=== PATIENT | female | born 2000 | race Caucasian/White ===

== ENCOUNTER 2020-05-29 07:20 | Outpatient (REF) | payer OTHER, MEDICAID, SELFPAY ==
[2020-05-29 09:24] LABS: MANUAL DIFF FLAG NO
[2020-05-29 09:47] LABS: Basophils Percent Auto 0.3 % (0-2); Eosinophils Absolute Auto 0.1 X10*3/uL (0.0-0.4); Eosinophils Percent Auto 1.6 % (0-4); Hematocrit 40.6 % (37-47); Hemoglobin 12.5 g/dl (12.0-16.0); Imm Gran Abs Auto 0.02 X10*3/uL (0.00-0.03); Imm Gran Pct Auto 0.2 % (0.0-0.4); Lymphocytes Absolute Auto 3.3 X10*3/uL (1.2-4.9); Lymphocytes Percent Auto 37.8 % (20-40); Mean Corpuscular HGB Conc 30.8 g/dl (31.0-35.0); Mean Corpuscular Hemoglobin 25.9 pg (27.0-33.0); Mean Corpuscular Volume 84.2 fL (80-98); Mean Platelet Volume 10.5 fL (9.4-12.3); Monocytes Absolute Auto 0.6 X10*3/uL (0.1-1.2); Monocytes Percent Auto 7.1 % (2-11); Neutrophils Absolute Auto 4.6 X10*3/uL (2.0-8.3); Platelet Count 333 X10*3/uL (160-400); Red Blood Count 4.82 X10*6/uL (4.20-5.50); Red Cell Distribution Width 13.7 % (11.0-16.0); White Blood Count 8.6 X10*3/uL (4.8-10.8)
[2020-05-29 10:15] LABS: Anion Gap 11 (12-20); Blood Urea Nitrogen 15 mg/dL (9-16); Calcium 8.7 mg/dL (8.4-10.2); Carbon Dioxide 28 mmol/L (22-29); Chloride 105 mmol/L (96-108); Cholesterol 104 mg/dL; Estimated Glomerular Filt Rate > 60; Glucose Fasting 85 mg/dL (60-99); HDL Cholesterol 31 mg/dL; LDL Cholesterol Calculated 63 mg/dl; Potassium 4.4 mmol/l (3.3-5.1); Sodium 140 mmol/L (135-145); Triglycerides 52 mg/dL
[2020-05-29 10:37] LABS: TSH reflex Free T4 8.52 mIU/mL (0.32-4.0)
[2020-05-29 13:18] LABS: Free T4 (Free Thyroxine) 0.93 ng/dL (0.71-1.85)
== END 2020-05-29 07:21 | disposition home or self-care (01) ==
LOC: HO.LAB 07:20
PROVIDERS: PCP Internal Medicine; Visit Provider Nurse Practitioner Family
DX: E66.01 Morbid (severe) obesity due to excess calories (principal)
CPT/HCPCS: 36415; 80048; 80061; 84439; 84443; 85025

== ENCOUNTER 2021-04-12 10:48 | Outpatient (REF) | payer OTHER, MEDICAID, SELFPAY | END 2021-04-12 10:49 | disposition home or self-care (01) | LOC: HO.LAB 10:48 | PROVIDERS: PCP Internal Medicine; Visit Provider Internal Medicine | DX: Z20.822 Contact with and (suspected) exposure to COVID-19 (principal) | CPT/HCPCS: C9803; U0003; U0005 ==

== ENCOUNTER 2021-07-13 13:09 | Outpatient (REF) | payer OTHER, MEDICAID, SELFPAY ==
[2021-07-13 15:29] LABS: COVID-19 Test Negative (Negative)
== END 2021-07-13 13:10 | disposition home or self-care (01) ==
LOC: HO.LAB 13:09
PROVIDERS: Visit Provider Internal Medicine
DX: Z20.822 Contact with and (suspected) exposure to COVID-19 (principal)
CPT/HCPCS: 36415; 87635; C9803

== ENCOUNTER 2021-07-16 07:23 | Outpatient (REF) | payer OTHER, MEDICAID, SELFPAY ==
[2021-07-16 08:06] LABS: Hematocrit 39.8 % (37.0-47.0); Mean Corpuscular HGB Conc 30.2 g/dl (31.0-35.0); Mean Corpuscular Hemoglobin 25.1 pg (27.0-33.0); Mean Corpuscular Volume 83.3 fL (80.0-98.0); Mean Platelet Volume 10.4 fL (9.4-12.3); Platelet Count 321 X10*3/uL (160-400); Red Blood Count 4.78 X10*6/uL (4.20-5.50); Red Cell Distribution Width 13.7 % (11.0-16.0); White Blood Count 7.3 X10*3/uL (4.8-10.8)
[2021-07-16 08:15] LABS: Estimated Average Glucose 148 mg/dL; Hemoglobin A1c % 6.8 %
[2021-07-16 08:28] LABS: Alanine Aminotransferase 26 U/L (0-31); Albumin Level 3.7 g/dL (3.5-5.0); Alkaline Phosphatase 79 U/L (39-117); Anion Gap 11 (12-20); Aspartate Amino Transferase 18 U/L (5-31); Bilirubin Total 0.3 mg/dL (0.0-1.0); Blood Urea Nitrogen 14 mg/dL (9-16); Calcium 9.1 mg/dL (8.4-10.2); Carbon Dioxide 27 mmol/L (22-29); Chloride 105 mmol/L (96-108); Estimated Glomerular Filt Rate > 60; Glucose Fasting 122 mg/dL (60-99); Potassium 4.4 mmol/L (3.3-5.1); Sodium 139 mmol/L (135-145); Total Protein 7.2 g/dL (6.5-8.0)
[2021-07-16 09:17] LABS: Free T4 (Free Thyroxine) 0.86 ng/dL (0.71-1.85)
== END 2021-07-16 07:24 | disposition home or self-care (01) ==
LOC: HO.LAB 07:23
PROVIDERS: PCP Internal Medicine; Visit Provider Physician Assistant
DX: Z13.1 Encounter for screening for diabetes mellitus (principal); E66.01 Morbid (severe) obesity due to excess calories
CPT/HCPCS: 36415; 80053; 83036; 84439; 84443; 85027

== ENCOUNTER 2021-08-23 10:11 | Outpatient (REF) | payer OTHER, MEDICAID, SELFPAY ==
[2021-08-23 11:07] LABS: COVID-19 Test Negative (Negative)
== END 2021-08-23 10:12 | disposition home or self-care (01) ==
LOC: HO.LAB 10:11
PROVIDERS: Visit Provider Internal Medicine
DX: Z20.822 Contact with and (suspected) exposure to COVID-19 (principal)
CPT/HCPCS: 87635; C9803

== ENCOUNTER 2021-10-20 11:44 | Outpatient (REF) | payer OTHER, MEDICAID, SELFPAY ==
--- NOTE | ~2021-10-20 | XR_ITS ---
EXAMINATION: XR KNEE, RIGHT CLINICAL INFORMATION: Pain COMPARISON: None TECHNIQUE: Four views of the right knee. FINDINGS: Bones and soft tissues are normal. No fracture or joint effusion. Alignment is anatomic. Joint spaces are well maintained. No abnormal soft tissue calcification. XR/XR knee RT 4V IMPRESSION: Normal right knee.
[2021-10-20 12:33] LABS: Hematocrit 42.8 % (37.0-47.0); Hemoglobin 12.8 g/dl (12.0-16.0); Mean Corpuscular HGB Conc 29.9 g/dl (31.0-35.0); Mean Corpuscular Hemoglobin 24.8 pg (27.0-33.0); Mean Corpuscular Volume 82.8 fL (80.0-98.0); Mean Platelet Volume 10.1 fL (9.4-12.3); Platelet Count 361 X10*3/uL (160-400); Red Blood Count 5.17 X10*6/uL (4.20-5.50); Red Cell Distribution Width 13.9 % (11.0-16.0); White Blood Count 7.9 X10*3/uL (4.8-10.8)
[2021-10-20 13:06] LABS: Alanine Aminotransferase 28 U/L (0-31); Alkaline Phosphatase 84 U/L (39-117); Anion Gap 13 (12-20); Aspartate Amino Transferase 21 U/L (5-31); Bilirubin Total 0.3 mg/dL (0.0-1.0); Blood Urea Nitrogen 11 mg/dL (9-16); Calcium 9.5 mg/dL (8.4-10.2); Carbon Dioxide 23 mmol/L (22-29); Chloride 104 mmol/L (96-108); Cholesterol 136 mg/dL; Estimated Glomerular Filt Rate > 60; Glucose Fasting 100 mg/dL (60-99); HDL Cholesterol 27 mg/dL; LDL Cholesterol Calculated 83 mg/dl; Potassium 5.3 mmol/L (3.3-5.1); Sodium 135 mmol/L (135-145); Total Protein 7.8 g/dL (6.5-8.0); Triglycerides 133 mg/dL
[2021-10-20 13:25] LABS: TSH reflex Free T4 5.65 uIU/mL (0.32-4.0)
[2021-10-20 14:01] LABS: Free T4 (Free Thyroxine) 0.84 ng/dL (0.71-1.85)
[2021-10-20 14:35] LABS: Creatinine Urine 100.71 mg/dL; Microalbum/Creatinine Ratio Ur 66.5 ug/mg cr
== END 2021-10-20 11:45 | disposition home or self-care (01) ==
LOC: HO.LAB 11:44
PROVIDERS: PCP Physician Assistant; Visit Provider Physician Assistant
DX: E11.9 Type 2 diabetes mellitus without complications (principal); R79.89 Other specified abnormal findings of blood chemistry
CPT/HCPCS: 36415; 73564; 80053; 80061; 82043; 84439; 84443; 85027

== ENCOUNTER 2021-10-31 12:54 | Emergency (ER) | payer OTHER, MEDICAID, SELFPAY ==
--- NOTE | 2021-10-31 13:30 | ED_ITS ---
HPI - General Adult General Chief complaint: Extremity Injury, Lower Stated complaint: l ankle pain no inj Time Seen by Provider: 10/31/21 13:30 Source: patient Mode of arrival: ambulatory Limitations: no limitations History of Present Illness HPI narrative: Patient is a 21 year old female presenting to the emergency department today with left ankle pain. Patient states that she has a history of arthritis and is concerned this is an arthritic flare. Patient states that she has not had any injury to the left ankle. Patient denies any dizziness, lightheadedness, abdominal pain, nausea, vomiting, fever, chills, blurry vision, double vision, loss of vision, chest pain, difficulty breathing, shortness of breath, back pain, night sweats, pain with urination, increased urinary frequency, increased urinary urgency, blood in [his/her] urine or stool, syncope or a near syncopal episode, bowel incontinence, bladder incontinence, bowel retention, bladder retention, or any other complaints at this time. Onset (ago): day(s) Location: left and lower extremity Radiation: non-radiation Severity: mild Severity scale (1-10): 3 Quality: dull Pain Consistency: constant Relieving factors: none Exacerbating factors: none Associated symptoms: denies other symptoms Treatments prior to arrival: none Related Data Previous Rx's Medication Instructions Recorded sertraline 50 mg tablet 50 mg PO DAILY 30 Days #30 tab 06/23/21 metformin 500 mg tablet 500 mg PO BID 90 Days #180 tab 07/18/21 acetaminophen 650 mg 650 mg PO Q12H 15 Days #30 tab 10/20/21 tablet,extended release diclofenac sodium 1 % topical gel 4 g TOPICAL QID PRN 15 Days #100 g 10/20/21 (Arthritis Pain (diclofenac)) levothyroxine 75 mcg tablet 75 mcg PO DAILY #30 tab 10/20/21 Allergies Allergy/AdvReac Type Severity Reaction Status Date / Time No Known Allergies Allergy Verified 10/20/21 11:12 [No Known Allergies*] Review of Systems Constitutional: Constitutional: Reports no additional constitutional complaints, Denies chills, Denies fever(s) and Denies night sweats Eyes: Eyes: Reports no additional eye complaints, Denies blurry vision, Denies change in vision, Denies diplopia, Denies eye discharge, Denies loss of vision and Denies eye pain ENT: Denies dizziness Cardiovascular: Cardiovascular: Reports no additional cardiovascular complaints, Denies chest pain, Denies lightheadedness, Denies Loss of Conscio usness and Denies dyspnea Respiratory: Respiratory: Reports no additional respiratory complaints and Denies dyspnea Gastrointestinal: Gastrointestinal: Reports no additional gastrointestinal complaints, Denies abdominal pain, Denies melena, Denies hematochezia, Denies change in bowel habits and Denies change in stool character Genitourinary: Genitourinary: Denies hematuria, Denies urinary frequency, Denies dysuria, Denies urinary incontinence, Denies urinary hesitancy and Denies urinary urgency Musculoskeletal: Musculoskeletal: Reports no additional musculoskeletal complaints, Denies numbness and Denies tingling Comments: left ankle pain Neurologic: Denies dizziness, Denies loss of vision, Denies numbness and Denies tingling Psychiatric: Psychiatric: Reports no additional psychiatric complaints Endocrine: Endocrine: Reports no additional endocrine complaints Hematologic/Lymphatic: Hematologic/Lymphatic: Reports no additional hem atologic/lymphatic complaints Allergic/Immunologic: Allergic/Immunologic: Reports no additional allergic/immunologic complaints [facility] Past Medical History Attestation statement: The following information was validated with the patient. Source: old records reviewed Medical History Morbidly obese Surgical History No pertinent past surgical history Family History Family History Father Hypertension Mother Hypertension Breast cancer, Onset Age: 35 Paternal Aunt Diabetes Mental health disorder Paternal Uncle Diabetes Mental health disorder Social History Social History Housing: House Alcohol intake: current Alcohol intake frequency: holidays/special occasions only Patient Tobacco Use Status: Never used Tobacco Tobacco use type: Cigarette e-Cigarette/Vaping Use: Never Used Second Hand Smoke Exposure: No Advance Directives: No Advance Directives Information Provided: Yes Patient : No service: No Current occupational status: employed Physical Exam ED Vital Signs: Vital Signs - 24 hr 10/31/21 13:34 Temperature 98.0 F Pulse Rate 70 Respiratory Rate 17 Blood Pressure 145/78 H Pulse Oximetry 100 BMI result Body Mass Index 49.1 Const General: cooperative, no acute distress, alert and awake Nutritional Appearance: well nourished Orientation/consciousness: patient oriented x3 Limitations: no limitations HENMT Head: Yes normal to inspection and Yes atraumatic Ears: hearing grossly normal bilaterally and external ears normal General nose exam: Normal external nose present, no nasal discharge noted and no epistaxis Face and sinus: Yes normal facial exam, No abrasion and No laceration Mouth: Normal oral and palatal mucosa present, no drooling and no muffled voice Eyes General: appearance normal, both eyes and all related structures Periorbital: periorbital findings normal Eyelids: Yes eyelids normal Conjunctivae: conjunctivae normal Pupils: Equal, round and reactive pupils present EOM: EOMs intact bilaterally Neck Neck: Yes normal visual inspection, Yes full ROM and Yes no lymphadenopathy Chest Chest palpation & inspection: normal inspection of the chest Resp Effort & Inspection: normal respiratory effort and able to speak in complete sentences Auscultation: clear to auscultation bilaterally Cardio Rate: regular rate Rhythm: regular rhythm GI Inspection: Yes normal to inspection Neuro General: patient oriented x3 and moves all extremities Cranial nerves: Yes Equal, round and reactive pupils present Cognition (Neuro): normal cognition Motor exam (neuro): 5/5 motor strength present throughout Sensory Exam: Normal double simultaneous stimulation for sensation Coordination: [id number] test normal Extrem General: Yes normal to inspection, Yes full ROM and Yes capillary refill normal Psych Appearance: grossly normal Mental Status: mental status grossly normal Affect: normal affect Attitude: cooperative Thought process: Normal thought process present Thought content: Normal thought content present Insight: Good insight present (Psych) Medical Decision Making MDM Narrative Medical decision making narrative: Patient is a 21 year old female presenting to the emergency department today with left ankle pain. Patient's physical exam was unremarkable. Patient's ROM, circulation, strength, and sensation were intact to the left lower extremity. I explained my physical exam findings to the patient. I answered all questions asked by the patient. I explained to the patient that in the absence of trauma, her description of the pain, and her physical examination, I believe she is experiencing her typical arthritis. I stressed the importance of the patient taking her medication as prescribed. I stressed the importance of the patient following up with her primary care provider. I stressed the importance of the patient returning to the emergency department immediately if her symptoms were to worsen or if she were to develop any dizziness, shortness of breath, difficulty breathing, chest pain, blurry vision, loss of vision, nausea, vomiting, abdominal pain, fever, chills, back pain, or any other complaints. Patient verbalized agreement and understanding with this treatment plan and discharge. Differential Diagnosis Differential Diagnosis: arthritis, gout Medical Records Medical records reviewed: Yes I reviewed the patient's medical records. Discharge Plan Discharge Clinical Impression: Ankle pain Patient Disposition: Home, Self-Care Instructions: Arthralgia (ED) Additional Instructions: Follow up with your primary care provider. Return to the emergency department immediately if your symptoms worsen or if you develop any dizziness, shortness of breath, difficulty breathing, chest pain, blurry vision, loss of vision, nausea, vomiting, abdominal pain, fever, chills, back pain, or any other complaints. Prescriptions: No Action metformin 500 mg tablet 500 mg PO BID 90 Days Qty: 180 0RF sertraline 50 mg tablet 50 mg PO DAILY 30 Days Qty: 30 3RF diclofenac sodium [Arthritis Pain (diclofenac)] 1 % gel 4 g topical QID PRN (Reason: knee pain) 15 Days Qty: 100 0RF Rx Instructions: apply to single knee, ankle, foot; for foot includes sole/toes/top of foot acetaminophen 650 mg tablet extended release 650 mg PO Q12H 15 Days Qty: 30 0RF levothyroxine 75 mcg tablet 75 mcg PO DAILY Qty: 30 2RF Referrals: Jaylan Mackey PA-C [Primary Care Provider] - 2 days Print Language: Czech
[2021-10-31 13:34] VITALS: BP 145/78; PULSE 70; RESP 17; TEMP 36.7; O2SAT 100; BMI 49.1
[2021-10-31] MEDS: methylPREDNISolone Sod Succ 125 MG/2 ML VIAL 120 MG IM (13:59)
== END 2021-10-31 14:08 | disposition home or self-care (01) ==
LOC: HO.ED 13:45
PROVIDERS: Emergency Provider Emergency Medicine; PCP Physician Assistant
DX: M25.572 Pain in left ankle and joints of left foot (principal); E11.9 Type 2 diabetes mellitus without complications
CPT/HCPCS: 96372; 99283; 99284; J2930

== ENCOUNTER 2021-11-29 11:30 | Outpatient (REF) | payer OTHER, MEDICAID, SELFPAY ==
--- NOTE | ~2021-11-29 | XR_ITS ---
EXAMINATION: XR ANKLE, LEFT CLINICAL INFORMATION: Pain COMPARISON: None TECHNIQUE: AP, lateral, and mortise views of the left ankle. FINDINGS: The bones and soft tissues are normal. No fracture. Alignment is anatomic. Joint spaces are maintained. No joint effusion. There is a tiny calcaneal osteophyte at the Achilles tendon insertion. XR/XR ankle LT 2V IMPRESSION: Tiny calcaneal osteophyte otherwise normal left ankle.
--- NOTE | ~2021-11-29 | XR_ITS ---
EXAMINATION: BILATERAL HAND X-RAY CLINICAL INFORMATION: Pain COMPARISON: None TECHNIQUE: 3 views of each hand FINDINGS: Bone alignment is normal. No fracture or dislocation is seen. Joint spaces and soft tissues are normal. XR/XR hand RT 2V IMPRESSION: Unremarkable exam.
--- NOTE | ~2021-11-29 | XR_ITS ---
EXAMINATION: BILATERAL HAND X-RAY CLINICAL INFORMATION: Pain COMPARISON: None TECHNIQUE: 3 views of each hand FINDINGS: Bone alignment is normal. No fracture or dislocation is seen. Joint spaces and soft tissues are normal. XR/XR hand LT 2V IMPRESSION: Unremarkable exam.
[2021-11-29 13:09] LABS: Hematocrit 41.3 % (37.0-47.0); Hemoglobin 12.7 g/dl (12.0-16.0); Mean Corpuscular HGB Conc 30.8 g/dl (31.0-35.0); Mean Corpuscular Hemoglobin 24.8 pg (27.0-33.0); Mean Corpuscular Volume 80.5 fL (80.0-98.0); Mean Platelet Volume 10.2 fL (9.4-12.3); Platelet Count 338 X10*3/uL (160-400); Red Blood Count 5.13 X10*6/uL (4.20-5.50); White Blood Count 7.3 X10*3/uL (4.8-10.8)
[2021-11-29 13:18] LABS: Estimated Average Glucose 154 mg/dL
[2021-11-29 13:42] LABS: Alanine Aminotransferase 27 U/L (0-31); Albumin Level 4.1 g/dL (3.5-5.0); Alkaline Phosphatase 85 U/L (39-117); Anion Gap 12 (12-20); Aspartate Amino Transferase 20 U/L (5-31); Bilirubin Total 0.3 mg/dL (0.0-1.0); Blood Urea Nitrogen 11 mg/dL (9-16); C Reactive Protein 6.09 mg/dL (< or = 0.50); Calcium 9.7 mg/dL (8.4-10.2); Carbon Dioxide 28 mmol/L (22-29); Chloride 101 mmol/L (96-108); Estimated Glomerular Filt Rate > 60; Glucose Fasting 100 mg/dL (60-99); Potassium 4.5 mmol/L (3.3-5.1); Sodium 136 mmol/L (135-145); Total Protein 7.7 g/dL (6.5-8.0)
[2021-11-29 13:49] LABS: TSH reflex Free T4 7.73 uIU/mL (0.32-4.0)
[2021-11-29 13:52] LABS: Rheumatoid Factor < 15.0 IU/mL (<15.0)
[2021-11-29 14:09] LABS: Erythrocyte Sedimentation Rate 38 MM/HR (0-20)
[2021-11-29 14:25] LABS: Free T4 (Free Thyroxine) 0.89 ng/dL (0.71-1.85)
[2021-12-01 14:11] LABS: Anti Nuclear Antibody Screen NEGATIVE (NEGATIVE)
[2021-12-02 15:26] LABS: Cyclic Citrullinated Peptide <16 UNITS
== END 2021-11-29 11:31 | disposition home or self-care (01) ==
LOC: HO.LAB 11:30
PROVIDERS: PCP Physician Assistant; Visit Provider Physician Assistant
DX: M25.572 Pain in left ankle and joints of left foot (principal); M79.641 Pain in right hand; M79.642 Pain in left hand; E11.9 Type 2 diabetes mellitus without complications; R79.89 Other specified abnormal findings of blood chemistry
CPT/HCPCS: 36415; 73120; 73600; 80053; 83036; 84439; 84443; 85027; 85652; 86038; 86039; 86140; 86200; 86431

== ENCOUNTER 2021-12-12 13:47 | Outpatient (REF) | payer OTHER, MEDICAID, SELFPAY ==
--- NOTE | ~2021-12-12 | US_ITS ---
EXAMINATION: US PELVIS CLINICAL INFORMATION: Type 2 diabetes, obesity and family history of PCOS. COMPARISON: None TECHNIQUE: Ultrasound of the pelvis is performed using both transabdominal and transvaginal transducers along with Doppler. Transvaginal imaging is performed due to inadequate visualization transabdominally. FINDINGS: Uterus: The uterus is anteverted and measures 7.6 x 3.6 x 4.8 cm. The double wall endometrial thickness is 0.74 cm. The uterus is smooth in contour and has normal myometrial echogenicity. No visible fibroid. There are small nabothian cysts in cervix. Adnexa: Both ovaries are visualized. There is normal color flow to the adnexa. There is no ovarian torsion. There is no pelvic ascites or fluid collection. Right ovary measures 3.5 x 1.9 x 2.0 cm and volume 7.0 mL. It appears unremarkable. Left ovary measures 3.5 x 2.0 x 1.9 cm and volume 7.0 mL. It appears unremarkable. US/US pelvic and transvaginal IMPRESSION: Unremarkable uterus and ovaries. Small nabothian cysts in the cervix.
== END 2021-12-12 13:48 | disposition home or self-care (01) ==
LOC: HO.US 13:47
PROVIDERS: Visit Provider Physician Assistant
DX: E11.9 Type 2 diabetes mellitus without complications (principal); E66.01 Morbid (severe) obesity due to excess calories; Z83.49 Family history of other endocrine, nutritional and metabolic diseases
CPT/HCPCS: 76830; 76856

== ENCOUNTER 2021-12-30 11:00 | Outpatient (RCR) | payer OTHER, MEDICAID, SELFPAY ==
--- NOTE | 2021-11-28 16:20 | MHC.PT.EP ---
[facility] [place] Office [place] Office [place] Office [address] [phone] F: [phone] F: [phone] F: [phone] F: [phone] Physical Therapy Plan of Care Date of Evaluation: Date of Surgery: NA Diagnosis: Pt IS 21 YO F REFERRED TO PT FROM [facility] PA-C WITH PAIN IN R KNEE. Pt REPORTS R KNEE HAS BOTHERED HER FOR 2 YEARS. REPORTS SHE HAS FLUID ON R SIDE OF THE LIGAMENT . REPORTS HAD XRAY AND THE FLUID WENT AWAY, BUT THE PAIN DIDNT . REPORTS SOMEONE SAID SHE MAY HAVE GOUT IN HER L ANKLE. HAS FU WITH [facility] MIN IN JANUARY (REPORTS MAY SEE HIM EARLIER BECAUSE L ANKLE IS HURTING) Assessment: Pt IS 21 YO F REFERRED TO PT FROM [facility] PA-C WITH R KNEE PAIN. Pt REPORTS SHE ALSO HAS L ANKLE PAIN. REPORTS CHRONIC R KNEE PAIN OF INSIDIOUS ONSET AGGRAVATED BY PROLONGED SIT/STAND. REPORTS HAS STOPPED WORKING BECAUSE OF THE PAIN. PRESENTS WITH DECREASED LE STRENGTH AND FLEXIBILITY. SHOULD BENEFIT FROM PT TO ADDRESS THESE ISSUES Frequency and Duration: The patient will be seen 2X/WK X 6 WKS Short Term Goals: 1. INCREASED AWARENESS KNEE CARE 2. I HEP WITH DC EX PLAN 3. IMPROVED GT (LESS LIMP) 4. I KT IF INDICATED [employer] Goals: 1. DECREASED R KNEE PAIN AT LEAST 50% WITH ADLS 2. IMPROVED LEFI 3. RTW 4. RETURN TO GYM WORKOUTS Treatment Plan: Modalities to reduce pain, spasms and effusion. Manual therapy to restore motion and function. Therapeutic exercise to improve strength and flexibility. Neuromuscular re-education for posture and balance. Therapeutic activities to return to functional activities of daily living. Electronically signed by: CHAPIS LEON PT Please sign and return to therapist. Thank you for your referral.
--- NOTE | 2022-01-27 15:24 | MHC.PT.DC ---
[facility] [place] Office [place] Office [place] Office [address] Sergio Rousseau [address] [phone] F: [phone] F: [phone] F: [phone] F: [phone] Physical Therapy Discharge Report Diagnosis: Pt IS 21 YO F REFERRED TO PT FROM [facility] PA-C WITH PAIN IN R KNEE. Pt REPORTS R KNEE HAS BOTHERED HER FOR 2 YEARS. REPORTS SHE HAS FLUID ON R SIDE OF THE LIGAMENT . REPORTS HAD XRAY AND THE FLUID WENT AWAY, BUT THE PAIN DIDNT . REPORTS SOMEONE SAID SHE MAY HAVE GOUT IN HER L ANKLE. HAS FU WITH ADOLPH MIN IN JANUARY (REPORTS MAY SEE HIM EARLIER BECAUSE L ANKLE IS HURTING) Date of Surgery: NA Date of Evaluation: 11/28/21 Date of Discharge: 01/27/22 Treatments to Date: 6 Cancellations to Date: No Shows to Date: Discharge Status: Patient Elected to Stop Recommend MD Follow-up Discharge Summary: Pt SEEN FOR INIT EVAL AND 5 VISITS. PER ASSESSMENT FROM LAST VISIT (12/30/21) 'CHALLENGED WITH SLS WORK. Pt GOING TO [facility] FOR 1 WK. TO SCHEDULE A FU FOR WHEN RETURNS' Pt THEN CANCELLED VISIT ON 01/09/22 (PER TRAUMA DOCTOR NOTE NO REASON GIVEN). WILL DC AT THIS TIME WITH HOME EX PROGRAM Electronically signed by: CHAPIS LEON PT Please sign and return to therapist. Thank you for your referral.
== END 2022-01-27 15:24 | disposition home or self-care (01) ==
LOC: HO.PT 11:00
PROVIDERS: PCP Internal Medicine; Visit Provider Physician Assistant
DX: M25.561 Pain in right knee (principal)
CPT/HCPCS: 97110; 97161; 97530; 97535

== ENCOUNTER 2022-05-22 14:37 | Outpatient (REF) | payer OTHER, MEDICAID, SELFPAY ==
[2022-05-22 15:05] LABS: Hematocrit 39.2 % (37.0-47.0); Hemoglobin 12.5 g/dl (12.0-16.0); Mean Corpuscular HGB Conc 31.9 g/dl (31.0-35.0); Mean Corpuscular Hemoglobin 25.9 pg (27.0-33.0); Mean Corpuscular Volume 81.3 fL (80.0-98.0); Mean Platelet Volume 10.2 fL (9.4-12.3); Platelet Count 324 X10*3/uL (160-400); Red Blood Count 4.82 X10*6/uL (4.20-5.50); Red Cell Distribution Width 14.3 % (11.0-16.0); White Blood Count 5.6 X10*3/uL (4.8-10.8)
[2022-05-22 15:35] LABS: Alanine Aminotransferase 27 U/L (0-31); Albumin Level 4.4 g/dL (3.5-5.0); Alkaline Phosphatase 81 U/L (39-117); Anion Gap 15 (12-20); Aspartate Amino Transferase 23 U/L (5-31); Bilirubin Total 0.3 mg/dL (0.0-1.0); Blood Urea Nitrogen 11 mg/dL (9-16); Calcium 9.4 mg/dL (8.4-10.2); Carbon Dioxide 26 mmol/L (22-29); Chloride 102 mmol/L (96-108); Cholesterol 134 mg/dL; Estimated Glomerular Filt Rate > 60; Glucose Fasting 94 mg/dL (60-99); HDL Cholesterol 27 mg/dL; LDL Cholesterol Calculated 82 mg/dl; Potassium 4.5 mmol/L (3.3-5.1); Sodium 138 mmol/L (135-145); Total Protein 8.1 g/dL (6.5-8.0); Triglycerides 125 mg/dL
[2022-05-22 15:59] LABS: TSH reflex Free T4 3.66 uIU/mL (0.32-4.0)
== END 2022-05-22 14:38 | disposition home or self-care (01) ==
LOC: HO.LAB 14:37
PROVIDERS: PCP Physician Assistant; Visit Provider Physician Assistant
DX: E03.9 Hypothyroidism, unspecified (principal); E11.9 Type 2 diabetes mellitus without complications
CPT/HCPCS: 36415; 80053; 80061; 84443; 85027

== ENCOUNTER 2022-06-15 12:14 | Emergency (ER) | payer OTHER, MEDICAID, SELFPAY ==
[2022-06-15 12:31] VITALS: BP 134/92; PULSE 71; RESP 18; TEMP 36.5; O2SAT 98; BMI 47.2
--- NOTE | 2022-06-15 12:32 | ED_ITS ---
HPI - Back Pain/Injury General Chief Complaint: Back Pain/Injury Stated Complaint: Back Pain Work Injury 06/14/22 Source: patient Mode of arrival: ambulatory History of Present Illness HPI Narrative: 22yo F with PMHx obesity c/o low back pain after cleaning the floor at work yesterday. Taking motrin w/o relief. Denies direct trauma, fall, numbness, tingling, weakness, incontinence or retention, hematuria, dysuria MD elicited complaint: back pain Related Data Previous Rx's Medication Instructions Recorded sertraline 50 mg tablet 50 mg PO DAILY 30 days #30 tabs 06/23/21 acetaminophen 650 mg 650 mg PO Q12H 15 days #30 tabs 10/20/21 tablet,extended release diclofenac sodium 1 % topical gel 4 g topical QID PRN knee pain 15 10/20/21 (Arthritis Pain (diclofenac)) days #100 grams diclofenac sodium 75 mg 75 mg PO BID PRN pain 15 days #30 11/29/21 tablet,delayed release tabs levothyroxine 112 mcg tablet 112 mcg PO DAILY 30 days #30 tabs 12/22/21 metformin 500 mg tablet 500 mg PO ONCE 90 days #90 tabs 05/22/22 acetaminophen 500 mg tablet 500 mg PO Q6H PRN fever or pain 06/15/22 (Tylenol Extra Strength) #14 tabs cyclobenzaprine 5 mg tablet 5 mg PO Q8H PRN pain (scale score 06/15/22 7-10) 5 days #14 tabs lidocaine 5 % topical patch 1 patch topical DAILY PRN pain #30 06/15/22 (Lidoderm) ea naproxen 500 mg tablet 500 mg PO BID PRN pain 10 days #20 06/15/22 tabs Allergies Allergy/AdvReac Type Severity Reaction Status Date / Time No Known Allergies Allergy Verified 06/15/22 12:31 [No Known Allergies*] Review of Systems Review of Systems: Constitutional: No Fever, No Chills ENT/Mouth: No Ear Pain, No Nasal Congestion, No sore throat, No Rhinorrhea, No Swallowing Difficulty Cardiovascular: No Chest Pain, No SOB Respiratory: No Cough, No Sputum, No Wheezing Gastrointestinal: No Nausea, No Vomiting, No Diarrhea, No Constipation, No Abdominal pain Genitourinary: No Dysuria, No Urinary Frequency, No Hematuria, No Urinary Incontinence/retention, No Flank Pain Musculoskeletal: + joint pain, No Myalgias, No Joint Swelling Skin: No Skin Lesions, No rash Neuro: No Weakness, No Numbness, No Paresthesias Yes all other systems are reviewed and are negative Constitutional: Constitutional: Reports as per [facility] Past Medical History Attestation statement: The following information was validated with the patient. Medical History Morbidly obese Surgical History No pertinent past surgical history Family History Family History Father Hypertension Mother Hypertension Breast cancer, Onset Age: 35 Paternal Aunt Diabetes Mental health disorder Paternal Uncle Diabetes Mental health disorder Social History Social History Housing: House Alcohol intake: current Alcohol intake frequency: holidays/special occasions only Patient Tobacco Use Status: Never used Tobacco Tobacco use type: Cigarette e-Cigarette/Vaping Use: Never Used Second Hand Smoke Exposure: No Advance Directives: No Advance Directives Information Provided: No service: No Current occupational status: employed Cognitive needs: No Hearing needs: No Vision needs: No Physical Exam Vital Signs: Vital Signs: Last Vital Signs Temp 97.7 F 06/15/22 12:31 Pulse 71 06/15/22 12:31 Resp 18 06/15/22 12:31 BP 134/92 H 06/15/22 12:31 Pulse Ox 98 06/15/22 12:31 O2 Del Method 06/15/22 12:31 BMI result Body Mass Index 47.2 Const: General: cooperative, healthy appearing and no acute distress Orientation/consciousness: patient oriented x3 Limitations: no limitations HEENT: Head: Yes normal to inspection and Yes atraumatic Ears: hearing grossly normal bilaterally General nose exam: Normal external nose present Face and sinus: Yes normal facial exam Eyes: General: appearance normal, both eyes and all related structures EOM: EOMs intact bilaterally Neck: Neck: Yes normal visual inspection and Yes no meningeal signs Resp: Effort & Inspection: normal respiratory effort and no respiratory distress Cardio: Rate: regular rate Heart sounds: S1 normal heart sound present and S2 normal heart sound present GI: Inspection: Yes normal to inspection Palpation (GI): Soft to palpation, nontender, no guarding and not rigid : General: Yes no CVA tenderness Back/Spine/Pelvis: Other: No midline thoracic/lumbar spinous tenderness/step-off or deformity. +L sided paraspinal thoracicttp Back: no CVA tenderness Skin: Rashes: no rashes Wounds: no wounds Neuro: Other: Strength intact throughout. No saddle anesthesia. Sensation intact to light touch. Neurovascular intact distally General: patient oriented x3, tone normal and no meningeal signs Gait exam (Neuro): Normal gait present Extrem: General: Yes normal to inspection MDM - Back Pain/Injury MDM Narrative Medical decision making narrative: 22yo F with PMHx obesity c/o low back pain after cleaning the floor at work yesterday. Taking motrin w/o relief. On exam VSS, NAD, no midline spinoous ttp or red flag sx. Concern for MSK pain/strain and spasming. Low suspicion for cauda equina, cord compression, renal stone or pyelo Plan: pain management Differential Diagnosis Differential diagnosis: Likely thoracic back pain Medical Records Attestation: I reviewed the patient's medical records. Lab Data Attestation: I reviewed the patient's lab results. Discharge Plan Discharge Clinical Impression: Back pain Patient Disposition: Home, Self-Care Instructions: Back Pain (ED) Additional Instructions: Your pain is likely musculoskeletal Flexeril is a muscle relaxer, take at night as it makes you drowsy, do not drive, drink alcohol, or operate machinery while taking it Naproxen as an anti-inflammatory / pain medication, take with food Lidoderm patches are numbing patches, apply to painful area In addition take Tylenol at home If symptoms persist or worsen, pain becomes unbearable, you developed urinary retention or incontinence, or weakness return to the ED Prescriptions: New acetaminophen [Tylenol Extra Strength] 500 mg tablet 500 mg PO Q6H PRN (Reason: fever or pain) Qty: 14 0RF lidocaine [Lidoderm] 5 % adhesive patch,medicated 1 patch topical DAILY MDD remove after 12 hours PRN (Reason: pain) Qty: 30 0RF Rx Instructions: leave on most painful area for up to 12 hrs naproxen 500 mg tablet 500 mg PO BID PRN (Reason: pain) 10 Days Qty: 20 0RF cyclobenzaprine 5 mg tablet 5 mg PO Q8H PRN (Reason: pain (scale score 7-10)) 5 Days Qty: 14 0RF No Action levothyroxine 112 mcg tablet 112 mcg PO DAILY 30 Days Qty: 30 2RF sertraline 50 mg tablet 50 mg PO DAILY 30 Days Qty: 30 3RF diclofenac sodium 75 mg tablet,delayed release (DR/EC) 75 mg PO BID PRN (Reason: pain) 15 Days Qty: 30 0RF diclofenac sodium [Arthritis Pain (diclofenac)] 1 % gel 4 g topical QID PRN (Reason: knee pain) 15 Days Qty: 100 0RF Rx Instructions: apply to single knee, ankle, foot; for foot includes sole/toes/top of foot acetaminophen 650 mg tablet extended release 650 mg PO Q12H 15 Days Qty: 30 0RF metformin 500 mg tablet 500 mg PO ONCE 90 Days Qty: 90 0RF Referrals: Jaylan Mackey PA-C [Primary Care Provider] - 3 days Stand Alone Forms: Work/School Release
--- NOTE | 2022-06-15 12:46 | PC.NURSE ---
pt seen by provider and being discharged from triage
== END 2022-06-15 12:53 | disposition home or self-care (01) ==
PROVIDERS: Emergency Provider Emergency Medicine Emergency Medical Services; PCP Physician Assistant
DX: Z04.2 Encounter for examination and observation following work accident (principal); M54.9 Dorsalgia, unspecified; E66.01 Morbid (severe) obesity due to excess calories; Z68.42 Body mass index [BMI] 45.0-49.9, adult
CPT/HCPCS: 99282; 99283

== ENCOUNTER 2022-11-15 11:44 | Emergency (ER) | payer OTHER, MEDICAID, SELFPAY ==
--- NOTE | 2022-11-15 12:11 | ED_ITS ---
HPI - General Adult General Chief complaint: Extremity Problem Stated complaint: Pain hands/feet/knees Time Seen by Provider: 11/15/22 12:18 Source: patient Mode of arrival: ambulatory Limitations: no limitations History of Present Illness HPI narrative: 22 yo female DM, hypothyroidism here with complaints of pain in both feet, hands, knees which occurs w/ swelling x 3 weeks. Patient reports similar episodes in the past. Her last episode was in November of 2021. At that time her provider told her she may have arthritis and treated her with diclofenac for several weeks which did improve her symptoms. She does have an appointment with her primary care on Sunday to discuss this same problem. Patient reports previously her pain and swelling has been her hands but now it is also in her feet and knees. It is worsened in the morning with waking. It is associated with swelling and stiffness and improves throughout the day. There is no reports of redness, fevers or chills. No known injury or trauma. Patient denies being seen by Rheumatology or having any sort of inflammatory workup done. Related Data Previous Rx's Medication Instructions Recorded acetaminophen 650 mg 650 mg PO Q12H 15 days #30 tabs 10/20/21 tablet,extended release diclofenac sodium 1 % topical gel 4 g topical QID PRN knee pain 15 10/20/21 (Arthritis Pain (diclofenac)) days #100 grams diclofenac sodium 75 mg 75 mg PO BID PRN pain 15 days #30 11/29/21 tablet,delayed release tabs levothyroxine 112 mcg tablet 112 mcg PO DAILY 30 days #30 tabs 12/22/21 acetaminophen 500 mg tablet 500 mg PO Q6H PRN fever or pain 06/15/22 (Tylenol Extra Strength) #14 tabs cyclobenzaprine 5 mg tablet 5 mg PO Q8H PRN pain (scale score 06/15/22 7-10) 5 days #14 tabs lidocaine 5 % topical patch 1 patch topical DAILY PRN pain #30 06/15/22 (Lidoderm) ea naproxen 500 mg tablet 500 mg PO BID PRN pain 10 days #20 06/15/22 tabs metformin 500 mg tablet 500 mg PO ONCE 90 days #90 tabs 09/22/22 sertraline 50 mg tablet 50 mg PO DAILY 30 days #90 tabs 09/22/22 diclofenac sodium 75 mg 75 mg PO BID #30 tabs 11/15/22 tablet,delayed release Allergies Allergy/AdvReac Type Severity Reaction Status Date / Time No Known Allergies Allergy Verified 06/15/22 12:31 [No Known Allergies*] Review of Systems Review of Systems: Yes all other systems are reviewed and are negative Constitutional: Constitutional: Reports no additional constitutional complaints, Denies body ache(s), Denies chills, Denies fever(s), Denies headache(s) and Denies weakness Eyes: Eyes: Reports no additional eye complaints and Denies change in vision ENT: Reports system reviewed and no additional complaints, except as docum ented, Denies dizziness, Denies headache(s), Denies nasal congestion, Denies nasal discharge and Denies neck pain Cardiovascular: Cardiovascular: Reports no additional cardiovascular complaints, Denies chest pain, Denies leg edema and Denies dyspnea Respiratory: Respiratory: Reports no additional respiratory complaints, Denies cough and Denies dyspnea Gastrointestinal: Gastrointestinal: Reports no additional gastrointestinal complaints, Denies abdominal pain, Denies diarrhea, Denies nausea and Denies vomiting Genitourinary: Genitourinary: Reports no additional female genitourinary complaints and Denies urinary incontinence Musculoskeletal: Musculoskeletal: Reports no additional musculoskeletal complaints, Denies back pain, Reports arthralgias, Reports joint swelling, Denies neck pain, Denies numbness, Reports stiffness and Denies tingling Integumentary/Breasts: Skin/Breast: Reports system reviewed and no additional complaints, except as docu and Denies rash Neurologic: Reports system reviewed and no additional complaints, except as documented, Denies dizziness, Denies headache(s), Denies numbness, Denies tingling and Denies weakness [facility] Past Medical History Attestation statement: The following information was validated with the patient. Source: old records reviewed and nursing notes reviewed Medical History Morbidly obese Surgical History No pertinent past surgical history Family History Family History Father Hypertension Mother Hypertension Breast cancer, Onset Age: 35 Paternal Aunt Diabetes Mental health disorder Paternal Uncle Diabetes Mental health disorder Social History Social History Housing: House Alcohol intake: current Alcohol intake frequency: holidays/special occasions only Patient Tobacco Use Status: Never used Tobacco Tobacco use type: Cigarette e-Cigarette/Vaping Use: Never Used Second Hand Smoke Exposure: No Advance Directives: No service: No Current occupational status: employed Cognitive needs: No Hearing needs: No Vision needs: No Physical Exam ED Vital Signs: Vital Signs - 24 hr 11/15/22 12:12 Temperature 97.8 F Pulse Rate 85 Respiratory Rate 20 Blood Pressure 152/103 H Pulse Oximetry 98 Oxygen Delivery Method Room Air BMI result Body Mass Index 35.4 Const General: cooperative, healthy appearing, comfortable and no acute distress Orientation/consciousness: patient oriented x3 Limitations: no limitations HENMT Head: Yes normal to inspection Ears: hearing grossly normal bilaterally Eyes General: appearance normal, both eyes and all related structures Pupils: Equal, round and reactive pupils present Neck Neck: Yes normal visual inspection Chest Chest palpation & inspection: normal inspection of the chest Resp Effort & Inspection: normal respiratory effort Cardio Peripheral pulses: Peripheral pulses 2+ throughout GI Inspection: Yes normal to inspection Back/Spine/Pelvis Thoracic/Lumbar Spine: thoracic and lumbar spine normal to inspection Skin General skin exam: no rashes or lesions noted Neuro General: patient oriented x3 and moves all extremities Cranial nerves: Yes Equal, round and reactive pupils present Cognition (Neuro): normal cognition Extrem Other: There is pain and swelling over the PIP joints with slight swelling. There is no palpable warmth or redness seen. There is full range of motion of the hands and wrist and fingers. There is also some slight swelling noted over the feet with no warmth or redness. Full range of motion. No obvious tenderness, swelling over the knee Course Course Course Narrative: This is a rapid medical exam. Deferred additional HPI, ROS, PE to primary provider. Medical Decision Making Medical Decision Making MDM Narrative: This is a 22-year-old female with a history of pre diabetes and hypothyroidism who presents to the ER with complaints of intermittent joint pain and swelling over the last year which has been worsened over the last 3 weeks. Patient with no reports of fevers, chills, redness, warmth of the extremities. Patient has been seen by her primary care previously and had improvement with NSAIDs. She does have a follow-up appointment on Sunday to see her primary care. She is here because she has no anti-inflammatories at home and has continued pain. Her pain is associated with stiffness and is worsened in the morning. 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 On exam patient has pain and swelling on bilateral hands over the PIP joints as well as some swelling over the feet with pain. There is no associated limited range of motion or redness or warmth. Patient may need rheumatology workup. This time she is nontoxic appearing I will refill her diclofenac which has helped her before in the past. I will told any systemic corticosteroids until patient has seen her primary care on Sunday and had further workup. This was discussed with the patient and she was agreeable with this plan of care. Differential Diagnosis Differential Diagnoses: The differential diagnosis associated with the presentation includes Arthritis, rheumatoid arthritis Less likely septic joint, lying disease Discharge Plan Discharge Clinical Impression: Joint pain Patient Disposition: Home, Self-Care Instructions: Arthralgia (ED) Additional Instructions: Keep your appointment on Sunday. You should request labs to be ruled out for any rheumatology problems such as rheumatoid arthritis. Warm soaks or warm bath Take the medication as prescribed Prescriptions: New diclofenac sodium 75 mg tablet,delayed release (DR/EC) 75 mg PO BID Qty: 30 0RF No Action levothyroxine 112 mcg tablet 112 mcg PO DAILY 30 Days Qty: 30 2RF sertraline 50 mg tablet 50 mg PO DAILY 30 Days Qty: 90 1RF metformin 500 mg tablet 500 mg PO ONCE 90 Days Qty: 90 1RF acetaminophen [Tylenol Extra Strength] 500 mg tablet 500 mg PO Q6H PRN (Reason: fever or pain) Qty: 14 0RF lidocaine [Lidoderm] 5 % adhesive patch,medicated 1 patch topical DAILY MDD remove after 12 hours PRN (Reason: pain) Qty: 30 0RF Rx Instructions: leave on most painful area for up to 12 hrs naproxen 500 mg tablet 500 mg PO BID PRN (Reason: pain) 10 Days Qty: 20 0RF cyclobenzaprine 5 mg tablet 5 mg PO Q8H PRN (Reason: pain (scale score 7-10)) 5 Days Qty: 14 0RF diclofenac sodium 75 mg tablet,delayed release (DR/EC) 75 mg PO BID PRN (Reason: pain) 15 Days Qty: 30 0RF diclofenac sodium [Arthritis Pain (diclofenac)] 1 % gel 4 g topical QID PRN (Reason: knee pain) 15 Days Qty: 100 0RF Rx Instructions: apply to single knee, ankle, foot; for foot includes sole/toes/top of foot acetaminophen 650 mg tablet extended release 650 mg PO Q12H 15 Days Qty: 30 0RF Referrals: Jaylan Mackey PA-C [Primary Care Provider] - 5 days (scheduled on sunday) Stand Alone Forms: Work/School Release Interventions: ED Discharge Assessment Last Done: 11/15/22 12:28 Discharge Date/Time: 11/15/22 12:29
[2022-11-15 12:12] VITALS: BP 152/103; PULSE 85; RESP 20; TEMP 36.6; O2SAT 98; BMI 35.4
== END 2022-11-15 12:29 | disposition home or self-care (01) ==
PROVIDERS: Emergency Provider Emergency Medicine; PCP Physician Assistant
DX: M79.642 Pain in left hand (principal); M79.641 Pain in right hand; M25.562 Pain in left knee; M25.561 Pain in right knee; M79.672 Pain in left foot; M79.671 Pain in right foot; M25.50 Pain in unspecified joint; E03.9 Hypothyroidism, unspecified
CPT/HCPCS: 99282; 99283

== ENCOUNTER 2022-11-20 14:37 | Outpatient (REF) | payer OTHER, MEDICAID, SELFPAY ==
[2022-11-20 15:37] LABS: Hematocrit 40.8 % (37.0-47.0); Hemoglobin 12.6 g/dl (12.0-16.0); Mean Corpuscular HGB Conc 30.9 g/dl (31.0-35.0); Mean Corpuscular Volume 80.8 fL (80.0-98.0); Mean Platelet Volume 10.2 fL (9.4-12.3); Platelet Count 307 X10*3/uL (160-400); Red Blood Count 5.05 X10*6/uL (4.20-5.50); Red Cell Distribution Width 14.2 % (11.0-16.0); White Blood Count 6.2 X10*3/uL (4.8-10.8)
[2022-11-20 16:13] LABS: Alanine Aminotransferase 43 U/L (0-31); Albumin Level 4.2 g/dL (3.5-5.0); Alkaline Phosphatase 87 U/L (39-117); Anion Gap 12 (12-20); Aspartate Amino Transferase 33 U/L (5-31); Bilirubin Total 0.4 mg/dL (0.0-1.0); Blood Urea Nitrogen 14 mg/dL (9-16); Carbon Dioxide 27 mmol/L (22-29); Chloride 104 mmol/L (96-108); Cholesterol 139 mg/dL; Estimated Glomerular Filt Rate > 60; Glucose Fasting 87 mg/dL (60-99); HDL Cholesterol 27 mg/dL; LDL Cholesterol Calculated 89 mg/dl; Potassium 4.5 mmol/L (3.3-5.1); Sodium 138 mmol/L (135-145); Total Protein 7.8 g/dL (6.5-8.0); Triglycerides 117 mg/dL
[2022-11-20 16:28] LABS: TSH reflex Free T4 10.07 uIU/mL (0.32-4.0)
[2022-11-20 17:10] LABS: Free T4 (Free Thyroxine) 0.92 ng/dL (0.71-1.85)
[2022-11-21 17:12] LABS: Lyme Abs Screen <0.90 index
== END 2022-11-20 14:38 | disposition home or self-care (01) ==
LOC: HO.LAB 14:37
PROVIDERS: PCP Physician Assistant; Visit Provider Physician Assistant
DX: M25.50 Pain in unspecified joint (principal); E03.9 Hypothyroidism, unspecified; E11.9 Type 2 diabetes mellitus without complications
CPT/HCPCS: 36415; 80053; 80061; 84439; 84443; 85027; 86617; 86618

== ENCOUNTER 2023-01-19 22:20 | Emergency (ER) | payer OTHER, MEDICAID, SELFPAY ==
--- NOTE | ~2023-01-19 | CT_ITS ---
EXAMINATION: CT ANGIOGRAM OF THE CHEST WITH AND WITHOUT CONTRAST (CT PULMONARY ANGIOGRAM FOR PE) CLINICAL INFORMATION: Reason for Exam Right-sided pleuritic chest pain, elevated D-dimer(337) COMPARISON: None available. TECHNIQUE: Prior to contrast administration, noncontrast localization images were obtained. Subsequently, multidetector volumetric imaging was performed from the thoracic inlet to below the diaphragms following the administration of 65 mL Omnipaque 350 intravenous contrast. No contrast reaction reported Sagittal, coronal, and MIP oblique sagittal reformatted images were obtained on the CT workstation, uploaded to PACS, and reviewed. This CT examination was performed using dose optimization techniques as appropriate, variously including the following: *Automated exposure control *Adjustment of mA and/or kV according to patient size (this includes techniques or standardized protocols for targeted exams where dose is matched to indication/reason for exam; i.e. extremities or head) *Use of iterative reconstruction technique Total exam dose-length product 398 mGy-cm FINDINGS: QUALITY OF STUDY/CONTRAST BOLUS: Satisfactory. PULMONARY ARTERIES: No pulmonary emboli. THORACIC AORTA: No aneurysm. LUNG: No focal consolidation, nodules or masses. There is a 3 mm subpleural nodule in the anterior segment of the right upper lobe compatible with a lymph node. An additional 4 mm subpleural nodule is present along the lateral basal segment of the right lower lobe, also likely a lymph node. No follow-up imaging recommended. PLEURA: No pleural effusion or pneumothorax. MEDIASTINUM: Normal heart size. No pericardial effusion. No hilar or mediastinal lymphadenopathy. No evidence of septal bowing or right heart strain. CORONARY ARTERY CALCIFICATION: None visualized on this study. CHEST WALL/AXILLA: No axillary or internal mammary lymphadenopathy. OSSEOUS STRUCTURES: No acute or suspicious osseous abnormality. UPPER ABDOMEN: Unremarkable. No reflux of contrast into the hepatic veins to suggest elevated right heart pressures. CT/CT angio chest PE protocol IMPRESSION: * No pulmonary embolism. * No acute pulmonary parenchymal abnormalities. VTE: negative.
[2023-01-19 22:23] VITALS: BP 159/88; PULSE 120; RESP 22; TEMP 37.2; O2SAT 96; BMI 49.1
--- NOTE | 2023-01-19 22:27 | ECG_ITS ---
Test Reason : CHEST PAIN Blood Pressure : / mmHG Vent. Rate : 114 BPM Atrial Rate : 114 BPM P-R Int : 156 ms QRS Dur : 086 ms QT Int : 330 ms P-R-T Axes : 040 052 027 degrees QTc Int : 454 ms Sinus tachycardia Cannot rule out Anterior infarct , age undetermined Abnormal ECG No previous ECGs available Referred By: Generic ED Physician Electronically Signed By:MARKIE WHARTON MD
--- NOTE | 2023-01-19 22:36 | ED.CHESTPAIN ---
HPI - Chest Pain General Chief Complaint: Chest Pain Stated Complaint: Rib pain Time Seen by Provider: 01/19/23 22:45 Source: patient and other (Girlfriend, Ruth) Mode of arrival: ambulatory Limitations: no limitations History of Present Illness HPI narrative: 22-year-old female who presents emergency department for evaluation of right shoulder, right chest and right upper quadrant abdominal pain. The patient states that the pain started on Sunday night (4 days prior) while she was at rest. She states that initially she felt a pain in her right shoulder which felt like a muscle pull. She states the pain then travel down into her right lower ribcage area and right upper quadrant area. She strike his pain is a pinching sensation which is been constant, the pain is worse with movement and with breathing. This is a 1st episode of this type of pain. She took ibuprofen with no relief for the pain. She states the pain is got progressively worse and is now 8/10. She states that she feels short of breath and has had dyspnea on exertion. She had nausea with no vomiting. She denied frequency urgency or dysuria. She denied diarrhea, dark tarry stools or bloody stools. The patient has not noticed any significant pain in her lower extremities but she states that her lower extremities are always swollen. She has not been on any long trips and she denies being on control pills. Related Data Previous Rx's Medication Instructions Recorded acetaminophen 650 mg 650 mg PO Q12H 15 days #30 tabs 10/20/21 tablet,extended release diclofenac sodium 1 % topical gel 4 g topical QID PRN knee pain 15 10/20/21 (Arthritis Pain (diclofenac)) days #100 grams levothyroxine 112 mcg tablet 112 mcg PO DAILY 30 days #30 tabs 12/22/21 acetaminophen 500 mg tablet 500 mg PO Q6H PRN fever or pain 06/15/22 (Tylenol Extra Strength) #14 tabs cyclobenzaprine 5 mg tablet 5 mg PO Q8H PRN pain (scale score 06/15/22 7-10) 5 days #14 tabs lidocaine 5 % topical patch 1 patch topical DAILY PRN pain #30 06/15/22 (Lidoderm) ea naproxen 500 mg tablet 500 mg PO BID PRN pain 10 days #20 06/15/22 tabs metformin 500 mg tablet 500 mg PO ONCE 90 days #90 tabs 09/22/22 sertraline 50 mg tablet 50 mg PO DAILY 30 days #90 tabs 09/22/22 diclofenac sodium 75 mg 75 mg PO BID #30 tabs 11/15/22 tablet,delayed release acetaminophen 500 mg tablet 1,000 mg PO Q6H PRN fever or pain 01/20/23 (Tylenol Extra Strength) #20 tabs ibuprofen 400 mg tablet 400 mg PO TID PRN fever or pain 01/20/23 #30 tabs Allergies Allergy/AdvReac Type Severity Reaction Status Date / Time No Known Allergies Allergy Verified 11/20/22 14:06 [No Known Allergies*] Review of Systems Review of Systems: Yes all other systems are reviewed and are negative [facility] Past Medical History [facility] Narrative: Past medical history: Pre diabetes, depression, hypothyroidism. Past surgical history: None. Social history: She denies tobacco use, she states that she smoked for less than 1 year when she was 17 years old. She occasionally drinks alcohol. She denies drug use. Medical History Morbidly obese Surgical History No pertinent past surgical history Family History Family History Father Hypertension Rheumatoid arthritis Mother Hypertension Breast cancer, Onset Age: 35 Rheumatoid arthritis Paternal Aunt Diabetes Mental health disorder Paternal Uncle Diabetes Mental health disorder Social History Social History Housing: House Alcohol intake: never Patient Tobacco Use Status: Never used Tobacco Tobacco use type: Cigarette Smoked in Last 30 Days: No e-Cigarette/Vaping Use: Never Used Second Hand Smoke Exposure: No Use of substances other than those prescribed or required for medical reasons: No Advance Directives: No Advance Directives Information Provided: No Patient : No service: No Current occupational status: employed Cognitive needs: No Hearing needs: No Vision needs: No Physical Exam Vital Signs: Vital Signs: Last Vital Signs Temp 98.4 F 01/20/23 03:16 Pulse 88 01/20/23 03:16 Resp 18 01/20/23 03:16 BP 128/74 01/20/23 03:16 Pulse Ox 95 01/20/23 01:15 O2 Del Method Room Air 01/20/23 01:15 BMI result Body Mass Index 49.1 Const: Other: Awake, alert, female patient, very pleasant cooperative, answers all questions appropriately, does not appear to be in distress, elevated BMI 49.1 HEENT: Head: Yes normal to inspection, Yes normocephalic and Yes atraumatic Ears: external ears normal General nose exam: Normal external nose present Face and sinus: Yes normal facial exam Mouth: Normal oral and palatal mucosa present Throat: Yes posterior oropharynx normal Eyes: General: appearance normal, both eyes and all related structures Neck: Neck: Yes normal visual inspection, Yes no lymphadenopathy, Yes trachea midline and Yes supple Chest: Other: Patient has tenderness palpation of her right chest wall Resp: Effort & Inspection: normal respiratory effort and able to speak in complete sentences Auscultation: clear to auscultation bilaterally Cardio: Rate: tachycardic Rhythm: regular rhythm Heart sounds: S1 normal heart sound present, S2 normal heart sound present and no murmurs GI: Other: Abdomen does not appear to be distended, the patient does have moderate right upper quadrant tenderness with no rebound, no voluntary or involuntary guarding : General: Yes no CVA tenderness Back/Spine/Pelvis: Back: no CVA tenderness Skin: General skin exam: no rashes or lesions noted Neuro: Cognition (Neuro): normal cognition Extrem: General: Yes normal to inspection Psych: Appearance: grossly normal Speech and movement: Normal speech and movement present Affect: normal affect Attitude: cooperative Medications Administered Discontinued Medications Generic Name Dose Route Start Last Admin Trade Name Damianq PRN Reason Stop Dose Admin Sodium Chloride 1,000 mls @ 999 mls/hr 01/19/23 23:02 01/20/23 01:20 Ns IV 01/20/23 00:02 Infused .Q1H1M STA Infusion Iohexol 65 ml 01/20/23 03:47 01/20/23 03:48 Iohexol 350 Mg/Ml 100 Ml Infus..Btl IV 01/20/23 03:48 65 ml ONCE ONE Administration Ketorolac Tromethamine 15 mg 01/19/23 23:02 01/19/23 23:20 Ketorolac Tromethamine 15 Mg/Ml Vial IVPUSH 01/19/23 23:03 15 mg ONCE STA Administration Ketorolac Tromethamine 15 mg 01/20/23 01:35 01/20/23 02:38 Ketorolac Tromethamine 15 Mg/Ml Vial IVPUSH 01/20/23 01:36 15 mg ONCE STA Administration Ondansetron HCl 4 mg 01/19/23 23:02 01/19/23 23:20 Ondansetron Hcl 4 Mg/2 Ml Vial IVPUSH 01/19/23 23:03 4 mg ONCE ONE Administration Medical Decision Making Medical Decision Making [facility] Narrative: 22-year-old female who presents emergency department for evaluation of sudden onset of right shoulder pain, right-sided rib pain and right upper quadrant pain 4 days prior while she was at rest, symptoms got progressively worse, she also has associated shortness of breath, dyspnea on exertion and nausea. Vital signs revealed an elevated blood pressure of 159/88, elevated pulse 120 elevated respiratory rate of 22. Exam did reveal right chest wall tenderness, right upper quadrant tenderness and otherwise was unremarkable. The patient was PERC positive. Laboratory evaluation was ordered including CBC, CMP, troponin, D-dimer, PT/INR, PTT. I ordered normal saline x1 L, Toradol 15 mg IV and Zofran 4 mg IV 0441: My interpretation patient's laboratory evaluation as follows: CBC was normal. High sensitive a D-dimer was elevated 337. Glucose elevated 138. Troponin was below detectable limits. Quantitative beta-hCG was negative. CT pulmonary angiogram PE protocol was negative for pulmonary embolism. The patient required a 2nd dose of Toradol 15 mg IV and had almost complete resolution of her pain. Patient's pain is most likely caused by acute costochondritis I did discuss this with her. She was prescribed ibuprofen 40o mg q.6 hours as needed for pain and Tylenol 1000 mg q.6 hours as needed for pain She was given a work note printed instructions and discharged home. Differential Diagnosis Differential diagnosis includes but is not limited to pulmonary embolism, costochondritis, musculoskeletal pain, biliary disease, gallbladder disease, kidney stone. Admission/Observation Consideration of admission/observation: Escalation of care including admission/observation considered Lab Data [facility] Lab Attestation statement: I reviewed the patient's lab results. 01/19/23 22:40 01/19/23 22:40 Labs: Lab Results 01/19/23 01/19/23 01/19/23 Range/Units 22:40 22:40 22:40 WBC 6.7 (4.8-10.8) X10*3/uL RBC 4.74 (4.20-5.50) X10*6/uL Hgb 11.8 L (12.0-16.0) g/dl Hct 37.7 (37.0-47.0) % MCV 79.5 L (80.0-98.0) fL MCH 24.9 L (27.0-33.0) pg MCHC 31.3 (31.0-35.0) g/dl RDW 13.8 (11.0-16.0) % Plt Count 279 (160-400) X10*3/uL MPV 10.0 (9.4-12.3) fL Immature Gran % (Auto) 0.3 (0.0-0.4) % Neut % (Auto) 70.4 (45-73) % Lymph % (Auto) 22.9 (20-40) % [place] % (Auto) 5.4 (2-11) % Eos % (Auto) 0.9 (0-4) % Baso % (Auto) 0.1 (0-2) % Lymph # (Auto) 1.5 (1.2-4.9) X10*3/uL [place] # (Auto) 0.4 (0.1-1.2) X10*3/uL Eos # (Auto) 0.1 (0.0-0.4) X10*3/uL Baso # (Auto) 0.0 (0.0-0.2) X10*3/uL Abs Immat Gran (auto) 0.02 (0.00-0.03) X10*3/uL Absolute Neuts (auto) 4.7 (2.0-8.3) x10*3/uL Absolute Nucleated RBC 0.000 (0.0-0.012) X10*3/uL Nucleated RBC % (auto) 0.0 (0.0-0.2) /100WBC PT (10.0-13.1) SEC INR (0.9-1.1) APTT (26.0-36.4) SEC D-Dimer High Sensitivty NG/ML Sodium 137 (135-145) mmol/L Potassium 4.0 (3.3-5.1) mmol/L Chloride 103 (96-108) mmol/L Carbon Dioxide 25 (22-29) mmol/L Anion Gap 13 (12-20) BUN 16 (9-16) mg/dL Creatinine 0.73 (0.5-1.4) mg/dL Estim Creat Clear Calc 143.5 Estimated GFR > 60 Random Glucose 138 H (60-115) mg/dL Calcium 9.5 (8.4-10.2) mg/dL Troponin I High Sens < 2.7 (<3.5-17.0) ng/L Beta HCG, Quant mIU/mL 01/19/23 01/20/23 Range/Units 22:40 02:35 WBC (4.8-10.8) X10*3/uL RBC (4.20-5.50) X10*6/uL Hgb (12.0-16.0) g/dl Hct (37.0-47.0) % MCV (80.0-98.0) fL MCH (27.0-33.0) pg MCHC (31.0-35.0) g/dl RDW (11.0-16.0) % Plt Count (160-400) X10*3/uL MPV (9.4-12.3) fL Immature Gran % (Auto) (0.0-0.4) % Neut % (Auto) (45-73) % Lymph % (Auto) (20-40) % [place] % (Auto) (2-11) % Eos % (Auto) (0-4) % Baso % (Auto) (0-2) % Lymph # (Auto) (1.2-4.9) X10*3/uL [place] # (Auto) (0.1-1.2) X10*3/uL Eos # (Auto) (0.0-0.4) X10*3/uL Baso # (Auto) (0.0-0.2) X10*3/uL Abs Immat Gran (auto) (0.00-0.03) X10*3/uL Absolute Neuts (auto) (2.0-8.3) x10*3/uL Absolute Nucleated RBC (0.0-0.012) X10*3/uL Nucleated RBC % (auto) (0.0-0.2) /100WBC PT 11.6 (10.0-13.1) SEC INR 1.0 (0.9-1.1) APTT 29.2 (26.0-36.4) SEC D-Dimer High Sensitivty 337 NG/ML Sodium (135-145) mmol/L Potassium (3.3-5.1) mmol/L Chloride (96-108) mmol/L Carbon Dioxide (22-29) mmol/L Anion Gap (12-20) BUN (9-16) mg/dL Creatinine (0.5-1.4) mg/dL Estim Creat Clear Calc Estimated GFR Random Glucose (60-115) mg/dL Calcium (8.4-10.2) mg/dL Troponin I High Sens (<3.5-17.0) ng/L Beta HCG, Quant < 2 mIU/mL Independent Interpretation I performed an independent interpretation of an: EKG Interpretation: My independent interpretation patient's 12 EKG done at 22:28 hours is as follows: Sinus tachycardia rate of 114, normal VT interval QRS duration QTC interval, Q-wave in lead 3 with inverted T-wave in lead 3, no other significant T-wave abnormalities, poor R-wave progression V1 through V3, no ST segment elevation, no ST segment depression, no PACs, no PVCs. No old EKG for comparison. Radiology Impression Discussion of test interpretation with radiology: I have reviewed the radiologist's reading. Radiologist Impression: CT angio chest PE protocol IMPRESSION: * No pulmonary embolism. * No acute pulmonary parenchymal abnormalities. VTE: negative. Dictated By:Woody Renteria MD Discharge Plan Discharge Clinical Impression: Acute costochondritis Patient Disposition: Home, Self-Care Instructions: Costochondritis (ED) Additional Instructions: Your blood work was normal except for an elevated D-dimer Your EKG was normal. Your CT pulmonary angiogram revealed no blood clots in your lungs which is reassuring. Your pain is caused by inflammation of the joints and muscles of your chest, this is called costochondritis. Take ibuprofen 400 mg pills, 1 pills every 6 hours as needed for pain. Take Tylenol (acetaminophen) 500 mg pills, 2 pills every6 hours as needed for pain. Follow-up with your doctor in 2 days. Please return to the emergency department if your symptoms get worse or if you develop any symptoms that are concerning to you. Please see work note Prescriptions: New acetaminophen [Tylenol Extra Strength] 500 mg tablet 1,000 mg PO Q6H PRN (Reason: fever or pain) Qty: 20 0RF ibuprofen 400 mg tablet 400 mg PO TID PRN (Reason: fever or pain) Qty: 30 0RF No Action levothyroxine 112 mcg tablet 112 mcg PO DAILY 30 Days Qty: 30 2RF sertraline 50 mg tablet 50 mg PO DAILY 30 Days Qty: 90 1RF metformin 500 mg tablet 500 mg PO ONCE 90 Days Qty: 90 1RF acetaminophen [Tylenol Extra Strength] 500 mg tablet 500 mg PO Q6H PRN (Reason: fever or pain) Qty: 14 0RF lidocaine [Lidoderm] 5 % adhesive patch,medicated 1 patch topical DAILY MDD remove after 12 hours PRN (Reason: pain) Qty: 30 0RF Rx Instructions: leave on most painful area for up to 12 hrs naproxen 500 mg tablet 500 mg PO BID PRN (Reason: pain) 10 Days Qty: 20 0RF cyclobenzaprine 5 mg tablet 5 mg PO Q8H PRN (Reason: pain (scale score 7-10)) 5 Days Qty: 14 0RF diclofenac sodium 75 mg tablet,delayed release (DR/EC) 75 mg PO BID Qty: 30 0RF diclofenac sodium [Arthritis Pain (diclofenac)] 1 % gel 4 g topical QID PRN (Reason: knee pain) 15 Days Qty: 100 0RF Rx Instructions: apply to single knee, ankle, foot; for foot includes sole/toes/top of foot acetaminophen 650 mg tablet extended release 650 mg PO Q12H 15 Days Qty: 30 0RF Stand Alone Forms: Work/School Release
[2023-01-19 22:45] LABS: Basophils Percent Auto 0.1 % (0-2); Eosinophils Absolute Auto 0.1 X10*3/uL (0.0-0.4); Eosinophils Percent Auto 0.9 % (0-4); Hematocrit 37.7 % (37.0-47.0); Hemoglobin 11.8 g/dl (12.0-16.0); Imm Gran Abs Auto 0.02 X10*3/uL (0.00-0.03); Imm Gran Pct Auto 0.3 % (0.0-0.4); Lymphocytes Absolute Auto 1.5 X10*3/uL (1.2-4.9); Lymphocytes Percent Auto 22.9 % (20-40); MANUAL DIFF FLAG NO; Mean Corpuscular HGB Conc 31.3 g/dl (31.0-35.0); Mean Corpuscular Hemoglobin 24.9 pg (27.0-33.0); Mean Corpuscular Volume 79.5 fL (80.0-98.0); Monocytes Absolute Auto 0.4 X10*3/uL (0.1-1.2); Monocytes Percent Auto 5.4 % (2-11); Neutrophils Absolute Auto 4.7 x10*3/uL (2.0-8.3); Neutrophils Percent Auto 70.4 % (45-73); Platelet Count 279 X10*3/uL (160-400); Red Blood Count 4.74 X10*6/uL (4.20-5.50); Red Cell Distribution Width 13.8 % (11.0-16.0); White Blood Count 6.7 X10*3/uL (4.8-10.8)
[2023-01-19 22:51] LABS: Prothrombin Time 11.6 SEC (10.0-13.1)
[2023-01-19 22:53] VITALS: BP 135/80; PULSE 77; RESP 18; TEMP 36.9; O2SAT 99
[2023-01-19 22:53] LABS: D Dimer High Sensitivity 337 NG/ML
[2023-01-19 22:54] LABS: Partial Thromboplastin Time 29.2 SEC (26.0-36.4)
[2023-01-19 22:58] LABS: Anion Gap 13 (12-20); Blood Urea Nitrogen 16 mg/dL (9-16); Calcium 9.5 mg/dL (8.4-10.2); Carbon Dioxide 25 mmol/L (22-29); Chloride 103 mmol/L (96-108); Creatinine Clr Calc Pharmacy 143.5; Estimated Glomerular Filt Rate > 60; Glucose Random 138 mg/dL (60-115); Sodium 137 mmol/L (135-145)
--- NOTE | 2023-01-19 22:59 | PC.NURSE ---
patient received in the room in a gown patient complaint of having chest pain patient is AAOX4 patient vitals are stable patient is being seen by the doctor as of now will continue to be monitored for safety
[2023-01-19 23:05] LABS: Troponin-I High Sensitivity < 2.7 ng/L (<3.5-17.0)
[2023-01-19] MEDS: Ketorolac Tromethamine 15 MG/ML VIAL IVPUSH (23:20)
[2023-01-19] MEDS: ondansetron HCL 4 MG/2 ML VIAL IVPUSH (23:20)
[2023-01-19] MEDS: 0.9 % Sodium Chloride 1,000 ML 999 ML IV (23:21)
--- NOTE | 2023-01-19 23:37 | PC.NURSE ---
patient received a 20g in the LAC and a 18 in the RAC patient tolerated all medications with no issues patient receiving all IV fluids with no issues patient will continue to be monitored for safety
[2023-01-20 01:15] VITALS: BP 127/85; PULSE 79; RESP 17; TEMP 37.1; O2SAT 95
[2023-01-20 01:20] VITALS: BP 128/77; PULSE 77; RESP 18; TEMP 36.9
[2023-01-20] MEDS: Ketorolac Tromethamine 15 MG/ML VIAL IVPUSH (02:38)
--- NOTE | 2023-01-20 02:55 | PC.NURSE ---
patient in bed with eyes open patient stated the pain was still there a 6/ patient was medicated again patient will be reassessed in half an hour safety
[2023-01-20 03:09] LABS: HCG Quantitative < 2 mIU/mL
[2023-01-20 03:16] VITALS: BP 128/74; PULSE 88; RESP 18; TEMP 36.9
[2023-01-20] MEDS: iohexoL 350 MG/ML 100 ML INFUS..BTL 65 ML IV (03:48)
[2023-01-20 05:20] VITALS: BP 135/74; PULSE 88; RESP 18; TEMP 5445.5; TEMP 9834; O2SAT 99
--- NOTE | 2023-01-20 05:24 | PC.NURSE ---
patient in the process of being discharged patient vitals are stable at this time
== END 2023-01-20 05:35 | disposition home or self-care (01) ==
PROVIDERS: Emergency Provider Emergency Medicine Emergency Medical Services; PCP Physician Assistant
DX: M94.0 Chondrocostal junction syndrome [Tietze] (principal); R07.89 Other chest pain; R07.81 Pleurodynia; M25.511 Pain in right shoulder; Z79.899 Other long term (current) drug therapy
CPT/HCPCS: 36415; 71275; 80048; 84484; 84702; 85025; 85379; 85610; 85730; 93005; 96361; 96374; 96375; 96376; 99285; J1885; J2405; Q9967

== ENCOUNTER 2023-02-27 08:49 | Outpatient (AMB) | payer OTHER, MEDICAID, SELFPAY ==
--- NOTE | 2023-02-27 09:16 | MHC.OFFVIS ---
Intake Vital Signs 02/27/23 09:17 Height 5 ft 1 in Weight 261 lb BMI 49.3 BP 130/82 Blood Pressure Location Lt brachial Position Sitting Respiration 18 Pulse 82 Pulse Source Pulse Oximeter Temp 97.2 F Temp Source Skin Pulse Oximetry (%) 100 Oxygen Delivery Method Room Air Intake Visit Reasons: Joint Pain Allergies No Known Allergies [No Known Allergies*] Allergy (Verified 02/27/23 09:21) Medication List - Last Reconciled 02/27/23 by John Ford MD acetaminophen (Tylenol Extra Strength) 500 mg PO Q6H PRN ibuprofen 400 mg PO TID PRN levothyroxine 112 mcg PO DAILY 30 days lidocaine 5% (Lidoderm) 1 patch topical DAILY PRN MDD remove after 12 hours metformin 500 mg PO ONCE 90 days sertraline 50 mg PO DAILY 30 days HPI HPI Comments History of Present Illness Details The patient presents today for evaluation of joint pains. Apparently in October she developed painful swelling in the hands. There also developed other pains in the elbows, knees and the feet. At one point she had difficulty getting out of bed because of the knee and foot pain. She did visit the emergency room and was prescribed some diclofenac. She did not think it helped much so she is back on ibuprofen now taking 400 mg once or twice a day. That has seem to be somewhat helpful. Last month she was in the ER with some right shoulder and chest pain. CT angio of the chest did not show any pathology of note. Prior to the joint pain she did not have any prodromal illness of fever, diarrhea or respiratory infection. She does not have any ocular or oral dryness. She gets nauseated occasionally, a chronic problem. She does take levothyroxine for hypothyroidism and sertraline 50 mg daily for anxiety and depression. 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 Over the past 2 weeks she has had a somewhat itchy papular rash over the elbows and the thigh regions. She is using a topical steroid on that without much improvement so far. [facility] Medical History Morbidly obese Surgical History No pertinent past surgical history Family History Father Hypertension Rheumatoid arthritis Mother Hypertension Breast cancer, Onset Age: 35 Rheumatoid arthritis Paternal Aunt Diabetes Mental health disorder Paternal Uncle Diabetes Mental health disorder Social History Housing: House Alcohol intake: never Patient Tobacco Use Status: Never used Tobacco Tobacco use type: Cigarette e-Cigarette/Vaping Use: Never Used Second Hand Smoke Exposure: No service: No Current occupational status: employed Cognitive needs: No Hearing needs: No Vision needs: No Review of Systems Const Details: Negative for appetite change, weight change, fever, chills, malaise and fatigue Eyes Details: Negative for vision change, dry eyes,headaches and dizziness ENT Details: Negative for hearing change, tinnitus, oral ulcer, nose bleeds and oral dryness. Card Details: Negative chest pain, edema and syncope Resp Details: Negative for SOB, cough and wheezing GI Details: Occasional nausea. Negative indigestion/heartburn, abdominal pain, bowel changes, diarrhea, constipation and bloody stool. Details: Negative for dysuria, hematuria, nocturia, decreased force/flow and genital discharge Skin/Breast Details: Prior history of intermittent hives but currently somewhat pruritic rash as described above. Negative for Raynaud's symptoms, sun sensitivity, and skin cancer Neuro Details: Negative for epilepsy, palsy, stroke, changes in speech, tingling and weakness Psych Details: History of anxiety currently controlled with the medications noted above. Endo Details: Negative for polyuria and polydypsia Galen/Lymph Details: Negative for excessive bruising or bleeding. Physical Exam Vital Signs: Last Vital Signs Temp 97.2 F 02/27/23 09:17 Pulse 82 02/27/23 09:17 Resp 18 02/27/23 09:17 BP 130/82 02/27/23 09:17 Pulse Ox 100 02/27/23 09:17 Oxygen Delivery Method Room Air 02/27/23 09:17 BMI result Body Mass Index 49.3 APPEARANCE: Patient in no acute distress EYES no redness, pupils equal and reactive to light, eyelids normal EARS: External ear normal, canal clear and tympanic membrane normal. NOSE/SINUS: Airflow through both nares, no nasal discharge, no bleeding THROAT: Oral mucosa moist, no ulcerations NECK: No thyromegaly or masses, no adenopathy, trachea midline. HEART: Regulrar rhythm, S1-S2 heard, no murmurs, rubs or gallops. LUNG: Clear to percussion and auscultation ABD: Normal bowel sounds, no organomegaly, masses or tenderness. EXTREMITIES: No edema, no calf tenderness, normal peripheral pulses. NEURO: Oriented and alert x3. No focal weakness. Reflexes symmetric. Gait normal. SKIN: There is a rashes scattered papules over the olecranon region, forearms, and anterior thighs. None of these are tender or purpuric. There is no scaling or consolidation of the lesions. No objective signs of Raynaud's disease or nail pathology. JOINT EXAM:.?? Cervical Spine:.? Full range of motion with slight discomfort. No tenderness. Thoracic Spine:.? No scoliosis.? No tenderness on palpation. Lumbar Spine:.? Alignment normal.? Full range of motion with mild pain at the extremes. No tenderness. Straight leg raising is negative. Chest Wall:.? No tenderness, swelling, increased warmth or erythema. Hands: Right: Slight tenderness across the 1st 3 MCP joints and the 2nd PIP. I think there may be some slight MCP swelling. There is no flexor tendon triggering, thenar atrophy or sensory loss. No nail changes or DIP swelling or tenderness. Left: Mild swelling and tenderness of all the MCP joints. There is also some slight tenderness in the 2nd through 4th PIP with mild tenderness. No DIP tenderness or swelling. No thenar atrophy or sensory loss. Wrists: Left: Mild pain with flexion extension at 80 degrees with some slight tenderness but no swelling. Right:.? Normal pain-free range of motion without tenderness, swelling, increased warmth or erythema. Elbows:. Normal pain-free range of motion without tenderness, swelling, increased warmth or erythema. Shoulders:.?? Full range of motion without pain. No tenderness, weakness, swelling, increased warmth or erythema. Hips:.? Full range of motion without pain. Hip bursa:.? No tenderness. Knees:.?? Normal pain-free range of motion with mild medial tenderness but no effusion, soft tissue swelling, increased warmth or erythema.? Ankles:.? Normal pain-free range of motion without tenderness, swelling, increased warmth or erythema. Feet:.? Normal pain-free range of motion with mild tenderness in the insteps but no swelling. Other joints have no tenderness, swelling, increased warmth or erythema. The skin envelope is intact with no loss of sensory function. Tender points:.? Mild tenderness to digital palpation at the knees, greater trochanterl area bilaterally. ? Results Reviewed Results Reviewed: Laboratory Tests 11/29/21 11/29/21 11/29/21 11:50 11:50 11:50 WBC Hgb ESR 38 H AST ALT C-Reactive Protein 6.09 H TSH Rheumatoid Factor < 15.0 Cycl Citrul Peptide IgG <16 EDI Screen Lyme Screen IgG & IgM 11/29/21 11/20/22 11/20/22 11:50 14:47 14:47 WBC Hgb ESR AST 33 H ALT 43 H C-Reactive Protein TSH 10.07 H Rheumatoid Factor Cycl Citrul Peptide IgG EDI Screen NEGATIVE Lyme Screen IgG & IgM <0.90 01/19/23 22:40 WBC 6.7 Hgb 11.8 L ESR AST ALT C-Reactive Protein TSH Rheumatoid Factor Cycl Citrul Peptide IgG EDI Screen Lyme Screen IgG & IgM [place] [address] XRay Report Signed Patient: Polly Byrnes MR#: [id number] : 2000 Acct:[id number] Age/Sex: 21 / F ADM Date: 11/29/[address]: Jaylan Mackey PA-C Ordering Physician: Jaylan Mackey PA-C Date of Service: 11/29/21 Procedure(s): XR hand RT 2V Accession Number(s): [id number] cc: Jaylan Mackey PA-C~ EXAMINATION: BILATERAL HAND X-RAY CLINICAL INFORMATION: Pain? COMPARISON: None? TECHNIQUE: 3 views of each hand? FINDINGS: Bone alignment is normal. No fracture or dislocation is seen. Joint spaces and soft tissues are normal.? XR/XR hand RT 2V IMPRESSION: Unremarkable exam.? Dictated By: Ginny Huynh MD Signed By: <Electronically signed by Ginny Huynh MD in OV> 11/30/21 1005 Assessment & Plan Assessment & Plan (1) Knee pain, bilateral: Code(s): M25.561 - Pain in right knee; M25.562 - Pain in left knee (2) Bilateral hand pain: Code(s): M79.641 - Pain in right hand; M79.642 - Pain in left hand Plan She has some recent onset of polyarticular pains, initially starting in the hands. 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 Other joints similarly have improved over the last 2 months. The patient had an elevated inflammatory marker last year, before the symptoms began but it is unclear why the test was ordered. She could have a reactive arthritis picture or early seronegative rheumatoid arthritis. We will check into the possibility of inflammatory disease with another inflammatory marker set, CCP antibody, chemistry, CBC. We may need DMARD therapy here so I did put in for hepatitis serologies and T spot testing. We will try to improve her anti-inflammatory effect with taking NSAIDs on a regular basis rather than just low-dose p.r.n.. She can take 400-800 mg of ibuprofen t.i.d.. She was warned about potential GI side effects with that dosage range but it should be more helpful for her joints. Will see how she is in about 6 weeks. The her review of her record, today's history, examination, and discussion of treatment options took 48 minutes. Orders: Orders Cyclic Citrullinated Peptide Today M79.641 - Pain in right hand, M79.642 - Pain in left hand, Z79.899 - Other long chain quiller tender (current) drug therapy Comprehensive Met. Panel Today M79.641 - Pain in right hand, M79.642 - Pain in left hand, Z79.899 - Other long chain quiller tender (current) drug therapy C Reactive Protein Today M79.641 - Pain in right hand, M79.642 - Pain in left hand, Z79.899 - Other snf (current) drug therapy Complete Blood Count Auto Diff Today M79.641 - Pain in right hand, M79.642 - Pain in left hand, Z79.899 - Other long chain quiller tender (current) drug therapy Erythrocyte Sedimentation Rate Today M79.641 - Pain in right hand, M79.642 - Pain in left hand, Z79.899 - Other snf (current) drug therapy Hepatitis A,B,C Profile Today M79.641 - Pain in right hand, M79.642 - Pain in left hand, Z79.899 - Other long chain quiller tender (current) drug therapy T Spot TB Today M79.641 - Pain in right hand, M79.642 - Pain in left hand, Z79.899 - Other snf (current) drug therapy Medications: Changed From ibuprofen 400 mg PO TID PRN 30 tabs 0RF fever or pain M79.641 - Pain in right hand, M79.642 - Pain in left hand To ibuprofen 400 - 800 mg (1 - 2 x 400 mg) PO TID PRN 180 tabs 1RF fever or pain M79.641 - Pain in right hand, M79.642 - Pain in left hand Coding Level of Care Code New Pt Level 4 (76758) Diagnoses Knee pain, bilateral M25.561; M25.562 Bilateral hand pain M79.641; M79.642
[2023-02-27 09:17] VITALS: BP 130/82; PULSE 82; RESP 18; TEMP 36.2; O2SAT 100; BMI 49.3
== END 2023-02-27 10:43 | disposition home or self-care (01) ==
PROVIDERS: PCP Physician Assistant; Referring Provider Physician Assistant; Visit Provider Internal Medicine Rheumatology
DX: M25.561 Pain in right knee (principal); M25.562 Pain in left knee; M79.641 Pain in right hand; M79.642 Pain in left hand
CPT/HCPCS: 99204

== ENCOUNTER → 2023-02-27 08:49 | Outpatient (BNVA) | payer OTHER, MEDICAID, SELFPAY | PROVIDERS: PCP Physician Assistant; Referring Provider Physician Assistant; Visit Provider Internal Medicine Rheumatology ==

== ENCOUNTER 2023-02-27 11:03 | Outpatient (REF) | payer OTHER, MEDICAID, SELFPAY ==
[2023-02-27 13:19] LABS: MANUAL DIFF FLAG NO
[2023-02-27 13:28] LABS: Basophils Percent Auto 0.4 % (0-2); Eosinophils Absolute Auto 0.1 X10*3/uL (0.0-0.4); Eosinophils Percent Auto 1.6 % (0-4); Hematocrit 39.7 % (37.0-47.0); Hemoglobin 12.1 g/dl (12.0-16.0); Imm Gran Abs Auto 0.01 X10*3/uL (0.00-0.03); Imm Gran Pct Auto 0.2 % (0.0-0.4); Lymphocytes Absolute Auto 1.5 X10*3/uL (1.2-4.9); Lymphocytes Percent Auto 29.3 % (20-40); Mean Corpuscular HGB Conc 30.5 g/dl (31.0-35.0); Mean Corpuscular Hemoglobin 24.8 pg (27.0-33.0); Mean Corpuscular Volume 81.4 fL (80.0-98.0); Monocytes Absolute Auto 0.3 X10*3/uL (0.1-1.2); Monocytes Percent Auto 6.8 % (2-11); Neutrophils Absolute Auto 3.1 x10*3/uL (2.0-8.3); Neutrophils Percent Auto 61.7 % (45-73); Platelet Count 241 X10*3/uL (160-400); Red Blood Count 4.88 X10*6/uL (4.20-5.50); Red Cell Distribution Width 14.3 % (11.0-16.0)
[2023-02-27 14:05] LABS: Alanine Aminotransferase 72 U/L (0-31); Albumin Level 3.8 g/dL (3.5-5.0); Alkaline Phosphatase 79 U/L (39-117); Anion Gap 7 (12-20); Aspartate Amino Transferase 44 U/L (5-31); Bilirubin Total 0.2 mg/dL (0.0-1.0); Blood Urea Nitrogen 15 mg/dL (9-16); C Reactive Protein 2.36 mg/dL (< or = 0.50); Carbon Dioxide 28 mmol/L (22-29); Chloride 107 mmol/L (96-108); Estimated Glomerular Filt Rate > 60; Glucose Random 117 mg/dL (60-115); Potassium 4.1 mmol/L (3.3-5.1); Sodium 138 mmol/L (135-145); Total Protein 7.8 g/dL (6.5-8.0)
[2023-02-27 14:09] LABS: Erythrocyte Sedimentation Rate 23 MM/HR (0-20)
[2023-02-28 08:39] LABS: HBS Num1 0.29 mIU/mL (0-7.99); HBc Num1 0.14 S/CO (0.00-0.79); Hepatitis A Antibody IgM 0.22 Index (0-0.79); Hepatitis B Core Antibody Nonreactive (Nonreactive); Hepatitis B Surface Antigen Negative (Negative); ~HepC Num1 0.22 S/CO (0.00-0.79); ~Hepatitis A Antibody IgM Nonreactive (Nonreactive); ~Hepatitis B Surface Antibody NONREACTIVE (Nonreactive); ~Hepatitis C Antibody Nonreactive (Nonreactive)
[2023-03-01 22:43] LABS: TS Negative Control Passed; TS Panel A 0; TS Panel B 0; TS Positive Control Passed; TSpotTB Negative (Negative)
[2023-03-05 11:44] LABS: Cyclic Citrullinated Peptide <16 UNITS
== END 2023-02-27 11:04 | disposition home or self-care (01) ==
LOC: HO.10HDL 11:03
PROVIDERS: Visit Provider Internal Medicine Rheumatology
DX: Z11.1 Encounter for screening for respiratory tuberculosis (principal); M79.641 Pain in right hand; M79.642 Pain in left hand; Z79.899 Other long term (current) drug therapy
CPT/HCPCS: 36415; 80053; 85025; 85652; 86140; 86200; 86481; 86704; 86706; 86709; 86803; 87340

== ENCOUNTER 2023-04-10 10:45 | Outpatient (REF) | payer OTHER, MEDICAID, SELFPAY ==
[2023-04-15 23:18] LABS: Smooth Muscle Antibody 24 U (<20)
[2023-04-16 12:28] LABS: Mitochondrial Antibodies NEGATIVE (NEGATIVE)
== END 2023-04-10 10:46 | disposition home or self-care (01) ==
LOC: HO.10HDL 10:45
PROVIDERS: Visit Provider Internal Medicine Rheumatology
DX: R74.01 Elevation of levels of liver transaminase levels (principal)
CPT/HCPCS: 36415; 86015; 86381

== ENCOUNTER 2023-04-12 11:21 | Outpatient (AMB) | payer OTHER, MEDICAID, SELFPAY ==
--- NOTE | 2023-04-12 11:28 | A.OFFVIS_ITS ---
Intake Vital Signs 3 04/12/23 11:35 Height 5 ft 1 in Weight 261 lb 3.964 oz BMI 49.4 BP 118/82 Blood Pressure Location Lt brachial Position Sitting Pulse 92 Pulse Source Pulse Oximeter Temp 97.2 F Temp Source Skin Pulse Oximetry (%) 99 Oxygen Delivery Method Room Air Intake Visit Reasons: ra Intake Note: Patient here to follow up on RA. Clinical Technician Required: No Accompanied by: Self / Same As Patient Allergies No Known Allergies [No Known Allergies*] Allergy (Verified 04/12/23 11:35) HPI HPI Comments 2 History of Present Illness0 Details The patient returns for evaluation of her inflammatory arthritis. She remains on ibuprofen taking 400 mg tablets. She takes 2 tablets 3 times a day. She does seem to get some benefit with ibuprofen but it does tend to wear off between the doses. More recently there has been right lateral knee and left elbow pain that have been prominent. She still gets stiffness and pain in the fingers in the right hand in the left wrist. The feet have also been painful across the instep and MTP regions. She continues with a nonpruritic rash mostly over the elbows but also a few spots on the left thigh region and right knee. She does not have any stomach pain or heartburn with the ibuprofen. She does note the need to move her bowels for 5 times a day but the stools are not bloody or loose. We also noted elevated transaminases and there are labs pending looking for anti mitochondrial anti-smooth muscle antibodies. [facility] Medical History Morbidly obese Surgical History No pertinent past surgical history Family History Father Hypertension Rheumatoid arthritis Mother Hypertension Breast cancer, Onset Age: 35 Rheumatoid arthritis Paternal Aunt Diabetes Mental health disorder Paternal Uncle Diabetes Mental health disorder Social History Housing: House Alcohol intake: never Patient Tobacco Use Status: Never used Tobacco Tobacco use type: Cigarette e-Cigarette/Vaping Use: Never Used Second Hand Smoke Exposure: No service: No Current occupational status: employed Cognitive needs: No Hearing needs: No Vision needs: No Review of Systems Const Details: Negative for appetite change, weight change, fever, chills, malaise and fatigue Eyes Details: Negative for vision change, dry eyes,headaches and dizziness ENT Details: Negative for hearing change, tinnitus, oral ulcer, nose bleeds and oral dryness. Card Details: Negative chest pain, edema and syncope Resp Details: Negative for SOB, cough and wheezing GI Details: Frequent, well formed bowel movements. None at night. Negative indigestion/heartburn, nausea, abdominal pain, bowel changes, diarrhea, constipation and bloody stool. Endo Details: Negative for polyuria and polydypsia Galen/Lymph Details: Negative for excessive bruising or bleeding. Physical Exam Vital Signs: Last Vital Signs Temp 97.2 F 04/12/23 11:35 Pulse 92 04/12/23 11:35 BP 118/82 04/12/23 11:35 Pulse Ox 99 04/12/23 11:35 Oxygen Delivery Method Room Air 04/12/23 11:35 BMI result Body Mass Index 49.4 APPEARANCE: Patient in no acute distress EYES no redness, pupils equal and reactive to light, eyelids normal NOSE/SINUS: Airflow through both nares, no nasal discharge, no bleeding THROAT: Oral mucosa moist, no ulcerations NECK: No thyromegaly or masses, no adenopathy, trachea midline. HEART: Regulrar rhythm, S1-S2 heard, no murmurs, rubs or gallops. LUNG: Clear to percussion and auscultation ABD: Normal bowel sounds, no organomegaly, masses or tenderness. EXTREMITIES: No edema, no calf tenderness, normal peripheral pulses. SKIN: There is a rash of scattered papules over the olecranon region, left thigh and right knee. None of these are tender or purpuric. There is no scaling or consolidation of the lesions. No objective signs of Raynaud's disease or nail pathology. Photograph of the elbows: JOINT EXAM:.?? Cervical Spine:.? Full range of motion with slight discomfort. No tenderness. Thoracic Spine:.? No scoliosis.? No tenderness on palpation. Lumbar Spine:.? Alignment normal.? Full range of motion with mild pain at the extremes. No tenderness. Straight leg raising is negative. Chest Wall:.? No tenderness, swelling, increased warmth or erythema. Hands: Right: Slight tenderness across the 1st 3 MCP joints and the 2nd through 4th PIP. I think there may be some slight MCP he and PIP swelling. There is no flexor tendon triggering, thenar atrophy or sensory loss. No nail changes or DIP swelling or tenderness. Left: Mild swelling and tenderness of all the MCP joints. There is also some slight tenderness in the 2nd through 4th PIP with mild tenderness. No DIP tenderness or swelling. No thenar atrophy or sensory loss. Photograph of the hands: Wrists: Left: Mild pain with flexion extension at 75 degrees with some slight tenderness but no swelling. Right:.? Normal pain-free range of motion without tenderness, swelling, increased warmth or erythema. Elbows:. Left: Mild pain with full extension or full flexion. There is mild tenderness over the joint space but I can not appreciate any redness or swelling. Right: Normal pain-free range of motion without tenderness, swelling, increased warmth or erythema. Shoulders:.?? Full range of motion with mild discomfort felt over the base of the neck pain trapezius region. There is mild anterior tenderness without weakness, swelling, increased warmth or erythema. Hips:.? Full range of motion without pain. Hip bursa:.? No tenderness. Knees:.? Right: Slight pain with extremes of flexion extension. There is some mild lateral tenderness with no redness or effusion. Left:? Normal pain-free range of motion with mild medial tenderness but no effusion, soft tissue swelling, increased warmth or erythema.? Ankles:.? Normal pain-free range of motion with mild medial and lateral tenderness but no swelling, increased warmth or erythema. Feet:.? Normal pain-free range of motion with mild tenderness in the insteps in the MTP regions. I do not really appreciate swelling. There is no increased warmth or erythema. The skin envelope is intact with no loss of sensory function. Assessment & Plan Assessment & Plan (1) Elevated liver transaminase level: Code(s): R74.01 - Elevation of levels of liver transaminase levels (2) extermination inspector use of drug: Code(s): Z79.899 - Other intermediate frame tender (current) drug therapy (3) Psoriasis: Code(s): L40.9 - Psoriasis, unspecified (4) Psoriatic arthritis: Code(s): L40.50 - Arthropathic psoriasis, unspecified Plan The papular skin lesions on the elbows are not scaly but the patient has been using a topical steroid which may fermin changing the appearance of the lesions that are probably some psoriasis. The asymmetric inflammatory arthritis - seronegatrive - is consistent with psoriatic arthritis. She responds somewhat to full dose ibuprofen. I think we need a DMARD. Methotrexate is not feasible because of the baseline LFT elevations. They are probably due to fatty liver. We will try to get PA of Humira 40 mg q 2 weeks. We reviewed potential risks and benefits of Humira. She was given some written info on Humira to review. She will continue the ibuprofen as above. F/U 7 - 8 weeks. Coding Level of Care Code Est Pt Level 4 (72499) Diagnoses Elevated liver transaminase level R74.01 [facility] use of drug Z79.899 Psoriasis L40.9 Psoriatic arthritis L40.50
[2023-04-12 11:35] VITALS: BP 118/82; PULSE 92; TEMP 36.2; O2SAT 99; BMI 49.4
== END 2023-04-12 12:08 | disposition home or self-care (01) ==
PROVIDERS: PCP Physician Assistant; Visit Provider Internal Medicine Rheumatology
DX: R74.01 Elevation of levels of liver transaminase levels (principal); Z79.899 Other long term (current) drug therapy; L40.9 Psoriasis, unspecified; L40.50 Arthropathic psoriasis, unspecified
CPT/HCPCS: 99214

== ENCOUNTER → 2023-04-12 11:21 | Outpatient (BNVA) | payer OTHER, MEDICAID, SELFPAY | PROVIDERS: PCP Physician Assistant; Visit Provider Internal Medicine Rheumatology ==

== ENCOUNTER 2023-05-24 13:09 | Outpatient (AMB) | payer OTHER, MEDICAID, SELFPAY ==
--- NOTE | 2023-05-24 13:14 | MHC.PC.OV ---
Vital Signs 05/24/23 13:29 Height 5 ft 1 in Weight 258 lb 6 oz BMI 48.8 BP 100/72 Blood Pressure Location Lt brachial Position Sitting Respiration 16 Pulse 82 Pulse Source Palpation Intake Visit Reasons: PE Intake Note: Patient is here today for a physical. 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 Accompanied by: Self / Same As Patient Allergies No Known Allergies [No Known Allergies*] Allergy (Verified 05/24/23 14:02) Medication List - Last Reconciled 05/24/23 by Jaylan Mackey PA-C acetaminophen (Tylenol Extra Strength) 500 mg PO Q6H PRN adalimumab (Humira(CF) Pen) 40 mg (0.4 mL) subcut Q2W 56 days levothyroxine 112 mcg PO DAILY metformin 500 mg PO ONCE 90 days sertraline 50 mg PO DAILY 30 days Tobacco use date assessed: 11/20/22 Dental Screening Dental Screen Date: 05/24/23 Did you have a dental visit in the last 12 months?: No Did you have a dental problem in the last 6 months where you did not have access to dental care?: No Was dental information given to patient?: Yes HPI PE HPI Details Patient is a 23-year-old female here today for routine annual physical.. with a past medical history significant for type 2 diabetes, obesity, psoriatic arthritis.? Psoriatic arthritis: Patient now followed by Rheumatology and has been started on disease modifying drug you MTX for her psoriatic arthritis. She reports her arthritic pain is much more manageable. .. Obesity:? Have noted some weight loss since last office visit..? Has been working on portion control which is helping.? Has not added any physical activity to her lifestyle. .. Type 2 diabetes:? Patient continues on metformin 500 b.i.d. A1c today 6.6 PLAN: Willing to try Ozempic for better diabetes control in added benefit of weight loss. .. Hypothyroid :? Patient continues on levothyroxine 112 mcg.? She admits to not being so compliant with her levothyroxine due to the weight needs to be taken in the morning. She does report some hair thinning over the last month. 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 Vaccines: Up-to-date with COVID vaccine, needs tetanus and UTD with FLu vaccine [facility] Medical History Morbidly obese Surgical History No pertinent past surgical history Family History Father Hypertension Rheumatoid arthritis Mother Hypertension Breast cancer, Onset Age: 35 Rheumatoid arthritis Paternal Aunt Diabetes Mental health disorder Paternal Uncle Diabetes Mental health disorder Social History (Updated 05/24/23 @ 13:40 by Jaylan Mackey PA-C) Housing: House Alcohol intake: never Patient Tobacco Use Status: Never used Tobacco Tobacco use type: Cigarette e-Cigarette/Vaping Use: Never Used Second Hand Smoke Exposure: No service: No Current occupational status: employed Current occupation: [employer]- Cognitive needs: No Hearing needs: No Vision needs: No Questionnaire Thrive Questionnaire Date Thrive assessed: 11/20/22 RAJIV-7 AMB Questionnaire RAJIV-7 Date RAJIV - 7 assessed: 11/20/22 Source: Developed by Drs. Rakesh Gaston, Mahogany Meza, Quincy Gandhi and colleagues, with an educational cam from [employer]. Review of Systems Const Denies body aches, Denies chills, Denies excessive sweating, Denies fatigue, Denies fever(s) and Denies headache(s) Eyes Denies blurry vision ENT Denies dysphagia, Denies vertigo, Denies dizziness, Denies headache(s), Denies hearing loss and Denies tinnitus Card Denies chest pain, Denies chest pain with activity, Denies syncope, Denies irregular heart rhythm and Denies dyspnea Resp Denies chest congestion, Denies cough, Denies hemoptysis, Denies dyspnea and Denies wheezing GI Denies abdominal pain, Denies melena, Denies hematochezia, Denies coffee ground emesis, Denies dysphagia, Denies diarrhea, Denies nausea and Denies vomiting Denies urinary frequency, Denies dysuria, Denies urinary hesitancy and Denies urinary urgency Musc Denies arthralgias, Denies limited range of motion, Denies muscle cramps and Denies muscle weakness Skin/Breast Denies rash and Denies skin ulcer Neuro Denies Abnormal speech present, Denies confusion, Denies vertigo, Denies dizziness, Denies syncope, Denies headache(s), Denies memory loss and Denies seizure-like activity Psych Denies anxiety, Denies confusion, Denies depression, Denies memory loss, Denies panic attacks and Denies paranoia Endo Denies excessive sweating, Denies fatigue, Denies flushing, Denies polydipsia and Denies polyuria Aller/Immun Denies wheezing Physical exam (Primary Care) Vital Signs: Last Vital Signs Pulse 82 05/24/23 13:29 Resp 16 05/24/23 13:29 BP 100/72 05/24/23 13:29 BMI result Body Mass Index 48.8 BMI Assessment/Plan discussion: High Tobacco/Smoking Status: Tobacco use Status Tobacco use date assessed 11/20/22 05/24/23 13:16 Patient Tobacco Use Status Never used Tobacco 05/24/23 13:16 Tobacco use type Cigarette 05/24/23 13:16 e-Cigarette/Vaping Use Never Used 05/24/23 13:16 Thrive Assessment: Date of Thrive Assessment Date Thrive assessed 11/20/22 05/24/23 13:16 Const Other: Obese General: cooperative, comfortable, no acute distress, alert and awake; No confusion Orientation/consciousness: oriented to person, oriented to place, patient oriented x3 and No confusion HENMT Head: Yes normocephalic Ears: external ears normal and TM's normal bilaterally Face and sinus: No sinus tenderness Mouth: Normal oral and palatal mucosa present and tongue normal Teeth and gingiva: dentition normal and gingiva normal Throat: Yes posterior oropharynx normal, Yes tonsils normal and Yes uvula midline Eyes Conjunctivae: conjunctivae normal Sclerae: sclerae normal Pupils: Equal, round and reactive pupils present EOM: EOMs intact bilaterally Direct Ophthalmoscopy: No no photophobia Neck Neck: Yes no lymphadenopathy, No tender and Yes no JVD Thyroid: Thyroid normal Carotids: no bruits Chest Chest palpation & inspection: no tenderness Resp Effort & Inspection: normal respiratory effort, no audible wheezes, not labored and no stridor Auscultation: no crackles, no rales, no rhonchi and no wheezes Cardio Jugular venous distension: no JVD Rate: regular rate, not bradycardic and not tachycardic Rhythm: regular rhythm Bruits: no carotid bruits Peripheral pulses: Peripheral pulses 2+ throughout GI Inspection: Yes normal to inspection, No abdominal wall ecchymosis and No visible herniation Palpation (GI): Soft to palpation, nontender, no guarding, not rigid and No hepatosplenomegaly present Auscultation: normoactive bowel sounds General: Yes no CVA tenderness Back/Spine/Pelvis Back: no CVA tenderness and No back tenderness Cervical Spine: cervical ROM normal Thoracic/Lumbar Spine: thoracic and lumbar spine normal to inspection, straight leg raise negative bilaterally, No thoraco-lumbar ROM limited and No lumbar spinal tenderness Skin Lesions: no lesions Rashes: no rashes Wounds: no wounds Neuro General: oriented to person, oriented to place, patient oriented x3, CN's II-XI intact bilaterally and No confusion Cranial nerves: Yes Equal, round and reactive pupils present and Yes Normal accommodation reflex present Cognition (Neuro): normal cognition Speech: No Abnormal speech present Gait exam (Neuro): Normal gait present Motor exam (neuro): 5/5 motor strength present throughout Extrem Right upper extremity: full ROM; no cyanosis Left upper extremity: full ROM; no cyanosis Right lower extremity: no edema Left lower extremity: no edema Psych Appearance: grossly normal Mental Status: mental status grossly normal Affect: normal affect Attitude: cooperative Thought process: Normal thought process present Office Procedures Flu Questionnaire Does the patient have a severe egg allergy?: No Does the patient have severe life threatening allergies?: No Does the patient have a fever or illness today?: No Has the patient ever had Guillain-[place] Syndrome?: No Has the patient ever had any past reaction to a flu shot?: No Results AMB Hemoglobin A1c AMB Hemoglobin A1c 6.6 % Last Edit by CEDRIC Lindo on 05/24/23 13:34 Immunizations flu vacc [id number] 6mos up(PF) 60 mcg(15 mcgx4)/0.5 mL IM syringe Performing Provider: Jaylan Mackey PA-C Performing Location: [facility] Administered by: CEDRIC Lindo on 05/24/23 13:35 Dose Route Admin Location Dispensed Lot Number Expiration Date NDC Public Health Nurse 0.5 mL IM Left Deltoid 0.5 mL [id number] 02/03/24 11604-480-84 [employer] VIS Given Date VIS Provided VIS Publication Date 05/24/23 Single Vaccine 21 Eligibility Eligibility Date Funding Source Not C Eligible 05/24/23 Private Results Reviewed Results Reviewed: Laboratory Last Values Hgb A1c (Clinic) 6.6 % (4.0-6.0) H 05/24/23 13:30 Assessment and Plan Assessment & Plan (1) Annual physical exam: Code(s): Z00.00 - Encounter for general adult medical examination without abnormal findings (2) DMII (diabetes mellitus, type 2): Code(s): E11.9 - Type 2 diabetes mellitus without complications Qualifiers: Diabetes mellitus psychiatric mental health nurse insulin use: without long-term use Diabetes mellitus complication status: without complication Qualified Code(s): E11.9 - Type 2 diabetes mellitus without complications Plan: Patient's type 2 diabetes controlled with A1c today is 6.6. Patient willing to add on Ozempic for added benefit of weight loss and diabetes control. Will continue her current dose of metformin. Goal A1c to be below 6.5 (3) Morbidly obese: Code(s): E66.01 - Morbid (severe) obesity due to excess calories Plan: Patient does understand her BMI is over 40 and will work on being more physically active and adapting to better eating habits to reduce her weight. (4) Hypothyroid: Code(s): E03.9 - Hypothyroidism, unspecified Qualifiers: Hypothyroidism type: unspecified Qualified Code(s): E03.9 - Hypothyroidism, unspecified Plan: Patient continues on 112 mcg of levothyroxine. She admits to not being to consistent with the use of his medication. Does report some hair thinning over the last month and a half. Advised to get TSH done to ensure normal. Will consider increasing dose if TSH still elevated (5) Psoriatic arthritis: Code(s): L40.50 - Arthropathic psoriasis, unspecified Plan: Recently diagnosed with psoriatic arthritis. Has started she may ear and feels it has drastically reduced her joint pain and stiffness. (6) MDD (major depressive disorder), recurrent episode, moderate: Code(s): F33.1 - Major depressive disorder, recurrent, moderate Plan: Continues to follow a mental health therapist. Continues on SSRI therapy with good effect on her home mood. (7) Hair thinning: Code(s): L65.9 - Nonscarring hair loss, unspecified Plan: Noted hair thinning over the last month. Could be related to her hypothyroidism versus stress. (8) Family history of breast cancer in first degree relative: Code(s): Z80.3 - Family history of malignant neoplasm of breast Plan: Will consider getting mammogram next year as mother was diagnosed with breast cancer at age 35 Orders: Orders Influenza [id number] Immunization Today Z23 - Encounter for immunization Microalbumin, Random (w Creat) Today E11.9 - Type 2 diabetes mellitus without complications AMB Hemoglobin A1c Today E11.9 - Type 2 diabetes mellitus without complications Comprehensive King. Panel Fast Today E11.9 - Type 2 diabetes mellitus without complications TSH reflex Free T4 Today R79.89 - Other specified abnormal findings of blood chemistry Medications: New semaglutide (Ozempic) 0.25 mg (0.368 mL) subcut QWEEK 6 weeks 3 mL 1RF E11.9 - Type 2 diabetes mellitus without complications minoxidil 5% 1 mL topical BID 30 days 60 mL 3RF L65.9 - Nonscarring hair loss, unspecified Coding Level of Care Code Est Pt Prev Care 18-39y(28707) Diagnoses Annual physical exam Z00.00 Type 2 diabetes mellitus without complication, without long-term current use of insulin E11.9 Diabetes mellitus psychiatric mental health nurse insulin use: without psychiatric mental health nurse use Diabetes mellitus complication status: without complication Morbidly obese E66.01 Hypothyroidism, unspecified type E03.9 Hypothyroidism type: unspecified Psoriatic arthritis L40.50 MDD (major depressive disorder), recurrent episode, moderate F33.1 Hair thinning L65.9 Family history of breast cancer in first degree relative Z80.3
[2023-05-24 13:29] VITALS: BP 100/72; PULSE 82; RESP 16; BMI 48.8
== END 2023-05-24 13:59 | disposition home or self-care (01) ==
PROVIDERS: PCP Physician Assistant; Visit Provider Physician Assistant
DX: Z00.00 Encounter for general adult medical examination without abnormal findings (principal); E11.9 Type 2 diabetes mellitus without complications; E66.01 Morbid (severe) obesity due to excess calories; L40.50 Arthropathic psoriasis, unspecified; F33.1 Major depressive disorder, recurrent, moderate; Z68.42 Body mass index [BMI] 45.0-49.9, adult; E03.9 Hypothyroidism, unspecified; L65.9 Nonscarring hair loss, unspecified; Z80.3 Family history of malignant neoplasm of breast; Z23 Encounter for immunization
CPT/HCPCS: 83036; 90471; 90686; 99395

== ENCOUNTER 2023-05-24 14:51 | Outpatient (REF) | payer OTHER, MEDICAID, SELFPAY ==
[2023-05-24 15:56] LABS: Alanine Aminotransferase 104 U/L (0-31); Albumin Level 3.9 g/dL (3.5-5.0); Alkaline Phosphatase 76 U/L (39-117); Anion Gap 13 (12-20); Aspartate Amino Transferase 78 U/L (5-31); Bilirubin Total 0.3 mg/dL (0.0-1.0); Blood Urea Nitrogen 11 mg/dL (9-16); Calcium 9.2 mg/dL (8.4-10.2); Carbon Dioxide 24 mmol/L (22-29); Chloride 104 mmol/L (96-108); Estimated Glomerular Filt Rate > 60; Glucose Fasting 84 mg/dL (60-99); Potassium 4.2 mmol/L (3.3-5.1); Sodium 137 mmol/L (135-145); Total Protein 8.2 g/dL (6.5-8.0)
[2023-05-24 16:09] LABS: TSH reflex Free T4 7.01 uIU/mL (0.32-4.0)
[2023-05-24 16:14] LABS: Creatinine Urine 146.06 mg/dL
== END 2023-05-24 14:52 | disposition home or self-care (01) ==
LOC: HO.LAB 14:51
PROVIDERS: PCP Physician Assistant; Visit Provider Physician Assistant
DX: E11.9 Type 2 diabetes mellitus without complications (principal); R79.89 Other specified abnormal findings of blood chemistry
CPT/HCPCS: 36415; 80053; 82043; 82570; 84439; 84443

== ENCOUNTER 2023-06-05 11:03 | Outpatient (AMB) | payer OTHER, MEDICAID, SELFPAY ==
--- NOTE | 2023-06-05 11:20 | A.OFFVIS_ITS ---
Intake Vital Signs 3 06/05/23 11:21 Height 5 ft 1 in Weight 261 lb 7.492 oz BMI 49.4 BP 112/80 Blood Pressure Location Lt brachial Position Sitting Pulse 74 Pulse Source Pulse Oximeter Temp 97 F Temp Source Skin Pulse Oximetry (%) 98 Oxygen Delivery Method Room Air Intake Visit Reasons: psa Intake Note: Patient presents today to follow up on PsA. Patient has started Humira. 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 About 2 months ago we started her on Humira 40 mg every 2 weeks for presumed psoriatic arthritis. She says the joints have done much better. She does not take any ibuprofen anymore. There is still some eruption on her elbows but it seems to be nonpruritic and somewhat decreased in its extent. There have been no side effects with the Humira. She already got her flu shot for this season. She works at [employer]. She recently had her levothyroxine dose adjusted. She tells me her primary doctor is trying to arrange for her to receive Ozempic for her obesity. [facility] Medical History Morbidly obese Surgical History No pertinent past surgical history Family History Father Hypertension Rheumatoid arthritis Mother Hypertension Breast cancer, Onset Age: 35 Rheumatoid arthritis Paternal Aunt Diabetes Mental health disorder Paternal Uncle Diabetes Mental health disorder Social History Housing: House Alcohol intake: never Patient Tobacco Use Status: Never used Tobacco Tobacco use type: Cigarette e-Cigarette/Vaping Use: Never Used Second Hand Smoke Exposure: No service: No Current occupational status: employed Current occupation: [employer]- Cognitive needs: No Hearing needs: No Vision needs: No Review of Systems Const Details: Negative for appetite change, weight change, fever, chills, malaise and fatigue Eyes Details: Negative for vision change, dry eyes,headaches and dizziness Neuro Details: Negative for epilepsy, palsy, stroke, changes in speech, tingling and weakness Endo Details: Negative for polyuria and polydypsia Galen/Lymph Details: Negative for excessive bruising or bleeding. Physical Exam Vital Signs: Last Vital Signs Temp 97 F 06/05/23 11:21 Pulse 74 06/05/23 11:21 BP 112/80 06/05/23 11:21 Pulse Ox 98 06/05/23 11:21 Oxygen Delivery Method Room Air 06/05/23 11:21 BMI result Body Mass Index 49.4 APPEARANCE: Patient in no acute distress EYES no redness, pupils equal and reactive to light, eyelids normal EXTREMITIES: No edema, no calf tenderness, normal peripheral pulses. SKIN: There is a rash of scattered papules over the olecranon region, left thigh and right knee. None of these are tender or purpuric. Some of the lesions are no longer palpable. There is just a spot of hyperpigmentation. No breaks in the skin. There is no scaling or consolidation of the lesions. No objective signs of Raynaud's disease or nail pathology. Photograph of the elbows: JOINT EXAM:.?? Cervical Spine:.? Full range of motion with slight discomfort. No tenderness. Thoracic Spine:.? No scoliosis.? No tenderness on palpation. Lumbar Spine:.? Alignment normal.? Full range of motion with no pain at the extremes. No tenderness. Straight leg raising is negative. Chest Wall:.? No tenderness, swelling, increased warmth or erythema. Hands: There is pain-free range of motion in the fingers of the hands. There is still puffiness across the MCPs but there is no tenderness in any of the small joints of the hands. No flexor tendon triggering, thenar atrophy or sensory loss. Wrists: Left: no pain with flexion extension at 80; no tenderness or swelling. Right:.? Normal pain-free range of motion without tenderness, swelling, increased warmth or erythema. Elbows:. Left: no pain with full extension or full flexion. No tenderness, redness or swelling. Right: Normal pain-free range of motion without tenderness, swelling, increased warmth or erythema. Shoulders:.?? Full range of motion with mild discomfort felt over the base of the neck pain trapezius region. There is mild anterior tenderness without weakness, swelling, increased warmth or erythema. Hips:.? Full range of motion without pain. Hip bursa:.? No tenderness. Knees:.? Right: No pain with extremes of flexion extension. There is no tenderness, redness or effusion. Left:? Normal pain-free range of motion with mild medial tenderness but no effusion, soft tissue swelling, increased warmth or erythema.? Ankles:.? Normal pain-free range of motion with no tenderness, swelling, increased warmth or erythema. Feet:.? Normal pain-free range of motion no tenderness or swelling in the insteps, MTPs or toes. 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 The skin lesions are still present although the seem less prominent. I still think they are likely to be psoriasis but that bears watching in the future. We will continue with Humira and check CBC, ESR and CRP today. She will follow-up with primary doctor on her LFTs and hypothyroidism. Follow-up in 4 months is recommended. Orders: Orders 2 Erythrocyte Sedimentation Rate Today L40.50 - Arthropathic psoriasis, unspecified C Reactive Protein Today L40.50 - Arthropathic psoriasis, unspecified Complete Blood Count Auto Diff Today L40.50 - Arthropathic psoriasis, unspecified, Z79.899 - Other buttermaker continuous churn (current) drug therapy Coding Level of Care Code Est Pt Level 3 (62989) Diagnoses Psoriasis L40.9 snf use of drug Z79.899 Psoriatic arthritis L40.50
[2023-06-05 11:21] VITALS: BP 112/80; PULSE 74; TEMP 36.1; O2SAT 98; BMI 49.4
== END 2023-06-05 11:52 | disposition home or self-care (01) ==
PROVIDERS: PCP Physician Assistant; Visit Provider Internal Medicine Rheumatology
DX: L40.9 Psoriasis, unspecified (principal); Z79.899 Other long term (current) drug therapy; L40.50 Arthropathic psoriasis, unspecified
CPT/HCPCS: 99213

== ENCOUNTER → 2023-06-05 11:03 | Outpatient (BNVA) | payer OTHER, MEDICAID, SELFPAY | PROVIDERS: PCP Physician Assistant; Visit Provider Internal Medicine Rheumatology ==

== ENCOUNTER 2023-06-05 12:26 | Outpatient (REF) | payer OTHER, MEDICAID, SELFPAY ==
[2023-06-05 14:05] LABS: MANUAL DIFF FLAG NO
[2023-06-05 14:12] LABS: Basophils Percent Auto 0.3 % (0-2); Eosinophils Absolute Auto 0.1 X10*3/uL (0.0-0.4); Eosinophils Percent Auto 1.8 % (0-4); Hematocrit 39.7 % (37.0-47.0); Hemoglobin 12.5 g/dl (12.0-16.0); Imm Gran Abs Auto 0.01 X10*3/uL (0.00-0.03); Imm Gran Pct Auto 0.3 % (0.0-0.4); Lymphocytes Absolute Auto 1.1 X10*3/uL (1.2-4.9); Lymphocytes Percent Auto 29.2 % (20-40); Mean Corpuscular HGB Conc 31.5 g/dl (31.0-35.0); Mean Corpuscular Hemoglobin 25.9 pg (27.0-33.0); Mean Corpuscular Volume 82.2 fL (80.0-98.0); Mean Platelet Volume 11.1 fL (9.4-12.3); Monocytes Absolute Auto 0.3 X10*3/uL (0.1-1.2); Monocytes Percent Auto 7.2 % (2-11); Neutrophils Absolute Auto 2.4 x10*3/uL (2.0-8.3); Neutrophils Percent Auto 61.2 % (45-73); Platelet Count 236 X10*3/uL (160-400); Red Blood Count 4.83 X10*6/uL (4.20-5.50); White Blood Count 3.9 X10*3/uL (4.8-10.8)
[2023-06-05 14:24] LABS: C Reactive Protein 2.32 mg/dL (< or = 0.50)
[2023-06-05 14:48] LABS: Erythrocyte Sedimentation Rate 31 MM/HR (0-20)
== END 2023-06-05 12:27 | disposition home or self-care (01) ==
LOC: HO.10HDL 12:26
PROVIDERS: Visit Provider Internal Medicine Rheumatology
DX: L40.50 Arthropathic psoriasis, unspecified (principal); Z79.899 Other long term (current) drug therapy
CPT/HCPCS: 36415; 85025; 85652; 86140

== ENCOUNTER 2023-07-03 08:12 | Outpatient (REF) | payer OTHER, MEDICAID, SELFPAY ==
--- NOTE | ~2023-07-03 | US_ITS ---
EXAMINATION: US ABDOMEN LIMITED CLINICAL INFORMATION: Other specified abnormal findings of blood chemistry. Evaluate fatty liver disease. COMPARISON: None available. TECHNIQUE: Real-time imaging of the right upper quadrant abdominal viscera. Technically suboptimal study secondary to bowel gas and body habitus. FINDINGS: PANCREAS: Normal. LIVER: The liver is normal in size. The liver contour is normal. Hypoechoic focus in the right hepatic lobe measuring 3.1 x 1.8 x 3.0 cm. There is no intrahepatic biliary duct dilatation seen. GALLBLADDER: Normal. The gallbladder is physiologically distended without evidence of stones, sludge, polyps, wall thickening or pericholecystic fluid. Sonographic Hernandez sign is negative. COMMON BILE DUCT: Normal in caliber measuring 0.39 cm in diameter. RIGHT KIDNEY: Normal. No hydronephrosis. No renal calculi or focal parenchymal lesions. The kidney measures 11.0 cm in maximum dimension. FREE FLUID: None. US/US abdomen limited IMPRESSION: Hypoechoic focus in the right hepatic lobe measuring 3.1 x 1.8 x 3.0 cm. If clinically warranted this can be further evaluated with MRI.
== END 2023-07-03 08:13 | disposition home or self-care (01) ==
LOC: HO.US 08:12
PROVIDERS: PCP Physician Assistant; Visit Provider Physician Assistant
DX: R79.89 Other specified abnormal findings of blood chemistry (principal)
CPT/HCPCS: 76705

== ENCOUNTER 2023-07-16 13:37 | Outpatient (AMB) | payer OTHER, MEDICAID, SELFPAY ==
--- NOTE | 2023-07-16 13:42 | MHC.PC.OV ---
Vital Signs 07/16/23 13:44 Height 5 ft 1 in Weight 251 lb 8 oz BMI 47.5 BP 122/60 Blood Pressure Location Lt brachial Position Sitting Pulse 72 Pulse Source Pulse Oximeter Pulse Oximetry (%) 98 Oxygen Delivery Method Room Air Intake Visit Reasons: f/u weight check / labs Intake Note: Patient is here to follow up on weight check and labs. Hat Finishing Materials Preparer Required: No Amusement Or Recreation Card Checker: Not Required per policy Accompanied by: Self / Same As Patient Allergies No Known Allergies [No Known Allergies*] Allergy (Verified 07/16/23 14:09) Medication List - Last Reconciled 07/16/23 by Jaylan Mackey PA-C adalimumab (Humira(CF) Pen) 40 mg (0.4 mL) subcut Q2W 56 days levothyroxine 150 mcg PO DAILY 30 days metformin 500 mg PO ONCE 90 days semaglutide (Ozempic) 0.25 mg (0.368 mL) subcut QWEEK 6 weeks sertraline 50 mg PO DAILY 30 days Tobacco use date assessed: 07/16/23 Dental Screening Dental Screen Date: 07/16/23 Did you have a dental visit in the last 12 months?: Yes Did you have a dental problem in the last 6 months where you did not have access to dental care?: No Was dental information given to patient?: Patient has dentist HPI f/u weight check / labs HPI Details Patient is a 23-year-old female here today for a follow-up visit with a past medical history significant for type 2 diabetes, obesity, psoriatic arthritis.? . Elevated liver enzymes: Has gotten recent ultrasound of her liver that did show right hepatic lobe mass. MRI was recommended. She believes she has had this right lobe finding in the past Psoriatic arthritis: Patient now followed by Rheumatology and has been started on disease modifying-> Humira. . She reports her arthritic pain is much more manageable now. .. Obesity:? Have noted some weight loss since last office visit. Has been started on Ozempic and has noted a 10 lb weight loss.? Has been working on portion control which is helping.? Has not added any physical activity to her lifestyle. .. Type 2 diabetes:? Patient continues on metformin 500 b.i.d. A1c today 6.6 PLAN: Will increase her Ozempic dose to 0.5 mg weekly. .. Hypothyroid :? Most recent TSH found to be continued high at 7. We have increased her levothyroxine dose to 150 mcg..? Will check her TSH Laboratory Tests 02/27/23 05/24/23 06/05/23 11:10 15:03 12:30 RBC 4.88 Hgb 12.5 AST 78 H ALT 104 H C-Reactive Protein 2.36 H 2.32 H TSH 7.01 H PFSH Medical History Morbidly obese Surgical History No pertinent past surgical history Family History Father Hypertension Rheumatoid arthritis Mother Hypertension Breast cancer, Onset Age: 35 Rheumatoid arthritis Paternal Aunt Diabetes Mental health disorder Paternal Uncle Diabetes Mental health disorder Social History Housing: House Alcohol intake: never Patient Tobacco Use Status: Never used Tobacco Tobacco use type: Cigarette e-Cigarette/Vaping Use: Never Used Second Hand Smoke Exposure: No service: No Current occupational status: employed Current occupation: [employer]- Cognitive needs: No Hearing needs: No Vision needs: No Questionnaire Thrive Questionnaire Date Thrive assessed: 11/20/22 RAJIV-7 AMB Questionnaire RAJIV-7 Date RAJIV - 7 assessed: 11/20/22 Source: Developed by Drs. Rakesh Gaston, Mahogany Meza, Quincy Gandhi and colleagues, with an educational cam from [employer]. Review of Systems Const Denies headache(s) Eyes Denies loss of vision ENT Denies vertigo, Denies dizziness, Denies headache(s) and Denies sore throat Card Denies chest pain, Denies leg edema and Denies lightheadedness Resp Denies cough, Denies hemoptysis and Denies wheezing GI Denies abdominal pain, Denies melena, Denies constipation, Denies diarrhea and Denies vomiting Denies urinary frequency, Denies dysuria and Denies urinary urgency Musc Denies arthralgias, Denies joint swelling, Denies numbness and Denies tingling Neuro Denies Abnormal speech present, Denies behavioral changes, Denies vertigo, Denies dizziness, Denies headache(s), Denies loss of vision, Denies memory loss, Denies numbness and Denies tingling Psych Denies anxiety, Denies behavioral changes, Denies depression, Denies memory loss and Denies panic attacks Galen/Lymph Denies easy bleeding and Denies easy bruising Aller/Immun Denies wheezing Physical exam (Primary Care) Vital Signs: Last Vital Signs Pulse 72 07/16/23 13:44 BP 122/60 07/16/23 13:44 Pulse Ox 98 07/16/23 13:44 Oxygen Delivery Method Room Air 07/16/23 13:44 BMI result Body Mass Index 47.5 BMI Assessment/Plan discussion: High Tobacco/Smoking Status: Tobacco use Status Tobacco use date assessed 07/16/23 07/16/23 13:51 Patient Tobacco Use Status Never used Tobacco 07/16/23 13:42 Tobacco use type Cigarette 07/16/23 13:42 e-Cigarette/Vaping Use Never Used 07/16/23 13:42 Thrive Assessment: Date of Thrive Assessment Date Thrive assessed 11/20/22 07/16/23 13:42 Const Other: Morbidly obese though weight loss noted General: healthy appearing, no acute distress, alert and awake Nutritional Appearance: well nourished Orientation/consciousness: oriented to person, oriented to place and oriented to time HENMT Ears: TM's normal bilaterally General nose exam: Normal nasal mucous membranes and turbinates present Eyes Conjunctivae: conjunctivae normal Sclerae: sclerae normal Pupils: Equal, round and reactive pupils present Neck Neck: Yes no lymphadenopathy and Yes no JVD Thyroid: Thyroid normal Carotids: no bruits Resp Effort & Inspection: normal respiratory effort and not tachypneic Auscultation: no crackles, no rales, no rhonchi and no wheezes Cardio Rate: regular rate Rhythm: regular rhythm Heart sounds: no murmurs and normal S1 and S2 GI Palpation (GI): Soft to palpation, nontender, no hepatomegaly and no splenomegaly Auscultation: normal bowel sounds Skin General skin exam: no rashes or lesions noted and dry skin Neuro General: oriented to person, oriented to place and oriented to time Cranial nerves: Yes Equal, round and reactive pupils present Speech: No Abnormal speech present Gait exam (Neuro): Normal gait present Motor exam (neuro): no tremor noted Extrem Right upper extremity: full ROM Left upper extremity: full ROM Right lower extremity: full ROM; no edema Left lower extremity: full ROM; no edema Psych Mental Status: mental status grossly normal Speech and movement: Normal speech and movement present Affect: normal affect Attitude: cooperative Thought process: Normal thought process present Assessment and Plan Assessment & Plan (1) DMII (diabetes mellitus, type 2): Code(s): E11.9 - Type 2 diabetes mellitus without complications Qualifiers: Diabetes mellitus complication status: without complication Diabetes mellitus intermediate insulin use: without furnace attendant use Qualified Code(s): E11.9 - Type 2 diabetes mellitus without complications Plan: Patient's type 2 diabetes controlled most recent A1c is 6.6. Has been started on Ozempic and has noted some weight loss. Will increase her dose of Ozempic to 0.5 mg weekly. Will supply patient with glucometer and test strips to check her sugars as needed. Explained signs symptoms of hypoglycemic events. Will continue her current dose of metformin. Goal A1c to be below 6.5 (2) Morbidly obese: Code(s): E66.01 - Morbid (severe) obesity due to excess calories Plan: Patient does understand her BMI is over 40 and will work on being more physically active and adapting to better eating habits to reduce her weight. (3) Hypothyroid: Code(s): E03.9 - Hypothyroidism, unspecified Qualifiers: Hypothyroidism type: unspecified Qualified Code(s): E03.9 - Hypothyroidism, unspecified Plan: Most recent TSH slightly elevated at 7. We have increased her levothyroxine dose to 150 mcg. Advised to recheck TSH as soon as possible. (4) Psoriatic arthritis: Code(s): L40.50 - Arthropathic psoriasis, unspecified Plan: Recently diagnosed with psoriatic arthritis. Has started on Humira and feels it has drastically reduced her joint pain and stiffness. Orders: Orders TSH reflex Free T4 07/16/23 E03.9 - Hypothyroidism, unspecified Comprehensive [place]. Panel Fast 07/16/23 E11.9 - Type 2 diabetes mellitus without complications Complete Blood Count no Diff 07/16/23 E11.9 - Type 2 diabetes mellitus without complications Referrals Ophthalmology Referral E11.9 - Type 2 diabetes mellitus without complications Medications: New lancets (FreeStyle Lancets) Testing once a day 100 ea 3RF E11.9 - Type 2 diabetes mellitus without complications blood-glucose meter (FreeStyle Lite Meter kit) As directed 1 ea 0RF E11.9 - Type 2 diabetes mellitus without complications blood sugar diagnostic (FreeStyle Lite Strips) Testing Once a day/ as needed 100 ea 3RF E11.9 - Type 2 diabetes mellitus without complications Coding Level of Care Code Est Pt Level 4 (80418) Diagnoses Type 2 diabetes mellitus without complication, without long-term current use of insulin E11.9 Diabetes mellitus complication status: without complication Diabetes mellitus furnace attendant insulin use: without furnace attendant use Morbidly obese E66.01 Hypothyroidism, unspecified type E03.9 Hypothyroidism type: unspecified Psoriatic arthritis L40.50
[2023-07-16 13:44] VITALS: BP 122/60; PULSE 72; O2SAT 98; BMI 47.5
== END 2023-07-16 14:25 | disposition home or self-care (01) ==
PROVIDERS: PCP Physician Assistant; Visit Provider Physician Assistant
DX: E11.9 Type 2 diabetes mellitus without complications (principal); E66.01 Morbid (severe) obesity due to excess calories; L40.50 Arthropathic psoriasis, unspecified; Z68.42 Body mass index [BMI] 45.0-49.9, adult; E03.9 Hypothyroidism, unspecified
CPT/HCPCS: 99214

== ENCOUNTER 2023-07-16 14:31 | Outpatient (REF) | payer OTHER, MEDICAID, SELFPAY ==
[2023-07-16 15:23] LABS: Hematocrit 40.8 % (37.0-47.0); Hemoglobin 12.8 g/dl (12.0-16.0); Mean Corpuscular HGB Conc 31.4 g/dl (31.0-35.0); Mean Corpuscular Hemoglobin 25.5 pg (27.0-33.0); Mean Corpuscular Volume 81.3 fL (80.0-98.0); Mean Platelet Volume 10.8 fL (9.4-12.3); Platelet Count 244 X10*3/uL (160-400); Red Blood Count 5.02 X10*6/uL (4.20-5.50); Red Cell Distribution Width 13.4 % (11.0-16.0)
[2023-07-16 15:55] LABS: Alanine Aminotransferase 84 U/L (0-31); Albumin Level 4.1 g/dL (3.5-5.0); Alkaline Phosphatase 76 U/L (39-117); Anion Gap 11 (12-20); Aspartate Amino Transferase 71 U/L (5-31); Bilirubin Total 0.4 mg/dL (0.0-1.0); Blood Urea Nitrogen 13 mg/dL (9-16); Calcium 9.5 mg/dL (8.4-10.2); Carbon Dioxide 28 mmol/L (22-29); Chloride 105 mmol/L (96-108); Estimated Glomerular Filt Rate > 60; Glucose Fasting 83 mg/dL (60-99); Potassium 4.1 mmol/L (3.3-5.1); Sodium 140 mmol/L (135-145); Total Protein 8.1 g/dL (6.5-8.0)
[2023-07-16 16:11] LABS: TSH reflex Free T4 5.55 uIU/mL (0.32-4.0)
[2023-07-16 17:26] LABS: Free T4 (Free Thyroxine) 0.93 ng/dL (0.71-1.85)
== END 2023-07-16 14:32 | disposition home or self-care (01) ==
LOC: HO.LAB 14:31
PROVIDERS: PCP Physician Assistant; Visit Provider Physician Assistant
DX: E03.9 Hypothyroidism, unspecified (principal); E11.9 Type 2 diabetes mellitus without complications
CPT/HCPCS: 36415; 80053; 84439; 84443; 85027

== ENCOUNTER 2023-08-23 15:24 | Outpatient (REF) | payer OTHER, MEDICAID, SELFPAY ==
--- NOTE | ~2023-08-23 | MR_ITS ---
EXAMINATION: MR ABDOMEN WITHOUT AND WITH CONTRAST CLINICAL INFORMATION: Hypoechoic liver lesion on a prior ultrasound. COMPARISON: Abdominal ultrasound 07/03/2023. TECHNIQUE: MR abdomen was performed without and with use of 10 mL intravenous Gadavist gadolinium contrast. Postcontrast images are performed in multiphase dynamic sequences. Imaging was performed in 3 planes. FINDINGS: LUNG BASES: The visualized lung bases are unremarkable. LIVER, GALLBLADDER, AND BILIARY TREE: The liver is enlarged measuring 20 cm craniocaudally and demonstrates signal loss in the opposed phase dual echo images consistent with hepatic steatosis. In the inferior aspect of the right hepatic lobe and adjacent to the gallbladder, there are regions of differential attenuation of the liver parenchyma compared to the background including preserved signal intensity in the opposed phase dual echo images, faint intermediate T2 bright signal, faint precontrast T1 bright signal and very subtle increased signal on postcontrast images compared to the adjacent liver. There is no associated mass effect in these regions and there are normal undistorted vessels running through them, constellation of findings that favor to represent regions of fat sparing. The observation in the right hepatic lobe (image 20 series 6 and image 66 series 103), most likely correlates with the finding noted on recent ultrasound, compared to the other regions this is more rounded and masslike, though there is no associated mass effect and vessels are running through it as well. There is a 0.9 cm hypointense observation in the left hepatic lobe only visualized on a single postcontrast phase, image 34 series 101. No correlate on precontrast images, most likely related with transient perfusional abnormality. PANCREAS: Unremarkable. SPLEEN: Normal. ADRENAL GLANDS: Normal. KIDNEYS AND URETERS: The kidneys are normal in size, shape, and enhance symmetrically. No hydronephrosis. No perinephric stranding. GASTROINTESTINAL TRACT: No bowel obstruction. No ascites or fluid collection. ABDOMINAL WALL: No significant hernia is appreciated. LYMPH NODES: No lymphadenopathy. VASCULAR: Unremarkable. OSSEOUS STRUCTURES: No acute or aggressive appearing osseous findings. MR/MR abdomen wo/w con IMPRESSION: Few regions of preserved signal intensity in the out of phase images with mild differential attenuation in other phases located adjacent to the gallbladder as well as in the right hepatic lobe. The observation in the right hepatic lobe is more rounded and masslike, although there is no mass effect and there are vessels running through it. Overall, these are favored to represent areas of fatty sparing, although in view of the somewhat more rounded and masslike appearance of the right lesion, out precaution follow-up with an MRI in 6 months is recommended. A 0.9 cm subtle observation in the left hepatic lobe only visualized on a single postcontrast sequence with no correlate on precontrast images most likely corresponds to a transient perfusional change. As above, out of precaution abdominal MRI in 6 months is recommended. Hepatomegaly and hepatic steatosis.
[2023-08-23] MEDS: gadobutroL 10 ML VIAL IVPUSH (16:17)
== END 2023-08-23 15:25 | disposition home or self-care (01) ==
LOC: HO.MRI 15:24
PROVIDERS: PCP Physician Assistant; Visit Provider Physician Assistant
DX: R16.0 Hepatomegaly, not elsewhere classified (principal); R79.89 Other specified abnormal findings of blood chemistry
CPT/HCPCS: 74183; A9585

== ENCOUNTER 2023-09-26 11:39 | Outpatient (AMB) | payer OTHER, MEDICAID, SELFPAY ==
[2023-09-26 11:46] VITALS: BP 122/70; PULSE 75; TEMP 35.9; O2SAT 99; BMI 46.6
--- NOTE | 2023-09-26 11:46 | A.OFFVIS_ITS ---
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 Ford, presents today for PsA follow up and test results. Experienced injection site reaction to Humira (has picture on phone) Would like to discuss further. She also reports she received letter from insurance stating Humira is no longer covered. Apparel Embroidery Digitizer Required: No Accompanied by: Self / Same As Patient Allergies No Known Allergies [No Known Allergies*] Allergy (Verified 09/26/23 11:48) HPI HPI Comments 2 History of Present Illness0 Details Polly 23yoJay returns today for evaluation of her psoriasis and psoriatic arthritis. April 2023 she started Humira 40 mg every 2 weeks. Per patient the joints and skin have done much better when she was taking Humira. She stop taking Humira because of injection site reaction on her thighs(shows pics) which started the beginning of August 2023, approximately 4 months since starting Humira. The 1st injection in August the bruising lasted until the 2nd injection was due 2 weeks later. Therefore she has not injected HUMIRA for the month of September. Her psoriasis was effectively cleared on Humira with some small areas on her elbows that do not itch. Per patientm since stopping Humira, some scattered lesions have returned to her lower legs and she can feel the stiffness and increase achiness in her joints within the last month. She did start Ozempic for obesity. She also received a letter from her insurance company they will no longer cover Humira but Hyriimoz (bio-similar) is acceptable. --T2DM --Hypothyroid --Morbid Obese 06/05/2023 Visit -Dr. Ford The patient returns today for evaluation of her psoriatic arthritis. About 2 months ago we started her on Humira 40 mg every 2 weeks for presumed psoriatic arthritis. She says the joints have done much better. She does not take any ibuprofen anymore. There is still some eruption on her elbows but it seems to be nonpruritic and somewhat decreased in its extent. There have been no side effects with the Humira. She already got her flu shot for this season. She works at [employer]. She recently had her levothyroxine dose adjusted. She tells me her primary doctor is trying to arrange for her to receive Ozempic for her obesity. [facility] Medical History (Updated 10/01/23 @ 12:14 [facility] Fatty liver Morbidly obese Surgical History No pertinent past surgical history Family History Father Hypertension Rheumatoid arthritis Mother Hypertension Breast cancer, Onset Age: 35 Rheumatoid arthritis Paternal Aunt Diabetes Mental health disorder Paternal Uncle Diabetes Mental health disorder Social History Housing: House Alcohol intake: never Patient Tobacco Use Status: Never used Tobacco Tobacco use type: Cigarette e-Cigarette/Vaping Use: Never Used Second Hand Smoke Exposure: No service: No Current occupational status: employed Current occupation: [employer]- Cognitive needs: No Hearing needs: No Vision needs: No Review of Systems Const All systems reviewed & are unremarkable except as noted in HPI and below Physical Exam Vital Signs: Last Vital Signs Temp 96.6 F L 09/26/23 11:46 Pulse 75 09/26/23 11:46 BP 122/70 09/26/23 11:46 Pulse Ox 99 09/26/23 11:46 Oxygen Delivery Method Room Air 09/26/23 11:46 BMI result Body Mass Index 46.6 APPEARANCE: Patient in no acute distress EYES no redness, eyelids normal HEART:? Regular rhythm, S1-S2 heard, no murmurs, rubs or gallops. LUNG:? Clear to percussion and auscultation EXTREMITIES: No edema, no calf tenderness, normal peripheral pulses. SKIN: There is a rash of scattered papules over the olecranon region, left thigh and right knee, winkler. None of these are tender or purpuric. Some of the lesions are no longer palpable. There is just a spot of hyperpigmentation. No breaks in the skin. There is no scaling or consolidation of the lesions. No objective signs of Raynaud's disease or nail pathology. Photograph of the elbows: JOINT EXAM:.?? Cervical Spine:.? Full range of motion with slight discomfort. No tenderness. Thoracic Spine:.? No scoliosis.? No tenderness on palpation. Lumbar Spine:.? Alignment normal.? Full range of motion with no pain at the extremes. No tenderness. Straight leg raising is negative. Chest Wall:.? No tenderness, swelling, increased warmth or erythema. Hands: There is pain-free range of motion in the fingers of the hands. There is puffiness across the MCPs but there is no tenderness in any of the small joints of the hands. No flexor tendon triggering, thenar atrophy or sensory loss. Wrists: Left: no pain with flexion extension at 80; no tenderness or swelling. Right:.? Normal pain-free range of motion without tenderness, swelling, increased warmth or erythema. Elbows:. Left: no pain with full extension or full flexion. No tenderness, redness or swelling. Right: Normal pain-free range of motion without tenderness, swelling, increased warmth or erythema. Shoulders:.?? Full range of motion with mild discomfort felt over the base of the neck pain trapezius region. There is mild anterior tenderness without weakness, swelling, increased warmth or erythema. Hips:.? Full range of motion without pain. Hip bursa:.? No tenderness. Knees:.? Right: No pain with extremes of flexion extension. There is no tenderness, redness or effusion. Left:? Normal pain-free range of motion with mild medial tenderness but no effusion, soft tissue swelling, increased warmth or erythema.? Ankles:.? Normal pain-free range of motion with no tenderness, swelling, increased warmth or erythema. Feet:.? Normal pain-free range of motion no tenderness or swelling in the insteps, MTPs or toes. Results Reviewed Results Reviewed: Laboratory Tests 11/29/21 11/29/21 11/29/21 11:50 11:50 11:50 WBC Hgb ESR 38 H AST ALT C-Reactive Protein 6.09 H TSH Rheumatoid Factor < 15.0 Cycl Citrul Peptide IgG <16 EDI Screen Lyme Screen IgG & IgM 11/29/21 11/20/22 11/20/22 11:50 14:47 14:47 WBC Hgb ESR AST 33 H ALT 43 H C-Reactive Protein TSH 10.07 H Rheumatoid Factor Cycl Citrul Peptide IgG EDI Screen NEGATIVE Lyme Screen IgG & IgM <0.90 01/19/23 22:40 WBC 6.7 Hgb 11.8 L ESR AST ALT C-Reactive Protein TSH Rheumatoid Factor Cycl Citrul Peptide IgG EDI Screen Lyme Screen IgG & IgM [address] [address] XRay Report Signed Patient: Polly Byrnes MR#: [id number] : 2000 Acct:[id number] Age/Sex: 21 / F ADM Date: 11/29/[address]: Jaylan Mackey PA-C Ordering Physician: Jaylan Mackey PA-C Date of Service: 11/29/21 Procedure(s): XR hand RT 2V Accession Number(s): [id number] cc: Jaylan Mackey PA-C~ EXAMINATION: BILATERAL HAND X-RAY CLINICAL INFORMATION: Pain? COMPARISON: None? TECHNIQUE: 3 views of each hand? FINDINGS: Bone alignment is normal. No fracture or dislocation is seen. Joint spaces and soft tissues are normal.? XR/XR hand RT 2V IMPRESSION: Unremarkable exam.? Dictated By: Ginny Huynh MD Signed By: <Electronically signed by Ginny Huynh MD in OV> 11/30/21 1005 Laboratory Tests 05/24/23 05/24/23 06/05/23 15:03 15:03 12:30 WBC 3.9 L RBC Hgb Hct ESR AST 78 H ALT 104 H C-Reactive Protein TSH 7.01 H 06/05/23 06/05/23 06/05/23 12:30 12:30 12:30 WBC RBC 4.83 Hgb 12.5 Hct ESR 31 H AST ALT C-Reactive Protein 2.32 H TSH 06/05/23 07/16/23 07/16/23 12:30 14:37 14:37 WBC 4.0 L RBC 5.02 Hgb Hct 39.7 40.8 ESR AST ALT C-Reactive Protein TSH 07/16/23 07/16/23 14:37 14:37 WBC RBC Hgb 12.8 Hct ESR AST 71 H ALT 84 H C-Reactive Protein TSH 5.[address] [address] Magnetic Resonance Report Signed Patient: Polly Byrnes MR#: [id number] : 2000 Acct:[id number] Age/Sex: 23 / F ADM Date: 08/23/23 Loc: HO.MRI Attending Dr: Jaylan Mackey PA-C Ordering Physician: Jaylan Mackey PA-C Date of Service: 08/23/23 Procedure(s): MR abdomen wo/w con Accession Number(s): [id number] cc: Jaylan Mackey PA-C~ EXAMINATION: MR ABDOMEN WITHOUT AND WITH CONTRAST CLINICAL INFORMATION: Hypoechoic liver lesion on a prior ultrasound. COMPARISON: Abdominal ultrasound 07/03/2023. TECHNIQUE: MR abdomen was performed without and with use of 10 mL intravenous Gadavist gadolinium contrast. Postcontrast images are performed in multiphase dynamic sequences. Imaging was performed in 3 planes. FINDINGS: LUNG BASES: The visualized lung bases are unremarkable. LIVER, GALLBLADDER, AND BILIARY TREE: The liver is enlarged measuring 20 cm craniocaudally and demonstrates signal loss in the opposed phase dual echo images consistent with hepatic steatosis. In the inferior aspect of the right hepatic lobe and adjacent to the gallbladder, there are regions of differential attenuation of the liver parenchyma compared to the background including preserved signal intensity in the opposed phase dual echo images, faint intermediate T2 bright signal, faint precontrast T1 bright signal and very subtle increased signal on postcontrast images compared to the adjacent liver. There is no associated mass effect in these regions and there are normal undistorted vessels running through them, constellation of findings that favor to represent regions of fat sparing. The observation in the right hepatic lobe (image 20 series 6 and image 66 series 103), most likely correlates with the finding noted on recent ultrasound, compared to the other regions this is more rounded and masslike, though there is no associated mass effect and vessels are running through it as well. There is a 0.9 cm hypointense observation in the left hepatic lobe only visualized on a single postcontrast phase, image 34 series 101. No correlate on precontrast images, most likely related with transient perfusional abnormality. PANCREAS: Unremarkable. SPLEEN: Normal. ADRENAL GLANDS: Normal. KIDNEYS AND URETERS: The kidneys are normal in size, shape, and enhance symmetrically. No hydronephrosis. No perinephric stranding. GASTROINTESTINAL TRACT: No bowel obstruction. No ascites or fluid collection. ABDOMINAL WALL: No significant hernia is appreciated. LYMPH NODES: No lymphadenopathy. VASCULAR: Unremarkable. OSSEOUS STRUCTURES: No acute or aggressive appearing osseous findings. MR/MR abdomen wo/w con IMPRESSION: Few regions of preserved signal intensity in the out of phase images with mild differential attenuation in other phases located adjacent to the gallbladder as well as in the right hepatic lobe. The observation in the right hepatic lobe is more rounded and masslike, although there is no mass effect and there are vessels running through it. Overall, these are favored to represent areas of fatty sparing, although in view of the somewhat more rounded and masslike appearance of the right lesion, out precaution follow-up with an MRI in 6 months is recommended. A 0.9 cm subtle observation in the left hepatic lobe only visualized on a single postcontrast sequence with no correlate on precontrast images most likely corresponds to a transient perfusional change. As above, out of precaution abdominal MRI in 6 months is recommended. 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 However, the injection site reaction was severe. There are hyperpigmented areas (residual) on her thighs that she says represents the size (varying 6 to 8 inches in diameter) of the bruising which have resolved. There is mild synovitis and tenderness on PE, with skin lesions present. We will not continue HUMIRA, She would rather an oral medication vs an injectable. However, in light of her elevated liver enzymes, A JAMAAL is not appropriate. Will consider Orencia and start PA. Patient does not desire prednisone at this time. #Jail Use: We will continue to monitor CBC, CMP, ESR and CRP. Her LFTs are stably elevated. Recent MRI of abdomen reports fatty liver. Patient knows to hold bio DMARDs in the event of fevers, infections, surgery, nonhealing wounds. #Hypothyroidism/Obese/: TSH has improved based on the labs that were seen at the 06/05/2023 visit, but was still elevated at 5.55. Patient says another adjustment was made to the levothyroxine and she will be following up with PCP with new labs to recheck. SHe will continue on Ozempic for weightloss Follow-up in 2 months is recommended. I spent 40 minutes reviewing chart, evaluating patient and discussing medication options and documenting. Orders: Orders 2 Complete Blood Count Auto Diff 09/26/23 L40.50 - Arthropathic psoriasis, unspecified, L40.9 - Psoriasis, unspecified, R79.89 - Other specified abnormal findings of blood chemistry Alanine Aminotransferase 09/26/23 L40.50 - Arthropathic psoriasis, unspecified, L40.9 - Psoriasis, unspecified, Z79.899 - Other halfway (current) drug therapy Aspartate Amino Transferase 09/26/23 L40.50 - Arthropathic psoriasis, unspecified, L40.9 - Psoriasis, unspecified, Z79.899 - Other intermediate manager (current) drug therapy Comprehensive Met. Panel 09/26/23 L40.50 - Arthropathic psoriasis, unspecified, L40.9 - Psoriasis, unspecified, R79.89 - Other specified abnormal findings of blood chemistry C Reactive Protein 09/26/23 L40.50 - Arthropathic psoriasis, unspecified, L40.9 - Psoriasis, unspecified, R79.89 - Other specified abnormal findings of blood chemistry Erythrocyte Sedimentation Rate 09/26/23 L40.50 - Arthropathic psoriasis, unspecified, L40.9 - Psoriasis, unspecified, R79.89 - Other specified abnormal findings of blood chemistry C Reactive Protein 8 Weeks L40.50 - Arthropathic psoriasis, unspecified, L40.9 - Psoriasis, unspecified Erythrocyte Sedimentation Rate 8 Weeks L40.50 - Arthropathic psoriasis, unspecified, L40.9 - Psoriasis, unspecified Complete Blood Count Auto Diff 8 Weeks L40.50 - Arthropathic psoriasis, unspecified, L40.9 - Psoriasis, unspecified, Z79.899 - Other intermediate manager (current) drug therapy Medications: Discontinued 2 adalimumab (Humira(CF) Pen) Discontinued Reason: Doctor's Order 40 mg (0.4 mL) subcut Q2W 56 days 1.6 ea 4RF L40.50 - Arthropathic psoriasis, unspecified Coding Level of Care Code Est Pt Level 4 (50030) Diagnoses Psoriasis L40.9 shelter use of drug Z79.899 Psoriatic arthritis L40.50 Elevated LFTs R79.89 Fatty liver K76.0 Morbidly obese E66.01
== END 2023-09-26 12:24 | disposition home or self-care (01) ==
PROVIDERS: PCP Physician Assistant; Visit Provider Nurse Practitioner Family
DX: L40.9 Psoriasis, unspecified (principal); Z79.899 Other long term (current) drug therapy; L40.50 Arthropathic psoriasis, unspecified; R79.89 Other specified abnormal findings of blood chemistry; K76.0 Fatty (change of) liver, not elsewhere classified; E66.01 Morbid (severe) obesity due to excess calories
CPT/HCPCS: 99214

== ENCOUNTER → 2023-09-26 11:39 | Outpatient (BNVA) | payer OTHER, MEDICAID, SELFPAY | PROVIDERS: PCP Physician Assistant; Visit Provider Nurse Practitioner Family ==

== ENCOUNTER 2023-09-26 12:30 | Outpatient (REF) | payer OTHER, MEDICAID, SELFPAY ==
[2023-09-26 13:06] LABS: MANUAL DIFF FLAG NO
[2023-09-26 13:10] LABS: Basophils Percent Auto 0.2 % (0-2); Eosinophils Absolute Auto 0.1 X10*3/uL (0.0-0.4); Eosinophils Percent Auto 1.2 % (0-4); Hematocrit 40.7 % (37.0-47.0); Hemoglobin 12.9 g/dl (12.0-16.0); Lymphocytes Absolute Auto 1.5 X10*3/uL (1.2-4.9); Lymphocytes Percent Auto 34.8 % (20-40); Mean Corpuscular HGB Conc 31.7 g/dl (31.0-35.0); Mean Corpuscular Hemoglobin 26.1 pg (27.0-33.0); Mean Corpuscular Volume 82.4 fL (80.0-98.0); Mean Platelet Volume 10.5 fL (9.4-12.3); Monocytes Absolute Auto 0.3 X10*3/uL (0.1-1.2); Monocytes Percent Auto 6.1 % (2-11); Neutrophils Absolute Auto 2.5 x10*3/uL (2.0-8.3); Neutrophils Percent Auto 57.7 % (45-73); Platelet Count 216 X10*3/uL (160-400); Red Blood Count 4.94 X10*6/uL (4.20-5.50); White Blood Count 4.3 X10*3/uL (4.8-10.8)
[2023-09-26 13:22] LABS: Alanine Aminotransferase 67 U/L (0-31); Albumin Level 3.8 g/dL (3.5-5.0); Alkaline Phosphatase 67 U/L (39-117); Anion Gap 9 (12-20); Aspartate Amino Transferase 50 U/L (5-31); Bilirubin Total 0.3 mg/dL (0.0-1.0); Blood Urea Nitrogen 13 mg/dL (9-16); C Reactive Protein 1.86 mg/dL (< or = 0.50); Carbon Dioxide 29 mmol/L (22-29); Chloride 107 mmol/L (96-108); Estimated Glomerular Filt Rate > 60; Glucose Random 91 mg/dL (60-115); Potassium 4.2 mmol/L (3.3-5.1); Sodium 141 mmol/L (135-145); Total Protein 7.6 g/dL (6.5-8.0)
[2023-09-26 13:49] LABS: Erythrocyte Sedimentation Rate 18 MM/HR (0-20)
== END 2023-09-26 12:31 | disposition home or self-care (01) ==
LOC: HO.10HDL 12:30
PROVIDERS: Visit Provider Nurse Practitioner Family
DX: L40.50 Arthropathic psoriasis, unspecified (principal); R79.89 Other specified abnormal findings of blood chemistry
CPT/HCPCS: 36415; 80053; 85025; 85652; 86140

== ENCOUNTER 2023-10-24 14:29 | Outpatient (AMB) | payer OTHER, MEDICAID, SELFPAY ==
[2023-10-24 14:41] VITALS: BP 106/80; PULSE 89; RESP 17; O2SAT 98; BMI 45.5
--- NOTE | 2023-10-24 14:41 | MHC.PC.OV ---
Vital Signs 10/24/23 14:41 Height 5 ft 1 in Weight 241 lb BMI 45.5 BP 106/80 Blood Pressure Location Lt brachial Position Sitting Respiration 17 Pulse 89 Pulse Source Pulse Oximeter Pulse Oximetry (%) 98 Oxygen Delivery Method Room Air Intake Visit Reasons: f/u DMII - weight check Retail Financial Analyst Required: No Accompanied by: Self / Same As Patient Allergies adalimumab [From Humira(CF)] Adverse Reaction (Intermediate, Verified 10/24/23 15:21) injection site reaction Medication List - Last Reconciled 10/24/23 by Jaylan Mackey PA-C blood sugar diagnostic (FreeStyle Lite Strips) Testing Once a day/ as needed blood-glucose meter (FreeStyle Lite Meter kit) As directed lancets (FreeStyle Lancets) Testing once a day levothyroxine 175 mcg PO DAILY 30 days metformin 500 mg PO ONCE 90 days secukinumab (Cosentyx Pen 300 mg/2 Pens () 300 mg (2 mL) subcut Q4W semaglutide (Ozempic) 0.25 mg (0.368 mL) subcut QWEEK 6 weeks sertraline 50 mg PO DAILY 30 days Tobacco use date assessed: 10/24/23 Dental Screening Dental Screen Date: 10/24/23 Did you have a dental visit in the last 12 months?: Yes Did you have a dental problem in the last 6 months where you did not have access to dental care?: No Was dental information given to patient?: Patient has dentist HPI f/u DMII - weight check HPI Details Patient is a 23-year-old female here today for a follow-up visit with a past medical history significant for type 2 diabetes, obesity, psoriatic arthritis.? . Elevated liver enzymes: Has gotten recent ultrasound of her liver that did show right hepatic lobe mass. MRI was recommended. She believes she has had this right lobe finding in the past Psoriatic arthritis: Patient now followed by Rheumatology and has been started on disease modifying-> Humira. . She reports her arthritic pain is much more manageable with Humira though unfortunately started to have a localized injection site reaction on multiple occasions. She has been switched to Cosentyx which is recently approved by insurance. In the meantime she has been having a lot of joint pains in her hands wrists knees and ankles. She often has to call on work due to her pain. Was willing to give her as needed tramadol for her pain relief for breakthrough arthritic pain. .. Obesity:? Have noted some weight loss since last office visit. Has been started on Ozempic and has noted a 5 lb weight loss.? Has been working on portion control which is helping.? Has not added any physical activity to her lifestyle. .. Type 2 diabetes:? Patient continues on metformin 500 q.d. we have increased her Ozempic to 0.5 mg has noted weight loss since last office visit. A1c today 6.1 from 6.6 .. Hypothyroid :? Most recent TSH found to be continued high at 7. We have increased her levothyroxine dose to 150 mcg..? Will check her TSH Laboratory Tests 05/24/23 07/16/23 09/26/23 15:03 14:37 12:36 WBC 4.3 L RBC 4.94 Creatinine 0.64 AST 50 H ALT 67 H TSH 7.01 H 5.55 H PFSH Medical History (Updated 10/25/23 @ 07:48 by Jaylan Mackey PA-C) Fatty liver Morbidly obese Surgical History No pertinent past surgical history Family History Father Hypertension Rheumatoid arthritis Mother Hypertension Breast cancer, Onset Age: 35 Rheumatoid arthritis Paternal Aunt Diabetes Mental health disorder Paternal Uncle Diabetes Mental health disorder Social History Housing: House Alcohol intake: never Patient Tobacco Use Status: Never used Tobacco Tobacco use type: Cigarette e-Cigarette/Vaping Use: Never Used Second Hand Smoke Exposure: No service: No Current occupational status: employed Current occupation: [employer]- Cognitive needs: No Hearing needs: No Vision needs: No Questionnaire PHQ-9 Over the last 2 weeks, how often have you been bothered by any of the following problems? 1. Little interest or pleasure in doing things: more than half the days 2. Feeling down, depressed, or hopeless: more than half the days 3. Trouble falling or staying asleep, or sleeping too much: nearly every day 4. Feeling tired or having little energy: nearly every day 5. Poor appetite or overeating: nearly every day 6. Feeling bad about yourself - or that you are a failure or have let yourself or your family down: more than half the days 7. Trouble concentrating on things, such as reading the newspaper or watching television: nearly every day 8. Moving or speaking so slowly that other people could have noticed. Or the opposite - being so fidgety or restless that you have been moving around a lot more than usual: more than half the days 9. Thoughts that you would be better off or of hurting yourself in some way: more than half the days Total score: 22 Depression Screening Interpretation: Positive Depression Screening Follow-up: Existing condition Depression Screening Done: Yes 43483 - PHQ-9 Billing: Yes Source: Developed by Drs. Rakesh Gaston, Mahogany Meza, Quincy Gandhi and colleagues, with an educational cam from [employer]. Thrive Questionnaire Date Thrive assessed: 10/24/23 I am a: Patient What is your living situation today?: I have a steady place to live Within the past 12 months, did the food you bought not last and you didn't have the money to get more?: Never true Within the past 12 months, did you worry whether your food would run out before you got money to buy more?: Never true Do you have trouble paying for medicines?: No Do you have trouble getting transportation to medical appointments?: No Do you have trouble paying your heating and electricity bill?: No Do you have trouble taking care of your child, family member or friend?: No Do you have trouble with day-to-day activities such as bathing, preparing meals, shopping, managing finances, etc.?: No Are you currently unemployed and looking for a job?: No Are you interested in more education?: No Please select the resources that you would like help with: None Currently or been in a relationship where the following occur: no concerns reported THRIVE Score: 0 AUDIT C Alcohol Use Questionnaire (AUDIT-C) 1. How often do you have a drink containing alcohol?: Never 3. How often do you have six or more drinks on one occasion?: Never Total Score: 0 RAIJV-7 AMB Questionnaire RAJIV-7 Date RAJIV - 7 assessed: 10/24/23 Feeling nervous, anxious, or on edge: 2 = More than half the days Not being able to stop or control worryin = More than half the days Worrying too much about different things: 3 = Nearly every day Trouble relaxin = More than half the days Being so restless that it is hard to sit still: 3 = Nearly every day Becoming easily annoyed or irritable: 1 = Several days Feeling afraid as if something awful might happen: 2 = More than half the days Total RAJIV-7 score (0-4 normal; 5-9 mild; 10-14 moderate; 15-21 severe): 15 Source: Developed by Drs. Rakesh Gaston, Mahogany Meza, Quincy Gandhi and colleagues, with an educational cam from [employer]. RAJIV-7 Assessment Billing RAJIV-7 Assessment Tool: RAJIV-7 Assessment 93361 Review of Systems Const Denies headache(s) Eyes Denies loss of vision ENT Denies vertigo, Denies dizziness, Denies headache(s) and Denies sore throat Card Denies chest pain, Denies leg edema and Denies lightheadedness Resp Denies cough, Denies hemoptysis and Denies wheezing GI Denies abdominal pain, Denies melena, Denies constipation, Denies diarrhea and Denies vomiting Denies urinary frequency, Denies dysuria and Denies urinary urgency Musc Reports back pain, Reports arthralgias, Reports joint swelling, Reports limited range of motion, Denies numbness, Reports stiffness and Denies tingling Neuro Denies Abnormal speech present, Denies behavioral changes, Denies vertigo, Denies dizziness, Denies headache(s), Denies loss of vision, Denies memory loss, Denies numbness and Denies tingling Psych Denies anxiety, Denies behavioral changes, Denies depression, Denies memory loss and Denies panic attacks Galen/Lymph Denies easy bleeding and Denies easy bruising Aller/Immun Denies wheezing Physical exam (Primary Care) Vital Signs: Last Vital Signs Pulse 89 10/24/23 14:41 Resp 17 10/24/23 14:41 BP 106/80 10/24/23 14:41 Pulse Ox 98 10/24/23 14:41 Oxygen Delivery Method Room Air 10/24/23 14:41 BMI result Body Mass Index 45.5 Tobacco/Smoking Status: Tobacco use Status Tobacco use date assessed 10/24/23 10/24/23 14:48 Patient Tobacco Use Status Never used Tobacco 10/24/23 14:41 Tobacco use type Cigarette 10/24/23 14:41 e-Cigarette/Vaping Use Never Used 10/24/23 14:41 PHQ-9: PHQ-9 Score PHQ-9: Total score 22 10/24/23 15:22 Depression Screening Interpretation: Positive Depression Screening Follow-up: Existing condition Thrive Assessment: Date of Thrive Assessment Date Thrive assessed 10/24/23 10/24/23 15:09 Currently or been in a relationship where the following occur: no concerns reported Const General: healthy appearing, no acute distress, alert and awake Nutritional Appearance: well nourished Orientation/consciousness: oriented to person, oriented to place and oriented to time HENMT Ears: TM's normal bilaterally General nose exam: Normal nasal mucous membranes and turbinates present Eyes Conjunctivae: conjunctivae normal Sclerae: sclerae normal Pupils: Equal, round and reactive pupils present Neck Neck: Yes no lymphadenopathy and Yes no JVD Thyroid: Thyroid normal Carotids: no bruits Resp Effort & Inspection: normal respiratory effort and not tachypneic Auscultation: no crackles, no rales, no rhonchi and no wheezes Cardio Rate: regular rate Rhythm: regular rhythm Heart sounds: no murmurs and normal S1 and S2 GI Palpation (GI): Soft to palpation, nontender, no hepatomegaly and no splenomegaly Auscultation: normal bowel sounds Skin General skin exam: no rashes or lesions noted and dry skin Neuro General: oriented to person, oriented to place and oriented to time Cranial nerves: Yes Equal, round and reactive pupils present Speech: No Abnormal speech present Gait exam (Neuro): Normal gait present Motor exam (neuro): no tremor noted Extrem Right upper extremity: full ROM Left upper extremity: full ROM Right lower extremity: full ROM; no edema Left lower extremity: full ROM; no edema Psych Mental Status: mental status grossly normal Speech and movement: Normal speech and movement present Affect: normal affect Attitude: cooperative Thought process: Normal thought process present Results AMB Hemoglobin A1c AMB Hemoglobin A1c 6.1 % Last Edit by CEDRIC Lindo on 10/24/23 15:23 Results Reviewed Results Reviewed: Laboratory Last Values Hgb A1c (Clinic) 6.1 % (4.0-6.0) H 10/24/23 15:12 Assessment and Plan Assessment & Plan (1) DMII (diabetes mellitus, type 2): Code(s): E11.9 - Type 2 diabetes mellitus without complications Qualifiers: Diabetes mellitus complication status: without complication Diabetes mellitus intermediate teacher insulin use: without intermediate teacher use Qualified Code(s): E11.9 - Type 2 diabetes mellitus without complications Plan: Patient's type 2 diabetes controlled most recent A1c is 6.6. Has been started on Ozempic 0.5mg and has noted some weight loss. Explained signs symptoms of hypoglycemic events. Will continue her current dose of metformin. Goal A1c to be below 6.5 (2) Psoriatic arthritis: Code(s): L40.50 - Arthropathic psoriasis, unspecified Plan: Now followed by [place] [facility]. Recently diagnosed with psoriatic arthritis. Was started on Humira and feels it has drastically reduced her joint pain and stiffness. Unfortunately had injection site reaction to Humira on multiple occasions and has been not able to take this medication. Her joint pains have returned. A new disease modifying drug has been approved by her insurance and she hopes to start this in the next week. (3) Morbidly obese: Code(s): E66.01 - Morbid (severe) obesity due to excess calories Plan: Patient does understand her BMI is over 40 and will work on being more physically active and adapting to better eating habits to reduce her weight. (4) Hypothyroid: Code(s): E03.9 - Hypothyroidism, unspecified Qualifiers: Hypothyroidism type: unspecified Qualified Code(s): E03.9 - Hypothyroidism, unspecified Plan: Patient continues on levothyroxine 175 mcg. Most recent TSH slightly elevated. She does report not taking the medication correctly and now is taking the medication on empty stomach every morning. Will recheck TSH to assure normal. (5) Cervical cancer screening: Code(s): Z12.4 - Encounter for screening for malignant neoplasm of cervix (6) Amenorrhea: Code(s): N91.2 - Amenorrhea, unspecified Plan: Has experienced amenorrhea since starting Humira. She reports she is not , has a female partner.. Does not have a supervisor blood donor recruiters and is interested in getting a Pap screening. Will refer to hand packager. (7) MDD (major depressive disorder), recurrent episode, moderate: Code(s): F33.1 - Major depressive disorder, recurrent, moderate Plan: Patient's PHQ-9 score positive for depression which has been existing condition for her. She continues on sertraline 50 mg a she reports is helpful. Most of her depression comes from her medical diagnoses. (8) RAJIV (generalized anxiety disorder): Code(s): F41.1 - Generalized anxiety disorder Plan: Patient's RAJIV-7 score positive for anxiety which has been existing condition for her. She continues on SSRI therapy. Orders: Orders TSH reflex Free T4 10/24/23 E03.9 - Hypothyroidism, unspecified AMB Hemoglobin A1c 10/24/23 E11.9 - Type 2 diabetes mellitus without complications Comprehensive [place]. Panel Fast 10/24/23 E11.9 - Type 2 diabetes mellitus without complications Referrals COTTON WEIGHER OPERATOR Referral N91.2 - Amenorrhea, unspecified, Z12.4 - Encounter for screening for malignant neoplasm of cervix Medications: New tramadol for psoriatic arthritic pain flares only 50 mg PO BID 5 days PRN 10 tabs 0RF pain L40.50 - Arthropathic psoriasis, unspecified Refilled levothyroxine 175 mcg PO DAILY 30 days 30 tabs 1RF R79.89 - Other specified abnormal findings of blood chemistry Coding Level of Care Code Est Pt Level 4 (85994) Diagnoses Type 2 diabetes mellitus without complication, without long-term current use of insulin E11.9 Diabetes mellitus complication status: without complication Diabetes mellitus residential insulin use: without residential use Psoriatic arthritis L40.50 Morbidly obese E66.01 Hypothyroidism, unspecified type E03.9 Hypothyroidism type: unspecified Cervical cancer screening Z12.4 Amenorrhea N91.2 MDD (major depressive disorder), recurrent episode, moderate F33.1 RAJIV (generalized anxiety disorder) F41.1 Additional Codes RAJIV-7 Assessment Billing - RAJIV-7 Assessment Tool: RAJIV-7 Assessment 99894 ([id number])
== END 2023-10-24 15:38 | disposition home or self-care (01) ==
PROVIDERS: PCP Physician Assistant; Visit Provider Physician Assistant
DX: E11.9 Type 2 diabetes mellitus without complications (principal)
CPT/HCPCS: 83036; 99214

== ENCOUNTER 2023-11-20 12:20 | Outpatient (REF) | payer OTHER, MEDICAID, SELFPAY ==
[2023-11-20 12:34] LABS: MANUAL DIFF FLAG NO
[2023-11-20 12:53] LABS: Basophils Percent Auto 0.4 % (0-2); Eosinophils Absolute Auto 0.1 X10*3/uL (0.0-0.4); Eosinophils Percent Auto 1.3 % (0-4); Hematocrit 39.6 % (37.0-47.0); Hemoglobin 12.6 g/dl (12.0-16.0); Imm Gran Abs Auto 0.01 X10*3/uL (0.00-0.03); Imm Gran Pct Auto 0.2 % (0.0-0.4); Lymphocytes Absolute Auto 1.7 X10*3/uL (1.2-4.9); Lymphocytes Percent Auto 37.4 % (20-40); Mean Corpuscular HGB Conc 31.8 g/dl (31.0-35.0); Mean Corpuscular Hemoglobin 26.6 pg (27.0-33.0); Mean Corpuscular Volume 83.5 fL (80.0-98.0); Mean Platelet Volume 10.5 fL (9.4-12.3); Monocytes Absolute Auto 0.3 X10*3/uL (0.1-1.2); Monocytes Percent Auto 6.7 % (2-11); Neutrophils Absolute Auto 2.5 x10*3/uL (2.0-8.3); Platelet Count 222 X10*3/uL (160-400); Red Blood Count 4.74 X10*6/uL (4.20-5.50); Red Cell Distribution Width 13.8 % (11.0-16.0); White Blood Count 4.6 X10*3/uL (4.8-10.8)
[2023-11-20 13:47] LABS: Erythrocyte Sedimentation Rate 27 MM/HR (0-20)
[2023-11-20 14:18] LABS: Alanine Aminotransferase 109 U/L (0-31); Aspartate Amino Transferase 81 U/L (5-31)
== END 2023-11-20 12:21 | disposition home or self-care (01) ==
LOC: HO.LAB 12:20
PROVIDERS: Visit Provider Nurse Practitioner Family
DX: L40.50 Arthropathic psoriasis, unspecified (principal); L40.9 Psoriasis, unspecified; Z79.899 Other long term (current) drug therapy
CPT/HCPCS: 36415; 84450; 84460; 85025; 85652; 86140

== ENCOUNTER 2023-11-22 12:50 | Outpatient (AMB) | payer OTHER, MEDICAID, SELFPAY ==
--- NOTE | 2023-11-22 12:54 | A.OFFVIS_ITS ---
Vital Signs 3 11/22/23 13:02 Height 5 ft 1 in Weight 237 lb 7.005 oz BMI 44.9 BP 104/62 Blood Pressure Location Rt brachial Position Sitting Pulse 88 Pulse Source Pulse Oximeter Pulse Oximetry (%) 99 Oxygen Delivery Method Room Air Intake Visit Reasons: PSA Intake Note: Patient last seen 09/26/23, presents today for follow up and test results. Flattening Press Operator Required: No Accompanied by: Self / Same As Patient Allergies adalimumab [From Humira(CF)] Adverse Reaction (Intermediate, Verified 11/22/23 12:55) injection site reaction HPI Comments Details: Polly Minor returns today for follow-up of her Psoriasis and Psoriatic arthritis after start of Cosentyx. She is doing well and have not experienced any injection site reaction. She did see the portal messages about the elevated liver enzymes. She will be ssing PCP in January and will repeat labs at that time. She continues Ozempic and is losing weight. 09/26/2023 Marixa: Polly Minor returns today for evaluation of her psoriasis and psoriatic arthritis. April 2023 she started Humira 40 mg every 2 weeks. Per patient the joints and skin have done much better when she was taking Humira. She stop taking Humira because of injection site reaction on her thighs(shows pics) which started the beginning of August 2023, approximately 4 months since starting Humira. The 1st injection in August the bruising lasted until the 2nd injection was due 2 weeks later. Therefore she has not injected HUMIRA for the month of September. Her psoriasis was effectively cleared on Humira with some small areas on her elbows that do not itch. Per patientm since stopping Humira, some scattered lesions have returned to her lower legs and she can feel the stiffness and increase achiness in her joints within the last month. She did start Ozempic for obesity. She also received a letter from her insurance company they will no longer cover Humira but Hyriimoz (bio-similar) is acceptable. --T2DM --Hypothyroid --Morbid Obese 06/05/2023 Visit -Dr. Ford The patient returns today for evaluation of her psoriatic arthritis. About 2 months ago we started her on Humira 40 mg every 2 weeks for presumed psoriatic arthritis. She says the joints have done much better. She does not take any ibuprofen anymore. There is still some eruption on her elbows but it seems to be nonpruritic and somewhat decreased in its extent. There have been no side effects with the Humira. She already got her flu shot for this season. She works at [employer]. She recently had her levothyroxine dose adjusted. She tells me her primary doctor is trying to arrange for her to receive Ozempic for her obesity. [facility] Medical History (Updated 10/25/23 @ 07:48 by Jaylan Mackey PA-C) Fatty liver Morbidly obese Surgical History No pertinent past surgical history Family History Father Hypertension Rheumatoid arthritis Mother Hypertension Breast cancer, Onset Age: 35 Rheumatoid arthritis Paternal Aunt Diabetes Mental health disorder Paternal Uncle Diabetes Mental health disorder Social History Housing: House Alcohol intake: never Patient Tobacco Use Status: Never used Tobacco Tobacco use type: Cigarette e-Cigarette/Vaping Use: Never Used Second Hand Smoke Exposure: No service: No Current occupational status: employed Current occupation: [employer]- Cognitive needs: No Hearing needs: No Vision needs: No Review of Systems Const All systems reviewed & are unremarkable except as noted in HPI and below Physical Exam Vital Signs: Last Vital Signs Pulse 88 11/22/23 13:02 BP 104/62 11/22/23 13:02 Pulse Ox 99 11/22/23 13:02 Oxygen Delivery Method Room Air 11/22/23 13:02 BMI result Body Mass Index 44.9 APPEARANCE: Patient in no acute distress EYES no redness, eyelids normal HEART:? Regular rhythm, S1-S2 heard, no murmurs, rubs or gallops. LUNG:? Clear to percussion and auscultation EXTREMITIES: No edema, no calf tenderness, normal peripheral pulses. SKIN: The rash of scattered papules over the olecranon region, left thigh and right knee, winkler has resolved and only hyperpigmentation remains. None of these are tender or purpuric. There is no scaling or consolidation of the lesions. No objective signs of Raynaud's disease or nail pathology. Photograph of the elbows: JOINT EXAM:.?? Cervical Spine:.? Full range of motion with slight discomfort. No tenderness. Thoracic Spine:.? No scoliosis.? No tenderness on palpation. Lumbar Spine:.? Alignment normal.? Full range of motion with no pain at the extremes. No tenderness. Straight leg raising is negative. Chest Wall:.? No tenderness, swelling, increased warmth or erythema. Hands: There is pain-free range of motion in the fingers of the hands. There is puffiness across the space between the MCPs and the PIPs with tenderness but not in the small joints of the hands. No flexor tendon triggering, thenar atrophy or sensory loss. Wrists: Left: no pain with flexion extension at 80; no tenderness or swelling. Right:.? Normal pain-free range of motion without tenderness, swelling, increased warmth or erythema. Elbows:. Left: no pain with full extension or full flexion. No tenderness, redness or swelling. Right: Normal pain-free range of motion without tenderness, swelling, increased warmth or erythema. Shoulders:.?? Full range of motion with mild discomfort felt over the base of the neck pain trapezius region. There is mild anterior tenderness without weakness, swelling, increased warmth or erythema. Hips:.? Full range of motion without pain. Hip bursa:.? No tenderness. Knees:.? Right: No pain with extremes of flexion extension. There is no tenderness, redness or effusion. Left:? Normal pain-free range of motion with mild medial tenderness but no effusion, soft tissue swelling, increased warmth or erythema.? Ankles:.? Normal pain-free range of motion with no tenderness, swelling, increased warmth or erythema. Feet:.? Normal pain-free range of motion no tenderness or swelling in the insteps, MTPs or toes. Results Reviewed Results Reviewed: Laboratory Tests 11/20/23 12:33 WBC 4.6 L RBC 4.74 Hgb 12.6 Hct 39.6 ESR 27 H AST 81 H ALT 109 H C-Reactive Protein 1.40 H Assessment & Plan Assessment & Plan (1) Psoriasis: Code(s): L40.9 - Psoriasis, unspecified Category: Medical (2) Psoriatic arthritis: Code(s): L40.50 - Arthropathic psoriasis, unspecified Category: Medical (3) terminal make up operator use of drug: Code(s): Z79.899 - Other senior care (current) drug therapy Category: Medical (4) Elevated LFTs: Code(s): R79.89 - Other specified abnormal findings of blood chemistry Category: Medical (5) Fatty liver: Code(s): K76.0 - Fatty (change of) liver, not elsewhere classified Category: Medical Plan #PSA/PSO: She was switched from Humira to Cosentyx 300 mg QM and Symptoms are improving on one injection. She has not had any injection site reaction. We will not continue Consentyx ([place] denies by insurance) #Punchboard Inserter Use/Elevated LFTs: We will continue to monitor CBC, CMP, ESR and CRP. Her LFTs are stably elevated as the numbers are not more than past values. Available MRI of abdomen reports fatty liver. I have notified PCP that we will keep the medication on a this time - He agrees with this plan. Should the liver be more elevated on repeat labs, we will consider to stop Cosentyx. Patient knows to hold bio DMARDs in the event of fevers, infections, surgery, non- healing wounds. Follow-up in 3 months is recommended with labs 1 week before next visit. I spent 30 minutes reviewing chart, evaluating patient and documenting. Orders: Orders 2 Erythrocyte Sedimentation Rate 4 Months L40.50 - Arthropathic psoriasis, unspecified, L40.9 - Psoriasis, unspecified, R79.89 - Other specified abnormal findings of blood chemistry Complete Blood Count Auto Diff 4 Months L40.50 - Arthropathic psoriasis, unspecified, L40.9 - Psoriasis, unspecified, R79.89 - Other specified abnormal findings of blood chemistry Comprehensive Met. Panel 4 Months L40.50 - Arthropathic psoriasis, unspecified, L40.9 - Psoriasis, unspecified, R79.89 - Other specified abnormal findings of blood chemistry C Reactive Protein 4 Months L40.50 - Arthropathic psoriasis, unspecified, L40.9 - Psoriasis, unspecified, R79.89 - Other specified abnormal findings of blood chemistry
[2023-11-22 13:02] VITALS: BP 104/62; PULSE 88; O2SAT 99; BMI 44.9
== END 2023-11-22 13:37 | disposition home or self-care (01) ==
PROVIDERS: PCP Physician Assistant; Visit Provider Nurse Practitioner Family
DX: L40.9 Psoriasis, unspecified (principal); L40.50 Arthropathic psoriasis, unspecified; Z79.899 Other long term (current) drug therapy; R79.89 Other specified abnormal findings of blood chemistry; K76.0 Fatty (change of) liver, not elsewhere classified
CPT/HCPCS: 99213

== ENCOUNTER → 2023-11-22 12:50 | Outpatient (BNVA) | payer OTHER, MEDICAID, SELFPAY | PROVIDERS: PCP Physician Assistant; Visit Provider Nurse Practitioner Family ==

== ENCOUNTER 2023-12-19 14:33 | Outpatient (AMB) | payer OTHER, MEDICAID, SELFPAY ==
[2023-12-19 14:52] VITALS: BP 118/70; BMI 44.4
--- NOTE | 2023-12-19 14:52 | MHC.OFFVIS ---
Vital Signs 12/19/23 14:52 Height 5 ft 1 in Weight 235 lb BMI 44.4 BP 118/70 Intake Visit Reasons: New patient Annual Dross Puller Required: No Information Interpreted: clinical only Web Development Intern: Web Development Intern Present Allergies adalimumab [From Humira(CF)] Adverse Reaction (Intermediate, Verified 12/19/23 14:53) injection site reaction Medication List - Last Reconciled 12/19/23 by Mackenzie Mendiola CNM blood sugar diagnostic (FreeStyle Lite Strips) Testing Once a day/ as needed blood-glucose meter (FreeStyle Lite Meter kit) As directed lancets (FreeStyle Lancets) Testing once a day levothyroxine 175 mcg PO DAILY 30 days metformin 500 mg PO ONCE 90 days secukinumab (Cosentyx Pen 300 mg/2 Pens () 300 mg (2 mL) subcut Q4W semaglutide (Ozempic) 0.5 mg (0.736 mL) subcut QWEEK 4 weeks tramadol 50 mg PO BID PRN 5 days Is last menstrual period known: No (unknown) Do you need a note to return to daycare/school/sports/work: No HPI HPI New patient Annual: Details: 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 She was on something else before but had a reaction to it. She has gone periods of time without periods once for 3 months and then when she did get a period it was very heavy and now she has not had a periods since June. She has been starting to lose weight on the Ozempic and she is happy about that and she is feeling very good about it she has been walking her dog 3 times a day and trying to do exercises at home. 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 On questioning she does note the she does have increased facial hair but she manages it and she is noticing hair thinning on top. She also has fatty liver she has thyroid issues and she is diabetic. COUNT INCLUDES THE [facility] Medical History Fatty liver Morbidly obese Surgical History No pertinent past surgical history Family History Father Hypertension Rheumatoid arthritis Mother Hypertension Breast cancer, Onset Age: 35 Rheumatoid arthritis Paternal Aunt Diabetes Mental health disorder Paternal Uncle Diabetes Mental health disorder Social History Housing: House Alcohol intake: never Patient Tobacco Use Status: Never used Tobacco Tobacco use type: Cigarette e-Cigarette/Vaping Use: Never Used Second Hand Smoke Exposure: No service: No Current occupational status: employed Current occupation: [employer]- Cognitive needs: No Hearing needs: No Vision needs: No Female Reproductive History Menstrual Age of Menarche: 11 Duration of menses: 3-5 days control method: none History of abnormal pap smear: No (never pap done) Physical Exam Vital Signs: Last Vital Signs BP 118/70 12/19/23 14:52 BMI result Body Mass Index 44.4 Const General: healthy appearing, comfortable, no acute distress, well developed and alert Nutritional Appearance: average body habitus Orientation/consciousness: patient oriented x3 Limitations: no limitations HEENT Head: Yes normocephalic Neck Neck: Yes normal visual inspection Chest Chest palpation & inspection: normal inspection of the chest Breast/axilla inspection: normal inspection of the breasts and normal inspection of the axillae Breast/axilla palpation: normal palpation of the breasts and normal palpation of the axillae Resp Effort & Inspection: normal respiratory effort GI Inspection: Yes normal to inspection, No Abdominal wall edema and No distended Palpation (GI): Soft to palpation and nontender Other: External exam within normal limits vagina pink and moist cervix nulliparous pink smooth small uterus difficult palpate secondary to adipose but nontender nontender adnexa good tone with Kegel. General: Yes bladder normal to palpation External Female Exam: normal external appearance and normal appearance of the urethra Speculum Exam - Vagina: normal appearance of the vagina, normal palpation and normal vaginal discharge Speculum Exam - Cervix: normal appearance of the cervix, normal palpation and nontender Bimanual exam- vagina & uterus: normal bimanual exam, normal palpation, uterine size normal, bladder normal to palpation, consistency normal, normal palpation, uterine mobility normal, uterine shape normal, No Cervical tenderness present, non-tender and no cervical motion tenderness Bimanual Exam- Adnexa, other: normal adnexae, no masses, normal and No adnexal tenderness Neuro General: patient oriented x3 Assessment & Plan Assessment & Plan (1) Morbidly obese: Code(s): E66.01 - Morbid (severe) obesity due to excess calories Category: Medical (2) Cervical cancer screening: Code(s): Z12.4 - Encounter for screening for malignant neoplasm of cervix Category: Medical (3) Elevated liver transaminase level: Code(s): R74.01 - Elevation of levels of liver transaminase levels Category: Medical (4) Hair thinning: Code(s): L65.9 - Nonscarring hair loss, unspecified Category: Medical (5) Elevated LFTs: Code(s): R79.89 - Other specified abnormal findings of blood chemistry Category: Medical (6) Fatty liver: Code(s): K76.0 - Fatty (change of) liver, not elsewhere classified Category: Medical (7) Amenorrhea: Comment: No menses since June 2023, for now with Provera and after withdrawal bleed, review plan etc. Code(s): N91.2 - Amenorrhea, unspecified Category: Medical (8) Elevated TSH: Code(s): R79.89 - Other specified abnormal findings of blood chemistry Category: Medical (9) DMII (diabetes mellitus, type 2): Code(s): E11.9 - Type 2 diabetes mellitus without complications Category: Medical Qualifiers: Diabetes mellitus halfway insulin use: without long term care pharmacist use Diabetes mellitus complication status: without complication Qualified Code(s): E11.9 - Type 2 diabetes mellitus without complications Plan Reviewed all of these issues and how they interplay with each other and the increased hormonal milieu that goes along with obesity and that the same issues that have contributed to the elevated blood sugars and therefore insulin levels and also increased liver enzymes. I have also contributed problem most likely to elevated hormonal levels which are contributing to her hair thinning and her hirsute is Um and her periods with no periods which is most likely related to an ovulatory cycles. Discussed that this is picture of PCOS and whether not it shows up on ultrasound were not it is most likely all connected. I am going to order some blood work for her (I offered her lab tests. They would not necessarily absolutely necessary as she has the physical changes that indicate that these changes or already going on but she would like the lab to be done. She is going to be getting fasting lab work before her primary care visit in January so she can do all of the lab work at the same time then.) I reviewed the ultrasound that she had had done that she thought was done last year that was normal it was in fact normal however it was in 2021 so I am ordering another pelvic ultrasound and then she and I will have a follow-up visit after the ultrasound after the lab work and also after her withdrawal bleed I discussed with her the risk of buildup of the endometrial lining which could potentially lead to hyperplasia and other issues down road and recommend that you give her something to help her get a menses so that she can not have an emergent hemorrhage type bleed. I reviewed what will feel like taking the Provera and that her menses after it can be expected to be extremely heavy and full of clots and challenging so I recommend she schedule it for at a time that is good for her she does have a family green party coming up so it would be totally fine to start the Provera after that. We will see her after the withdrawal bleed at labs and ultrasound and review all and additionally I talked about potential long-term use of control pills or a Mirena IUD to help control and prevent the buildup of the lining of the uterus. Orders: Orders Pap Smear Today Z01.419 - Encounter for gynecological examination (general) (routine) without abnormal findings Bacterial Vaginosis Panel Today Z20.2 - Contact with and (suspected) exposure to infections with a predominantly sexual mode of transmission CT NG by PCR Today Z01.419 - Encounter for gynecological examination (general) (routine) without abnormal findings Follicle Stimulating Hormone Today E66.01 - Morbid (severe) obesity due to excess calories, K76.0 - Fatty (change of) liver, not elsewhere classified, L65.9 - Nonscarring hair loss, unspecified, N91.2 - Amenorrhea, unspecified, R74.01 - Elevation of levels of liver transaminase levels, R79.89 - Other specified abnormal findings of blood chemistry, Z12.4 - Encounter for screening for malignant neoplasm of cervix Prolactin Today E66.01 - Morbid (severe) obesity due to excess calories, K76.0 - Fatty (change of) liver, not elsewhere classified, L65.9 - Nonscarring hair loss, unspecified, N91.2 - Amenorrhea, unspecified, R74.01 - Elevation of levels of liver transaminase levels, R79.89 - Other specified abnormal findings of blood chemistry, Z12.4 - Encounter for screening for malignant neoplasm of cervix Testosterone, Free/Total Today E66.01 - Morbid (severe) obesity due to excess calories, K76.0 - Fatty (change of) liver, not elsewhere classified, L65.9 - Nonscarring hair loss, unspecified, N91.2 - Amenorrhea, unspecified, R74.01 - Elevation of levels of liver transaminase levels, R79.89 - Other specified abnormal findings of blood chemistry, Z12.4 - Encounter for screening for malignant neoplasm of cervix US pelvic and transvaginal Today E11.9 - Type 2 diabetes mellitus without complications, L65.9 - Nonscarring hair loss, unspecified, N91.2 - Amenorrhea, unspecified, R79.89 - Other specified abnormal findings of blood chemistry, Z12.4 - Encounter for screening for malignant neoplasm of cervix Medications: New medroxyprogesterone (Provera) 10 mg PO DAILY 10 tabs 0RF Coding Level of Care Code New Pt Prev Care 18-39yr([id number] Diagnoses Morbidly obese E66.01 Cervical cancer screening Z12.4 Elevated liver transaminase level R74.01 Hair thinning L65.9 Elevated LFTs R79.89 Fatty liver K76.0 Amenorrhea N91.2 Elevated TSH R79.89 Type 2 diabetes mellitus without complication, without long-term current use of insulin E11.9 Diabetes mellitus halfway insulin use: without halfway use Diabetes mellitus complication status: without complication
== END 2023-12-19 16:11 | disposition home or self-care (01) ==
PROVIDERS: PCP Physician Assistant; Visit Provider Advanced Practice Midwife
DX: Z01.419 Encounter for gynecological examination (general) (routine) without abnormal findings (principal); R74.01 Elevation of levels of liver transaminase levels; L65.9 Nonscarring hair loss, unspecified; E66.01 Morbid (severe) obesity due to excess calories; R79.89 Other specified abnormal findings of blood chemistry; K76.0 Fatty (change of) liver, not elsewhere classified; N91.2 Amenorrhea, unspecified; E11.9 Type 2 diabetes mellitus without complications
CPT/HCPCS: 99385

== ENCOUNTER 2023-12-19 14:33 | Outpatient (REF) | payer OTHER, MEDICAID, SELFPAY ==
[2023-12-20 02:11] LABS: CT PCR NOT DETECTED (Not Detect.); NG PCR NOT DETECTED (Not Detect.)
[2023-12-20 11:35] LABS: Bacterial Vaginosis PCR POSITIVE (Negative); Candida Group PCR NOT DETECTED (Not Detect); Candida glab krusei PCR NOT DETECTED (Not Detect); Trichomonas vaginalis PCR NOT DETECTED (Not Detect)
== END 2023-12-19 14:34 | disposition home or self-care (01) ==
LOC: HO.LAB 14:33
PROVIDERS: PCP Physician Assistant; Visit Provider Advanced Practice Midwife
DX: Z01.419 Encounter for gynecological examination (general) (routine) without abnormal findings (principal); Z20.2 Contact with and (suspected) exposure to infections with a predominantly sexual mode of transmission
CPT/HCPCS: 0352U; 0353U; 88142

== ENCOUNTER 2024-02-28 15:29 | Outpatient (REF) | payer OTHER, MEDICAID, SELFPAY ==
--- NOTE | ~2024-02-28 | US_ITS ---
EXAMINATION: US PELVIS CLINICAL INFORMATION: Amenorrhea since June, no pain, last menstrual period June 2023. COMPARISON: Pelvic ultrasound of December 12, 2021. TECHNIQUE: Ultrasound of the pelvis is performed using both transabdominal and transvaginal transducers along with Doppler. Transvaginal imaging is performed due to inadequate visualization transabdominally. FINDINGS: Uterus is anteverted and measures 8.0 x 3.2 x 3.6 cm. Nabothian cysts. Limited visualization on transabdominal and transvaginal ultrasound images due to bowel gas and body habitus. Endometrial thickness is 5 mm. Right ovary measures 2.6 x 1.6 x 1.5 cm, volume of 3.3 mL. Left ovary measures 3.1 x 1.4 x 1.3 cm, volume 3.0 mL. Bilateral ovaries are grossly unremarkable; however, visualization limited due to bowel gas. No significant free fluid. US/US pelvic and transvaginal IMPRESSION: 1. Endometrial thickness is 5 mm. 2. Bilateral ovaries are grossly unremarkable, however, visualization limited due to bowel gas. 3. Limited visualization on transabdominal and transvaginal ultrasound images due to bowel gas and body habitus.
== END 2024-02-28 15:30 | disposition home or self-care (01) ==
LOC: HO.US 15:29
PROVIDERS: PCP Physician Assistant; Visit Provider Advanced Practice Midwife
DX: N91.2 Amenorrhea, unspecified (principal); L65.9 Nonscarring hair loss, unspecified; E11.9 Type 2 diabetes mellitus without complications; R79.89 Other specified abnormal findings of blood chemistry; N92.1 Excessive and frequent menstruation with irregular cycle
CPT/HCPCS: 76830; 76856

== ENCOUNTER 2024-03-05 10:39 | Outpatient (REF) | payer OTHER, MEDICAID, SELFPAY ==
[2024-03-05 10:55] LABS: MANUAL DIFF FLAG NO
[2024-03-05 11:10] LABS: Basophils Percent Auto 0.3 % (0-2); Eosinophils Absolute Auto 0.1 X10*3/uL (0.0-0.4); Eosinophils Percent Auto 1.4 % (0-4); Hematocrit 39.2 % (37.0-47.0); Hemoglobin 12.7 g/dl (12.0-16.0); Imm Gran Abs Auto 0.01 X10*3/uL (0.00-0.03); Imm Gran Pct Auto 0.3 % (0.0-0.4); Lymphocytes Absolute Auto 1.1 X10*3/uL (1.2-4.9); Lymphocytes Percent Auto 31.2 % (20-40); Mean Corpuscular HGB Conc 32.4 g/dl (31.0-35.0); Mean Corpuscular Hemoglobin 27.5 pg (27.0-33.0); Mean Platelet Volume 10.4 fL (9.4-12.3); Monocytes Absolute Auto 0.2 X10*3/uL (0.1-1.2); Monocytes Percent Auto 6.5 % (2-11); Neutrophils Absolute Auto 2.2 x10*3/uL (2.0-8.3); Neutrophils Percent Auto 60.3 % (45-73); Platelet Count 201 X10*3/uL (160-400); Red Blood Count 4.61 X10*6/uL (4.20-5.50); Red Cell Distribution Width 13.8 % (11.0-16.0); White Blood Count 3.6 X10*3/uL (4.8-10.8)
[2024-03-05 11:50] LABS: Alanine Aminotransferase 107 U/L (0-31); Albumin Level 3.6 g/dL (3.5-5.0); Alkaline Phosphatase 72 U/L (39-117); Anion Gap 10 (12-20); Aspartate Amino Transferase 78 U/L (5-31); Bilirubin Total 0.4 mg/dL (0.0-1.0); Blood Urea Nitrogen 13 mg/dL (9-16); C Reactive Protein 1.68 mg/dL (< or = 0.50); Calcium 9.1 mg/dL (8.4-10.2); Carbon Dioxide 23 mmol/L (22-29); Chloride 109 mmol/L (96-108); Estimated Glomerular Filt Rate > 60; Glucose Fasting 93 mg/dL (60-99); Glucose Random 93 mg/dL (60-115); Potassium 4.4 mmol/L (3.3-5.1); Sodium 138 mmol/L (135-145); Total Protein 7.7 g/dL (6.5-8.0)
[2024-03-05 11:51] LABS: Erythrocyte Sedimentation Rate 40 MM/HR (0-20)
[2024-03-05 12:19] LABS: TSH reflex Free T4 4.97 uIU/mL (0.32-4.0)
[2024-03-05 13:00] LABS: Free T4 (Free Thyroxine) 0.85 ng/dL (0.71-1.85)
[2024-03-06 18:18] LABS: Follicle Stimulating Hormone 6.7 mIU/mL
[2024-03-10 21:07] LABS: Testosterone, Free 2.3 pg/mL (0.1-6.4); Testosterone, Total 17 ng/dL (2-45)
== END 2024-03-05 10:40 | disposition home or self-care (01) ==
LOC: HO.LAB 10:39
PROVIDERS: Nurse Practitioner Family; Absent Provider Advanced Practice Midwife; PCP Physician Assistant; Visit Provider Physician Assistant
DX: L40.50 Arthropathic psoriasis, unspecified (principal); R79.89 Other specified abnormal findings of blood chemistry; Z79.899 Other long term (current) drug therapy; L40.9 Psoriasis, unspecified; N91.2 Amenorrhea, unspecified; Z12.4 Encounter for screening for malignant neoplasm of cervix; K76.0 Fatty (change of) liver, not elsewhere classified; E66.01 Morbid (severe) obesity due to excess calories; R74.01 Elevation of levels of liver transaminase levels; L65.9 Nonscarring hair loss, unspecified; E11.9 Type 2 diabetes mellitus without complications; E03.9 Hypothyroidism, unspecified
CPT/HCPCS: 36415; 80053; 83001; 84146; 84402; 84403; 84439; 84443; 85025; 85652; 86140

== ENCOUNTER 2024-03-06 10:53 | Outpatient (AMB) | payer OTHER, MEDICAID, SELFPAY ==
[2024-03-06 11:07] VITALS: BP 120/82; PULSE 86; O2SAT 99; BMI 43.1
--- NOTE | 2024-03-06 11:07 | A.OFFPC_ITS ---
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: No Accompanied by: Self / Same As Patient Allergies adalimumab [From Humira(CF)] Adverse Reaction (Intermediate, Verified 03/06/24 11:39) injection site reaction Medication List - Last Reconciled 03/06/24 by Jaylan Mackey PA-C blood sugar diagnostic (FreeStyle Lite Strips) Testing Once a day/ as needed blood-glucose meter (FreeStyle Lite Meter kit) As directed lancets (FreeStyle Lancets) Testing once a day levothyroxine 175 mcg PO DAILY 30 days levothyroxine 175 mcg PO DAILY 30 days medroxyprogesterone (Provera) 10 mg PO DAILY metformin 500 mg PO ONCE 90 days secukinumab (Cosentyx Pen 300 mg/2 Pens () 300 mg (2 mL) subcut Q4W semaglutide (Ozempic) 0.5 mg (0.736 mL) subcut QWEEK 4 weeks tramadol 50 mg PO BID PRN 5 days Tobacco use date assessed: 10/24/23 Dental Screening Dental Screen Date: 10/24/23 HPI Amonorrhea HPI Details Patient is a 24-year-old female here today for a follow-up visit with a past medical history significant for type 2 diabetes, obesity, psoriatic arthritis.? Concern--> reports she has developed bilateral hand numbness pain. PLAN: Will send for EMG testing to evaluate for median nerve neuropathy . Elevated liver enzymes: Has gotten recent ultrasound of her liver that did show right hepatic lobe mass. MRI has been done in August of 2023 was continue to show a 0.9 cm mass, six-month follow-up MRI was recommended Psoriatic arthritis: Patient now followed by Rheumatology and has been started on disease modifying-> Humira. . She reports her arthritic pain is muc h more manageable with Humira though unfortunately started to have a localized injection site reaction on multiple occasions. Patient continues on Cosentyx which has drastically reduced her arthralgias and joint swelling and increase her mobility. She reports she now feels normal . Unfortunately lost her rheumatology follow-up in needs reestablishing care with new red mud thickener operator .. Obesity:? Have noted some weight loss since last office visit. Has been started on Ozempic and has noted a 5 lb weight loss.? Has been working on portion control which is helping.? Has not added any physical activity to her lifestyle. .. Type 2 diabetes:? Patient continues on metformin 500 q.d. we have increased her Ozempic to 0.5 mg has noted weight loss since last office visit. A1c today 5.6 .. Hypothyroid : Has noted weight loss since starting GLP 1? Most recent TSH improved, continues on levothyroxine 175 mcg. .. Amenorrhea: Has followed up with valving machine operator and has gone for testing [facility] Medical History Fatty liver Morbidly obese Surgical History No pertinent past surgical history Family History Father Hypertension Rheumatoid arthritis Mother Hypertension Breast cancer, Onset Age: 35 Rheumatoid arthritis Paternal Aunt Diabetes Mental health disorder Paternal Uncle Diabetes Mental health disorder Social History Housing: House Alcohol intake: never Patient Tobacco Use Status: Never used Tobacco Tobacco use type: Cigarette e-Cigarette/Vaping Use: Never Used Second Hand Smoke Exposure: No service: No Current occupational status: employed Current occupation: [employer]- Cognitive needs: No Hearing needs: No Vision needs: No Female Reproductive History Menstrual Age of Menarche: 11 Questionnaire Thrive Questionnaire Date Thrive assessed: 10/24/23 RAJIV-7 AMB Questionnaire RAJIV-7 Date RAJIV - 7 assessed: 10/24/23 Source: Developed by Drs. Rakesh Gaston, Mahogany Meza, Quincy Gandhi and colleagues, with an educational cam from [email or web address]. Review of Systems Const Denies headache(s) Eyes Denies loss of vision ENT Denies vertigo, Denies dizziness, Denies headache(s) and Denies sore throat Card Denies chest pain, Denies leg edema and Denies lightheadedness Resp Denies cough, Denies hemoptysis and Denies wheezing GI Denies abdominal pain, Denies melena, Denies constipation, Denies diarrhea and Denies vomiting Denies urinary frequency, Denies dysuria and Denies urinary urgency Musc Details: + bilateral hand pain Denies arthralgias, Denies joint swelling, Reports numbness and Denies tingling Neuro Denies Abnormal speech present, Denies behavioral changes, Denies vertigo, Denies dizziness, Denies headache(s), Denies loss of vision, Denies memory loss, Reports numbness and Denies tingling Psych Denies anxiety, Denies behavioral changes, Denies depression, Denies memory loss and Denies panic attacks Galen/Lymph Denies easy bleeding and Denies easy bruising Aller/Immun Denies wheezing Physical exam (Primary Care) Vital Signs: Last Vital Signs Pulse 86 03/06/24 11:07 BP 120/82 03/06/24 11:07 Pulse Ox 99 03/06/24 11:07 Oxygen Delivery Method Room Air 03/06/24 11:07 BMI result Body Mass Index 43.1 Tobacco/Smoking Status: Tobacco use Status Tobacco use date assessed 10/24/23 03/06/24 11:07 Patient Tobacco Use Status Never used Tobacco 03/06/24 11:07 Tobacco use type Cigarette 03/06/24 11:07 e-Cigarette/Vaping Use Never Used 03/06/24 11:07 Thrive Assessment: Date of Thrive Assessment Date Thrive assessed 10/24/23 03/06/24 11:07 Const General: healthy appearing, no acute distress, alert and awake Nutritional Appearance: well nourished Orientation/consciousness: oriented to person, oriented to place and oriented to time HENMT Ears: TM's normal bilaterally General nose exam: Normal nasal mucous membranes and turbinates present Eyes Conjunctivae: conjunctivae normal Sclerae: sclerae normal Pupils: Equal, round and reactive pupils present Neck Neck: Yes no lymphadenopathy and Yes no JVD Thyroid: Thyroid normal Carotids: no bruits Resp Effort & Inspection: normal respiratory effort and not tachypneic Auscultation: no crackles, no rales, no rhonchi and no wheezes Cardio Rate: regular rate Rhythm: regular rhythm Heart sounds: no murmurs and normal S1 and S2 GI Palpation (GI): Soft to palpation, nontender, no hepatomegaly and no splenomegaly Auscultation: normal bowel sounds Skin General skin exam: no rashes or lesions noted and dry skin Neuro General: oriented to person, oriented to place and oriented to time Cranial nerves: Yes Equal, round and reactive pupils present Speech: No Abnormal speech present Gait exam (Neuro): Normal gait present Motor exam (neuro): no tremor noted Extrem Right upper extremity: full ROM Left upper extremity: full ROM Right lower extremity: full ROM; no edema Left lower extremity: full ROM; no edema Psych Mental Status: mental status grossly normal Speech and movement: Normal speech and movement present Affect: normal affect Attitude: cooperative Thought process: Normal thought process present Results AMB Hemoglobin A1c AMB Hemoglobin A1c 5.8 % Last Edit by CEDRIC Lindo on 03/06/24 11:24 Results Reviewed Results Reviewed: Laboratory Last Values Hgb A1c (Clinic) 5.8 % (4.0-6.0) 03/06/24 11:17 Assessment and Plan Assessment & Plan (1) DMII (diabetes mellitus, type 2): Code(s): E11.9 - Type 2 diabetes mellitus without complications Qualifiers: Diabetes mellitus complication status: without complication Diabetes mellitus prison insulin use: without prison use Qualified Code(s): E11.9 - Type 2 diabetes mellitus without complications Plan: Patient's type 2 diabetes controlled . Most recent A1c is 5.8. Patient continues on Ozempic 0.5 mg and has noted some weight loss. She has had no hypoglycemic events. Will continue her current dose of metformin. Goal A1c to be below 6.5 (2) Psoriatic arthritis: Code(s): L40.50 - Arthropathic psoriasis, unspecified Plan: ollowed by [place] [facility]. Recently diagnosed with psoriatic arthritis. She has had injections that reactions to Humira thus was transitioned to Cosentyx which has been significantly helpful in reducing her arthralgias and joint mobility.. (3) Hypothyroid: Code(s): E03.9 - Hypothyroidism, unspecified Qualifiers: Hypothyroidism type: unspecified Qualified Code(s): E03.9 - Hypothyroidism, unspecified Plan: Patient continues on levothyroxine 175 mcg. Most recent TSH slightly elevated. She does report not taking the medication correctly and now is taking the medication on empty stomach every morning. Will recheck TSH to assure normal. (4) Amenorrhea: Comment: No menses since June 2023, for now with Provera and after withdrawal bleed, review plan etc. Code(s): N91.2 - Amenorrhea, unspecified Plan: Now followed by [place] valving machine operator. Has had a pelvic ultrasound and some lab testing for evaluation. Will awaiting results pelvic ultrasound. (5) Hand paresthesia: Code(s): R20.2 - Paresthesia of skin Plan: Patient reporting bilateral hand paresthesias and pain. Will send for EMG testing to evaluate for bilateral median nerve neuropathy. Orders: Orders AMB Hemoglobin A1c Today E11.9 - Type 2 diabetes mellitus without complications MR abdomen wo/w con Today R16.0 - Hepatomegaly, not elsewhere classified NE electromyogram (EMG) Today R20.2 - Paresthesia of skin Comprehensive [place]. Panel Fast Today E11.9 - Type 2 diabetes mellitus without complications Referrals Rheumatology Referral L40.50 - Arthropathic psoriasis, unspecified Medications: Refilled levothyroxine 175 mcg PO DAILY 30 tabs 1RF 30 days R79.89 - Other specified abnormal findings of blood chemistry metformin 500 mg PO ONCE 90 tabs 1RF 90 days E11.9 - Type 2 diabetes mellitus without complications Discontinued tramadol for psoriatic arthritic pain flares only Discontinued Reason: Doctor's Order 50 mg PO BID 5 days PRN 10 tabs 0RF pain L40.50 - Arthropathic psoriasis, unspecified Coding Level of Care Code Est Pt Level 4 (87165) Diagnoses Type 2 diabetes mellitus without complication, without long-term current use of insulin E11.9 Diabetes mellitus complication status: without complication Diabetes mellitus prison insulin use: without termite control servicer use Psoriatic arthritis L40.50 Hypothyroidism, unspecified type E03.9 Hypothyroidism type: unspecified Amenorrhea N91.2 Hand paresthesia R20.2
== END 2024-03-06 13:54 | disposition home or self-care (01) ==
PROVIDERS: PCP Physician Assistant; Visit Provider Physician Assistant
DX: E11.9 Type 2 diabetes mellitus without complications (principal); R20.2 Paresthesia of skin; L40.50 Arthropathic psoriasis, unspecified; N91.2 Amenorrhea, unspecified; E03.9 Hypothyroidism, unspecified
CPT/HCPCS: 83036; 99214

== ENCOUNTER 2024-03-30 12:28 | Emergency (ER) | payer OTHER, MEDICAID, SELFPAY ==
--- NOTE | ~2024-03-30 | CT_ITS ---
EXAMINATION: CT CERVICAL SPINE WITHOUT CONTRAST CLINICAL INFORMATION: Right arm pain and tingling. COMPARISON: None available. TECHNIQUE: CT of the head and cervical spine were performed without intravenous contrast. Multiplanar reformats were rendered and reviewed. This CT examination was performed using dose optimization techniques as appropriate, variously including the following: *Automated exposure control *Adjustment of mA and/or kV according to patient size (this includes techniques or standardized protocols for targeted exams where dose is matched to indication/reason for exam; i.e. extremities or head) *Use of iterative reconstruction technique DLP: 662 mGy-cm FINDINGS: The vertebral body heights appear maintained. No cervical spine fracture is seen. Mild reversal of the normal cervical lordosis, probably positional. Innumerable, bilateral cervical and supraclavicular lymph nodes generally upper normal in size to mildly enlarged and demonstrating normal fatty charbel. Innumerable, punctate calcifications involving the left parotid gland. The partially imaged lung apices appear clear. CT/CT cervical spine wo IV con IMPRESSION: No cervical spine fracture or traumatic malalignment identified. Innumerable, bilateral cervical and supraclavicular lymph nodes generally upper normal in size to mildly enlarged and demonstrating normal fatty charbel, possibly reactive. Recommend clinical correlation. Innumerable, punctate calcifications involving the left parotid gland. Electronically signed by: Bob Galan MD 03/30/2024 03:21 PM EDT
[2024-03-30 12:37] VITALS: BP 132/81; PULSE 100; RESP 18; TEMP 36.8; O2SAT 99; BMI 42.9
--- NOTE | 2024-03-30 12:37 | ED_ITS ---
HPI - General Adult General Chief complaint: General Medical Stated complaint: R shoulder pain/Rash on hands Time Seen by Provider: 03/30/24 12:48 Source: patient Mode of arrival: ambulatory Limitations: no limitations History of Present Illness ED Provider: AVIVA IRELAND PA-C HPI narrative: 24 year old female with pmhx significant for morbid obesity, T2DM on Ozempic, hypothyroid, hepatic steatosis, psoriatic arthritis on Cosentyx and Humira presents to the ED today for evaluation of numbness/tingling to bilateral upper extremities along with bilateral wrist pain. Reports pain radiates from wrists proximally into her neck. She has an appointment with neuro for nerve conduction studies this week however given continued symptoms at home not responsive to NSAIDS and tramadol prescribed by her PCP, she presents to the ED. Denies injury/ trauma to the neck or UEs. Reports difficulty grasping objects. Denies personal hx of carpal tunnel. Endorses familial hx of carpal tunnel. Of note, patient presents with butterfly rash. admits to rash x1 year however the area recently became more red after spending the weekend camping. Additionally reports overall joint pain stating it feels like my bones are eating themselves . She admits her mother has lupus. Denies personal history. She tells me her thread spooler recently left and she has been unable to establish care with a new doctor. Her last rheumatology visit was in November of this year. Related Data Previous Rx's ?Medication ?Instructions ?Recorded blood sugar diagnostic (FreeStyle #100 ea 07/16/23 Lite Strips) blood-glucose meter (FreeStyle #1 ea 07/16/23 Lite Meter kit) lancets 28 gauge (FreeStyle #100 ea 07/16/23 Lancets) medroxyprogesterone 10 mg tablet 10 mg PO DAILY #10 tabs 12/19/23 (Provera) secukinumab 150 mg/mL subcutaneous 300 mg (2 mL) subcut Q4W #2 mL 01/03/24 pen injector (Cosentyx Pen 300 mg/2 Pens () levothyroxine 175 mcg tablet 175 mcg PO DAILY 30 days #30 tabs 03/06/24 metformin 500 mg tablet 500 mg PO ONCE 90 days #90 tabs 03/06/24 semaglutide 0.25 mg or 0.5 mg (2 0.5 mg (0.736 mL) subcut QWEEK 4 03/15/24 mg/3 mL) subcutaneous pen injector weeks #3 mL (Ozempic) diclofenac sodium 75 mg 75 mg PO BID 15 days #30 tabs 03/30/24 tablet,delayed release Allergies Allergy/AdvReac Type Severity Reaction Status Date / Time adalimumab [From Humira(CF)] AdvReac Intermediate injection Verified 03/30/24 12:40 site reaction Review of Systems 2 Review of Systems: Constitutional: No fever, chills, fatigue, night sweats, weight changes ENT/Mouth: No ear pain, hearing loss, nasal congestion, sinus pain, rhinorrhea, sore throat Eyes: No eye pain, swelling, redness, vision changes, discharge Cardio: No chest pain, palpitations, GAINES, orthopnea, peripheral edema Pulm: No SOB, cough, sputum, wheezing, dyspnea, hemoptysis GI: No nausea, vomiting, hematemesis, abdominal pain, diarrhea, constipation, hematochezia, melena : No irregular bleeding, dysuria, frequency, urgency, hesitancy, hematuria, flank pain, urinary flow changes, urinary incontinence or retention MSK: No back pain, neck pain, joint pain, myalgias, +bilateral wrist and hand pain Skin: No lesions, rashes Neuro: No weakness, numbness, paresthesias, LOC, dizziness, headache Psych: No anxiety/panic, depression, SI/HI, AH/VH All other systems reviewed and are negative. [facility] Past Medical History Attestation statement: The following information was validated with the patient. Source: old records reviewed and nursing notes reviewed Medical History Fatty liver Morbidly obese Surgical History No pertinent past surgical history Family History Family History Father Hypertension Rheumatoid arthritis Mother Hypertension Breast cancer, Onset Age: 35 Rheumatoid arthritis Paternal Aunt Diabetes Mental health disorder Paternal Uncle Diabetes Mental health disorder Social History Social History Housing: House Alcohol intake: never Patient Tobacco Use Status: Never used Tobacco Tobacco use type: Cigarette e-Cigarette/Vaping Use: Never Used Second Hand Smoke Exposure: No Advance Directives: No Do you have a plan to hurt others: No Plan service: No Current occupational status: employed Current occupation: [employer]- Cognitive needs: No Hearing needs: No Vision needs: No Physical Exam ED Vital Signs: Vital Signs - 24 hr 03/30/24 12:37 03/30/24 15:19 03/30/24 16:52 Temperature 98.2 F 97.9 F 97.9 F Pulse Rate 100 86 86 Respiratory Rate 18 16 16 Blood Pressure 132/81 120/66 120/66 Pulse Oximetry 99 100 100 Oxygen Delivery Method Room Air Room Air Room Air BMI result Body Mass Index 42.9 Vital signs stable. General: Well appearing, in no acute distress. Skin: Warm, dry, intact. malar rash noted to face. Scattered plaques along the extensor surfaces of bilateral elbows and knees. No sloughing. Spares palms/soles/web spaces/mucous membranes. No target lesions. Non dermatomal pattern. Head: Normocephalic, atraumatic. EENT: Hearing is intact b/l. Conjunctiva clear. Sclera is anicteric. PERRLA. EOM intact. Moist mucous membranes.? Neck: Supple without LAD. FROM. Trachea midline.? No midline cervical spinous tenderness or step-off deformity. Cardiac: Chest wall symmetric. RRR. No MRG. No JVD. Lungs: Normal respiratory effort without accessory muscle use. CTA bilaterally. No rales, rhonchi, or wheezes.? Back: No midline spinous or paraspinal tenderness. No step off deformity. Ext: [employer]ice strength decreased bilaterally. Positive Phalen and Tinel sign bilaterally. Neuro: AOx3. Normal speech. CN 2-12 grossly intact. Strength 5/5 intact throughout. No saddle anesthesia. Sensation intact to light touch. NV intact distally. Reflexes 2+ bilaterally. Ambulating with steady gait. Psych: Appropriate mood and affect. Responds appropriately to questions. Course Course Course Narrative: This is a rapid medical exam performed by Mateo Guzman NP: Additional HPI, ROS, PE not included below will be deferred to primary provider. Patient is a 24-year-old female presenting with complaint of pain and tingling to right arm and hand since February which has been progressively worsening. Saw PCP on 03/06 who prescribed Tramadol, referred patient for carpal tunnel study which is not until next week. Also taking ibuprofen without relief. Plan: ct cspine Reevaluation(s) Reevaluation #1: 1616 -- inflammatory markers elevated. ESR 72 and CRP 1.71. Appears to be around patient's baseline when compared to priors. CBC without leukocytosis or left shift. No anemia. H&H stable. Chemistry without acute electrolyte abnormality requiring intervention. No NAGI. Elevated LFTs, chronic when compared to priors. Consistent with history of hepatic steatosis. Urine is negative for blood and infection. CT cervical spine without fracture or traumatic malalignment. There are innumerable bilateral cervical and supraclavicular lymph nodes possibly reactive. This may be secondary to patient's autoimmune disease. > physical exam concerning for lupus-like process given symptoms have been going on for over a year now and she has familial history. I did add on EDI and anti ds DNA labs. Patient also tested for tick-borne/line pathology although lower suspicion for this. I informed patient that we will call her with any positive results. > I did stress the importance of following up with a thread spooler. A referral has been provided. > she has been provided with bilateral wrist splints for comfort. Diclofenac sent to pharmacy for pain control. Advised her to keep her appointment with Neurology for nerve conduction studies this week. > Patient has remained stable throughout ED visit today. Discussed worrisome signs and symptoms and when to return to the ED. All questions answered at this time. Patient is agreeable with disposition and stable for discharge. Medications Administered Discontinued Medications Generic Name Dose Route Start Last Admin Trade Name Antonia PRN Reason Stop Dose Admin Ketorolac Tromethamine 15 mg 03/30/24 13:53 03/30/24 14:24 Ketorolac Tromethamine 15 Mg/Ml Vial IVPUSH 03/30/24 13:54 15 mg ONCE ONE Administration Procedures Orthopedic Splinting/Casting Injury #1: Side: left Upper Extremity Injury Location: wrist Upper Extremity Immobilizer: wrist splint Injury #2: Side: right Upper Extremity Injury Location: wrist Upper Extremity Immobilizer: wrist splint Medical Decision Making Medical Decision Making MDM Narrative: 24 year old female with pmhx significant for morbid obesity, T2DM on Ozempic, hypothyroid, hepatic steatosis, psoriatic arthritis on Cosentyx and Humira presents to the ED today for evaluation of numbness/tingling to bilateral upper extremities along with bilateral wrist pain. Vital signs are stable. Afebrile. She is nontoxic-appearing and in no acute distress. On exam, malar rash noted to face. [employer]ice strength decreased bilaterally. Positive Tinel and Phalen's sign bilaterally. On examination of skin, there are noted scattered plaques along extensor surfaces of bilateral elbows and knees. no sloughing. spares palms/ soles/ webbed spaces/ mucous membranes. no target lesions. nondermatomal pattern. Differential diagnosis includes arthritis, cervical radiculopathy, carpal tunnel syndrome, fibromyalgia. Suspicion for psoriasis vs psoriatic arthritis. CT C spine ordered from triage. Will add on tick/lyme testing to rule out tick bourne pathology. Given symptoms of malar rash and diffuse joint pain I have added EDI and anti-ds dna testing for lupus. Ua ordered. Differential Diagnosis Differential Diagnoses: The differential diagnosis associated with the presentation includes As above Admission/Observation Not indicated Lab Data MDM Lab Attestation statement: I reviewed the patient's lab results. As above 03/30/24 14:01 03/30/24 14:01 Labs: Lab Results 03/30/24 03/30/24 Range/Units 14:01 14:02 WBC 2.9 L (4.8-10.8) X10*3/uL RBC 4.59 (4.20-5.50) X10*6/uL Hgb 12.8 (12.0-16.0) g/dl Hct 39.0 (37.0-47.0) % MCV 85.0 (80.0-98.0) fL MCH 27.9 (27.0-33.0) pg MCHC 32.8 (31.0-35.0) g/dl RDW 13.7 (11.0-16.0) % Plt Count 213 (160-400) X10*3/uL MPV 10.6 (9.4-12.3) fL Immature Gran % (Auto) 0.3 (0.0-0.4) % Neut % (Auto) 62.8 (45-73) % Lymph % (Auto) 30.0 (20-40) % [place] % (Auto) 5.9 (2-11) % Eos % (Auto) 1.0 (0-4) % Baso % (Auto) 0.0 (0-2) % Lymph # (Auto) 0.9 L (1.2-4.9) X10*3/uL [place] # (Auto) 0.2 (0.1-1.2) X10*3/uL Eos # (Auto) 0.0 (0.0-0.4) X10*3/uL Baso # (Auto) 0.0 (0.0-0.2) X10*3/uL Abs Immat Gran (auto) 0.01 (0.00-0.03) X10*3/uL Absolute Neuts (auto) 1.8 L (2.0-8.3) x10*3/uL Absolute Nucleated RBC 0.000 (0.0-0.012) X10*3/uL Nucleated RBC % (auto) 0.0 (0.0-0.2) /100WBC ESR 72 H (0-20) MM/HR Sodium 140 (135-145) mmol/L Potassium 4.1 (3.3-5.1) mmol/L Chloride 108 (96-108) mmol/L Carbon Dioxide 22 (22-29) mmol/L Anion Gap 14 (12-20) BUN 15 (9-16) mg/dL Creatinine 0.65 (0.5-1.4) mg/dL Estim Creat Clear Calc 145.9 Estimated GFR > 60 Random Glucose 93 (60-115) mg/dL Calcium 8.9 (8.4-10.2) mg/dL Magnesium 1.9 (1.6-2.6) mg/dL Total Bilirubin 0.2 (0.0-1.0) mg/dL AST 105 H (5-31) U/L ALT 118 H (0-31) U/L Alkaline Phosphatase 92 (39-117) U/L C-Reactive Protein 1.71 H (< or = 0.50) mg/dL Total Protein 8.1 H (6.5-8.0) g/dL Albumin 3.3 L (3.5-5.0) g/dL Urine Color Yellow Urine Appearance Clear Urine pH 5.5 (5.0-9.0) Ur Specific [place] <= 1.005 (1.005-1.025) Urine Protein Negative (Neg-Trace) mg/dL Urine Glucose (UA) Negative (Negative) mg/dL Urine Ketones Negative (Negative) mg/dL Urine Blood Negative (Negative) Urine Nitrite Negative (Negative) Ur Leukocyte Esterase Negative (Negative) Independent Interpretation I performed an independent interpretation of an: CT Scan Interpretation: CT cervical spine without acute fracture or subluxation, agree with radiologist's interpretation. Radiology Impression Discussion of test interpretation with radiology: I have reviewed the radiologist's reading. Radiologist Impression: EXAMINATION: CT CERVICAL SPINE WITHOUT CONTRAST CLINICAL INFORMATION: Right arm pain and tingling. COMPARISON: None available. TECHNIQUE: CT of the head and cervical spine were performed without intravenous contrast. Multiplanar reformats were rendered and reviewed. This CT examination was performed using dose optimization techniques as appropriate, variously including the following: *Automated exposure control *Adjustment of mA and/or kV according to patient size (this includes techniques or standardized protocols for targeted exams where dose is matched to indication/reason for exam; i.e. extremities or head) *Use of iterative reconstruction technique DLP: 662 mGy-cm FINDINGS: The vertebral body heights appear maintained. No cervical spine fracture is seen. Mild reversal of the normal cervical lordosis, probably positional. Innumerable, bilateral cervical and supraclavicular lymph nodes generally upper normal in size to mildly enlarged and demonstrating normal fatty charbel. Innumerable, punctate calcifications involving the left parotid gland. The partially imaged lung apices appear clear. CT/CT cervical spine wo IV con IMPRESSION: No cervical spine fracture or traumatic malalignment identified. Innumerable, bilateral cervical and supraclavicular lymph nodes generally upper normal in size to mildly enlarged and demonstrating normal fatty charbel, possibly reactive. Recommend clinical correlation. Innumerable, punctate calcifications involving the left parotid gland. Electronically signed by: Bob Galan MD 03/30/2024 03:21 PM EDT External Record Review External record reviewed: Inpatient record, Office record, Outpatient record, Prior outpatient labs, Prior outpatient radiology, Primary care record and Outside ED record Prescription Management I considered prescription management with: Pain Medication Chronic Conditions Patient?s care impacted by: Other (Psoriasis, psoriatic arthritis) Social Determinants Patient?s care significantly limited by Social Determinants of Health including: Other Social Determinant of Health Critical Care Time Critical Care Time Critical Care Time: No Discharge Plan Discharge Clinical Impression: Joint pain Patient Disposition: Home, Self-Care Instructions: Autoimmune Disease (ED), Cold Compress or Soak (ED) Additional Instructions: The CT scan of your neck does not demonstrate acute fracture. Your blood work was sent for further testing for rheumatologic disease including lupus along with tick/ lyme testing. You will be called with any positive results. You have been provided with wrist splints to help with pain. Keep your appointment for never conduction studies scheduled for next week. Diclofenac has been sent to your pharmacy for joint pain. Take this twice daily. You have also been provided with a referral to a new thread spooler. Call them tomorrow morning to establish care. They will not call you. Return with new or worsening symptoms. In the case of an emergency call 911. [facility] [place]: [phone] Prescriptions: New diclofenac sodium 75 mg tablet,delayed release (DR/EC) 75 mg PO BID 15 Days Qty: 30 0RF No Action Cosentyx Pen (2 Pens) 150 mg/mL pen injector 300 mg subcut Q4W Qty: 2 3RF Ozempic 0.25 mg or 0.5 mg (2 mg/3 mL) pen injector 0.5 mg subcut QWEEK 28 Days Qty: 3 3RF (DME) lancets [FreeStyle Lancets] 28 gauge [facility] See Rx Instructions .ROUTE .MEDSUPPLY Qty: 100 3RF Rx Instructions: Testing once a day (DME) blood-glucose meter [FreeStyle Lite Meter] Kit See Rx Instructions .Route Qty: 1 0RF Rx Instructions: As directed (DME) FreeStyle Lite Strips Strip See Rx Instructions .ROUTE .MEDSUPPLY Qty: 100 3RF Rx Instructions: Testing Once a day/ as needed levothyroxine 175 mcg tablet 175 mcg PO DAILY 30 Days Qty: 30 1RF metformin 500 mg tablet 500 mg PO ONCE 90 Days Qty: 90 1RF medroxyprogesterone [Provera] 10 mg tablet 10 mg PO DAILY Qty: 10 0RF Referrals: [facility] [place] [Provider Group] Jaylan Mackey PA-C [Primary Care Provider] - Stand Alone Forms: Work/School Release Interventions: ED Discharge Assessment Last Done: 03/30/24 16:52 Discharge Date/Time: 03/30/24 16:54 Print Language: Khmer
[2024-03-30 14:06] LABS: MANUAL DIFF FLAG NO
[2024-03-30 14:09] LABS: Hemoglobin 12.8 g/dl (12.0-16.0); Imm Gran Abs Auto 0.01 X10*3/uL (0.00-0.03); Imm Gran Pct Auto 0.3 % (0.0-0.4); Lymphocytes Absolute Auto 0.9 X10*3/uL (1.2-4.9); Mean Corpuscular HGB Conc 32.8 g/dl (31.0-35.0); Mean Corpuscular Hemoglobin 27.9 pg (27.0-33.0); Mean Platelet Volume 10.6 fL (9.4-12.3); Monocytes Absolute Auto 0.2 X10*3/uL (0.1-1.2); Monocytes Percent Auto 5.9 % (2-11); Neutrophils Absolute Auto 1.8 x10*3/uL (2.0-8.3); Neutrophils Percent Auto 62.8 % (45-73); Platelet Count 213 X10*3/uL (160-400); Red Blood Count 4.59 X10*6/uL (4.20-5.50); Red Cell Distribution Width 13.7 % (11.0-16.0); White Blood Count 2.9 X10*3/uL (4.8-10.8)
[2024-03-30 14:18] LABS: Appearance Urine Clear; Color Urine Yellow; Glucose Urine UA Negative (Negative); Leukocyte Esterase Urine Negative (Negative); Nitrite Urine Negative (Negative); PH 5.5 (5.0-9.0); Specific Gravity - Urine <= 1.005 (1.005-1.025); Urine Blood Negative (Negative); Urine Ketones Negative (Negative); Urine Protein Negative (Neg-Trace)
[2024-03-30] MEDS: Ketorolac Tromethamine 15 MG/ML VIAL IVPUSH (14:24)
[2024-03-30 14:25] LABS: Alanine Aminotransferase 118 U/L (0-31); Albumin Level 3.3 g/dL (3.5-5.0); Alkaline Phosphatase 92 U/L (39-117); Anion Gap 14 (12-20); Aspartate Amino Transferase 105 U/L (5-31); Bilirubin Total 0.2 mg/dL (0.0-1.0); Blood Urea Nitrogen 15 mg/dL (9-16); C Reactive Protein 1.71 mg/dL (< or = 0.50); Calcium 8.9 mg/dL (8.4-10.2); Carbon Dioxide 22 mmol/L (22-29); Chloride 108 mmol/L (96-108); Creatinine Clr Calc Pharmacy 145.9; Estimated Glomerular Filt Rate > 60; Glucose Random 93 mg/dL (60-115); Magnesium 1.9 mg/dL (1.6-2.6); Potassium 4.1 mmol/L (3.3-5.1); Sodium 140 mmol/L (135-145); Total Protein 8.1 g/dL (6.5-8.0)
--- NOTE | 2024-03-30 14:25 | PC.NURSE ---
pt medicated per orders
[2024-03-30 14:48] LABS: Erythrocyte Sedimentation Rate 72 MM/HR (0-20)
[2024-03-30 15:19] VITALS: BP 120/66; PULSE 86; RESP 16; TEMP 36.6; O2SAT 100
[2024-03-30 16:52] VITALS: BP 120/66; PULSE 86; RESP 16; TEMP 36.6; O2SAT 100
[2024-03-31 21:23] LABS: Lyme Abs Screen <0.90 index
[2024-04-01 12:19] LABS: Anti DNA DS Antibody 28 IU/mL
[2024-04-02 00:10] LABS: A. Phagocytphilium DNA,RT-PCR NOT DETECTED (NOT DETECTED); Babesia Microti DNA, RT-PCR NOT DETECTED (NOT DETECTED); Borrelia Miyamotoi,DNA RT-PCR NOT DETECTED (NOT DETECTED); E.Chaffeensis DNA RT-PCR NOT DETECTED (NOT DETECTED); Lyme(Borrelia ssp)DNA RT-PCR NOT DETECTED (NOT DETECTED)
[2024-04-08 09:07] LABS: Anti Nuclear Antibody Pattern Nuclear, Homogeneous; Anti Nuclear Antibody Screen POSITIVE (NEGATIVE)
== END 2024-03-30 16:54 | disposition home or self-care (01) ==
PROVIDERS: Physician Assistant Medical; Emergency Provider Emergency Medicine; PCP Physician Assistant
DX: M25.532 Pain in left wrist (principal); M25.531 Pain in right wrist; M25.511 Pain in right shoulder; E11.9 Type 2 diabetes mellitus without complications; M54.2 Cervicalgia; R20.0 Anesthesia of skin; R21 Rash and other nonspecific skin eruption; Z79.85 Long-term (current) use of injectable non-insulin antidiabetic drugs; Z79.899 Other long term (current) drug therapy
CPT/HCPCS: 29125; 36415; 72125; 80053; 81003; 83735; 85025; 85652; 86038; 86039; 86140; 86225; 86617; 86618; 87468; 87469; 87478; 87484; 87798; 96374; 99284; J1885

== ENCOUNTER 2024-04-08 10:34 | Outpatient (AMB) | payer OTHER, MEDICAID, SELFPAY ==
--- NOTE | 2024-04-08 10:41 | A.OFFVIS_ITS ---
Vital Signs 04/08/24 10:43 Height 5 ft 1 in Weight 226 lb BMI 42.7 BP 118/70 Intake Visit Reasons: Ultrasound follow up Facilities Project Manager Required: No Facilities Project Manager Services: Facilities Project Manager Present Allergies adalimumab [From Humira(CF)] Adverse Reaction (Intermediate, Verified 04/08/24 10:44) injection site reaction Medication List - Last Reconciled 04/08/24 by Mackenzie Mendiola CNM blood sugar diagnostic (FreeStyle Lite Strips) Testing Once a day/ as needed blood-glucose meter (FreeStyle Lite Meter kit) As directed diclofenac sodium 75 mg PO BID 15 days lancets (FreeStyle Lancets) Testing once a day levothyroxine 175 mcg PO DAILY 30 days metformin 500 mg PO ONCE 90 days secukinumab (Cosentyx Pen 300 mg/2 Pens () 300 mg (2 mL) subcut Q4W semaglutide (Ozempic) 0.5 mg (0.736 mL) subcut QWEEK 4 weeks Is last menstrual period known: No HPI HPI Ultrasound follow up: Details: Patient is here scheduled for follow-up of certain PCOS type labs as well as an ultrasound done secondary to her amenorrhea. This was to have been scheduled as a full discussion of these issues. She did have a withdrawal bleed after taking the Provera immediately after stopping it she took it is beginning of February and she had her withdrawal bleed start immediately from February 14 to February 21 and it felt to her like a normal. It did feel good to get a period after been se veral months. She does have loss of hair at the top of her head she does have increased facial hair. She is obese she says she has lost weight on the Ozempic though she has plateaued somewhat right now she missed a week because of reordering issues. She sometimes isn't able take her thyroid medicine every single morning because she maybe in a [place] has to race to work. She thinks she could probably check her blood sugar more often. 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 She was seen in hospital because she had lots of pain in her joints and various symptoms and so she needs to follow-up with her primary care provider about that and she said that someone told her she should get evaluated for carpal tunnel syndrome as well. Her knees have also been giving her trouble as well PFSH Medical History Fatty liver Morbidly obese Surgical History No pertinent past surgical history Family History Father Hypertension Rheumatoid arthritis Mother Hypertension Breast cancer, Onset Age: 35 Rheumatoid arthritis Paternal Aunt Diabetes Mental health disorder Paternal Uncle Diabetes Mental health disorder Social History Housing: House Alcohol intake: never Patient Tobacco Use Status: Never used Tobacco Tobacco use type: Cigarette e-Cigarette/Vaping Use: Never Used Second Hand Smoke Exposure: No service: No Current occupational status: employed Current occupation: [employer]- Cognitive needs: No Hearing needs: No Vision needs: No Female Reproductive History Menstrual Age of Menarche: 11 Duration of menses: other (irregular menses) control method: none Total pregnancies: 0 Date of last pap smear: 12/20/23 (negative) History of abnormal pap smear: No Physical Exam Vital Signs: Last Vital Signs BP 118/70 04/08/24 10:43 BMI result Body Mass Index 42.7 Results Reviewed Results Reviewed: Patient: Polly Byrnes MR#: [id number] : 2000 Acct:[id number] Age/Sex: 24 / F ADM Date: 02/28/24 Loc: HO.US Attending Dr: Mackenzie Mendiola CNM Ordering Physician: Mackenzie Mendiola CNM Date of Service: 02/28/24 Procedure(s): US pelvic and transvaginal Accession Number(s): [id number] cc: Jaylan Mackey PA-C; Mackenzie Mendiola CNM~ EXAMINATION: US PELVIS CLINICAL INFORMATION: Amenorrhea since June, no pain, last menstrual period June 2023. COMPARISON: Pelvic ultrasound of December 12, 2021. TECHNIQUE: Ultrasound of the pelvis is performed using both transabdominal and transvaginal transducers along with Doppler. Transvaginal imaging is performed due to inadequate visualization transabdominally. FINDINGS: Uterus is anteverted and measures 8.0 x 3.2 x 3.6 cm. Nabothian cysts. Limited visualization on transabdominal and transvaginal ultrasound images due to bowel gas and body habitus. Endometrial thickness is 5 mm. Right ovary measures 2.6 x 1.6 x 1.5 cm, volume of 3.3 mL. Left ovary measures 3.1 x 1.4 x 1.3 cm, volume 3.0 mL. Bilateral ovaries are grossly unremarkable; however, visualization limited due to bowel gas. No significant free fluid. US/US pelvic and transvaginal IMPRESSION: 1. Endometrial thickness is 5 mm. 2. Bilateral ovaries are grossly unremarkable, however, visualization limited due to bowel gas. 3. Limited visualization on transabdominal and transvaginal ultrasound images due to bowel gas and body habitus. Dictated By: Maria Esther Greco MD Signed By: <Electronically signed by Maria Esther Greco MD in OV> 03/17/24 1302 DD/ 1606 TD/TT: Inside Technical Sales Representative: You had her CBC her elevated TSH 0.97 her increased LFTs her FSH of 6.5 prolactin of 10.0 and testosterone of 17. Additionally there were several tests done during a ER assessment recently for inflammation of her joints and checking for various infectious diseases she had an elevated C-reactive protein as well. Assessment & Plan Assessment & Plan (1) Amenorrhea: Comment: No menses since June 2023, for now with Provera and after withdrawal bleed, review plan etc./04/08/2024 we will start OCPs... Code(s): N91.2 - Amenorrhea, unspecified Category: Medical (2) Cervical cancer screening: Comment: 12/19/2023 Pap is negative Code(s): Z12.4 - Encounter for screening for malignant neoplasm of cervix Category: Medical (3) Fatty liver: Code(s): K76.0 - Fatty (change of) liver, not elsewhere classified Category: Medical (4) Elevated LFTs: Code(s): R79.89 - Other specified abnormal findings of blood chemistry Category: Medical (5) Hypothyroid: Code(s): E03.9 - Hypothyroidism, unspecified Category: Medical Qualifiers: Hypothyroidism type: unspecified Qualified Code(s): E03.9 - Hypothyroidism, unspecified (6) DMII (diabetes mellitus, type 2): Code(s): E11.9 - Type 2 diabetes mellitus without complications Category: Medical Qualifiers: Diabetes mellitus extermination inspector insulin use: without long-term use Diabetes mellitus complication status: without complication Qualified Code(s): E11.9 - Type 2 diabetes mellitus without complications (7) Morbidly obese: Code(s): E66.01 - Morbid (severe) obesity due to excess calories Category: Medical Plan Patient is here scheduled for follow-up of certain PCOS type labs as well as an ultrasound done secondary to her amenorrhea. This was to have been scheduled as a full discussion of these issues. She did have a withdrawal bleed after taking the Provera immediately after stopping it she took it is beginning of February and she had her withdrawal bleed start immediately from February 14 to February 21 and it felt to her like a normal. It did feel good to get a period after been several months. She does have loss of hair at the top of her head she does have increased facial hair. She is obese she says she has lost weight on the Ozempic though she has plateaued somewhat right now she missed a week because of reordering issues. She sometimes isn't able take her thyroid medicine every single morning because she maybe in a [place] has to race to work. She thinks she could probably check her blood sugar more often. 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 She was seen in hospital because she had lots of pain in her joints and various symptoms and so she needs to follow-up with her primary care provider about that and she said that someone told her she should get evaluated for carpal tunnel syndrome as well. Her knees have also been giving her trouble as well ------- So we reviewed all of these issues and the fact that she meets criteria for PCOS even if there are no ultrasound or other blood markers for in terms of elevated testosterone she is obese she has loss hair at the top of her head she has increased facial hair she has periods of amenorrhea additionally she is diabetic and she has fatty liver disease. She missed a week of her Ozempic but is back on it now and she is trying to do better with taking her thyroid medicine every day though apparently that may need to be ordered as generic to be covered in her pharmacy she is going to be talking with her primary about that. Discussed that it would be beneficial to her to have a regular withdrawal bleed or if not it would be beneficial to protect the lining of her uterus from building up by placing a levonorgestrel releasing IUD either Kyleena or Mirena. Discussed the dangers of long periods of time with amenorrhea and the possible buildup of the endometrial lining to endometrial hyperplasia and the risk of endometrial cancers. After some discussion of risk benefits she chose to go on control pills she is a nonsmoker discussed taking the control pills same time every single day since it has not been too long since her withdrawal bleed and she is not sexually active. It would be acceptable for her to start the control pills either today or tomorrow when she picks them up at her pharmacy I am going to order enough for year and we will see her in 3 months to see how she is doing in the meantime she is going to be discussing all these issues with her primary care provider as well and continue her efforts at losing weight. Medications: New desog-e.estradiol/e.estradiol 0.15-0.02 mgx21 /0.01 mg x 5 1 tab PO DAILY 84 tabs 4RF Coding Level of Care Code Est Pt Level 3 (78865) Diagnoses Amenorrhea N91.2 Cervical cancer screening Z12.4 Fatty liver K76.0 Elevated LFTs R79.89 Hypothyroidism, unspecified type E03.9 Hypothyroidism type: unspecified Type 2 diabetes mellitus without complication, without long-term current use of insulin E11.9 Diabetes mellitus extermination inspector insulin use: without long-term use Diabetes mellitus complication status: without complication Morbidly obese E66.01
[2024-04-08 10:43] VITALS: BP 118/70; BMI 42.7
== END 2024-04-08 11:52 | disposition home or self-care (01) ==
PROVIDERS: PCP Physician Assistant; Visit Provider Advanced Practice Midwife
DX: N91.2 Amenorrhea, unspecified (principal); Z12.4 Encounter for screening for malignant neoplasm of cervix; K76.0 Fatty (change of) liver, not elsewhere classified; R79.89 Other specified abnormal findings of blood chemistry; E03.9 Hypothyroidism, unspecified; E11.9 Type 2 diabetes mellitus without complications; E66.01 Morbid (severe) obesity due to excess calories
CPT/HCPCS: 99213

== ENCOUNTER → 2024-04-08 10:34 | Outpatient (BNVA) | payer OTHER, MEDICAID, SELFPAY | PROVIDERS: PCP Physician Assistant; Visit Provider Advanced Practice Midwife ==

== ENCOUNTER 2024-04-10 12:45 | Outpatient (REF) | payer OTHER, MEDICAID, SELFPAY ==
--- NOTE | 2024-04-10 12:48 | EMG_ITS ---
Chief complaint: Bilateral hand numbness, history of psoriatic arthritis and diabetes Reason for referral: Evaluate for Carpal Tunnel Syndrome Referred by: Jaylan BAÑUELOS Procedure done: Bilateral upper extremities NCS/EMG Precautions and/or limitations: None Seen with water technician. The limb temperature was monitored continuously and remained between 32-36 degrees C during the performance of the NCS. Nerve Conduction Studies Anti Sensory Summary Table ?Stim Site NR Onset (ms) Norm Onset (ms) Peak (ms) Norm Peak (ms) O-P Amp (?V) Norm O-P Amp Site1 Site2 Delta-0 (ms) Dist (cm) Santosh (m/s) Norm Santosh (m/s) Left Median Anti Sensory (2nd Digit) Wrist ? 3.4 4.3 <3.6 3.1 >10 Wrist 2nd Digit 3.4 14.0 41 Right Median Anti Sensory (2nd Digit) Wrist ? 3.2 4.0 <3.6 10.9 >10 Wrist 2nd Digit 3.2 14.0 44 Right Radial Anti Sensory (Thumb) Forearm ? 1.2 1.6 <3.1 10.0 Forearm Thumb 1.2 0.0 Left Ulnar Anti Sensory (5th Digit) Wrist ? 2.0 2.6 <3.7 41.3 >15.0 Wrist 5th Digit 2.0 14.0 70 Right Ulnar Anti Sensory (5th Digit) Wrist ? 2.1 2.5 <3.7 15.6 >15.0 Wrist 5th Digit 2.1 14.0 67 Motor Summary Table ?Stim Site NR Onset (ms) Norm Onset (ms) O-P Amp (mV) Norm O-P Amp iAmp (mV) Amp (1st) (%) Site1 Site2 Delta-0 (ms) Dist (cm) Santosh (m/s) Norm Santosh (m/s) Left Median Motor (Abd Poll Brev) Wrist ? 5.9 <3.9 2.3 >4.5 3.0 100.0 Elbow Wrist 3.4 19.0 56 >45 Elbow ? 9.3 2.4 3.0 104.3 Right Median Motor (Abd Poll Brev) Wrist ? 4.8 <3.9 6.7 >4.5 8.2 100.0 Elbow Wrist 2.8 18.5 66 >45 Elbow ? 7.6 7.4 9.1 110.4 Left Ulnar Motor (Abd Dig Minimi) Wrist ? 2.4 <3.0 5.5 >5 6.3 100.0 B Elbow Wrist 2.7 17.0 63 >45 B Elbow ? 5.1 4.6 5.4 83.6 A Elbow B Elbow 1.6 10.0 62 >45 A Elbow ? 6.7 4.6 5.3 83.6 Right Ulnar Motor (Abd Dig Minimi) Wrist ? 2.3 <3.0 7.5 >5 8.8 100.0 B Elbow Wrist 3.5 18.0 51 >45 B Elbow ? 5.8 6.8 7.9 90.7 A Elbow B Elbow 1.1 10.0 91 >45 A Elbow ? 6.9 6.9 8.0 92.0 EMG ?Side Muscle Nerve Root Ins Act Fibs Psw Amp Dur Poly Recrt Int Pat Comment Right 1stDorInt Ulnar C8-T1 Nml Nml Nml Nml Nml 0 Nml Complete Right FlexCarRad Median C6-7 Nml Nml Nml Nml Nml 0 Nml Complete Right Biceps Musculocut C5-6 Nml Nml Nml Nml Nml 0 Nml Complete Right Triceps Radial C6-7-8 Nml Nml Nml Nml Nml 0 Nml Complete Right Deltoid Axillary C5-6 Nml Nml Nml Nml Nml 0 Nml Complete Left 1stDorInt Ulnar C8-T1 Nml Nml Nml Nml Nml 0 Nml Complete Left FlexCarRad Median C6-7 Nml Nml Nml Nml Nml 0 Nml Complete Left Biceps Musculocut C5-6 Nml Nml Nml Nml Nml 0 Nml Complete Left Triceps Radial C6-7-8 Nml Nml Nml Nml Nml 0 Nml Complete Left Deltoid Axillary C5-6 Nml Nml Nml Nml Nml 0 Nml Complete FINDINGS: Right median motor nerve showed prolonged distal latency, normal amplitude and normal conduction velocity. Left median motor nerve showed prolonged distal latency, small amplitude and small conduction velocity. Bilateral median sensory nerves showed prolonged peak latencies. All other nerves tested were within normal. Concentric needle EMG was performed in selected muscles of the bilateral upper extremities. Study did not reveal signs of electric abnormalities as shown in the table above. IMPRESSION: 1. This is an abnormal study. 2. There is electrodiagnostic evidence for bilateral moderate-severe median neuropathy at the wrist, consistent with carpal tunnel syndrome. 3. There is no electrodiagnostic evidence for ulnar neuropathy, brachial plexopathy, or cervical radiculopathy. Thank you for your kind referral. Debbie Reis MD, GUME Board Certified, [place] Board [employer] and Rehabilitation (ABPMR) Board Certified, [place] Board of Electrodiagnostic Medicine (ABEM) CODIN 12618 x 2 MTDD
== END 2024-04-10 12:46 | disposition home or self-care (01) ==
LOC: HO.NEURO 12:45
PROVIDERS: PCP Physician Assistant; Visit Provider Physician Assistant
DX: R20.2 Paresthesia of skin (principal)
CPT/HCPCS: 95886; 95911

== ENCOUNTER → 2024-04-10 12:48 | Outpatient (BNV) | payer OTHER, MEDICAID, SELFPAY | PROVIDERS: PCP Physician Assistant; Visit Provider Physical Medicine & Rehabilitation | DX: G56.03 Carpal tunnel syndrome, bilateral upper limbs (principal) | CPT/HCPCS: 95886; 95911 ==

== ENCOUNTER 2024-04-11 21:00 | Emergency (ER) | payer OTHER, SELFPAY ==
[2024-04-11 21:02] VITALS: BP 132/76; PULSE 91; RESP 20; TEMP 36.6; O2SAT 98; BMI 43.1
[2024-04-11 22:40] VITALS: BP 110/61; PULSE 90; RESP 16; TEMP 36.7; O2SAT 99
--- NOTE | 2024-04-11 23:04 | ED.EAR ---
HPI - Ear Problem General Chief complaint: Ear Problems Stated complaint: Rt ear pain/dizzy Time Seen by Provider: 04/11/24 22:39 Source: patient Mode of arrival: ambulatory Limitations: no limitations History of Present Illness ED Provider: lacie HPI Narrative: Patient complaining of pain in the right ear for last 3-4 days was in water a week ago no fever no chills no sore throat Related Data Previous Rx's ?Medication ?Instructions ?Recorded blood sugar diagnostic (FreeStyle #100 ea 07/16/23 Lite Strips) blood-glucose meter (FreeStyle #1 ea 07/16/23 Lite Meter kit) lancets 28 gauge (FreeStyle #100 ea 07/16/23 Lancets) secukinumab 150 mg/mL subcutaneous 300 mg (2 mL) subcut Q4W #2 mL 01/03/24 pen injector (Cosentyx Pen 300 mg/2 Pens () levothyroxine 175 mcg tablet 175 mcg PO DAILY 30 days #30 tabs 03/06/24 metformin 500 mg tablet 500 mg PO ONCE 90 days #90 tabs 03/06/24 semaglutide 0.25 mg or 0.5 mg (2 0.5 mg (0.736 mL) subcut QWEEK 4 03/15/24 mg/3 mL) subcutaneous pen injector weeks #3 mL (Ozempic) diclofenac sodium 75 mg 75 mg PO BID 15 days #30 tabs 03/30/24 tablet,delayed release desogestrel-e.estradiol 0.15 1 tab PO DAILY #84 tabs 04/08/24 mg-0.02 mg(21)/e.estrad 0.01 mg(5) tablet amoxicillin 875 mg-potassium 1 tab PO BID #20 tabs 04/11/24 clavulanate 125 mg tablet ibuprofen 600 mg tablet 600 mg PO Q6H PRN fever or pain 04/11/24 #30 tabs Allergies Allergy/AdvReac Type Severity Reaction Status Date / Time adalimumab [From Humira(CF)] AdvReac Intermediate injection Verified 04/11/24 21:04 site reaction Review of Systems Review of Systems: Yes all other systems are reviewed and are negative PMFSH Past Medical History Medical History Fatty liver Morbidly obese Surgical History No pertinent past surgical history Family History Family History Father Hypertension Rheumatoid arthritis Mother Hypertension Breast cancer, Onset Age: 35 Rheumatoid arthritis Paternal Aunt Diabetes Mental health disorder Paternal Uncle Diabetes Mental health disorder Social History Social History Housing: House Alcohol intake: never Patient Tobacco Use Status: Never used Tobacco Tobacco use type: Cigarette Smoked in Last 30 Days: No e-Cigarette/Vaping Use: Never Used Second Hand Smoke Exposure: No Use of substances other than those prescribed or required for medical reasons: No Advance Directives: No Advance Directives Information Provided: No Do you have a plan to hurt others: No Plan Patient : No service: No Current occupational status: employed Current occupation: [employer]- Cognitive needs: No Hearing needs: No Vision needs: No Physical Exam Vital Signs: Vital Signs: Last Vital Signs Temp 98.3 F 04/11/24 23:55 Pulse 85 04/11/24 23:55 Resp 20 04/11/24 23:55 BP 129/83 04/11/24 23:55 Pulse Ox 99 04/11/24 23:55 O2 Del Method Room Air 04/11/24 23:55 BMI result Body Mass Index 43.1 Appearance: Alert. Oriented X3. No acute distress. ENT: Pharynx normal. Oral Mucosa moist right tympanic membrane inflamed no discharge fluid behind the drum+ left ear normal Neck: Normal inspection. Neck supple. CVS: Normal heart rate and rhythm. Pulses normal. Respiratory: No respiratory distress. Equal air entry bilateral, Skin: Skin warm and dry. Normal skin color. Normal skin turgor. Medications Administered Discontinued Medications Generic Name Dose Route Start Last Admin Trade Name Freq PRN Reason Stop Dose Admin Amoxicillin/Clavulanate Potassium 875 mg 04/11/24 23:04 04/11/24 23:19 Amoxicillin/Potassium Clav 875 Mg Tablet PO 04/11/24 23:05 875 mg ONCE ONE Administration Medical Decision Making Medical Decision Making MDM Narrative: Patient with right ASOM discharge patient home on Augmentin Discharge Plan Discharge Clinical Impression: Otitis media Patient Disposition: Home, Self-Care Instructions: Ear Infection (ED) Additional Instructions: Take antibiotic as prescribed Ibuprofen for pain Follow the PCP if not better Prescriptions: New ibuprofen 600 mg tablet 600 mg PO Q6H PRN (Reason: fever or pain) Qty: 30 0RF amoxicillin-pot clavulanate 875-125 mg tablet 1 tab PO BID Qty: 20 0RF No Action Cosentyx Pen (2 Pens) 150 mg/mL pen injector 300 mg subcut Q4W Qty: 2 3RF Ozempic 0.25 mg or 0.5 mg (2 mg/3 mL) pen injector 0.5 mg subcut QWEEK 28 Days Qty: 3 3RF diclofenac sodium 75 mg tablet,delayed release (DR/EC) 75 mg PO BID 15 Days Qty: 30 0RF (DME) lancets [FreeStyle Lancets] 28 gauge misc See Rx Instructions .ROUTE .MEDSUPPLY Qty: 100 3RF Rx Instructions: Testing once a day (DME) blood-glucose meter [FreeStyle Lite Meter] Kit See Rx Instructions .Route Qty: 1 0RF Rx Instructions: As directed (DME) FreeStyle Lite Strips Strip See Rx Instructions .ROUTE .MEDSUPPLY Qty: 100 3RF Rx Instructions: Testing Once a day/ as needed levothyroxine 175 mcg tablet 175 mcg PO DAILY 30 Days Qty: 30 1RF metformin 500 mg tablet 500 mg PO ONCE 90 Days Qty: 90 1RF desog-e.estradiol/e.estradiol 0.15-0.02 mgx21 /0.01 mg x 5 tablet 1 tab PO DAILY Qty: 84 4RF Interventions: ED Discharge Assessment Last Done: 04/11/24 23:55 Discharge Date/Time: 04/11/24 23:56 Print Language: Maltese
[2024-04-11] MEDS: Amoxicillin/Potassium Clav 875 MG TABLET PO (23:19)
[2024-04-11 23:22] VITALS: BP 129/83; PULSE 85; RESP 20; TEMP 36.8; O2SAT 99
[2024-04-11 23:55] VITALS: BP 129/83; PULSE 85; RESP 20; TEMP 36.8; O2SAT 99
== END 2024-04-11 23:56 | disposition home or self-care (01) ==
PROVIDERS: Emergency Provider Internal Medicine
DX: H66.91 Otitis media, unspecified, right ear (principal); H92.01 Otalgia, right ear; E11.9 Type 2 diabetes mellitus without complications; E66.9 Obesity, unspecified; Z68.41 Body mass index [BMI] 40.0-44.9, adult; Z79.899 Other long term (current) drug therapy
CPT/HCPCS: 99283; 99284

== ENCOUNTER 2024-04-15 13:57 | Outpatient (AMB) | payer OTHER, MEDICAID, SELFPAY ==
--- NOTE | 2024-04-15 14:08 | MHC.PC.OV ---
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 with a past medical history significant for type 2 diabetes, obesity, psoriatic arthritis.? Has recently got EMG testing did show moderate to severe bilateral carpal tunnel, has been refer to orthopedics Concern--> she reports developing a rash over both of her arms and also has developed a rash over her face and his have bilateral eye puffiness She was recently seen at the [place] [facility] was diagnosed with right side otitis media and was started on Augmentin. . -CHRONIC---MEDICAL CONDITIONS>> Elevated liver enzymes: Has gotten recent ultrasound of her liver that did show right hepatic lobe mass. MRI has been done in August of 2023 was continue to show a 0.9 cm mass, six-month follow-up MRI was recommended Psoriatic arthritis: Patient now followed by Rheumatology and has been started on disease modifying-> Humira. . She reports her arthritic pain is much more manageable with Humira though unfortunately started to have a localized injection site reaction on multiple occasions. Patient continues on Cosentyx which has drastically reduced her arthralgias and joint swelling and increase her mobility. She reports she now feels normal . Unfortunately lost her rheumatology follow-up in needs reestablishing care with new apple checker .. Obesity:? Have noted some weight loss since last office visit. Has been started on Ozempic and has noted a 5 lb weight loss.? Has been working on portion control which is helping.? Has not added any physical activity to her lifestyle. .. Type 2 diabetes:? Patient continues on metformin 500 q.d. we have increased her Ozempic to 0.5 mg has noted weight loss since last office visit. A1c today 5.6 .. Hypothyroid : Has noted weight loss since starting GLP 1? Most recent TSH improved, continues on levothyroxine 175 mcg. [facility] Medical History Fatty liver Morbidly obese Surgical History No pertinent past surgical history Family History Father Hypertension Rheumatoid arthritis Mother Hypertension Breast cancer, Onset Age: 35 Rheumatoid arthritis Paternal Aunt Diabetes Mental health disorder Paternal Uncle Diabetes Mental health disorder Social History Housing: House Alcohol intake: never Patient Tobacco Use Status: Never used Tobacco Tobacco use type: Cigarette e-Cigarette/Vaping Use: Never Used Second Hand Smoke Exposure: No service: No Current occupational status: employed Current occupation: [employer]- Cognitive needs: No Hearing needs: No Vision needs: No Female Reproductive History Menstrual Age of Menarche: 11 Questionnaire Thrive Questionnaire Date Thrive assessed: 10/24/23 RAJIV-7 AMB Questionnaire RAJIV-7 Date RAJIV - 7 assessed: 10/24/23 Source: Developed by Drs. Rakesh Gaston, Mahogany Meza, Quincy Gandhi and colleagues, with an educational cam from [employer]. Physical exam (Primary Care) Vital Signs: Last Vital Signs Pulse 96 04/15/24 14:13 BP 110/72 04/15/24 14:13 Pulse Ox 99 04/15/24 14:13 Oxygen Delivery Method Room Air 04/15/24 14:13 BMI result Body Mass Index 42.2 Tobacco/Smoking Status: Tobacco use Status Tobacco use date assessed 10/24/23 04/15/24 14:08 Patient Tobacco Use Status Never used Tobacco 04/15/24 14:08 Tobacco use type Cigarette 04/15/24 14:08 e-Cigarette/Vaping Use Never Used 04/15/24 14:08 Thrive Assessment: Date of Thrive Assessment Date Thrive assessed 10/24/23 04/15/24 14:08 HENCT Other: Assessment and Plan Assessment & Plan (1) Psoriatic arthritis: Code(s): L40.50 - Arthropathic psoriasis, unspecified Plan: Be establishing care with a new apple checker here in [place]. Recently diagnosed with psoriatic arthritis. She was previously on Humira though transitioned to Cosentyx which was somewhat helpful. She is using Cosentyx now intermittently. Still seems to have pretty achy swollen joints particularly in her lower extremities. Appears to have a malar like rash over her face, please see picture section Will supply patient with a prednisone taper (2) Psoriasis: Code(s): L40.9 - Psoriasis, unspecified Plan: As per HPI patient does seem to have a psoriasis flare over elbows. Will supply patient with triamcinolone cream to place on the affected areas. Medications: New triamcinolone acetonide 0.5% 1 appl topical DAILY 30 days 15 grams 0RF L40.9 - Psoriasis, unspecified prednisone take 3 tablets x3 days, 2 tablets x3 days, 1 tablet x3 days 10 mg PO DIRECTED 9 days 18 tabs 0RF L40.50 - Arthropathic psoriasis, unspecified Coding Level of Care Code Est Pt Level 3 (14234) Diagnoses Psoriatic arthritis L40.50 Psoriasis L40.9
[2024-04-15 14:13] VITALS: BP 110/72; PULSE 96; O2SAT 99; BMI 42.2
== END 2024-04-15 14:40 | disposition home or self-care (01) ==
PROVIDERS: PCP Physician Assistant; Visit Provider Physician Assistant
DX: L40.50 Arthropathic psoriasis, unspecified (principal); L40.9 Psoriasis, unspecified
CPT/HCPCS: 99213

== ENCOUNTER 2024-05-30 08:57 | Outpatient (AMB) | payer OTHER, SELFPAY ==
[2024-05-30 08:59] VITALS: BMI 42.1
--- NOTE | 2024-05-30 08:59 | MHC.OFFVIS ---
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 She finger locking on her right hand. Has tried braces for sleeping. Denies any prior injuries or surgeries to the hands.Patient states that the pain starts with hands goes to the elbows to her neck and the middle of her back. EMG performed 04/10/24 showing bilateral CTS. 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 Patient states that she has constant, daily numbness that is worse at night. The patient states that she has tried bracing and other conservative symptomatic management measures, to minimal effect. Patient states that this numbness is in the thumb, index, middle, and radial aspect of the ring finger bilaterally. Patient denies any small finger numbness bilaterally. No other acute complaints or concerns at this time. [facility] Medical History Fatty liver Morbidly obese Surgical History No pertinent past surgical history Family History Father Hypertension Rheumatoid arthritis Mother Hypertension Breast cancer, Onset Age: 35 Rheumatoid arthritis Paternal Aunt Diabetes Mental health disorder Paternal Uncle Diabetes Mental health disorder Social History Housing: House Alcohol intake: never Patient Tobacco Use Status: Never used Tobacco Tobacco use type: Cigarette e-Cigarette/Vaping Use: Never Used Second Hand Smoke Exposure: No service: No Current occupational status: employed Current occupation: [employer]- Cognitive needs: No Hearing needs: No Vision needs: No Female Reproductive History Menstrual Age of Menarche: 11 Physical Exam Vital Signs: BMI result Body Mass Index 42.1 Extrem Other: Neuro: Decreased sensation in the median nerve distribution of bilateral hands in the office today. No thenar or intrinsic wasting. Good APB muscle firing Weakness with finger cross although this may be secondary to stiffness Vascular: Capillary refill brisk. ROM: Patient can make a fist and extend all their digits with encouragement, but reports some discomfort in his joints of the digits of bilateral hands when doing Skin: No lacerations or abrasions noted. General: No ecchymosis. No erythema or evidence of infection. Results Reviewed Results Reviewed: EMG and nerve conduction study from 04/14/2024, read by Dr. Gregory IMPRESSION: 1. This is an abnormal study. 2. There is electrodiagnostic evidence for bilateral moderate-severe median neuropathy at the wrist, consistent with carpal tunnel syndrome. 3. There is no electrodiagnostic evidence for ulnar neuropathy, brachial plexopathy, or cervical radiculopathy. Assessment & Plan Assessment & Plan (1) Stiffness of joints of both hands: Code(s): M25.641 - Stiffness of right hand, not elsewhere classified; M25.642 - Stiffness of left hand, not elsewhere classified Category: Medical (2) Carpal tunnel syndrome, bilateral: Code(s): G56.03 - Carpal tunnel syndrome, bilateral upper limbs Category: Medical Plan 1. Carpal tunnel syndrome, left Symptoms constant, daily, worse at night I educated the patient about the condition. I discussed both operative and nonoperative treatment options. The patient would like to proceed with surgery. Patient is educated that because she is experiencing dense numbness, there is an increased risk of not getting normal sensation back even after surgery. The patient expresses understanding of this. The risks and benefits of operative treatment were discussed with the patient and the patient wishes to proceed with surgery. These risks include, but are not limited to, risk of damage to blood vessels, nerves, tendons, infection, recurrence, incomplete relief of preoperative symptoms, persistent pain, possible need for further surgery, and the risks associated with regional blocks and/or anesthesia. Plan is to take the patient to the operating room at some point in the next few weeks for the following procedures: 1. Left carpal tunnel release under local anesthesia All of the preoperative paperwork including the consent was discussed today. All of the patient's questions were answered in the clinic today. The patient understands that they will be in contact with our surgical services assistant to discuss scheduling their procedure. Patient denies diabetes, blood thinners, asthma, heart issues, lung issues, kidney issues, or current smoking. , the patient reports that she is prediabetic, with a last known A1c of 5.8 2. Carpal tunnel syndrome, right Symptoms constant, daily, worse at night Patient would like to proceed with operative intervention on the left side prior to any intervention on the right Patient is educated that if the left side is recovering well at her 2 week postoperative visit, she can get signed up for surgery of the right at that time Patient understands this and is amenable to this plan 3. Bilateral hand stiffness Patient states that she has been trying to avoid use of her hands for the last few weeks Patient was referred to occupational therapy for range of motion, strengthening of bilateral hands to prevent stiffness that will worsened postoperatively Patient understands this is amenable to this plan Patient will follow-up as needed with any acute concerns, if no concerns she will follow-up postoperatively Orders: Orders OT Evaluation and Treatment Today M25.641 - Stiffness of right hand, not elsewhere classified, M25.642 - Stiffness of left hand, not elsewhere classified Coding Level of Care Code New Pt Level 4 (53404) Diagnoses Stiffness of joints of both hands M25.641; M25.642 Carpal tunnel syndrome, bilateral G56.03
== END 2024-05-30 09:40 | disposition home or self-care (01) ==
DX: M25.641 Stiffness of right hand, not elsewhere classified (principal); M25.642 Stiffness of left hand, not elsewhere classified; G56.03 Carpal tunnel syndrome, bilateral upper limbs
CPT/HCPCS: 99204

== ENCOUNTER 2024-06-02 10:37 | Emergency (ER) | payer OTHER, SELFPAY ==
--- NOTE | 2024-06-02 11:06 | ED.GENADULT ---
HPI - General Adult General Chief complaint: General Medical Stated complaint: Joint pain Time Seen by Provider: 06/02/24 13:13 History of Present Illness HPI narrative: Patient with history of psoriatic arthritis complains of a flare up with pain in fingers wrists ankles knees and hips, denies any fever denies any injuries Related Data Previous Rx's ?Medication ?Instructions ?Recorded blood sugar diagnostic (FreeStyle #100 ea 07/16/23 Lite Strips) blood-glucose meter (FreeStyle #1 ea 07/16/23 Lite Meter kit) lancets 28 gauge (FreeStyle #100 ea 07/16/23 Lancets) levothyroxine 175 mcg tablet 175 mcg PO DAILY 30 days #30 tabs 03/06/24 metformin 500 mg tablet 500 mg PO ONCE 90 days #90 tabs 03/06/24 semaglutide 0.25 mg or 0.5 mg (2 0.5 mg (0.736 mL) subcut QWEEK 4 03/15/24 mg/3 mL) subcutaneous pen injector weeks #3 mL (Ozempic) diclofenac sodium 75 mg 75 mg PO BID 15 days #30 tabs 03/30/24 tablet,delayed release desogestrel-e.estradiol 0.15 1 tab PO DAILY #84 tabs 04/08/24 mg-0.02 mg(21)/e.estrad 0.01 mg(5) tablet ibuprofen 600 mg tablet 600 mg PO Q6H PRN fever or pain 04/11/24 #30 tabs triamcinolone acetonide 0.5 % 1 appl topical DAILY 30 days #15 04/15/24 topical cream grams prednisone 10 mg tablet 10 mg PO DIRECTED 9 days #18 05/05/24 tabs secukinumab 150 mg/mL subcutaneous 300 mg (2 mL) subcut Q4W #2 mL 05/07/24 pen injector (Cosentyx Pen 300 mg/2 Pens () acetaminophen 500 mg tablet 1,000 mg (2 x 500 mg) PO QID PRN 06/02/24 pain #30 tabs diclofenac sodium 75 mg 75 mg PO BID Pain #20 tabs 06/02/24 tablet,delayed release oxycodone 5 mg tablet 5 mg PO Q6H PRN pain #10 tabs 06/02/24 Allergies Allergy/AdvReac Type Severity Reaction Status Date / Time adalimumab [From Humira(CF)] AdvReac Intermediate injection Verified 06/02/24 11:08 site reaction PMFSH Past Medical History Medical History Fatty liver Morbidly obese Surgical History No pertinent past surgical history Family History Family History Father Hypertension Rheumatoid arthritis Mother Hypertension Breast cancer, Onset Age: 35 Rheumatoid arthritis Paternal Aunt Diabetes Mental health disorder Paternal Uncle Diabetes Mental health disorder Social History Social History Housing: House Alcohol intake: never Patient Tobacco Use Status: Never used Tobacco Tobacco use type: Cigarette e-Cigarette/Vaping Use: Never Used Second Hand Smoke Exposure: No Advance Directives: No Advance Directives Information Provided: Yes Do you have a plan to hurt others: No Plan service: No Current occupational status: employed Current occupation: [employer]- Cognitive needs: No Hearing needs: No Vision needs: No Physical Exam ED Vital Signs: Vital Signs - 24 hr 06/02/24 11:07 Temperature 97.9 F Pulse Rate 106 H Respiratory Rate 18 Blood Pressure 145/98 H Pulse Oximetry 98 Oxygen Delivery Method Room Air BMI result Body Mass Index 41.5 Course Course Course Narrative: This is a Rapid Medical Exam performed in triage by Katelynn Yang PA-C. Full HPI, ROS and PE to be performed by primary ED provider. 24 yo F /PMHx psoriatic arthritis, DM, hypothyroid, RAJIV presenting to the ED c/o diffuse myalgias x yesterday morning. denies fever, chills PE: congested, b/l hand swelling noted Plan: labs Medical Decision Making Lab Data 06/02/24 12:12 06/02/24 12:12 Labs: Lab Results 06/02/24 Range/Units 12:12 WBC 3.1 L (4.8-10.8) X10*3/uL RBC 4.47 (4.20-5.50) X10*6/uL Hgb 12.6 (12.0-16.0) g/dl Hct 38.3 (37.0-47.0) % MCV 85.7 (80.0-98.0) fL MCH 28.2 (27.0-33.0) pg MCHC 32.9 (31.0-35.0) g/dl RDW 13.3 (11.0-16.0) % Plt Count 219 (160-400) X10*3/uL MPV 10.3 (9.4-12.3) fL Immature Gran % (Auto) 0.3 (0.0-0.4) % Neut % (Auto) 69.4 (45-73) % Lymph % (Auto) 23.6 (20-40) % Park % (Auto) 5.1 (2-11) % Eos % (Auto) 1.3 (0-4) % Baso % (Auto) 0.3 (0-2) % Lymph # (Auto) 0.7 L (1.2-4.9) X10*3/uL Park # (Auto) 0.2 (0.1-1.2) X10*3/uL Eos # (Auto) 0.0 (0.0-0.4) X10*3/uL Baso # (Auto) 0.0 (0.0-0.2) X10*3/uL Abs Immat Gran (auto) 0.01 (0.00-0.03) X10*3/uL Absolute Neuts (auto) 2.2 (2.0-8.3) x10*3/uL Absolute Nucleated RBC 0.000 (0.0-0.012) X10*3/uL Nucleated RBC % (auto) 0.0 (0.0-0.2) /100WBC ESR 75 H (0-20) MM/HR Sodium 138 (135-145) mmol/L Potassium 4.1 (3.3-5.1) mmol/L Chloride 108 (96-108) mmol/L Carbon Dioxide 25 (22-29) mmol/L Anion Gap 9 L (12-20) BUN 9 (9-16) mg/dL Creatinine 0.59 (0.5-1.4) mg/dL Estim Creat Clear Calc 157.8 Estimated GFR > 60 Random Glucose 94 (60-115) mg/dL Calcium 8.8 (8.4-10.2) mg/dL Magnesium 1.9 (1.6-2.6) mg/dL Total Bilirubin 0.2 (0.0-1.0) mg/dL Direct Bilirubin < 0.2 (0.0-0.5) mg/dL AST 88 H (5-31) U/L ALT 73 H (0-31) U/L Alkaline Phosphatase 64 (39-117) U/L C-Reactive Protein 2.18 H (< or = 0.50) mg/dL Total Protein 7.7 (6.5-8.0) g/dL Albumin 3.3 L (3.5-5.0) g/dL Influenza Type A (PCR) NEGATIVE (Negative) Influenza Type B (PCR) NEGATIVE (Negative) RSV RNA Qual (PCR) NEGATIVE (Negative) SARS-CoV-2 RNA (RT-PCR) NEGATIVE (Negative) Discharge Plan Discharge Clinical Impression: Psoriatic arthritis Patient Disposition: Home, Self-Care Additional Instructions: You are likely having a flare of psoriatic arthritis Prednisone has helped in the past, so I gave 1 dose of 60 mg prednisone today Sunday Tomorrow Sunday you 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 and he will decide if there is any benefit to continuing prednisone Today there is no sign of any infection or any dangerous condition I also wrote for diclofenac anti-inflammatory similar to Motrin and Tylenol and oxycodone which is a narcotic pain killer for home use only Follow with buckle attaching machine operator and return any time any worse condition or any concerns Prescriptions: New diclofenac sodium 75 mg tablet,delayed release (DR/EC) 75 mg PO BID Qty: 20 0RF acetaminophen 500 mg tablet 1,000 mg PO QID PRN (Reason: pain) Qty: 30 0RF oxycodone 5 mg tablet 5 mg PO Q6H PRN (Reason: pain) Qty: 10 0RF Rx Instructions: Partial Fill upon patient request. No Action Ozempic 0.25 mg or 0.5 mg (2 mg/3 mL) pen injector 0.5 mg subcut QWEEK 28 Days Qty: 3 3RF prednisone 10 mg tablet 10 mg PO DIRECTED 9 Days Qty: 18 0RF Rx Instructions: take 3 tablets x3 days, 2 tablets x3 days, 1 tablet x3 days Cosentyx Pen (2 Pens) 150 mg/mL pen injector 300 mg subcut Q4W Qty: 2 3RF diclofenac sodium 75 mg tablet,delayed release (DR/EC) 75 mg PO BID 15 Days Qty: 30 0RF ibuprofen 600 mg tablet 600 mg PO Q6H PRN (Reason: fever or pain) Qty: 30 0RF (DME) lancets [FreeStyle Lancets] 28 gauge misc See Rx Instructions .ROUTE .MEDSUPPLY Qty: 100 3RF Rx Instructions: Testing once a day (DME) blood-glucose meter [FreeStyle Lite Meter] Kit See Rx Instructions .Route Qty: 1 0RF Rx Instructions: As directed (DME) FreeStyle Lite Strips Strip See Rx Instructions .ROUTE .MEDSUPPLY Qty: 100 3RF Rx Instructions: Testing Once a day/ as needed levothyroxine 175 mcg tablet 175 mcg PO DAILY 30 Days Qty: 30 1RF metformin 500 mg tablet 500 mg PO ONCE 90 Days Qty: 90 1RF triamcinolone acetonide 0.5 % cream 1 appl topical DAILY 30 Days Qty: 15 0RF desog-e.estradiol/e.estradiol 0.15-0.02 mgx21 /0.01 mg x 5 tablet 1 tab PO DAILY Qty: 84 4RF Stand Alone Forms: Work/School Release Print Language: Sinhala
[2024-06-02 11:07] VITALS: BP 145/98; PULSE 106; RESP 18; TEMP 36.6; O2SAT 98; BMI 41.5
[2024-06-02 12:16] LABS: MANUAL DIFF FLAG NO
[2024-06-02 12:18] LABS: Basophils Percent Auto 0.3 % (0-2); Eosinophils Percent Auto 1.3 % (0-4); Hematocrit 38.3 % (37.0-47.0); Hemoglobin 12.6 g/dl (12.0-16.0); Imm Gran Abs Auto 0.01 X10*3/uL (0.00-0.03); Imm Gran Pct Auto 0.3 % (0.0-0.4); Lymphocytes Absolute Auto 0.7 X10*3/uL (1.2-4.9); Lymphocytes Percent Auto 23.6 % (20-40); Mean Corpuscular HGB Conc 32.9 g/dl (31.0-35.0); Mean Corpuscular Hemoglobin 28.2 pg (27.0-33.0); Mean Corpuscular Volume 85.7 fL (80.0-98.0); Mean Platelet Volume 10.3 fL (9.4-12.3); Monocytes Absolute Auto 0.2 X10*3/uL (0.1-1.2); Monocytes Percent Auto 5.1 % (2-11); Neutrophils Absolute Auto 2.2 x10*3/uL (2.0-8.3); Neutrophils Percent Auto 69.4 % (45-73); Platelet Count 219 X10*3/uL (160-400); Red Blood Count 4.47 X10*6/uL (4.20-5.50); Red Cell Distribution Width 13.3 % (11.0-16.0); White Blood Count 3.1 X10*3/uL (4.8-10.8)
[2024-06-02 12:36] LABS: Alanine Aminotransferase 73 U/L (0-31); Albumin Level 3.3 g/dL (3.5-5.0); Alkaline Phosphatase 64 U/L (39-117); Anion Gap 9 (12-20); Aspartate Amino Transferase 88 U/L (5-31); Bilirubin Direct < 0.2 mg/dL (0.0-0.5); Bilirubin Total 0.2 mg/dL (0.0-1.0); Blood Urea Nitrogen 9 mg/dL (9-16); C Reactive Protein 2.18 mg/dL (< or = 0.50); Calcium 8.8 mg/dL (8.4-10.2); Carbon Dioxide 25 mmol/L (22-29); Chloride 108 mmol/L (96-108); Creatinine Clr Calc Pharmacy 157.8; Estimated Glomerular Filt Rate > 60; Glucose Random 94 mg/dL (60-115); Magnesium 1.9 mg/dL (1.6-2.6); Potassium 4.1 mmol/L (3.3-5.1); Sodium 138 mmol/L (135-145); Total Protein 7.7 g/dL (6.5-8.0)
[2024-06-02 12:56] LABS: Erythrocyte Sedimentation Rate 75 MM/HR (0-20)
[2024-06-02 12:59] LABS: Influenza A PCR NEGATIVE (Negative); Influenza B PCR NEGATIVE (Negative); Resp Syncy Virus RNA Qual PCR NEGATIVE (Negative); SARS COV2 PCR INHOUSE NEGATIVE (Negative)
[2024-06-02] MEDS: Ibuprofen 800 MG TABLET PO (14:10)
[2024-06-02] MEDS: predniSONE 20 MG TABLET 60 MG PO (14:10)
[2024-06-02 14:21] VITALS: BP 123/84; PULSE 98; RESP 20; TEMP 36.9; O2SAT 98
[2024-06-02 14:29] VITALS: BP 123/84; PULSE 98; RESP 20; TEMP 36.9; O2SAT 98
== END 2024-06-02 14:30 | disposition home or self-care (01) ==
PROVIDERS: Physician Assistant; Emergency Provider Emergency Medicine
DX: L40.50 Arthropathic psoriasis, unspecified (principal); Z03.818 Encounter for observation for suspected exposure to other biological agents ruled out; E11.9 Type 2 diabetes mellitus without complications; E03.9 Hypothyroidism, unspecified; Z79.899 Other long term (current) drug therapy
CPT/HCPCS: 0241U; 36415; 80048; 80076; 83735; 85025; 85652; 86140; 99283

== ENCOUNTER 2024-07-10 10:36 | Outpatient (REF) | payer OTHER, MEDICAID, SELFPAY ==
[2024-07-10 10:56] LABS: MANUAL DIFF FLAG NO
[2024-07-10 12:11] LABS: Basophils Percent Auto 0.3 % (0-2); Eosinophils Absolute Auto 0.1 X10*3/uL (0.0-0.4); Eosinophils Percent Auto 2.1 % (0-4); Hematocrit 38.7 % (37.0-47.0); Hemoglobin 12.5 g/dl (12.0-16.0); Imm Gran Abs Auto 0.01 X10*3/uL (0.00-0.03); Imm Gran Pct Auto 0.3 % (0.0-0.4); Lymphocytes Percent Auto 29.8 % (20-40); Mean Corpuscular HGB Conc 32.3 g/dl (31.0-35.0); Mean Corpuscular Hemoglobin 27.9 pg (27.0-33.0); Mean Corpuscular Volume 86.4 fL (80.0-98.0); Monocytes Absolute Auto 0.2 X10*3/uL (0.1-1.2); Monocytes Percent Auto 4.7 % (2-11); Neutrophils Absolute Auto 2.1 x10*3/uL (2.0-8.3); Neutrophils Percent Auto 62.8 % (45-73); Platelet Count 233 X10*3/uL (160-400); Red Blood Count 4.48 X10*6/uL (4.20-5.50); Red Cell Distribution Width 13.4 % (11.0-16.0); White Blood Count 3.4 X10*3/uL (4.8-10.8)
[2024-07-10 12:54] LABS: Alanine Aminotransferase 55 U/L (0-31); Albumin Level 3.1 g/dL (3.5-5.0); Alkaline Phosphatase 75 U/L (39-117); Anion Gap 11 (12-20); Aspartate Amino Transferase 61 U/L (5-31); Bilirubin Total 0.3 mg/dL (0.0-1.0); Blood Urea Nitrogen 11 mg/dL (9-16); C Reactive Protein 2.31 mg/dL (< or = 0.50); Calcium 8.7 mg/dL (8.4-10.2); Carbon Dioxide 26 mmol/L (22-29); Chloride 109 mmol/L (96-108); Estimated Glomerular Filt Rate > 60; Glucose Fasting 87 mg/dL (60-99); Potassium 4.1 mmol/L (3.3-5.1); Sodium 142 mmol/L (135-145); TSH reflex Free T4 6.75 uIU/mL (0.32-4.0); Total Protein 7.6 g/dL (6.5-8.0)
[2024-07-10 13:01] LABS: Erythrocyte Sedimentation Rate 76 MM/HR (0-20)
[2024-07-10 13:32] LABS: Free T4 (Free Thyroxine) 0.89 ng/dL (0.71-1.85)
== END 2024-07-10 10:37 | disposition home or self-care (01) ==
LOC: HO.LAB 10:36
PROVIDERS: Nurse Practitioner Family; PCP Physician Assistant; Visit Provider Physician Assistant
DX: R79.89 Other specified abnormal findings of blood chemistry (principal); E11.9 Type 2 diabetes mellitus without complications; L40.50 Arthropathic psoriasis, unspecified; L40.9 Psoriasis, unspecified; Z79.899 Other long term (current) drug therapy; Z23 Encounter for immunization
CPT/HCPCS: 36415; 80053; 83036; 84439; 84443; 85025; 85652; 86140; 90471

== ENCOUNTER 2024-07-10 15:28 | Outpatient (AMB) | payer OTHER, SELFPAY ==
[2024-07-10 15:33] VITALS: BP 130/86; BMI 42.9
--- NOTE | 2024-07-10 15:33 | MHC.PC.OV ---
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 Required: No Accompanied by: Self / Same As Patient Allergies adalimumab [From Humira(CF)] Adverse Reaction (Intermediate, Verified 07/10/24 15:48) injection site reaction Medication List - Last Reconciled 07/10/24 by Jaylan Mackey PA-C acetaminophen 1,000 mg (2 x 500 mg) PO QID PRN blood sugar diagnostic (FreeStyle Lite Strips) Testing Once a day/ as needed blood-glucose meter (FreeStyle Lite Meter kit) As directed ibuprofen 600 mg PO Q6H PRN lancets (FreeStyle Lancets) Testing once a day levothyroxine 175 mcg PO DAILY 30 days metformin 500 mg PO ONCE 90 days secukinumab (Cosentyx Pen 300 mg/2 Pens () 300 mg (2 mL) subcut Q4W semaglutide (Ozempic) 0.5 mg (0.736 mL) subcut QWEEK 4 weeks triamcinolone acetonide 0.5% 1 appl topical DAILY 30 days Tobacco use date assessed: 10/24/23 Dental Screening Dental Screen Date: 07/10/24 Did you have a dental visit in the last 12 months?: No Did you have a dental problem in the last 6 months where you did not have access to dental care?: No Was dental information given to patient?: Patient has dentist HPI 4 month f/u HPI Details Patient is a 24-year-old female here today for a problem visit. with a past medical history significant for type 2 diabetes, obesity, psoriatic arthritis.? Has recently got EMG testing did show moderate to severe bilateral carpal tunnel, Has uppcoming surgery for release. Concern--> continues to polyarthralgia secondary to autoimmune disease. Unfortunately has not been able to reestablish with Rheumatology due to insurance issues. She was previously on Humira then Cosentyx. She had allergic reaction to Humira. She reports Cosentyx was somewhat effective though not as effective as Humira in the past. She does report some relief with ibuprofen and prednisone in the past. In the interim will do a slow prednisone taper to help her with her inflammatory arthritis and give her some relief of her pain. She does report having a lot of trouble sleeping due to her pain . She is interested in trying a sleeping supplement . -CHRONIC---MEDICAL CONDITIONS>> Elevated liver enzymes: Has gotten recent ultrasound of her liver that did show right hepatic lobe mass. MRI has been done in August of 2023 was continue to show a 0.9 cm mass, Psoriatic arthritis: . She reports her arthritic pain was much more manageable with Humira though unfortunately started to have a localized injection site reaction on multiple occasions. Was previously on Cosentyx as above and did get some temporary relief. Fortunately has lost follow-up with [place] [facility] .. Obesity:? Have noted some weight loss since last office visit. Has been started on Ozempic and has noted a 5 lb weight loss.? Has been working on portion control which is helping.? Has not added any physical activity to her lifestyle. .. Type 2 diabetes:? Patient continues on metformin 500 q.d. we have increased her Ozempic to 0.5 mg has noted weight loss since last office visit. Today's A1c acceptable. Will continue current antihyperglycemic medications .. Hypothyroid : Noted elevated TSH in most recent labs. She reports over last few weeks been not taking thyroid medication as she has trouble with the pharmacy and receiving her script. [facility] Medical History Fatty liver Morbidly obese Surgical History No pertinent past surgical history Family History Father Hypertension Rheumatoid arthritis Mother Hypertension Breast cancer, Onset Age: 35 Rheumatoid arthritis Paternal Aunt Diabetes Mental health disorder Paternal Uncle Diabetes Mental health disorder Social History Housing: House Alcohol intake: never Patient Tobacco Use Status: Never used Tobacco Tobacco use type: Cigarette e-Cigarette/Vaping Use: Never Used Second Hand Smoke Exposure: No service: No Current occupational status: employed Current occupation: [employer]- Current occupational exposures/hazards: No Cognitive needs: No Hearing needs: No Vision needs: No Female Reproductive History Menstrual Age of Menarche: 11 Questionnaire Thrive Questionnaire Date Thrive assessed: 10/24/23 RAJIV-7 AMB Questionnaire RAJIV-7 Date RAJIV - 7 assessed: 10/24/23 Source: Developed by Drs. Rakesh Gaston, Mahogany Meza, Quincy Gandhi and colleagues, with an educational cam from [employer]. Review of Systems Const Denies headache(s) Eyes Denies loss of vision ENT Denies vertigo, Denies dizziness, Denies headache(s) and Denies sore throat Card Denies chest pain, Denies leg edema and Denies lightheadedness Resp Denies cough, Denies hemoptysis and Denies wheezing GI Denies abdominal pain, Denies melena, Denies constipation, Denies diarrhea and Denies vomiting Denies urinary frequency, Denies dysuria and Denies urinary urgency Musc Denies arthralgias, Denies joint swelling, Denies numbness and Denies tingling Neuro Denies Abnormal speech present, Denies behavioral changes, Denies vertigo, Denies dizziness, Denies headache(s), Denies loss of vision, Denies memory loss, Denies numbness and Denies tingling Psych Denies anxiety, Denies behavioral changes, Denies depression, Denies memory loss and Denies panic attacks Galen/Lymph Denies easy bleeding and Denies easy bruising Aller/Immun Denies wheezing Physical exam (Primary Care) Vital Signs: Last Vital Signs BP 130/86 07/10/24 15:33 BMI result Body Mass Index 42.9 Tobacco/Smoking Status: Tobacco use Status Tobacco use date assessed 10/24/23 07/10/24 15:37 Patient Tobacco Use Status Never used Tobacco 07/10/24 15:37 Tobacco use type Cigarette 07/10/24 15:37 e-Cigarette/Vaping Use Never Used 07/10/24 15:37 Thrive Assessment: Date of Thrive Assessment Date Thrive assessed 10/24/23 07/10/24 15:37 Const General: healthy appearing, no acute distress, alert and awake Nutritional Appearance: well nourished Orientation/consciousness: oriented to person, oriented to place and oriented to time HENMT Ears: TM's normal bilaterally General nose exam: Normal nasal mucous membranes and turbinates present Eyes Conjunctivae: conjunctivae normal Sclerae: sclerae normal Pupils: Equal, round and reactive pupils present Neck Neck: Yes no lymphadenopathy and Yes no JVD Thyroid: Thyroid normal Carotids: no bruits Resp Effort & Inspection: normal respiratory effort and not tachypneic Auscultation: no crackles, no rales, no rhonchi and no wheezes Cardio Rate: regular rate Rhythm: regular rhythm Heart sounds: no murmurs and normal S1 and S2 GI Palpation (GI): Soft to palpation, nontender, no hepatomegaly and no splenomegaly Auscultation: normal bowel sounds Skin General skin exam: no rashes or lesions noted and dry skin Neuro General: oriented to person, oriented to place and oriented to time Cranial nerves: Yes Equal, round and reactive pupils present Speech: No Abnormal speech present Gait exam (Neuro): Normal gait present Motor exam (neuro): no tremor noted Extrem Right upper extremity: full ROM Left upper extremity: full ROM Right lower extremity: full ROM; no edema Left lower extremity: full ROM; no edema Psych Mental Status: mental status grossly normal Speech and movement: Normal speech and movement present Affect: normal affect Attitude: cooperative Thought process: Normal thought process present Office Procedures Flu Questionnaire Does the patient have a severe egg allergy?: No Results AMB Hemoglobin A1c AMB Hemoglobin A1c 5.8 % Last Edit by MARTHA Harvey on 07/10/24 15:48 Immunizations Fluarix Triv [id number] (PF) 45 mcg (15 mcg x 3)/0.5 mL IM syringe Performing Provider: Jaylan Mackey PA-C [facility] [facility] [facility] [place] [facility] Documented (not given) by: MARTHA Harvey on 07/10/24 15:42 Reason Not Given: Patient Refused Results Reviewed Results Reviewed: Laboratory Last Values Hgb A1c (Clinic) 5.8 % (4.0-6.0) 07/10/24 15:41 Coding Level of Care Code Est Pt Level 4 (02715) Diagnoses Type 2 diabetes mellitus without complication, without long-term current use of insulin E11.9 Diabetes mellitus complication status: without complication Diabetes mellitus long term acute care registered nurse insulin use: without long term acute care registered nurse use Primary insomnia F51.01 Insomnia type: primary Psoriatic arthritis L40.50 Carpal tunnel syndrome, bilateral G56.03 Assessment & Plan Assessment & Plan (1) DMII (diabetes mellitus, type 2): Code(s): E11.9 - Type 2 diabetes mellitus without complications Category: Medical Qualifiers: Diabetes mellitus complication status: without complication Diabetes mellitus long term acute care registered nurse insulin use: without long term acute care registered nurse use Qualified Code(s): E11.9 - Type 2 diabetes mellitus without complications Plan: Patient's type 2 diabetes well controlled with current anti hyperglycemic medication. Goal A1c is to remain below 6.5 (2) Insomnia: Code(s): G47.00 - Insomnia, unspecified Category: Medical Qualifiers: Insomnia type: primary Qualified Code(s): F51.01 - Primary insomnia Plan: Patient reports having lot of difficulty sleeping likely secondary to arthritic pain. She is interested in trying hydroxyzine 10-20 mg before bed for sleep. (3) Psoriatic arthritis: Code(s): L40.50 - Arthropathic psoriasis, unspecified Category: Medical Plan: Patient has fairly severe psoriatic arthritis that causes a lot of difficulties with her activities of daily living. She reports that anti-inflammatories and steroids has been helpful in reducing her pain Will commence a slow prednisone taper which has been a fit her in the past. (4) Carpal tunnel syndrome, bilateral: Code(s): G56.03 - Carpal tunnel syndrome, bilateral upper limbs Category: Medical Plan: She is due for carpal tunnel surgery in near future. Orders: Orders Influenza [id number] Immunization 07/10/24 Z23 - Encounter for immunization AMB Hemoglobin A1c 07/10/24 E11.9 - Type 2 diabetes mellitus without complications Referrals Rheumatology Referral L40.50 - Arthropathic psoriasis, unspecified Medications: New prednisone 20 mg PO DAILY 14 tabs 0RF 14 days L40.50 - Arthropathic psoriasis, unspecified diclofenac sodium 50 mg PO BID 60 tabs 3RF 30 days F51.01 - Primary insomnia, L40.50 - Arthropathic psoriasis, unspecified hydroxyzine HCl 20 mg (2 x 10 mg) PO BEDTIME 60 tabs 0RF 30 days F41.9 - Anxiety disorder, unspecified, F51.01 - Primary insomnia prednisone 10 mg PO DAILY 21 tabs 0RF 21 days F51.01 - Primary insomnia, L40.50 - Arthropathic psoriasis, unspecified Refilled levothyroxine 175 mcg PO DAILY 30 tabs 3RF 30 days R79.89 - Other specified abnormal findings of blood chemistry
== END 2024-07-10 16:10 | disposition home or self-care (01) ==
PROVIDERS: Visit Provider Physician Assistant
DX: E11.9 Type 2 diabetes mellitus without complications (principal); F51.01 Primary insomnia; L40.50 Arthropathic psoriasis, unspecified; G56.03 Carpal tunnel syndrome, bilateral upper limbs

== ENCOUNTER 2024-07-15 11:32 | Outpatient (AMB) | payer OTHER, MEDICAID, SELFPAY ==
--- NOTE | 2024-07-15 11:39 | A.OFFVIS_ITS ---
Vital Signs 3 07/15/24 11:42 Height 5 ft 1 in Weight 225 lb 12.054 oz BMI 42.7 BP 112/68 Blood Pressure Location Lt brachial Position Sitting Pulse 92 Pulse Source Pulse Oximeter Pulse Oximetry (%) 99 Oxygen Delivery Method Room Air Intake Visit Reasons: PSA/CM Intake Note: Patient presents for PsA. Allergies adalimumab [From Humira(CF)] Adverse Reaction (Intermediate, Verified 07/15/24 11:41) injection site reaction Medication List - Last Reconciled 07/15/24 by Cruz Power MD acetaminophen 1,000 mg (2 x 500 mg) PO QID PRN blood sugar diagnostic (FreeStyle Lite Strips) Testing Once a day/ as needed blood-glucose meter (FreeStyle Lite Meter kit) As directed diclofenac sodium 50 mg PO BID 30 days hydroxyzine HCl 20 mg (2 x 10 mg) PO BEDTIME 30 days ibuprofen 600 mg PO Q6H PRN lancets (FreeStyle Lancets) Testing once a day levothyroxine 175 mcg PO DAILY 30 days metformin 500 mg PO ONCE 90 days prednisone 20 mg PO DAILY 14 days prednisone 10 mg PO DAILY 21 days semaglutide (Ozempic) 0.5 mg (0.736 mL) subcut QWEEK 4 weeks triamcinolone acetonide 0.5% 1 appl topical DAILY 30 days HPI Comments Details: This is a 24-year-old female diagnosed with psoriasis and psoriatic arthritis who presents for follow-up. She remains on Cosentyx. Over the last few months she has not been doing well. She has noticed rashes on her cheeks, pain and swelling of her hands, wrists, elbows, knees, ankles. Prednisone is helpful. She denies any history of DVT/PE. She has never been . Denies weight loss. She has also noticed hair loss. [facility] Medical History Fatty liver Morbidly obese Surgical History No pertinent past surgical history Family History Father Hypertension Rheumatoid arthritis Mother Hypertension Breast cancer, Onset Age: 35 Rheumatoid arthritis SLE (systemic lupus erythematosus) Paternal Aunt Diabetes Mental health disorder Paternal Uncle Diabetes Mental health disorder Social History Housing: House Alcohol intake: never Patient Tobacco Use Status: Never used Tobacco Tobacco use type: Cigarette e-Cigarette/Vaping Use: Never Used Second Hand Smoke Exposure: No service: No Current occupational status: employed Current occupation: [employer]- Current occupational exposures/hazards: No Cognitive needs: No Hearing needs: No Vision needs: No Female Reproductive History Menstrual Age of Menarche: 11 Total pregnancies: 0 Review of Systems Const Reports fatigue Musc Reports arthralgias, Reports joint swelling and Reports stiffness Skin/Breast Reports alopecia and Reports rash Endo Reports fatigue Physical Exam Vital Signs: Last Vital Signs Pulse 92 07/15/24 11:42 BP 112/68 07/15/24 11:42 Pulse Ox 99 07/15/24 11:42 Oxygen Delivery Method Room Air 07/15/24 11:42 BMI result Body Mass Index 42.7 Const General: cooperative, healthy appearing and comfortable Nutritional Appearance: obese morbidly obese Orientation/consciousness: patient oriented x3 Limitations: no limitations HEENT Head: Yes normocephalic and Yes atraumatic Mouth: moist mucous membranes Resp Effort & Inspection: normal respiratory effort and able to speak in complete sentences Auscultation: clear to auscultation bilaterally Cardio Rate: regular rate Rhythm: regular rhythm Skin Other: Malar rash Hyperpigmented rashes on her elbows Significant hair thinnining Neuro General: patient oriented x3 Extrem Other: Bilateral swollen wrists, mildly tender to palpation and pain with flexion and extension Puffy MCPs bilaterally with positive MCP squeeze test Multiple swollen and tender PIP is bilaterally Bilateral ankle swelling and mild tenderness Normal nailfold capillaroscopy Assessment & Plan Assessment & Plan (1) SLE (systemic lupus erythematosus): Comment: dx 07/2024 (inflammatory arthritis, malar rash, alopecia, lymphopenia, ++EID ++DsDNA) Code(s): M32.9 - Systemic lupus erythematosus, unspecified Category: Medical Qualifiers: Systemic lupus erythematosus type: unspecified Systemic lupus erythematosus organ involvement: other Qualified Code(s): M32.19 - Other organ or system involvement in systemic lupus erythematosus Plan: This 24-year-old female previously diagnosed with psoriatic arthritis who presents for follow-up. Patient was on Humira with some improvement of her joint pains, however it caused significant injection site reactions, she was switched to Cosentyx. Was not helpful for her joint pains. Today she is on prednisone 20 mg daily. On exam she has active synovitis, alopecia, malar rash, labs showed positive EDI with positive dsDNA. Clinical picture consistent with new onset SLE. Check further labs for completion of workup Discontinue Cosentyx Patient was given prednisone 20 mg daily by her PCP, a total of 2 weeks. Advised patient to call our office once she runs out of the prednisone and I will prescribe her 15 mg dose We will discuss hydroxychloroquine next visit. Follow-up in 3 weeks Plan I spent 30 minutes reviewing patient's chart, evaluating patient, ordering diagnostic workup, counseling patient and documenting in the chart Orders: Orders 2 Anti Extractable Nuclear Ag Today M32.9 - Systemic lupus erythematosus, unspecified Anti DNA DS Antibody Today M32.9 - Systemic lupus erythematosus, unspecified Complement C4 Today M32.9 - Systemic lupus erythematosus, unspecified C Reactive Protein Today M32.9 - Systemic lupus erythematosus, unspecified DNA Double Stranded-Crithidia Today M32.9 - Systemic lupus erythematosus, unspecified Protein Creatinine Ratio, Ur Today M32.9 - Systemic lupus erythematosus, unspecified Sjogren's Antibodies Today M32.9 - Systemic lupus erythematosus, unspecified UA w Microscopic Today M32.9 - Systemic lupus erythematosus, unspecified Complete Blood Count Auto Diff Today M32.9 - Systemic lupus erythematosus, unspecified Comprehensive Met. Panel Today M32.9 - Systemic lupus erythematosus, unspecified T Spot TB Today Z11.7 - Encounter for testing for latent tuberculosis infection HLA B27 Today M45.9 - Ankylosing spondylitis of unspecified sites in spine Beta-2 Glycoprotein Antibody 3 Months D68.61 - Antiphospholipid syndrome Lupus Anticoagulant Panel 3 Months D68.61 - Antiphospholipid syndrome Complement C3 Today M32.9 - Systemic lupus erythematosus, unspecified Erythrocyte Sedimentation Rate Today M32.9 - Systemic lupus erythematosus, unspecified Hepatitis A,B,C Profile Today Z11.59 - Encounter for screening for other viral diseases Immunofixation Pnl, Serum Today M32.9 - Systemic lupus erythematosus, unspecified Protein Electrophoresis, Serum Today M32.9 - Systemic lupus erythematosus, unspecified Histone Antibody Today L93.2 - Other local lupus erythematosus, T50.905A - Adverse effect of unspecified drugs, medicaments and biological substances, initial encounter Cardiolipin Antibodies 3 Months D68.61 - Antiphospholipid syndrome Medications: Discontinued 2 secukinumab (Cosentyx Pen 300 mg/2 Pens () Discontinued Reason: Doctor's Order 300 mg (2 mL) subcut Q4W 2 mL 3RF L40.50 - Arthropathic psoriasis, unspecified Coding Level of Care Code Est Pt Level 4 (04851) Diagnoses Systemic lupus erythematosus with other organ involvement, unspecified SLE type M32.19 Systemic lupus erythematosus type: unspecified Systemic lupus erythematosus organ involvement: other
[2024-07-15 11:42] VITALS: BP 112/68; PULSE 92; O2SAT 99; BMI 42.7
== END 2024-07-15 12:05 | disposition home or self-care (01) ==
PROVIDERS: Visit Provider Student in an Organized Health Care Education/Training Program
DX: M32.19 Other organ or system involvement in systemic lupus erythematosus (principal)
CPT/HCPCS: 99214

== ENCOUNTER → 2024-07-15 11:32 | Outpatient (BNVA) | payer OTHER, SELFPAY | PROVIDERS: Visit Provider Student in an Organized Health Care Education/Training Program ==

== ENCOUNTER 2024-07-15 12:13 | Outpatient (REF) | payer OTHER, MEDICAID, SELFPAY ==
[2024-07-15 13:06] LABS: MANUAL DIFF FLAG NO
[2024-07-15 13:13] LABS: Basophils Percent Auto 0.2 % (0-2); Eosinophils Percent Auto 0.5 % (0-4); Hemoglobin 12.4 g/dl (12.0-16.0); Imm Gran Abs Auto 0.02 X10*3/uL (0.00-0.03); Imm Gran Pct Auto 0.4 % (0.0-0.4); Lymphocytes Absolute Auto 1.3 X10*3/uL (1.2-4.9); Lymphocytes Percent Auto 23.5 % (20-40); Mean Corpuscular HGB Conc 32.6 g/dl (31.0-35.0); Mean Corpuscular Hemoglobin 28.3 pg (27.0-33.0); Mean Corpuscular Volume 86.8 fL (80.0-98.0); Mean Platelet Volume 10.5 fL (9.4-12.3); Monocytes Absolute Auto 0.2 X10*3/uL (0.1-1.2); Monocytes Percent Auto 3.9 % (2-11); Neutrophils Percent Auto 71.5 % (45-73); Platelet Count 265 X10*3/uL (160-400); Red Blood Count 4.38 X10*6/uL (4.20-5.50); Red Cell Distribution Width 13.3 % (11.0-16.0); White Blood Count 5.6 X10*3/uL (4.8-10.8)
[2024-07-15 13:20] LABS: Appearance Urine Clear; Color Urine Yellow; Glucose Urine UA Negative (Negative); Leukocyte Esterase Urine Negative (Negative); Nitrite Urine Negative (Negative); PH 6.5 (5.0-9.0); Specific Gravity - Urine 1.015 (1.005-1.025); Urine Blood Negative (Negative); Urine Ketones Negative (Negative); Urine Protein Negative (Neg-Trace)
[2024-07-15 13:23] LABS: Bacteria Urine None Seen (None Seen); Hyaline Casts Urine 0-2 /LPF (0-2); RBC Urine 0-2 /HPF (0-2); WBC Urine 0-5 /HPF (0-5)
[2024-07-15 13:32] LABS: Alanine Aminotransferase 54 U/L (0-31); Albumin Level 3.2 g/dL (3.5-5.0); Alkaline Phosphatase 65 U/L (39-117); Anion Gap 13 (12-20); Aspartate Amino Transferase 57 U/L (5-31); Bilirubin Total 0.2 mg/dL (0.0-1.0); Blood Urea Nitrogen 15 mg/dL (9-16); Calcium 8.6 mg/dL (8.4-10.2); Carbon Dioxide 26 mmol/L (22-29); Chloride 106 mmol/L (96-108); Estimated Glomerular Filt Rate > 60; Glucose Random 130 mg/dL (60-115); Potassium 3.6 mmol/L (3.3-5.1); Sodium 141 mmol/L (135-145); Total Protein 8.2 g/dL (6.5-8.0)
[2024-07-15 13:54] LABS: Erythrocyte Sedimentation Rate 77 MM/HR (0-20)
[2024-07-15 14:04] LABS: Creatinine Urine 67.09 mg/dL; Protein/Creatinine Ratio, Ur 0.16 (<0.2); Total Protein Urine Random 11 mg/dL (<12)
[2024-07-16 08:20] LABS: HBc Num1 0.16 S/CO (0.00-0.79); HBsAGNum1 0.37 S/CO (0.00-0.99); Hepatitis A Antibody IgM 0.34 Index (0-0.79); Hepatitis B Core Antibody Nonreactive (Nonreactive); Hepatitis B Surface Antigen Negative (Negative); ~HepC Num1 0.32 S/CO (0.00-0.79); ~Hepatitis A Antibody IgM Nonreactive (Nonreactive); ~Hepatitis B Surface Antibody NONREACTIVE (Nonreactive); ~Hepatitis C Antibody Nonreactive (Nonreactive)
[2024-07-17 12:33] LABS: Prot Elec - Albumin 3.5 g/dL (3.8-4.8); Prot Elec - Alpha1 0.3 g/dL (0.2-0.3); Prot Elec - Beta 1 0.3 g/dL (0.4-0.6); Prot Elec - Beta 2 0.3 g/dL (0.2-0.5); Prot Elec - Gamma 2.4 g/dL (0.8-1.7); Prot Elec - Total Protein 7.7 g/dL (6.1-8.1)
[2024-07-17 22:48] LABS: IgA 293 mg/dL (47-310); IgG 2608 mg/dL (600-1640); IgM 223 mg/dL (50-300)
[2024-07-18 17:14] LABS: Anti DNA DS Antibody 57 IU/mL; Antibody to SS-A Antigen 6.8 POS AI (<1.0 NEG); Antibody to SS-B Antigen <1.0 NEG AI (<1.0 NEG); SM/Ribonucleoprotein Ab <1.0 NEG AI (<1.0 NEG); Smith Protein <1.0 NEG AI (<1.0 NEG)
[2024-07-18 21:34] LABS: TS Negative Control Passed; TS Panel A 0; TS Panel B 0; TS Positive Control Passed; TSpotTB Negative (Negative)
[2024-07-18 21:42] LABS: HLA B27 Negative (Negative)
[2024-07-21 11:09] LABS: Complement C3 40 mg/dL (83-193)
[2024-07-21 15:04] LABS: DNAds, Crithidia Antibody Positive (Negative)
== END 2024-07-15 12:14 | disposition home or self-care (01) ==
LOC: HO.10HDL 12:13
PROVIDERS: Visit Provider Student in an Organized Health Care Education/Training Program
DX: M32.9 Systemic lupus erythematosus, unspecified (principal); Z11.7 Encounter for testing for latent tuberculosis infection; L93.2 Other local lupus erythematosus; T50.905A Adverse effect of unspecified drugs, medicaments and biological substances, initial encounter; Z11.59 Encounter for screening for other viral diseases; M45.9 Ankylosing spondylitis of unspecified sites in spine
CPT/HCPCS: 36415; 80053; 81001; 82570; 82784; 83516; 84156; 84165; 85025; 85652; 86140; 86160; 86225; 86235; 86255; 86334; 86481; 86704; 86706; 86709; 86803; 86812; 87340

== ENCOUNTER 2024-07-21 09:37 | Day surgery (SDC) | payer OTHER, SELFPAY ==
[2024-07-21 10:58] VITALS: BMI 41.4
--- NOTE | 2024-07-21 11:31 | MHC.SHP ---
Pre-Procedural Eval Section A - 24 Hr Update-Section A only Date of Service: 07/21/24 The patient is an INPATIENT: No Changes since office visit: No Cold of Flu in the past 2 weeks, No New Medical Problems, No Changes in Medication and No Patient answered all questions The patient has been examined within 24 hours of the surgical procedure. The History & Physical has been completed within 30 days and I have reviewed it.: Yes Section B - Complete if H&P > 30 days Chief Complaint: Carpal tunnel syndrome, left upper limb Allergies: Allergies Allergy/AdvReac Type Severity Reaction Status Date / Time adalimumab [From Humira(CF)] AdvReac Intermediate injection Verified 07/21/24 10:58 site reaction Plan Diagnosis/Plan: Unchanged I have reviewed the history and physical and performed a pertinent physical examination on my patient. No changes have occurred unless specified. Time Spent With Patient Time: Total time managing care of this patient today ____ minutes.
--- NOTE | 2024-07-21 11:32 | W.PM.OPN ---
Operative Note Operative Note Date of Service: 07/21/24 Narrative: Preop diagnosis: 1. Left Carpal tunnel syndrome Postop diagnosis: same Procedure: 1. Left Carpal tunnel release Surgeon: Hallie Helm MD Quill Machine Tender: None Anesthesia: local block using 1% lidocaine with epinephrine Findings: Thickened transverse carpal ligament. EBL: Less than 5 mL Specimens: None Complications: None Disposition: Brought to recovery room in stable condition Plan: Follow-up for 10-14 days for wound check and suture removal Indications: The patient is 24 years old, with left carpal tunnel syndrome that has been unresponsive to nonoperative management. The risks and benefits of operative treatment including but not limited to risk of damage to blood vessels, nerves, tendons, infection, persistent pain, persistent symptoms, or possible need for additional surgery were discussed with the patient and the patient wishes to proceed with surgery. Procedure: Once consent was obtained a local block was performed using a combination of 1% lidocaine with epinephrine. The patient was then brought back to the operating suite and placed on the operative table in supine position. The left upper extremity was prepped and draped in a standard surgical fashion. Once assured that we had a good block, a 2.0 cm longitudinal incision was made centered over the carpal tunnel. The incision was made through the skin to the subcutaneous tissues using a #15 blade. Dissection was made down to the level of the transverse carpal ligament with care being taken to protect the palmar cutaneous nerve. Once the transverse carpal ligament was clearly visualized, a longitudinal incision was made in the transverse carpal ligament 1st using a #15 blade, then using tenotomy scissors under direct visualization. Care was taken to look for and protect the motor branch of the median nerve when seen in this area. Once satisfied with our carpal tunnel release the wound was copiously irrigated with normal saline and hemostasis was obtained with a brief period of local pressure. The skin edges were reapproximated with some 5.0 nylon suture material and a sterile dressing was applied. The patient appears to have tolerated the procedure well and with no complications. All digits were well vascularized at the conclusion of the case.
[2024-07-21 12:52] VITALS: BP 145/86; PULSE 88; RESP 18; O2SAT 99
== END 2024-07-21 12:53 | disposition home or self-care (01) ==
PROVIDERS: Visit Provider Orthopaedic Surgery
PROC: (CPT 64721; principal; 2024-07-21 11:00)
DX: G56.02 Carpal tunnel syndrome, left upper limb (principal); E11.9 Type 2 diabetes mellitus without complications; M32.9 Systemic lupus erythematosus, unspecified; Z79.899 Other long term (current) drug therapy
CPT/HCPCS: 64721; J0171; J2003

== ENCOUNTER → 2024-07-21 09:37 | Outpatient (BNV) | payer OTHER, SELFPAY | PROVIDERS: Visit Provider Orthopaedic Surgery | DX: G56.02 Carpal tunnel syndrome, left upper limb (principal) | CPT/HCPCS: 64721 ==

== ENCOUNTER 2024-08-05 13:26 | Outpatient (AMB) | payer OTHER, SELFPAY ==
--- NOTE | 2024-08-05 13:35 | A.OFFVIS_ITS ---
Intake Visit Reasons: PO LT CTR 07/21/24 AR Intake Note: Polly is a 24 year old female right hand dominant who presents today for a post operative appointment s/p Left CTR 07/21/2024 AR. Patient reports that she is doing well, her pain has resolved and her numbness and tingling has significantly improved. She has not concerns at this time. Sutures removed and Steris applied Allergies adalimumab [From Humira(CF)] Adverse Reaction (Intermediate, Verified 08/05/24 13:42) injection site reaction HPI HPI PO LT CTR 07/21/24 AR: Details: Polly is a 24 year old female right hand dominant who presents today for a post operative appointment s/p Left CTR 07/21/2024 AR. Patient reports that she is doing well, her pain has resolved and her numbness and tingling has significantly improved. She has not concerns at this time. Sutures removed and Steris applied [facility] Medical History Fatty liver Morbidly obese Surgical History No pertinent past surgical history Family History Father Hypertension Rheumatoid arthritis Mother Hypertension Breast cancer, Onset Age: 35 Rheumatoid arthritis SLE (systemic lupus erythematosus) Paternal Aunt Diabetes Mental health disorder Paternal Uncle Diabetes Mental health disorder Social History Housing: House Alcohol intake: never Patient Tobacco Use Status: Never used Tobacco Tobacco use type: Cigarette e-Cigarette/Vaping Use: Never Used Second Hand Smoke Exposure: No service: No Current occupational status: employed Current occupation: [employer]- Current occupational exposures/hazards: No Cognitive needs: No Hearing needs: No Vision needs: No Female Reproductive History Menstrual Age of Menarche: 11 Review of Systems Const All systems reviewed & are unremarkable except as noted in HPI and below Physical Exam Extrem Other: Neuro: Normal sensation of the tips of all digits of bilateral hands No thenar or intrinsic wasting. Good APB muscle firing and good finger cross. Vascular: Capillary refill brisk. ROM: Patient can make a fist and extend all their digits. Skin: Well approximated and well healing incision site noted on the volar aspect of the patient's left wrist General: No ecchymosis. No erythema or evidence of infection. Assessment & Plan Assessment & Plan (1) Carpal tunnel syndrome, bilateral: Code(s): G56.03 - Carpal tunnel syndrome, bilateral upper limbs Category: Medical Plan 1. Carpal tunnel syndrome, left, status post carpal tunnel release DOS 07/21/2024 Patient appears to be recovering well postoperatively Patient is educated about the typical recovery course At this time, patient was informed that she will require no acute follow-up with us, as she appears to be recovering very well from her surgery Patient is amenable to this plan 2. Carpal tunnel syndrome, right No symptoms at this time Patient states she would like to hold off on any surgical intervention on the left side and use of the fact that she is not experiencing any symptoms Patient was educated on the potential complications of her arm carpal tunnel syndrome treatment Patient states understanding of these Patient will follow-up as needed with any acute concerns Coding Level of Care Code Global (41764) Diagnoses Carpal tunnel syndrome, bilateral G56.03
== END 2024-08-05 13:52 | disposition home or self-care (01) ==
DX: G56.03 Carpal tunnel syndrome, bilateral upper limbs (principal)
CPT/HCPCS: 99024

== ENCOUNTER 2024-08-07 15:42 | Outpatient (AMB) | payer OTHER, MEDICAID, SELFPAY ==
--- NOTE | 2024-08-07 15:49 | A.OFFVIS_ITS ---
Vital Signs 08/07/24 15:52 Height 5 ft 1 in Weight 222 lb 7.143 oz BMI 42.0 BP 140/80 H Blood Pressure Location Rt brachial Position Sitting Pulse 105 H Pulse Source Pulse Oximeter Pulse Oximetry (%) 98 Oxygen Delivery Method Room Air Intake Visit Reasons: PSA Intake Note: Patient presents for PsA. Allergies adalimumab [From Humira(CF)] Adverse Reaction (Intermediate, Verified 08/07/24 15:51) injection site reaction Medication List - Last Reconciled 08/07/24 by Cruz Power MD acetaminophen 1,000 mg (2 x 500 mg) PO QID PRN blood sugar diagnostic (FreeStyle Lite Strips) Testing Once a day/ as needed blood-glucose meter (FreeStyle Lite Meter kit) As directed diclofenac sodium 50 mg PO BID 30 days hydrocodone-acetaminophen 5-325 mg 1 tab PO Q4-6H PRN hydroxychloroquine 200 mg PO BID hydroxyzine HCl 20 mg (2 x 10 mg) PO BEDTIME 30 days ibuprofen 600 mg PO Q6H PRN lancets (FreeStyle Lancets) Testing once a day levothyroxine 175 mcg PO DAILY 30 days metformin 500 mg PO ONCE 90 days prednisone 10 mg PO DAILY 21 days prednisone Take 3 tabs daily for 2 weeks then remain on 2 tabs daily semaglutide (Ozempic) 0.5 mg (0.736 mL) subcut QWEEK 4 weeks triamcinolone acetonide 0.5% 1 appl topical DAILY 30 days HPI Comments Details: Patient returns for follow-up. She is currently on prednisone 10 mg a day. She states that her joint pains are improved overall. [facility] Medical History (Updated 08/07/24 @ 16:16 by Cruz Power MD) Fatty liver Morbidly obese Surgical History History of carpal tunnel surgery No pertinent past surgical history Family History Father Hypertension Rheumatoid arthritis Mother Hypertension Breast cancer, Onset Age: 35 Rheumatoid arthritis SLE (systemic lupus erythematosus) Paternal Aunt Diabetes Mental health disorder Paternal Uncle Diabetes Mental health disorder Social History Housing: House Alcohol intake: never Patient Tobacco Use Status: Never used Tobacco Tobacco use type: Cigarette e-Cigarette/Vaping Use: Never Used Second Hand Smoke Exposure: No service: No Current occupational status: employed Current occupation: [employer]- Current occupational exposures/hazards: No Cognitive needs: No Hearing needs: No Vision needs: No Female Reproductive History Menstrual Age of Menarche: 11 Review of Systems Musc Reports arthralgias, Reports joint swelling and Reports stiffness Skin/Breast Reports alopecia and Reports rash Physical Exam Vital Signs: Last Vital Signs Pulse 105 H 08/07/24 15:52 BP 140/80 H 08/07/24 15:52 Pulse Ox 98 08/07/24 15:52 Oxygen Delivery Method Room Air 08/07/24 15:52 BMI result Body Mass Index 42.0 Const General: cooperative, healthy appearing and comfortable Nutritional Appearance: obese morbidly obese Orientation/consciousness: patient oriented x3 Limitations: no limitations HEENT Head: Yes normocephalic and Yes atraumatic Mouth: moist mucous membranes Resp Effort & Inspection: normal respiratory effort and able to speak in complete sentences Auscultation: clear to auscultation bilaterally Cardio Rate: regular rate Rhythm: regular rhythm Skin Other: Malar rash Hyperpigmented rashes on her elbows, similar rash on her thighs Significant hair thinnining Neuro General: patient oriented x3 Extrem Other: No wrist swelling or tenderness today or pain with full flexion-extension Nontender PIP is or MCPs today No ankle swelling or tenderness bilaterally today Normal nailfold capillaroscopy Assessment & Plan Assessment & Plan (1) SLE (systemic lupus erythematosus): Comment: dx 07/2024 (inflammatory arthritis, malar rash, alopecia, lymphopenia, ++EDI ++DsDNA,++SSa low C3 low C4) Code(s): M32.9 - Systemic lupus erythematosus, unspecified Category: Medical Qualifiers: Systemic lupus erythematosus type: unspecified Systemic lupus erythematosus organ involvement: other Qualified Code(s): M32.19 - Other organ or system involvement in systemic lupus erythematosus Plan: This is a 24-year-old female with newly diagnosed lupus who presents for follow- up. Doing better on prednisone 10 mg a day. Today we discussed lupus and its management. Discussed risks and benefits of hydroxychloroquine. Patient agreed to proceed. Start hydroxychloroquine 200 mg Twice daily Continue prednisone 10 mg daily for 2 more weeks then reduce to 7.5 mg daily for 2 weeks then remain on 5 mg daily Labs before next visit in 2 months (2) Long-term use of hydroxychloroquine: Code(s): Z79.899 - Other care home (current) drug therapy Category: Medical Plan: Discussed risk of retinopathy associated with hydroxychloroquine. Patient follows up with an classification inspector for prediabetes. She states that she has an appointment in October Plan I spent 25 minutes reviewing patient's chart, evaluating patient, ordering diagnostic workup, counseling patient and documenting in the chart Orders: Orders Anti DNA DS Antibody 2 Months M32.19 - Other organ or system involvement in systemic lupus erythematosus, Z79.899 - Other care home (current) drug therapy Complement C4 2 Months M32.19 - Other organ or system involvement in systemic lupus erythematosus, Z79.899 - Other terminal system operator (current) drug therapy Erythrocyte Sedimentation Rate 2 Months M32.19 - Other organ or system involvement in systemic lupus erythematosus, Z79.899 - Other terminal system operator (current) drug therapy Protein Creatinine Ratio, Ur 2 Months M32.19 - Other organ or system involvement in systemic lupus erythematosus, Z79.899 - Other terminal system operator (current) drug therapy Comprehensive Met. Panel 2 Months M32.19 - Other organ or system involvement in systemic lupus erythematosus, Z79.899 - Other terminal system operator (current) drug therapy Complement C3 2 Months M32.19 - Other organ or system involvement in systemic lupus erythematosus, Z79.899 - Other care home (current) drug therapy C Reactive Protein 2 Months M32.19 - Other organ or system involvement in systemic lupus erythematosus, Z79.899 - Other care home (current) drug therapy UA w Microscopic 2 Months M32.19 - Other organ or system involvement in systemic lupus erythematosus, Z79.899 - Other care home (current) drug therapy Complete Blood Count Auto Diff 2 Months M32.19 - Other organ or system involvement in systemic lupus erythematosus, Z79.899 - Other care home (current) drug therapy Medications: New prednisone Take 3 tabs daily for 2 weeks then remain on 2 tabs daily 102 tabs 0RF hydroxychloroquine 200 mg PO BID 60 tabs 2RF Coding Level of Care Code Est Pt Level 4 (31542) Diagnoses Systemic lupus erythematosus with other organ involvement, unspecified SLE type M32.19 Systemic lupus erythematosus type: unspecified Systemic lupus erythematosus organ involvement: other Long-term use of hydroxychloroquine Z79.899
[2024-08-07 15:52] VITALS: BP 140/80; PULSE 105; O2SAT 98; BMI 42.0
== END 2024-08-07 16:11 | disposition home or self-care (01) ==
PROVIDERS: Visit Provider Student in an Organized Health Care Education/Training Program
DX: M32.19 Other organ or system involvement in systemic lupus erythematosus (principal); Z79.899 Other long term (current) drug therapy
CPT/HCPCS: 99214

== ENCOUNTER → 2024-09-10 12:56 | Outpatient (AMB) | payer OTHER, MEDICAID, SELFPAY ==
--- NOTE | 2024-09-10 13:01 | A.OFFVIS_ITS ---
Vital Signs 09/10/24 13:02 Height 5 ft 1 in Weight 218 lb BMI 41.2 BP 110/70 Intake Visit Reasons: pill/PCOS check Intake Note: Patient only took control pills for 1 month, was waking up daily sick and vomitting having to miss a lot of work. Says her period kind of regulated but she has not gotten it for a month now. [employer] Installer: [employer] Installer Present (Gilda) Accompanied by: Self / Same As Patient Allergies adalimumab [From Humira(CF)] Adverse Reaction (Intermediate, Verified 09/10/24 13:10) injection site reaction Medication List - Last Reconciled 09/10/24 by Mackenzie Mendiola CNM acetaminophen 1,000 mg (2 x 500 mg) PO QID PRN blood sugar diagnostic (FreeStyle Lite Strips) Testing Once a day/ as needed blood-glucose meter (FreeStyle Lite Meter kit) As directed diclofenac sodium 50 mg PO BID 30 days hydrocodone-acetaminophen 5-325 mg 1 tab PO Q4-6H PRN hydroxychloroquine 200 mg PO BID hydroxyzine HCl 20 mg (2 x 10 mg) PO BEDTIME 30 days ibuprofen 600 mg PO Q6H PRN lancets (FreeStyle Lancets) Testing once a day levothyroxine 175 mcg PO DAILY 30 days metformin 500 mg PO ONCE 90 days prednisone 10 mg PO DAILY 21 days prednisone Take 3 tabs daily for 2 weeks then remain on 2 tabs daily semaglutide (Ozempic) 0.5 mg (0.736 mL) subcut QWEEK 4 weeks triamcinolone acetonide 0.5% 1 appl topical DAILY 30 days Is last menstrual period known: Yes Last menstrual period: 08/10/24 Post menopausal: No Patient : No HPI HPI pill/PCOS check: Details: Patient is here to follow-up on PCOS in her history of amenorrhea which was treated with Provera and then OCPs. She said she took them for a month but she continued to have nausea and feels sick throughout the day and was throwing up at work and not feeling good she did not think it was related to any of the other medication she has been on she has been on Ozempic for about a year and she has been on for metformin for years she had been on Humira for her psoriatic arthritis but now is off that and is on other medications and now they are working her up for lupus. She recently had carpal tunnel surgery. She said she has lost from close to 300 lb down to 218 that she is at today on the Ozempic +by trying to eat healthier she has started to really pay attention to how different foods make her feel and if she eats carbs they make her feel spleen B and lethargic so she is staying away from them and sticking more to protein and vegetables fiber foods. She is also counting calories she and her girlfriend are working on things somewhat together. She is also been walking on a treadmill at home if she can not walk much outside because it is cold and she walks her dog 20 minutes today. She has started lifting weights with little 5 lb hand weight is too. Before starting on the Provera and then the OCPs she had missed her period for about a year and when she finally took the Provera she bled very heavily and a lot for a long time. She would rather not go back to that again. [facility] Medical History (Updated 09/10/24 @ 13:55 by Mackenzie Mendiola CNM) Fatty liver Morbidly obese Surgical History History of carpal tunnel surgery No pertinent past surgical history Family History Father Hypertension Rheumatoid arthritis Mother Hypertension Breast cancer, Onset Age: 35 Rheumatoid arthritis SLE (systemic lupus erythematosus) Paternal Aunt Diabetes Mental health disorder Paternal Uncle Diabetes Mental health disorder Social History Housing: House Alcohol intake: never Patient Tobacco Use Status: Never used Tobacco Tobacco use type: Cigarette e-Cigarette/Vaping Use: Never Used Second Hand Smoke Exposure: No service: No Current occupational status: employed Current occupation: [employer]- Current occupational exposures/hazards: No Cognitive needs: No Hearing needs: No Vision needs: No Female Reproductive History Menstrual Age of Menarche: 11 Date of last menstrual period: 08/10/24 Date of last pap smear: 12/19/23 (NEGATIVE PAP SMEAR) History of abnormal pap smear: No Physical Exam Vital Signs: Last Vital Signs BP 110/70 09/10/24 13:02 BMI result Body Mass Index 41.2 Const Nutritional Appearance: obese Assessment & Plan Assessment & Plan (1) Cervical cancer screening: Comment: 12/19/2023 Pap is negative Code(s): Z12.4 - Encounter for screening for malignant neoplasm of cervix Category: Medical (2) Amenorrhea: Comment: No menses since June 2023, for now with Provera and after withdrawal bleed, review plan etc./04/08/2024 we will start OCPs... Code(s): N91.2 - Amenorrhea, unspecified Category: Medical (3) DMII (diabetes mellitus, type 2): Code(s): E11.9 - Type 2 diabetes mellitus without complications Category: Medical Qualifiers: Diabetes mellitus bearing maker insulin use: without bearing maker use Diabetes mellitus complication status: without complication Qualified Code(s): E11.9 - Type 2 diabetes mellitus without complications (4) Morbidly obese: Code(s): E66.01 - Morbid (severe) obesity due to excess calories Category: Medical (5) Hypothyroid: Code(s): E03.9 - Hypothyroidism, unspecified Category: Medical Qualifiers: Hypothyroidism type: unspecified Qualified Code(s): E03.9 - Hypothyroidism, unspecified (6) Elevated LFTs: Code(s): R79.89 - Other specified abnormal findings of blood chemistry Category: Medical (7) Fatty liver: Code(s): K76.0 - Fatty (change of) liver, not elsewhere classified Category: Medical (8) SLE (systemic lupus erythematosus): Comment: dx 07/2024 (inflammatory arthritis, malar rash, alopecia, lymphopenia, ++EDI ++DsDNA,++SSa low C3 low C4) Code(s): M32.9 - Systemic lupus erythematosus, unspecified Category: Medical Qualifiers: Systemic lupus erythematosus type: unspecified Systemic lupus erythematosus organ involvement: other Qualified Code(s): M32.19 - Other organ or system involvement in systemic lupus erythematosus (9) Polyarthralgia: Code(s): M25.50 - Pain in unspecified joint Category: Medical (10) PCOS (polycystic ovarian syndrome): Code(s): E28.2 - Polycystic ovarian syndrome Category: Medical Plan Patient is here to follow-up on PCOS in her history of amenorrhea which was treated with Provera and then OCPs. She said she took them for a month but she continued to have nausea and feels sick throughout the day and was throwing up at work and not feeling good she did not think it was related to any of the other medication she has been on she has been on Ozempic for about a year and she has been on for metformin for years she had been on Humira for her psoriatic arthritis but now is off that and is on other medications and now they are working her up for lupus. She recently had carpal tunnel surgery. She said she has lost from close to 300 lb down to 218 that she is at today on the Ozempic +by trying to eat healthier she has started to really pay attention to how different foods make her feel and if she eats carbs they make her feel spleen B and lethargic so she is staying away from them and sticking more to protein and vegetables fiber foods. She is also counting calories she and her girlfriend are working on things somewhat together. She is also been walking on a treadmill at home if she can not walk much outside because it is cold and she walks her dog 20 minutes today. She has started lifting weights with little 5 lb hand weight is too. Before starting on the Provera and then the OCPs she had missed her period for about a year and when she finally took the Provera she bled very heavily and a lot for a long time. She would rather not go back to that again.; Discussed expected side effects of medications and what could be blamed on the OCPs in what was less likely to be nevertheless it did not feel good to her and she was in fact was taking it with food and not on an empty stomach. She said she spoke with her therapist to suggested a medication she puts in her vagina in leaves there for 28 days and we discussed the options of a NuvaRing which would by pass any GI side effects at all versus a Mirena IU S and we also discussed side effects and methodology of Depo-Provera Nexplanon and other methods as well. Discussed that trying the NuvaRing is probably the easiest thing to do at this time her blood pressure was within normal limits today. She has had some elevated pressures in the past. She is endeavoring to keep going on her weight loss journey and she is really working hard at making slow changes bit by bit. Congratulated her on her efforts and applauded her efforts at tuning into how different foods make her feel as that will help guide her in making healthier choices as she goes along to suggested adding dancing could she used to like to do that and that is something that can bread her metabolism up as well. We will see her in 3 months and see how she is doing the plan today is that she will take Provera for 10 days when it is convenient for her to expect a heavy period right after it and then when the period is starting to lighten slightly that is when she can start the NuvaRing I discussed how to place it to leave it in for 21 days expect some sort of a withdrawal bleed when she takes it out during the week it is out but even if she has not bled she should replace it with a new 1 in 7 days so 21 days in 7 days out then repeat the cycle we will see her in 3 months and see how she is doing discussed side effects to expect from this in other methods and if this does not work well for her next step would be to consider a Mirena IU S. I did review the chart and I am aware that she has the other issues that are being worked up but reguardless she does need protection from prolonged periods of amenorrhea followed by menorrhagia as well 3 months for PCOS and NuvaRing discussion Patient is going to see her PCC right now. . Medications: New medroxyprogesterone (Provera) For 10 days, expect heavy menses afterwards. 10 mg PO DAILY 10 tabs 0RF etonogestrel-ethinyl estradiol 0.12-0.015 mg/[address] for 3 weeks of a 4-week cycle; start when the Provera withdrawal bleeding is starting to slow down. 1 vag ring vaginal Q4W 3 ea 3RF Coding Level of Care Code Est Pt Level 3 (80167) Diagnoses Cervical cancer screening Z12.4 Amenorrhea N91.2 Type 2 diabetes mellitus without complication, without long-term current use of insulin E11.9 Diabetes mellitus fci insulin use: without bearing maker use Diabetes mellitus complication status: without complication Morbidly obese E66.01 Hypothyroidism, unspecified type E03.9 Hypothyroidism type: unspecified Elevated LFTs R79.89 Fatty liver K76.0 Systemic lupus erythematosus with other organ involvement, unspecified SLE type M32.19 Systemic lupus erythematosus type: unspecified Systemic lupus erythematosus organ involvement: other Polyarthralgia M25.50 PCOS (polycystic ovarian syndrome) E28.2 Time Spent (min) 45 Comment 100% spent done reviewing patient's history plans and counseling
[2024-09-10 13:02] VITALS: BP 110/70; BMI 41.2
== END | disposition home or self-care (01) ==
PROVIDERS: PCP Physician Assistant; Visit Provider Advanced Practice Midwife
DX: N91.2 Amenorrhea, unspecified (principal); E11.9 Type 2 diabetes mellitus without complications; E66.01 Morbid (severe) obesity due to excess calories; Z68.41 Body mass index [BMI] 40.0-44.9, adult
CPT/HCPCS: 99213

== ENCOUNTER → 2024-09-10 12:56 | Outpatient (BNVA) | payer OTHER, MEDICAID, SELFPAY | PROVIDERS: PCP Physician Assistant; Visit Provider Advanced Practice Midwife | DX: L40.50 Arthropathic psoriasis, unspecified (principal); E66.9 Obesity, unspecified; M32.19 Other organ or system involvement in systemic lupus erythematosus; E11.9 Type 2 diabetes mellitus without complications; E03.9 Hypothyroidism, unspecified; G47.33 Obstructive sleep apnea (adult) (pediatric); F33.1 Major depressive disorder, recurrent, moderate; F41.1 Generalized anxiety disorder; E66.01 Morbid (severe) obesity due to excess calories; R79.89 Other specified abnormal findings of blood chemistry; K76.0 Fatty (change of) liver, not elsewhere classified; M25.50 Pain in unspecified joint; E28.2 Polycystic ovarian syndrome; Z12.4 Encounter for screening for malignant neoplasm of cervix | CPT/HCPCS: 96127 ==

== ENCOUNTER 2024-09-10 14:58 | Outpatient (AMB) | payer OTHER, MEDICAID, SELFPAY ==
--- NOTE | 2024-09-10 15:01 | A.OFFPC_ITS ---
Vital Signs 09/10/24 15:06 Height 5 ft 1 in Weight 216 lb BMI 40.8 BP 124/76 Blood Pressure Location Lt brachial Position Sitting Pulse 85 Pulse Source Pulse Oximeter Temp 97.3 F Temp Source Temporal Artery Scan Pulse Oximetry (%) 99 Oxygen Delivery Method Room Air Intake Visit Reasons: F/u Sukumar Bag Mender Required: No Accompanied by: Self / Same As Patient Allergies adalimumab [From Humira(CF)] Adverse Reaction (Intermediate, Verified 09/10/24 15:12) injection site reaction Medication List - Last Reconciled 09/10/24 by Jaylan Mackey PA-C acetaminophen 1,000 mg (2 x 500 mg) PO QID PRN blood sugar diagnostic (FreeStyle Lite Strips) Testing Once a day/ as needed blood-glucose meter (FreeStyle Lite Meter kit) As directed diclofenac sodium 50 mg PO BID 30 days etonogestrel-ethinyl estradiol 0.12-0.015 mg/24 hr 1 vag ring vaginal Q4W hydrocodone-acetaminophen 5-325 mg 1 tab PO Q4-6H PRN hydroxychloroquine 200 mg PO BID ibuprofen 600 mg PO Q6H PRN lancets (FreeStyle Lancets) Testing once a day levothyroxine 175 mcg PO DAILY 30 days medroxyprogesterone (Provera) 10 mg PO DAILY metformin 500 mg PO ONCE 90 days prednisone 10 mg PO DAILY 21 days prednisone Take 3 tabs daily for 2 weeks then remain on 2 tabs daily semaglutide (Ozempic) 0.5 mg (0.736 mL) subcut QWEEK 4 weeks triamcinolone acetonide 0.5% 1 appl topical DAILY 30 days Tobacco use date assessed: 09/10/24 Dental Screening Dental Screen Date: 07/10/24 HPI F/u Sukumar HPI Details Patient is a 24-year-old female here today for a problem visit. with a past medical history significant for type 2 diabetes, obesity, psoriatic arthritis.? Concern--> she reports she is concerned about having obstructive sleep apnea. She has been told by her significant other and her mother that she has apneic episodes at night. She does have daytime somnolence as well. She is willing to try to be evaluated for obstructive sleep apnea . -CHRONIC---MEDICAL CONDITIONS>> Elevated liver enzymes: Has gotten recent ultrasound of her liver that did show right hepatic lobe mass. MRI has been done in August of 2023 was continue to show a 0.9 cm mass, SLE: ongoing management of Systemic Lupus Erythematosus (SLE). She was recently started on hydroxychloroquine and has been advised that it could take up to three months to show effects. In the interim, the patient continues to experience significant body aches, which improve with prednisone, currently being tapered as per a prescribed regimen. She reports seeing a founder and ceo on October 23 to reassess the effectiveness of her medication and disease control. Additionally, she underwent carpal tunnel surgery on her left hand, reporting symptomatic improvement, and is advised to monitor for return of symptoms before considering surgery on her right hand. .. Obesity:? Have noted some weight loss since last office visit. Patient continues on Ozempic weekly.? Has been working on portion control which is helping.? Has not added any physical activity to her lifestyle. .. Type 2 diabetes:? Patient continues on metformin 500 q.d. we have increased her Ozempic to 0.5 mg has noted weight loss since last office visit. Today's A1c acceptable. Will continue current antihyperglycemic medications .. Hypothyroid : Continues on levothyroxine 175 mcg. Will recheck TSH prior to next visit to ensure normal PFSH Medical History Fatty liver Morbidly obese Surgical History History of carpal tunnel surgery No pertinent past surgical history Family History Father Hypertension Rheumatoid arthritis Mother Hypertension Breast cancer, Onset Age: 35 Rheumatoid arthritis SLE (systemic lupus erythematosus) Paternal Aunt Diabetes Mental health disorder Paternal Uncle Diabetes Mental health disorder Social History Housing: House Alcohol intake: never Patient Tobacco Use Status: Never used Tobacco Tobacco use type: Cigarette e-Cigarette/Vaping Use: Never Used Second Hand Smoke Exposure: No service: No Current occupational status: employed Current occupation: [employer]- Current occupational exposures/hazards: No Cognitive needs: No Hearing needs: No Vision needs: No Female Reproductive History Menstrual Age of Menarche: 11 Questionnaire PHQ-9 Over the last 2 weeks, how often have you been bothered by any of the following problems? 1. Little interest or pleasure in doing things: more than half the days 2. Feeling down, depressed, or hopeless: nearly every day 3. Trouble falling or staying asleep, or sleeping too much: nearly every day 4. Feeling tired or having little energy: nearly every day 5. Poor appetite or overeating: nearly every day 6. Feeling bad about yourself - or that you are a failure or have let yourself or your family down: nearly every day 7. Trouble concentrating on things, such as reading the newspaper or watching television: nearly every day 8. Moving or speaking so slowly that other people could have noticed. Or the opposite - being so fidgety or restless that you have been moving around a lot more than usual: nearly every day 9. Thoughts that you would be better off or of hurting yourself in some way: not at all Total score: 23 Depression Screening Interpretation: Positive Depression Screening Follow-up: Existing condition Depression Screening Done: Yes 86622 - PHQ-9 Billing: Yes Source: Developed by Drs. Rakesh Gaston, Mahogany Meza, Quincy Gandhi and colleagues, with an educational cam from [employer]. Thrive Questionnaire Date Thrive assessed: 09/10/24 I am a: Patient What is your living situation today?: I have a steady place to live Within the past 12 months, did the food you bought not last and you didn't have the money to get more?: Never true Within the past 12 months, did you worry whether your food would run out before you got money to buy more?: Never true Do you have trouble paying for medicines?: No Do you have trouble getting transportation to medical appointments?: No Do you have trouble paying your heating and electricity bill?: No Do you have trouble taking care of your child, family member or friend?: No Do you have trouble with day-to-day activities such as bathing, preparing meals, shopping, managing finances, etc.?: No Are you currently unemployed and looking for a job?: No Are you interested in more education?: No Please select the resources that you would like help with: None Currently or been in a relationship where the following occur: No concerns reported THRIVE Score: 0 AUDIT C Alcohol Use Questionnaire (AUDIT-C) 1. How often do you have a drink containing alcohol?: Never 3. How often do you have six or more drinks on one occasion?: Never Total Score: 0 RAJIV-7 AMB Questionnaire RAJIV-7 Date RAJIV - 7 assessed: 09/10/24 Feeling nervous, anxious, or on edge: 3 = Nearly every day Not being able to stop or control worryin = Nearly every day Worrying too much about different things: 3 = Nearly every day Trouble relaxin = Nearly every day Being so restless that it is hard to sit still: 3 = Nearly every day Becoming easily annoyed or irritable: 3 = Nearly every day Feeling afraid as if something awful might happen: 3 = Nearly every day Total RAJIV-7 score (0-4 normal; 5-9 mild; 10-14 moderate; 15-21 severe): 21 Source: Developed by Drs. Rakesh Gaston, Mahogany Meza, Quincy Gandhi and colleagues, with an educational cam from [employer]. RAJIV-7 Assessment Billing RAJIV-7 Assessment Tool: RAJIV-7 Assessment 48047 Review of Systems Const Denies headache(s) Eyes Denies loss of vision ENT Denies vertigo, Denies dizziness, Denies headache(s) and Denies sore throat Card Denies chest pain, Denies leg edema and Denies lightheadedness Resp Denies cough, Denies hemoptysis and Denies wheezing GI Denies abdominal pain, Denies melena, Denies constipation, Denies diarrhea and Denies vomiting Denies urinary frequency, Denies dysuria and Denies urinary urgency Musc Reports myalgias, Denies arthralgias, Reports joint swelling, Reports muscle cramps, Denies numbness and Denies tingling Neuro Denies Abnormal speech present, Denies behavioral changes, Denies vertigo, Denies dizziness, Denies headache(s), Denies loss of vision, Denies memory loss, Denies numbness and Denies tingling Psych Denies anxiety, Denies behavioral changes, Denies depression, Denies memory loss and Denies panic attacks Galen/Lymph Denies easy bleeding and Denies easy bruising Aller/Immun Denies wheezing Physical exam (Primary Care) Vital Signs: Last Vital Signs Temp 97.3 F 09/10/24 15:06 Pulse 85 09/10/24 15:06 BP 124/76 09/10/24 15:06 Pulse Ox 99 09/10/24 15:06 Oxygen Delivery Method Room Air 09/10/24 15:06 BMI result Body Mass Index 40.8 Tobacco/Smoking Status: Tobacco use Status Tobacco use date assessed 09/10/24 09/10/24 15:02 Patient Tobacco Use Status Never used Tobacco 09/10/24 15:02 Tobacco use type Cigarette 09/10/24 15:02 e-Cigarette/Vaping Use Never Used 09/10/24 15:02 PHQ-9: PHQ-9 Score PHQ-9: Total score 23 09/10/24 15:16 Depression Screening Interpretation: Positive Depression Screening Follow-up: Existing condition Thrive Assessment: Date of Thrive Assessment Date Thrive assessed 09/10/24 09/10/24 15:02 Currently or been in a relationship where the following occur: No concerns reported Const General: healthy appearing, no acute distress, alert and awake Nutritional Appearance: well nourished Orientation/consciousness: oriented to person, oriented to place and oriented to time HENMT Ears: TM's normal bilaterally General nose exam: Normal nasal mucous membranes and turbinates present Eyes Conjunctivae: conjunctivae normal Sclerae: sclerae normal Pupils: Equal, round and reactive pupils present Neck Neck: Yes no lymphadenopathy and Yes no JVD Thyroid: Thyroid normal Carotids: no bruits Resp Effort & Inspection: normal respiratory effort and not tachypneic Auscultation: no crackles, no rales, no rhonchi and no wheezes Cardio Rate: regular rate Rhythm: regular rhythm Heart sounds: no murmurs and normal S1 and S2 GI Palpation (GI): Soft to palpation, nontender, no hepatomegaly and no splenomegaly Auscultation: normal bowel sounds Skin General skin exam: no rashes or lesions noted and dry skin Neuro General: oriented to person, oriented to place and oriented to time Cranial nerves: Yes Equal, round and reactive pupils present Speech: No Abnormal speech present Gait exam (Neuro): Normal gait present Motor exam (neuro): no tremor noted Extrem Right upper extremity: full ROM Left upper extremity: full ROM Right lower extremity: full ROM; no edema Left lower extremity: full ROM; no edema Psych Mental Status: mental status grossly normal Speech and movement: Normal speech and movement present Affect: normal affect Attitude: cooperative Thought process: Normal thought process present Coding Level of Care Code Est Pt Level 4 (11703) Diagnoses Systemic lupus erythematosus with other organ involvement, unspecified SLE type M32.19 Systemic lupus erythematosus organ involvement: other Systemic lupus erythematosus type: unspecified Type 2 diabetes mellitus without complication, without long-term current use of insulin E11.9 Diabetes mellitus complication status: without complication Diabetes mellitus keno terminal operator insulin use: without mcfp use Hypothyroidism, unspecified type E03.9 Hypothyroidism type: unspecified GISSEL (obstructive sleep apnea) G47.33 Witnessed episode of apnea R06.81 MDD (major depressive disorder), recurrent episode, moderate F33.1 RAJIV (generalized anxiety disorder) F41.1 Additional Codes RAJIV-7 Assessment Billing - RAJIV-7 Assessment Tool: RAJIV-7 Assessment 94610 ([id number]) PHQ-9 - 94434 - PHQ-9 Billing: Yes ([id number]) Assessment & Plan Assessment & Plan (1) SLE (systemic lupus erythematosus): Comment: dx 07/2024 (inflammatory arthritis, malar rash, alopecia, lymphopenia, ++EDI ++DsDNA,++SSa low C3 low C4) Code(s): M32.9 - Systemic lupus erythematosus, unspecified Category: Medical Qualifiers: Systemic lupus erythematosus organ involvement: other Systemic lupus erythematosus type: unspecified Qualified Code(s): M32.19 - Other organ or system involvement in systemic lupus erythematosus Plan: Continue current regimen of hydroxychloroquine for SLE and monitor effects with upcoming founder and ceo appointment. She also reports prednisone has been very helpful for her joint pain swelling (2) DMII (diabetes mellitus, type 2): Code(s): E11.9 - Type 2 diabetes mellitus without complications Category: Medical Qualifiers: Diabetes mellitus complication status: without complication Diabetes mellitus keno terminal operator insulin use: without mcfp use Qualified Code(s): E11.9 - Type 2 diabetes mellitus without complications Plan: Patient continues on metformin and weekly Ozempic. Diabetes has been well controlled. Will recheck fasting blood sugar and A1c to ensure normal. Goal A1c is to be below 7.0 (3) Hypothyroid: Code(s): E03.9 - Hypothyroidism, unspecified Category: Medical Qualifiers: Hypothyroidism type: unspecified Qualified Code(s): E03.9 - Hypothyroidism, unspecified Plan: Patient continues on 175 mcg of levothyroxine. Will continue to follow TSH to assure normal. (4) GISSEL (obstructive sleep apnea): Code(s): G47.33 - Obstructive sleep apnea (adult) (pediatric) Category: Medical Plan: As per HPI patient suspect she may have for to sleep apnea due to her daytime somnolence and witnessed apneic episodes. Will send for home sleep study to con firm diagnosis. (5) Witnessed episode of apnea: Code(s): R06.81 - Apnea, not elsewhere classified Category: Medical Plan: As above (6) MDD (major depressive disorder), recurrent episode, moderate: Code(s): F33.1 - Major depressive disorder, recurrent, moderate Category: Medical Plan: Patient's PHQ-9 score positive for depression which has been existing condition for her. She does have support by her family. Will consider mental health therapy in the future. (7) RAJIV (generalized anxiety disorder): Code(s): F41.1 - Generalized anxiety disorder Category: Medical Plan: Patient's RAJIV-7 score positive for anxiety which has been longstanding existing condition. She has been taking offer hydroxyzine as she has started hydroxychloroquine for her lupus. Again will consider mental health therapy Orders: Orders TSH reflex Free T4 09/10/24 E03.9 - Hypothyroidism, unspecified Comprehensive [place]. Panel Fast 09/10/24 E11.9 - Type 2 diabetes mellitus without complications Hemoglobin A1c 09/10/24 E11.9 - Type 2 diabetes mellitus without complications RT home sleep study 09/10/24 G47.33 - Obstructive sleep apnea (adult) (pediatric), R06.81 - Apnea, not elsewhere classified Complete Blood Count no Diff 09/10/24 E11.9 - Type 2 diabetes mellitus without complications Microalbumin, Random (w Creat) 09/10/24 E11.9 - Type 2 diabetes mellitus without complications Medications: Refilled metformin 500 mg PO ONCE 90 tabs 1RF 90 days E11.9 - Type 2 diabetes mellitus without complications semaglutide (Ozempic) 0.5 mg (0.736 mL) subcut QWEEK 3 mL 3RF 4 weeks E11.9 - Type 2 diabetes mellitus without complications
[2024-09-10 15:06] VITALS: BP 124/76; PULSE 85; TEMP 36.3; O2SAT 99; BMI 40.8
== END 2024-09-10 15:30 | disposition home or self-care (01) ==
PROVIDERS: PCP Physician Assistant; Visit Provider Physician Assistant
DX: E11.9 Type 2 diabetes mellitus without complications (principal); M32.19 Other organ or system involvement in systemic lupus erythematosus; F33.1 Major depressive disorder, recurrent, moderate; E03.9 Hypothyroidism, unspecified; G47.33 Obstructive sleep apnea (adult) (pediatric); R06.81 Apnea, not elsewhere classified; F41.1 Generalized anxiety disorder

== ENCOUNTER 2024-10-21 10:55 | Outpatient (REF) | payer OTHER, SELFPAY ==
[2024-10-21 11:34] LABS: MANUAL DIFF FLAG NO
[2024-10-21 11:54] LABS: Basophils Percent Auto 0.3 % (0-2); Eosinophils Percent Auto 0.6 % (0-4); Hemoglobin 10.1 g/dl (12.0-16.0); Imm Gran Abs Auto 0.01 X10*3/uL (0.00-0.03); Imm Gran Pct Auto 0.3 % (0.0-0.4); Lymphocytes Absolute Auto 1.1 X10*3/uL (1.2-4.9); Lymphocytes Percent Auto 34.6 % (20-40); Mean Corpuscular HGB Conc 31.6 g/dl (31.0-35.0); Mean Corpuscular Hemoglobin 26.9 pg (27.0-33.0); Mean Corpuscular Volume 85.1 fL (80.0-98.0); Mean Platelet Volume 9.7 fL (9.4-12.3); Monocytes Absolute Auto 0.3 X10*3/uL (0.1-1.2); Monocytes Percent Auto 8.1 % (2-11); Neutrophils Absolute Auto 1.7 x10*3/uL (2.0-8.3); Neutrophils Percent Auto 56.1 % (45-73); Platelet Count 247 X10*3/uL (160-400); Red Blood Count 3.76 X10*6/uL (4.20-5.50); Red Cell Distribution Width 13.1 % (11.0-16.0); White Blood Count 3.1 X10*3/uL (4.8-10.8)
[2024-10-21 12:01] LABS: Estimated Average Glucose 114 mg/dL; Hemoglobin A1c % 5.6 % (<6.0)
[2024-10-21 12:07] LABS: Appearance Urine Clear; Color Urine Yellow; Glucose Urine UA Negative (Negative); Leukocyte Esterase Urine Small (1+) (Negative); Nitrite Urine Negative (Negative); UMIC TRIGGER UA YES; Urine Blood Negative (Negative); Urine Ketones Negative (Negative); Urine Protein 30 (1+) mg/dL (Neg-Trace)
[2024-10-21 12:14] LABS: Bacteria Urine None Seen (None Seen); Hyaline Casts Urine 0-2 /LPF (0-2); RBC Urine 0-2 /HPF (0-2)
[2024-10-21 12:30] LABS: Erythrocyte Sedimentation Rate 51 MM/HR (0-20)
[2024-10-21 12:34] LABS: Creatinine Urine 122.12 mg/dL; Protein/Creatinine Ratio, Ur 0.28 (<0.2); Total Protein Urine Random 34 mg/dL (<12)
[2024-10-21 12:35] LABS: Creatinine Urine 121.63 mg/dL; Microalbum/Creatinine Ratio Ur 46.8 ug/mg cr (<30)
[2024-10-21 12:54] LABS: Alanine Aminotransferase 26 U/L (0-31); Albumin Level 3.4 g/dL (3.5-5.0); Alkaline Phosphatase 48 U/L (39-117); Anion Gap 8 (12-20); Aspartate Amino Transferase 26 U/L (5-31); Bilirubin Total 0.2 mg/dL (0.0-1.0); Blood Urea Nitrogen 13 mg/dL (9-16); C Reactive Protein 1.07 mg/dL (< or = 0.50); Calcium 8.2 mg/dL (8.4-10.2); Carbon Dioxide 22 mmol/L (22-29); Chloride 114 mmol/L (96-108); Estimated Glomerular Filt Rate > 60; Glucose Fasting 80 mg/dL (60-99); Glucose Random 80 mg/dL (60-115); Potassium 3.8 mmol/L (3.3-5.1); Sodium 140 mmol/L (135-145); Total Protein 7.4 g/dL (6.5-8.0)
[2024-10-21 13:02] LABS: TSH reflex Free T4 0.74 uIU/mL (0.32-4.0)
[2024-10-22 13:39] LABS: Anti DNA DS Antibody 117 IU/mL
[2024-10-22 15:33] LABS: Complement C3 51 mg/dL (83-193)
[2024-10-22 20:33] LABS: Cardiolipin IgG Ab 11.8 GPL-U/mL; Cardiolipin IgM Ab 8.8 MPL-U/mL
[2024-10-24 06:03] LABS: Beta-2 Glycoprotein IgA 5.7 U/mL (<20.0); Beta-2 Glycoprotein IgG 20.7 U/mL (<20.0); Beta-2 Glycoprotein IgM 16.4 U/mL (<20.0)
[2024-10-28 14:18] LABS: PTT (LAC) Screen 27 sec (<=40)
== END 2024-10-21 10:56 | disposition home or self-care (01) ==
LOC: HO.LAB 10:55
PROVIDERS: PCP Physician Assistant; Visit Provider Student in an Organized Health Care Education/Training Program
DX: E03.9 Hypothyroidism, unspecified (principal); E11.9 Type 2 diabetes mellitus without complications; D68.61 Antiphospholipid syndrome; M32.19 Other organ or system involvement in systemic lupus erythematosus; Z79.899 Other long term (current) drug therapy
CPT/HCPCS: 36415; 80053; 81001; 82043; 82570; 83036; 84156; 84443; 85025; 85597; 85598; 85613; 85652; 85730; 86140; 86146; 86147; 86160; 86225

== ENCOUNTER 2024-10-23 14:45 | Outpatient (AMB) | payer OTHER, MEDICAID, SELFPAY ==
[2024-10-23 14:49] VITALS: BP 124/70; PULSE 86; O2SAT 98; BMI 40.9
--- NOTE | 2024-10-23 14:49 | A.OFFVIS_ITS ---
Vital Signs 10/23/24 14:49 Height 5 ft 1 in Weight 216 lb 11.43 oz BMI 40.9 BP 124/70 Blood Pressure Location Lt brachial Position Sitting Pulse 86 Pulse Source Pulse Oximeter Pulse Oximetry (%) 98 Oxygen Delivery Method Room Air Intake Visit Reasons: SLE Intake Note: Patient last seen by Doctor Cruz Power on 08/07/24. Presents today for SLE follow up and test results. Allergies adalimumab [From Humira(CF)] Adverse Reaction (Intermediate, Verified 10/23/24 14:51) injection site reaction Medication List - Last Reconciled 10/23/24 by Natasha Redd MD acetaminophen 1,000 mg (2 x 500 mg) PO QID PRN blood sugar diagnostic (FreeStyle Lite Strips) Testing Once a day/ as needed blood-glucose meter (FreeStyle Lite Meter kit) As directed diclofenac sodium 50 mg PO BID 30 days etonogestrel-ethinyl estradiol 0.12-0.015 mg/24 hr 1 vag ring vaginal Q4W hydroxychloroquine 200 mg PO BID ibuprofen 600 mg PO Q6H PRN lancets (FreeStyle Lancets) Testing once a day levothyroxine 175 mcg PO DAILY 90 days metformin 500 mg PO ONCE 90 days semaglutide (Ozempic) 0.5 mg (0.736 mL) subcut QWEEK 4 weeks triamcinolone acetonide 0.5% 1 appl topical DAILY 30 days HPI Comments Details: Patient is a 24-year-old female morbidly obese with diabetes, major depressive disorder/anxiety, hypothyroidism, systemic lupus erythematosus here today for follow up. Interval History: Patient last seen 08/07/2024 with a high Jannet. At that time she was following up after her prednisone taper. She was started on Plaquenil and her prednisone was tapered. Today she reports that she has been noticing worsening symptoms as she has been tapering the prednisone. She stopped the prednisone today. Noticing worsening joint pain and rashes. Rheumatologic History: Initial history from Dr. Ford: The patient presents today for evaluation of joint pains. Apparently in October she developed painful swelling in the hands. There also developed other pains in the elbows, knees and the feet. At one point she had difficulty getting out of bed because of the knee and foot pain. She did visit the emergency room and was prescribed some diclofenac. She did not think it helped much so she is back on ibuprofen now taking 400 mg once or twice a day. That has seem to be somewhat helpful. Last month she was in the ER with some right shoulder and chest pain. CT angio of the chest did not show any pathology of note. Prior to the joint pain she did not have any prodromal illness of fever, diarrhea or respiratory infection. She does not have any ocular or oral dryness. She gets nauseated occasionally, a chronic problem. She does take levothyroxine for hypothyroidism and sertraline 50 mg daily for anxiety and depression. 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 Over the past 2 weeks she has had a somewhat itchy papular rash over the elbows and the thigh regions. She is using a topical steroid on that without much improvement so far. Patient initially thought to have psoriatic arthritis and was started on Humira and then Cosentyx but this did not improve her pains. Finally diagnosed with lupus dx 07/2024 (inflammatory arthritis, malar rash, alopecia, lymphopenia, ++EDI ++DsDNA,++SSa low C3 low C4) Plaquenil 2023 Current Rheumatology Medication(s): Plaquenil 200 mg b.i.d. [facility] Medical History Fatty liver Morbidly obese Surgical History History of carpal tunnel surgery No pertinent past surgical history Family History Father Hypertension Rheumatoid arthritis Mother Hypertension Breast cancer, Onset Age: 35 Rheumatoid arthritis SLE (systemic lupus erythematosus) Paternal Aunt Diabetes Mental health disorder Paternal Uncle Diabetes Mental health disorder Social History Housing: House Alcohol intake: never Patient Tobacco Use Status: Never used Tobacco Tobacco use type: Cigarette e-Cigarette/Vaping Use: Never Used Second Hand Smoke Exposure: No service: No Current occupational status: employed Current occupation: [employer]- Current occupational exposures/hazards: No Cognitive needs: No Hearing needs: No Vision needs: No Female Reproductive History Menstrual Age of Menarche: 11 Review of Systems Const Details: Review of Systems Constitutional: Denies fever, chills, weight loss ENT: Denies vision changes, eye pain or eye redness, dental caries, dry mouth GI: Denies nausea, vomiting, diarrhea, abdominal pain, change in BM Pulm: Denies SOB, GAINES, hemoptysis, wheezing Cards: Denies chest pain, palpitations Skin: Denies Raynaud's, rash, nail changes, photosensitivity, 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 Well appearing and in no apparent painful distress HEENT Conjunctiva and sclera clear. ?Pupils equal round and reactive to light. ?No lymphadenopathy. ? CHEST/RESPIRATORY SYSTEM Normal respiratory effort and able to speak in complete sentences. ?Clear to auscultation bilaterally. ?No crackles, rales, rhonchi, wheezes heard. CARDIAC SYSTEM Regular rate and rhythm. ?S1 and S2 heard no murmurs. ?Radial pulses intact bilaterally MSK Hands: ?Able to make a fist bilaterally swelling noted to bilateral hands but no tenderness to the MCPs or PIPs. Wrists: ?Full range of motion at the wrists without pain. ?No tenderness to palpation or synovitis noted to the wrists. Elbows: Full range of motion. Tenderness to palpation of the elbow joint bilaterally. Shoulders: Full active range of motion but patient reports soreness especially to the glenohumeral joint when palpated. Bilaterally Hips: Full range of motion without pain. Hip bursa: No tenderness to palpation Knees: ?Full range of motion. ?Tenderness to palpation of the knee joint line bilaterally Ankles: Full range of motion. ?No tenderness, swelling, increased warmth or erythema.? 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 points:?No tenderness to palpation of the bilateral trapezius, supraspinatus, greater trochanters, anterior costochondral junctions, bilateral gluteal areas, bilateral suboccipital muscle insertions SKIN Malar rash to face Results Reviewed Results Reviewed: Laboratory Tests 07/15/24 10/21/24 12:20 11:33 WBC 5.6 3.1 L RBC 4.38 3.76 L Hgb 12.4 10.1 L Hct 38.0 32.0 L Plt Count 265 247 Lymph # (Auto) 1.3 1.1 L ESR 77 H 51 H Sodium 141 140 Potassium 3.6 3.8 Chloride 106 114 H Carbon Dioxide 26 22 BUN 15 13 Creatinine 0.65 0.55 Calcium 8.6 8.2 L Total Bilirubin 0.2 0.2 AST 57 H 26 ALT 54 H 26 C-Reactive Protein 1.30 H 1.07 H Total Protein 8.2 H 7.4 Albumin 3.2 L 3.4 L Urine 07/15/24 10/21/24 12:20 11:30 Urine Protein Negative 30 (1+) H Urine Blood Negative Negative Urine RBC 0-2 0-2 U Random Total Protein 11 34 H Protein/Creatinin Ratio 0.16 0.28 H Immunology Labs 03/30/24 07/15/24 14:01 12:20 EDI Screen POSITIVE A EDI Titer 1:80 H SS-A/Ro Antibody 6.8 POS A Anti-ds DNA Titer (Crith) 1:320 H Anti-ds DNA (Crithidia) Positive A 07/15/24 10/21/24 12:20 11:33 Double Strand DNA Ab 57 H 117 H Complement C3 40 L 51 L Complement C4 2 L 6 L Infectious Serologies 07/15/24 12:20 Hepatitis A IgM Ab Nonreactive Hep Bs Antigen Negative Hep Bs Antibody NONREACTIVE Hep B Core Total Ab Nonreactive Hepatitis C Ab (EIA) Nonreactive TB Test (T-Spot) Com Negative Assessment & Plan Assessment & Plan (1) SLE (systemic lupus erythematosus): Comment: dx 07/2024 (inflammatory arthritis, malar rash, alopecia, lymphopenia, ++EDI ++DsDNA,++SSa low C3 low C4) Code(s): M32.9 - Systemic lupus erythematosus, unspecified Category: Medical Qualifiers: Systemic lupus erythematosus type: unspecified Systemic lupus erythematosus organ involvement: other Qualified Code(s): M32.19 - Other organ or system involvement in systemic lupus erythematosus Plan: #SLE Patient is a 24-year-old female with lupus here today for follow up. Patient recently diagnosed lupus and started on prednisone taper as well as Plaquenil. Patient completed the prednisolone taper today however her examination has active synovitis involving her knees, elbows, shoulders and MTPs of the feet. There is also swelling noted to bilateral hands. In addition to this she has a low complements, elevated double-stranded DNA, malar rash, proteinuria and high inflammatory markers. Her JAYDEN-SLEDAI is 11 (arthritis, inflammatory type rash, low complement, high double-stranded DNA, leukopenia) indicating active disease (a JAYDEN-SLEDAI over 4 indicates active disease). Based on this I think patient requires further immunosuppression in addition to Plaquenil. Discussed Benlysta infusions with the patient and patient is agreeable Plan - Start Benlysta infusions 400mg IV every 4 weeks - Continue plaquenil 200mg bid - Monitor off prednisone for now but low threshold to restart if clinical picture worsens - RTC 3 months - Labs before visit: CBC, CMP, ESR, CRP, C3, C4, dsDNA, UA, UPC (2) Long-term use of hydroxychloroquine: Code(s): Z79.899 - Other care home (current) drug therapy Category: Medical Plan: #Long-term Use of Hydroxychloroquine Discussed with patient the risks and benefits of hydroxychloroquine in managing the rheumatic condition Benefits include: - Reduced pain, reduce mortality, maintenance of remission and reduction of flares Risks include: - GI upset, skin hyperpigmentation, retinal toxicity (especially after more than 5 years of use), myopathy Advised yearly ophthalmology visits (3) Encounter for monitoring of belimumab therapy: Code(s): Z51.81 - Encounter for therapeutic drug level monitoring; 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 Plan: #jail Belimumab Discussed with patient the risks and benefits of hydroxychloroquine in managing the rheumatic condition Benefits include: - Reduced pain, reduce mortality, maintenance of remission and reduction of flares Risks include: - insomnia, injection site reactions, psychiatric events such as worsening depression/anxiety or suicidal ideation, increased risk of infection Plan I spent 46 minutes reviewing the record and labs, taking a history, examining the patient, discussing the treatment plan, ordering diagnostic work up and documenting in the medical record Orders: Orders Complement C3 3 Months M32.19 - Other organ or system involvement in systemic lupus erythematosus C Reactive Protein 3 Months M32. - Other organ or system involvement in systemic lupus erythematosus Hepatitis A,B,C Profile 3 Months M32. - Other organ or system involvement in systemic lupus erythematosus T Spot TB 3 Months M32. - Other organ or system involvement in systemic lupus erythematosus Anti DNA DS Antibody 3 Months M32. - Other organ or system involvement in systemic lupus erythematosus UA w Microscopic 3 Months M32. - Other organ or system involvement in systemic lupus erythematosus Protein Creatinine Ratio, Ur 3 Months M32. - Other organ or system involvement in systemic lupus erythematosus Vitamin D 25-OH (D2 and D3) 3 Months M32. - Other organ or system involvement in systemic lupus erythematosus Complement C4 3 Months M32. - Other organ or system involvement in systemic lupus erythematosus Complete Blood Count Auto Diff 3 Months M32. - Other organ or system involvement in systemic lupus erythematosus Comprehensive Met. Panel 3 Months M32. - Other organ or system involvement in systemic lupus erythematosus Erythrocyte Sedimentation Rate 3 Months M32. - Other organ or system involvement in systemic lupus erythematosus Referrals Infusion Center Notification . - Other organ or system involvement in systemic lupus erythematosus Coding Level of Care Code Est Pt Level 5 (50661) Complex EM visit Add On G2211 Diagnoses Systemic lupus erythematosus with other organ involvement, unspecified SLE type M32. Systemic lupus erythematosus type: unspecified Systemic lupus erythematosus organ involvement: other Long-term use of hydroxychloroquine Z79.899 Encounter for monitoring of belimumab therapy Z51.81; Z79.620
== END 2024-10-23 15:18 | disposition home or self-care (01) ==
LOC: HO.RHE 14:45
PROVIDERS: Visit Provider Student in an Organized Health Care Education/Training Program
DX: M32.19 Other organ or system involvement in systemic lupus erythematosus (principal); Z79.899 Other long term (current) drug therapy; Z51.81 Encounter for therapeutic drug level monitoring; Z79.620 Long term (current) use of immunosuppressive biologic
CPT/HCPCS: 99215

== ENCOUNTER 2024-10-25 16:34 | Emergency (ER) | payer OTHER, MEDICAID, SELFPAY ==
--- NOTE | ~2024-10-25 | XR_ITS ---
CLINICAL HISTORY: chest pain 2 view chest x-ray Comparison: CT/IN/SR - CT ANGIO CHEST PE PROTOCOL - 01/20/23 03:35 EDT Findings: No consolidation or effusion. Heart size is normal. No acute fracture. IMPRESSION: 1. No acute findings. This document has been electronically signed by: Jaci Torres MD on 10/25/2024 18:07:35
--- NOTE | ~2024-10-25 | CT_ITS ---
CLINICAL HISTORY: chest CT angiography chest with contrast. 3D Postprocessing. Comparison: CR - XR CHEST 2V - 10/25/24 17:[address]/FL/SR - CT ANGIO CHEST PE PROTOCOL - 01/20/23 03:35 EDT Findings: The heart is normal size. RV/LV ratio is normal. The thoracic aorta is normal caliber. No acute pulmonary embolus. Enlarged bilateral axillary lymph nodes with preserved fatty charbel, similar to prior. Visualized thyroid and mediastinum are within normal limits. 2 mm nodule in the right middle lobe, similar to prior. No consolidation, pleural effusion or pneumothorax. The visualized upper abdomen is unremarkable. The bones are intact. IMPRESSION: No pulmonary embolus. Enlarged bilateral axillary lymph nodes with preserved fatty charbel, similar to prior. This document has been electronically signed by: Jaci Torres MD on 10/26/2024 01:48:10
[2024-10-25 16:55] VITALS: BP 143/74; PULSE 88; RESP 18; TEMP 37.2; O2SAT 100; BMI 25.8
--- NOTE | 2024-10-25 16:56 | ED_ITS ---
HPI - Chest Pain General Chief Complaint: General Medical Stated Complaint: pain in the ribs when she breaths in/nauseous Time Seen by Provider: 10/25/24 23:14 Source: patient, RN notes reviewed and old records reviewed Mode of arrival: ambulatory Limitations: no limitations History of Present Illness ED Provider: Fredrick HPI narrative: 24-year-old female past medical history significant for systemic lupus erythematosus, PCOS, fatty liver presents for evaluation of chest pain. Patient reports left-sided chest pain for the last 5 days. She denies any specific injury. Her symptoms are worse with deep breathing and movement. She denies any coughing, shortness of breath fevers, chills. She is on control Her pain is an 8/10 She denies any alleviating factors Related Data Previous Rx's ?Medication ?Instructions ?Recorded blood sugar diagnostic (FreeStyle #100 ea 07/16/23 Lite Strips) blood-glucose meter (FreeStyle #1 ea 07/16/23 Lite Meter kit) lancets 28 gauge (FreeStyle #100 ea 07/16/23 Lancets) ibuprofen 600 mg tablet 600 mg PO Q6H PRN fever or pain 04/11/24 #30 tabs triamcinolone acetonide 0.5 % 1 appl topical DAILY 30 days #15 04/15/24 topical cream grams acetaminophen 500 mg tablet 1,000 mg (2 x 500 mg) PO QID PRN 06/02/24 pain #30 tabs diclofenac sodium 50 mg 50 mg PO BID 30 days #60 tabs 07/10/24 tablet,delayed release hydroxychloroquine 200 mg tablet 200 mg PO BID #60 tabs 08/07/24 etonogestrel 0.12 mg-ethinyl 1 vag ring vaginal Q4W #3 ea 09/10/24 estradiol 0.015 mg/24 hr vaginal ring metformin 500 mg tablet 500 mg PO ONCE 90 days #90 tabs 09/10/24 semaglutide 0.25 mg or 0.5 mg (2 0.5 mg (0.736 mL) subcut QWEEK 4 09/10/24 mg/3 mL) subcutaneous pen injector weeks #3 mL (Ozempic) levothyroxine 175 mcg tablet 175 mcg PO DAILY 90 days #90 tabs 10/06/24 Allergies Allergy/AdvReac Type Severity Reaction Status Date / Time adalimumab [From Humira(CF)] AdvReac Intermediate injection Verified 10/25/24 16:59 site reaction Review of Systems 2 Constitutional: Constitutional: Denies body ache(s), Denies chills, Denies fever(s) and Denies headache(s) Eyes: Eyes: Denies blurry vision ENT: Denies vertigo, Denies dizziness and Denies headache(s) Cardiovascular: Cardiovascular: Reports chest pain and Denies dyspnea Respiratory: Respiratory: Denies chest congestion, Denies cough, Denies hemoptysis, Reports pain on inspiration and Denies dyspnea Gastrointestinal: Gastrointestinal: Denies abdominal pain, Denies nausea and Denies vomiting Musculoskeletal: Musculoskeletal: Denies back pain Integumentary/Breasts: Skin/Breast: Denies rash Neurologic: Denies vertigo, Denies dizziness and Denies headache(s) Psychiatric: Psychiatric: Denies anxiety [facility] Past Medical History Medical History Fatty liver Morbidly obese Surgical History History of carpal tunnel surgery No pertinent past surgical history Family History Family History Father Hypertension Rheumatoid arthritis Mother Hypertension Breast cancer, Onset Age: 35 Rheumatoid arthritis SLE (systemic lupus erythematosus) Paternal Aunt Diabetes Mental health disorder Paternal Uncle Diabetes Mental health disorder Social History Social History Housing: House Alcohol intake: never Patient Tobacco Use Status: Never used Tobacco Tobacco use type: Cigarette Smoked in Last 30 Days: No e-Cigarette/Vaping Use: Never Used Second Hand Smoke Exposure: No Use of substances other than those prescribed or required for medical reasons: No Advance Directives: Yes Advance Directives Information Provided: Yes Advance Directives on File: No Patient : No service: No Current occupational status: employed Current occupation: [employer]- Current occupational exposures/hazards: No Cognitive needs: No Hearing needs: No Vision needs: No Physical Exam 2 Vital Signs: Vital Signs: Last Vital Signs Temp 98.4 F 10/26/24 00:16 Pulse 79 10/26/24 00:16 Resp 16 10/26/24 00:16 BP 132/76 10/26/24 00:16 Pulse Ox 100 10/26/24 00:16 O2 Del Method Room Air 10/26/24 00:16 BMI result Body Mass Index 25.8 Const: General: healthy appearing, comfortable, no acute distress, alert and awake Nutritional Appearance: well nourished Orientation/consciousness: p atient oriented x3 HEENT: Head: Yes normocephalic and Yes atraumatic Throat: Yes posterior oropharynx normal Eyes: Eyelids: Yes eyelids normal Conjunctivae: conjunctivae normal S clerae: sclerae normal Corneas: corneas normal Pupils: Equal, round and reactive pupils present EOM: EOMs intact bilaterally Neck: Neck: Yes full ROM Chest: Other: There is left chest wall tenderness in the anterior axillary line at the level of the 10th through 12th ribs. No overlying crepitus, no ecchymosis or wounds Chest palpation & inspection: no crepitus Resp: Effort & Inspection: normal respiratory effort, able to speak in complete sentences, no audible wheezes and not labored Auscultation: clear to auscultation bilaterally Cardio: Rate: regular rate Rhythm: regular rhythm GI: Inspection: No distended Palpation (GI): Soft to palpation, not firm, nontender, no guarding and not rigid Skin: General skin exam: no rashes or lesions noted and elasticity normal Neuro: General: patient oriented x3 Cranial nerves: Yes Equal, round and reactive pupils present and Yes Bilaterally intact EOM present Cognition (Neuro): normal cognition Course Course Course Narrative: This is an RME performed by En Mtz CNP: Additional HPI, ROS, PE not included below will be deferred to primary provider. Patient is a 24-year-old female past medical history of lupus who presents to the emergency department for evaluation. endorses L lateral chest/rib pain intermittent in nature over the past day. Denies precipitating injury. Denies URI. Pain exacerbates at time with movement/deep breathing. 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 Has associated nausea. Plan: Serum labs, CXR, EKG Reevaluation(s) Reevaluation #1: Patient's CT angiography does not show any evidence of PE, enlarged lymph nodes consistent with previous study Time: 01:54 Medications Administered Discontinued Medications Generic Name Dose Route Start Last Admin Trade Name Antonia PRN Reason Stop Dose Admin Iohexol 85 ml 10/26/24 00:37 10/26/24 00:38 Iohexol 350 Mg/Ml 100 Ml Infus..Btl IV 10/26/24 00:38 85 ml ONCE ONE Administration Medical Decision Making Medical Decision Making [facility] Narrative: 24-year-old female presents for evaluation of left-sided chest pain. Her EKG is normal sinus rhythm without evidence of acute ischemia. Her labs are reassuring, chest x-ray is clear. She had a D-dimer ordered in triage which was elevated to 383. The patient previously had an elevated D-dimer 2 years ago in the follow up CT angiography was unremarkable. The patient's D-dimer is possibly elevated due to her diagnosis of SLE. Discuss risks and benefits of additional imaging, the patient is comfortable pursuing CT angiography at this time to rule out PE. She is not tachycardic, not hypoxic, there was no leg swelling. Differential Diagnosis Differential Diagnoses: The differential diagnosis associated with the presentation includes Chest wall pain ACS Bronchitis Pneumonia PE Lab Data [facility] Lab Attestation statement: I reviewed the patient's lab results. No leukocytosis. The patient has a normocytic anemia that is essentially unchanged from her outpatient labs from 4 days ago. No significant electrolyte abnormalities, troponin is negative despite 1 week of pain. She is not 10/25/24 17:14 10/25/24 17:14 Labs: Lab Results 10/25/24 Range/Units 17:14 WBC 3.1 L (4.8-10.8) X10*3/uL RBC 3.78 L (4.20-5.50) X10*6/uL Hgb 10.4 L (12.0-16.0) g/dl Hct 30.8 L (37.0-47.0) % MCV 81.5 (80.0-98.0) fL MCH 27.5 (27.0-33.0) pg MCHC 33.8 (31.0-35.0) g/dl RDW 13.0 (11.0-16.0) % Plt Count 236 (160-400) X10*3/uL MPV 9.6 (9.4-12.3) fL Immature Gran % (Auto) 0.3 (0.0-0.4) % Neut % (Auto) 65.3 (45-73) % Lymph % (Auto) 27.3 (20-40) % Surry % (Auto) 6.2 (2-11) % Eos % (Auto) 0.6 (0-4) % Baso % (Auto) 0.3 (0-2) % Lymph # (Auto) 0.8 L (1.2-4.9) X10*3/uL [place]ry # (Auto) 0.2 (0.1-1.2) X10*3/uL Eos # (Auto) 0.0 (0.0-0.4) X10*3/uL Baso # (Auto) 0.0 (0.0-0.2) X10*3/uL Abs Immat Gran (auto) 0.01 (0.00-0.03) X10*3/uL Absolute Neuts (auto) 2.0 (2.0-8.3) x10*3/uL Absolute Nucleated RBC 0.000 (0.0-0.012) X10*3/uL Nucleated RBC % (auto) 0.0 (0.0-0.2) /100WBC PT 11.1 (10.9-12.4) SEC INR 1.0 (0.9-1.1) D-Dimer High Sensitivty 386 NG/ML Sodium 136 (135-145) mmol/L Potassium 4.2 (3.3-5.1) mmol/L Chloride 109 H (96-108) mmol/L Carbon Dioxide 21 L (22-29) mmol/L Anion Gap 10 L (12-20) BUN 16 (9-16) mg/dL Creatinine 0.61 (0.5-1.4) mg/dL Estim Creat Clear Calc 153.8 Estimated GFR > 60 Random Glucose 76 (60-115) mg/dL Calcium 8.6 (8.4-10.2) mg/dL Total Bilirubin 0.3 (0.0-1.0) mg/dL AST 23 (5-31) U/L ALT 27 (0-31) U/L Alkaline Phosphatase 53 (39-117) U/L Troponin I High Sens < 2.7 (<3.5-17.0) ng/L Total Protein 8.0 (6.5-8.0) g/dL Albumin 3.5 (3.5-5.0) g/dL Beta HCG, Quant < 2 mIU/mL Influenza Type A (PCR) NEGATIVE (Negative) Influenza Type B (PCR) NEGATIVE (Negative) RSV RNA Qual (PCR) NEGATIVE (Negative) SARS-CoV-2 RNA (RT-PCR) NEGATIVE (Negative) Independent Interpretation I performed an independent interpretation of an: EKG Interpretation: Normal sinus rhythm with a rate of 76 beats per minute. No acute ischemia Radiology Impression Discussion of test interpretation with radiology: I have reviewed the radiologist's reading. Radiologist Impression: Findings: No consolidation or effusion. Heart size is normal. No acute fracture. IMPRESSION: 1. No acute findings. This document has been electronically signed by: Jaci Torres MD on 10/25/2024 18:07:35 Findings: The heart is normal size. RV/LV ratio is normal. The thoracic aorta is normal caliber. No acute pulmonary embolus. Enlarged bilateral axillary lymph nodes with preserved fatty charbel, similar to prior. Visualized thyroid and mediastinum are within normal limits. 2 mm nodule in the right middle lobe, similar to prior. No consolidation, pleural effusion or pneumothorax. The visualized upper abdomen is unremarkable. The bones are intact. IMPRESSION: No pulmonary embolus. Enlarged bilateral axillary lymph nodes with preserved fatty charbel, similar to prior. This document has been electronically signed by: Jaci Torres MD on 10/26/2024 01:48:10 Discharge Plan Discharge Clinical Impression: Chest pain Patient Disposition: Home, Self-Care Instructions: Chest Pain (ED) Additional Instructions: Your workup in the ER today was reassuring. You do not have a blood clot in your lungs You may use ibuprofen/Tylenol as needed for pain Follow-up with your primary doctor, return for new or worsening symptoms Prescriptions: No Action levothyroxine 175 mcg tablet 175 mcg PO DAILY 90 Days Qty: 90 0RF ibuprofen 600 mg tablet 600 mg PO Q6H PRN (Reason: fever or pain) Qty: 30 0RF acetaminophen 500 mg tablet 1,000 mg PO QID PRN (Reason: pain) Qty: 30 0RF (DME) lancets [FreeStyle Lancets] 28 gauge misc See Rx Instructions .ROUTE .MEDSUPPLY Qty: 100 3RF Rx Instructions: Testing once a day (DME) blood-glucose meter [FreeStyle Lite Meter] Kit See Rx Instructions .Route Qty: 1 0RF Rx Instructions: As directed (DME) FreeStyle Lite Strips Strip See Rx Instructions .ROUTE .MEDSUPPLY Qty: 100 3RF Rx Instructions: Testing Once a day/ as needed triamcinolone acetonide 0.5 % cream 1 appl topical DAILY 30 Days Qty: 15 0RF hydroxychloroquine 200 mg tablet 200 mg PO BID Qty: 60 2RF etonogestrel-ethinyl estradiol 0.12-0.015 mg/24 hr ring 1 vag ring vaginal Q4W Qty: 3 3RF Rx Instructions: leave in place for 3 weeks of a 4-week cycle; start when the Provera withdrawal bleeding is starting to slow down. diclofenac sodium 50 mg tablet,delayed release (DR/EC) 50 mg PO BID 30 Days Qty: 60 3RF metformin 500 mg tablet 500 mg PO ONCE 90 Days Qty: 90 1RF Ozempic 0.25 mg or 0.5 mg (2 mg/3 mL) pen injector 0.5 mg subcut QWEEK 28 Days Qty: 3 3RF Print Language: Lithuanian
--- NOTE | 2024-10-25 17:01 | ECG_ITS ---
Test Reason : CP Blood Pressure : */* mmHG Vent. Rate : 76 BPM Atrial Rate : 76 BPM P-R Int : 152 ms QRS Dur : 94 ms QT Int : 390 ms P-R-T Axes : 13 15 13 degrees QTcB Int : 438 ms Normal sinus rhythm Normal ECG When compared with ECG of 19-Jan-2023 22:28, Vent. rate has decreased by 38 bpm T wave amplitude has increased in Lateral leads Referred By: Mariah Mtz Electronically Signed By: MARKIE WHARTON MD
[2024-10-25 17:19] LABS: MANUAL DIFF FLAG NO
[2024-10-25 17:21] LABS: Basophils Percent Auto 0.3 % (0-2); Eosinophils Percent Auto 0.6 % (0-4); Hematocrit 30.8 % (37.0-47.0); Hemoglobin 10.4 g/dl (12.0-16.0); Imm Gran Abs Auto 0.01 X10*3/uL (0.00-0.03); Imm Gran Pct Auto 0.3 % (0.0-0.4); Lymphocytes Absolute Auto 0.8 X10*3/uL (1.2-4.9); Lymphocytes Percent Auto 27.3 % (20-40); Mean Corpuscular HGB Conc 33.8 g/dl (31.0-35.0); Mean Corpuscular Hemoglobin 27.5 pg (27.0-33.0); Mean Corpuscular Volume 81.5 fL (80.0-98.0); Mean Platelet Volume 9.6 fL (9.4-12.3); Monocytes Absolute Auto 0.2 X10*3/uL (0.1-1.2); Monocytes Percent Auto 6.2 % (2-11); Neutrophils Percent Auto 65.3 % (45-73); Platelet Count 236 X10*3/uL (160-400); Red Blood Count 3.78 X10*6/uL (4.20-5.50); White Blood Count 3.1 X10*3/uL (4.8-10.8)
[2024-10-25 17:28] LABS: Prothrombin Time 11.1 SEC (10.9-12.4)
[2024-10-25 17:34] LABS: Alanine Aminotransferase 27 U/L (0-31); Albumin Level 3.5 g/dL (3.5-5.0); Alkaline Phosphatase 53 U/L (39-117); Anion Gap 10 (12-20); Aspartate Amino Transferase 23 U/L (5-31); Bilirubin Total 0.3 mg/dL (0.0-1.0); Blood Urea Nitrogen 16 mg/dL (9-16); Calcium 8.6 mg/dL (8.4-10.2); Carbon Dioxide 21 mmol/L (22-29); Chloride 109 mmol/L (96-108); Creatinine Clr Calc Pharmacy 153.8; Estimated Glomerular Filt Rate > 60; Glucose Random 76 mg/dL (60-115); Potassium 4.2 mmol/L (3.3-5.1); Sodium 136 mmol/L (135-145)
[2024-10-25 17:42] LABS: Troponin-I High Sensitivity < 2.7 ng/L (<3.5-17.0)
[2024-10-25 17:57] LABS: Influenza A PCR NEGATIVE (Negative); Influenza B PCR NEGATIVE (Negative); Resp Syncy Virus RNA Qual PCR NEGATIVE (Negative); SARS COV2 PCR INHOUSE NEGATIVE (Negative)
[2024-10-25 18:50] LABS: D Dimer High Sensitivity 386 NG/ML
[2024-10-26 00:03] LABS: HCG Quantitative < 2 mIU/mL
[2024-10-26 00:16] VITALS: BP 132/76; PULSE 79; RESP 16; TEMP 36.9; O2SAT 100
[2024-10-26] MEDS: iohexoL 350 MG/ML 100 ML INFUS..BTL 85 ML IV (00:38)
[2024-10-26 01:56] VITALS: BP 140/80; PULSE 79; RESP 17; TEMP 36.4; O2SAT 97
[2024-10-26 02:22] VITALS: BP 140/80; PULSE 79; RESP 17; TEMP 36.4; O2SAT 97
== END 2024-10-26 02:23 | disposition home or self-care (01) ==
PROVIDERS: Nurse Practitioner Family; Physician Assistant; Emergency Provider Emergency Medicine; PCP Physician Assistant
DX: R07.9 Chest pain, unspecified (principal); Z03.818 Encounter for observation for suspected exposure to other biological agents ruled out; E11.9 Type 2 diabetes mellitus without complications; E03.9 Hypothyroidism, unspecified; E28.2 Polycystic ovarian syndrome; M32.9 Systemic lupus erythematosus, unspecified; Z79.899 Other long term (current) drug therapy; Z79.84 Long term (current) use of oral hypoglycemic drugs
CPT/HCPCS: 0241U; 71046; 71275; 80053; 84484; 84702; 85025; 85379; 85610; 93005; 99284; Q9967

== ENCOUNTER → 2024-10-25 17:01 | Outpatient (BNV) | payer OTHER, MEDICAID, SELFPAY | PROVIDERS: Emergency Provider Emergency Medicine; PCP Physician Assistant; Visit Provider Internal Medicine Cardiovascular Disease | DX: R07.9 Chest pain, unspecified (principal) | CPT/HCPCS: 93010 ==

== ENCOUNTER → 2024-10-25 17:01 | Outpatient (BNV) | payer OTHER, MEDICAID, SELFPAY | PROVIDERS: Visit Provider Radiology Diagnostic Radiology | DX: R07.9 Chest pain, unspecified (principal) | CPT/HCPCS: 71046 ==

== ENCOUNTER → 2024-10-26 | Outpatient (BNV) | payer OTHER, MEDICAID, SELFPAY | PROVIDERS: Emergency Provider Emergency Medicine; PCP Physician Assistant; Visit Provider Radiology Diagnostic Radiology | DX: R59.0 Localized enlarged lymph nodes (principal) | CPT/HCPCS: 71275 ==

== ENCOUNTER → 2024-11-18 10:44 | Outpatient (REF) | payer OTHER, MEDICAID, SELFPAY | LOC: HO.SL 10:44 | PROVIDERS: PCP Physician Assistant; Visit Provider Physician Assistant | DX: G47.33 Obstructive sleep apnea (adult) (pediatric) (principal) | CPT/HCPCS: 95806 ==

== ENCOUNTER → 2024-11-19 10:51 | Outpatient (BNV) | payer OTHER, MEDICAID, SELFPAY | PROVIDERS: PCP Physician Assistant; Visit Provider Internal Medicine | DX: R06.83 Snoring (principal); G47.10 Hypersomnia, unspecified | CPT/HCPCS: 95806 ==

== ENCOUNTER 2024-12-08 14:51 | Outpatient (AMB) | payer OTHER, MEDICAID, SELFPAY ==
--- NOTE | 2024-12-08 15:05 | MHC.PC.OV ---
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 Required: No Accompanied by: Self / Same As Patient Allergies adalimumab [From Humira(CF)] Adverse Reaction (Intermediate, Verified 12/09/24 11:00) injection site reaction Medication List - Last Reconciled 12/08/24 by Jaylan Mackey PA-C acetaminophen 1,000 mg (2 x 500 mg) PO QID PRN blood sugar diagnostic (FreeStyle Lite Strips) Testing Once a day/ as needed blood-glucose meter (FreeStyle Lite Meter kit) As directed diclofenac sodium 50 mg PO BID 30 days etonogestrel-ethinyl estradiol 0.12-0.015 mg/24 hr 1 vag ring vaginal Q4W hydroxychloroquine 200 mg PO BID ibuprofen 600 mg PO Q6H PRN lancets (FreeStyle Lancets) Testing once a day levothyroxine 175 mcg PO DAILY 90 days metformin 500 mg PO ONCE 90 days semaglutide (Ozempic) 0.5 mg (0.736 mL) subcut QWEEK 4 weeks triamcinolone acetonide 0.5% 1 appl topical DAILY 30 days Tobacco use date assessed: 09/10/24 Dental Screening Dental Screen Date: 12/08/24 Did you have a dental visit in the last 12 months?: Yes Did you have a dental problem in the last 6 months where you did not have access to dental care?: No Was dental information given to patient?: Patient has dentist HPI 3 Months f/u HPI Details Patient is a 24-year-old female here today for follow-up visit with a past medical history significant for type 2 diabetes, obesity, psoriatic arthritis.? Concern--> Her anxiety levels have escalated, prompting consideration of a new medication approach following suboptimal results with sertraline -CHRONIC MEDICAL CONDITIONS>> Elevated liver enzymes: Has gotten recent ultrasound of her liver that did show right hepatic lobe mass. MRI has been done in August of 2023 was continue to show a 0.9 cm mass, SLE: She has initiated Belimumab treatment for lupus, with noticeable symptom relief following the initial dose. She reports reduced swelling and improved symptoms since starting this therapy. .. Obesity:? Have noted some weight loss since last office visit. Patient continues on Ozempic weekly.? Has been working on portion control which is helping.? Has not added any physical activity to her lifestyle. .. Type 2 diabetes:? Patient continues on metformin 500 q.d. we have increased her Ozempic to 0.5 mg has noted weight loss since last office visit. Today's A1c acceptable. Will continue current antihyperglycemic medications .. Hypothyroid : Continues on levothyroxine 175 mcg. Will recheck TSH prior to next visit to ensure normal Laboratory Tests 10/24/23 03/05/24 03/06/24 15:12 10:54 11:17 WBC 3.6 L RBC Hgb Creatinine Hgb A1c (Clinic) 6.1 H 5.8 AST 78 H ALT 107 H Troponin I High Se ns C-Reactive Protein 1.68 H TSH 4.97 H Urine Microalbumin Double Strand DNA Ab 06/02/24 07/10/24 07/15/24 12:12 10:51 12:20 WBC RBC 4.48 Hgb 12.5 Creatinine 0.63 Hgb A1c (Clinic) AST 61 H ALT 55 H Troponin I High Se ns C-Reactive Protein 2.18 H 2.31 H TSH 6.75 H Urine Microalbumin Double Strand DNA Ab 57 H 10/21/24 10/21/24 10/25/24 11:30 11:33 17:14 WBC RBC 3.78 L Hgb 10.4 L Creatinine 0.61 Hgb A1c (Clinic) AST ALT Troponin I High Se ns < 2.7 C-Reactive Protein TSH Urine Microalbumin 57.0 Double Strand DNA Ab 117 H [facility] Medical History Fatty liver Morbidly obese Surgical History History of carpal tunnel surgery No pertinent past surgical history Family History Father Hypertension Rheumatoid arthritis Mother Hypertension Breast cancer, Onset Age: 35 Rheumatoid arthritis SLE (systemic lupus erythematosus) Paternal Aunt Diabetes Mental health disorder Paternal Uncle Diabetes Mental health disorder Social History Housing: House Alcohol intake: never Patient Tobacco Use Status: Never used Tobacco Tobacco use type: Cigarette e-Cigarette/Vaping Use: Never Used Second Hand Smoke Exposure: No service: No Current occupational status: employed Current occupation: [employer]- Current occupational exposures/hazards: No Cognitive needs: No Hearing needs: No Vision needs: No Female Reproductive History Menstrual Age of Menarche: 11 Questionnaire PHQ-9 Over the last 2 weeks, how often have you been bothered by any of the following problems? 1. Little interest or pleasure in doing things: several days 2. Feeling down, depressed, or hopeless: not at all 3. Trouble falling or staying asleep, or sleeping too much: more than half the days 4. Feeling tired or having little energy: more than half the days 5. Poor appetite or overeating: several days 6. Feeling bad about yourself - or that you are a failure or have let yourself or your family down: nearly every day 7. Trouble concentrating on things, such as reading the newspaper or watching television: not at all 8. Moving or speaking so slowly that other people could have noticed. Or the opposite - being so fidgety or restless that you have been moving around a lot more than usual: more than half the days 9. Thoughts that you would be better off or of hurting yourself in some way: not at all Total score: 11 68290 - PHQ-9 Billing: Yes Source: Developed by Drs. Rakesh Gaston, Mahogany Meza, Quincy Gandhi and colleagues, with an educational cam from [employer]. Thrive Questionnaire Date Thrive assessed: 12/08/24 I am a: Patient What is your living situation today?: I have a steady place to live Within the past 12 months, did the food you bought not last and you didn't have the money to get more?: Never true Within the past 12 months, did you worry whether your food would run out before you got money to buy more?: Never true Do you have trouble paying for medicines?: No Do you have trouble getting transportation to medical appointments?: No Do you have trouble paying your heating and electricity bill?: No Do you have trouble taking care of your child, family member or friend?: No Do you have trouble with day-to-day activities such as bathing, preparing meals, shopping, managing finances, etc.?: No Are you currently unemployed and looking for a job?: No Are you interested in more education?: Yes Please select the resources that you would like help with: None Currently or been in a relationship where the following occur: No concerns reported THRIVE Score: 0 AUDIT C Alcohol Use Questionnaire (AUDIT-C) 1. How often do you have a drink containing alcohol?: Monthly or less 2. How many drinks containing alcohol do you have on a typical day when you are drinking?: 1 or 2 3. How often do you have six or more drinks on one occasion?: Never Total Score: 1 RAJIV-7 AMB Questionnaire RAJIV-7 Date RAJIV - 7 assessed: 09/10/24 Feeling nervous, anxious, or on edge: 3 = Nearly every day Not being able to stop or control worryin = Nearly every day Worrying too much about different things: 3 = Nearly every day Trouble relaxin = Nearly every day Being so restless that it is hard to sit still: 3 = Nearly every day Becoming easily annoyed or irritable: 2 = More than half the days Feeling afraid as if something awful might happen: 3 = Nearly every day Total RAJIV-7 score (0-4 normal; 5-9 mild; 10-14 moderate; 15-21 severe): 20 Source: Developed by Drs. Rakesh Gaston, Mahogany Meza, Quincy Gandhi and colleagues, with an educational cam from [employer]. RAJIV-7 Assessment Billing RAJIV-7 Assessment Tool: RAJIV-7 Assessment 69133 Review of Systems Const Denies headache(s) Eyes Denies loss of vision ENT Denies vertigo, Denies dizziness, Denies headache(s) and Denies sore throat Card Denies chest pain, Denies leg edema and Denies lightheadedness Resp Denies cough, Denies hemoptysis and Denies wheezing GI Denies abdominal pain, Denies melena, Denies constipation, Denies diarrhea and Denies vomiting Denies urinary frequency, Denies dysuria and Denies urinary urgency Musc Denies arthralgias, Denies joint swelling, Denies numbness and Denies tingling Neuro Denies Abnormal speech present, Denies behavioral changes, Denies vertigo, Denies dizziness, Denies headache(s), Denies loss of vision, Denies memory loss, Denies numbness and Denies tingling Psych Denies anxiety, Denies behavioral changes, Denies depression, Denies memory loss and Denies panic attacks Galen/Lymph Denies easy bleeding and Denies easy bruising Aller/Immun Denies wheezing Physical exam (Primary Care) Vital Signs: Last Vital Signs Temp 97.3 F 12/08/24 15:27 Pulse 75 12/08/24 15:27 BP 130/78 12/08/24 15:27 Pulse Ox 98 12/08/24 15:27 Oxygen Delivery Method Room Air 12/08/24 15:27 BMI result Body Mass Index 40.1 BMI Assessment/Plan discussion: High BMI High, discussed plan: lifestyle, weight reduction, dietary and physical activity Tobacco/Smoking Status: Tobacco use Status Tobacco use date assessed 09/10/24 12/08/24 15:06 Patient Tobacco Use Status Never used Tobacco 12/08/24 15:06 Tobacco use type Cigarette 12/08/24 15:06 e-Cigarette/Vaping Use Never Used 12/08/24 15:06 PHQ-9: PHQ-9 Score PHQ-9: Total score 11 12/08/24 15:40 Thrive Assessment: Date of Thrive Assessment Date Thrive assessed 12/08/24 12/08/24 15:06 Currently or been in a relationship where the following occur: No concerns reported Const General: healthy appearing, no acute distress, alert and awake Nutritional Appearance: well nourished Orientation/consciousness: oriented to person, oriented to place and oriented to time HENLA Ears: TM's normal bilaterally General nose exam: Normal nasal mucous membranes and turbinates present Eyes Conjunctivae: conjunctivae normal Sclerae: sclerae normal Pupils: Equal, round and reactive pupils present Neck Neck: Yes no lymphadenopathy and Yes no JVD Thyroid: Thyroid normal Carotids: no bruits Resp Effort & Inspection: normal respiratory effort and not tachypneic Auscultation: no crackles, no rales, no rhonchi and no wheezes Cardio Rate: regular rate Rhythm: regular rhythm Heart sounds: no murmurs and normal S1 and S2 GI Palpation (GI): Soft to palpation, nontender, no hepatomegaly and no splenomegaly Auscultation: normal bowel sounds Skin General skin exam: no rashes or lesions noted and dry skin Neuro General: oriented to person, oriented to place and oriented to time Cranial nerves: Yes Equal, round and reactive pupils present Speech: No Abnormal speech present Gait exam (Neuro): Normal gait present Motor exam (neuro): no tremor noted Extrem Right upper extremity: full ROM Left upper extremity: full ROM Right lower extremity: full ROM; no edema Left lower extremity: full ROM; no edema Psych Mental Status: mental status grossly normal Speech and movement: Normal speech and movement present Affect: normal affect Attitude: cooperative Thought process: Normal thought process present Coding Level of Care Code Est Pt Level 4 (59906) Diagnoses RAJIV (generalized anxiety disorder) F41.1 Systemic lupus erythematosus with other organ involvement, unspecified SLE type M32.19 Systemic lupus erythematosus organ involvement: other Systemic lupus erythematosus type: unspecified Type 2 diabetes mellitus without complication, without long-term current use of insulin E11.9 Diabetes mellitus complication status: without complication Diabetes mellitus terminal gauger supervisor insulin use: without terminal gauger supervisor use Hypothyroidism, unspecified type E03.9 Hypothyroidism type: unspecified Additional Codes RAJIV-7 Assessment Billing - RAJIV-7 Assessment Tool: RAJIV-7 Assessment 76946 ([id number]) PHQ-9 - 91034 - PHQ-9 Billing: Yes ([id number]) Assessment & Plan Assessment & Plan (1) RAJIV (generalized anxiety disorder): Code(s): F41.1 - Generalized anxiety disorder Category: Medical Plan: Patient's rajiv seven score positive for anxiety which has been existing condition for her. She is speaking with a mental health therapist though is interested in starting meds again. Was on sertraline though felt it was not effective. Will start fluoxetine 10 mg for control of her anxiety. She will follow up on the portal on effective this medication. (2) SLE (systemic lupus erythematosus): Comment: dx 07/2024 (inflammatory arthritis, malar rash, alopecia, lymphopenia, ++EDI ++DsDNA,++SSa low C3 low C4) Code(s): M32.9 - Systemic lupus erythematosus, unspecified Category: Medical Qualifiers: Systemic lupus erythematosus organ involvement: other Systemic lupus erythematosus type: unspecified Qualified Code(s): M32.19 - Other organ or system involvement in systemic lupus erythematosus Plan: Has reestablish care with [facility]. Continue Belimumab treatment, monitor response, adjust as necessary. (3) DMII (diabetes mellitus, type 2): Code(s): E11.9 - Type 2 diabetes mellitus without complications Category: Medical Qualifiers: Diabetes mellitus complication status: without complication Diabetes mellitus terminal gauger supervisor insulin use: without terminal gauger supervisor use Qualified Code(s): E11.9 - Type 2 diabetes mellitus without complications Plan: Patient continues on metformin and weekly Ozempic. Diabetes has been well controlled. Will recheck fasting blood sugar and A1c to ensure normal. Goal A1c is to be below 7.0 (4) Hypothyroid: Code(s): E03.9 - Hypothyroidism, unspecified Category: Medical Qualifiers: Hypothyroidism type: unspecified Qualified Code(s): E03.9 - Hypothyroidism, unspecified Plan: Patient continues on 175 mcg of levothyroxine. Will continue to follow TSH to assure normal. Orders: Orders Complete Blood Count no Diff 12/08/24 E11.9 - Type 2 diabetes mellitus without complications Comprehensive [place]. Panel Fast 12/08/24 E11.9 - Type 2 diabetes mellitus without complications TSH reflex Free T4 12/08/24 E03.9 - Hypothyroidism, unspecified Medications: New fluoxetine 10 mg PO DAILY 30 caps 2RF 30 days F41.1 - Generalized anxiety disorder Changed From ibuprofen 600 mg PO Q6H PRN 30 tabs 0RF fever or pain To ibuprofen 600 mg PO Q6H PRN 30 tabs 2RF fever or pain 30 days Refilled metformin 500 mg PO ONCE 90 tabs 1RF 90 days E11.9 - Type 2 diabetes mellitus without complications levothyroxine 175 mcg PO DAILY 90 tabs 0RF 90 days R79.89 - Other specified abnormal findings of blood chemistry Patient Instructions: Goal: A1c to remain below 7.0, LDL to remain below 100 Barriers: Autoimmune disease, Adherence to physical activity and healthy eating habits
[2024-12-08 15:27] VITALS: BP 130/78; PULSE 75; TEMP 36.3; O2SAT 98; BMI 40.1
== END 2024-12-08 15:58 | disposition home or self-care (01) ==
LOC: HO.HMCH 14:52
PROVIDERS: PCP Physician Assistant; Visit Provider Physician Assistant
DX: F41.1 Generalized anxiety disorder (principal); M32.19 Other organ or system involvement in systemic lupus erythematosus; E11.9 Type 2 diabetes mellitus without complications; E03.9 Hypothyroidism, unspecified

== ENCOUNTER → 2024-12-08 14:51 | Outpatient (BNVA) | payer OTHER, MEDICAID, SELFPAY | PROVIDERS: PCP Physician Assistant; Visit Provider Physician Assistant | DX: F41.1 Generalized anxiety disorder (principal); M32.19 Other organ or system involvement in systemic lupus erythematosus; E11.9 Type 2 diabetes mellitus without complications; E03.9 Hypothyroidism, unspecified; Z79.84 Long term (current) use of oral hypoglycemic drugs; Z79.899 Other long term (current) drug therapy | CPT/HCPCS: 96127 ==

== ENCOUNTER 2024-12-09 10:26 | Outpatient (AMB) | payer OTHER, MEDICAID, SELFPAY ==
--- NOTE | 2024-12-09 10:54 | MHC.OFFVIS ---
Vital Signs 12/09/24 10:56 Height 5 ft 1 in Weight 212 lb BMI 40.1 BP 132/76 Intake Visit Reasons: PCOS/ Nuva ring check Display Department Manager: Display Department Manager Present (Gilda) Accompanied by: Self / Same As Patient Allergies adalimumab [From Humira(CF)] Adverse Reaction (Intermediate, Verified 12/09/24 11:00) injection site reaction Medication List - Last Reconciled 12/09/24 by Mackenzie Mendiola CNM acetaminophen 1,000 mg (2 x 500 mg) PO QID PRN blood sugar diagnostic (FreeStyle Lite Strips) Testing Once a day/ as needed blood-glucose meter (FreeStyle Lite Meter kit) As directed diclofenac sodium 50 mg PO BID 30 days etonogestrel-ethinyl estradiol 0.12-0.015 mg/24 hr 1 vag ring vaginal Q4W fluoxetine 10 mg PO DAILY 30 days hydroxychloroquine 200 mg PO BID ibuprofen 600 mg PO Q6H PRN 30 days lancets (FreeStyle Lancets) Testing once a day levothyroxine 175 mcg PO DAILY 90 days metformin 500 mg PO ONCE 90 days semaglutide (Ozempic) 0.5 mg (0.736 mL) subcut QWEEK 4 weeks triamcinolone acetonide 0.5% 1 appl topical DAILY 30 days Is last menstrual period known: Yes Last menstrual period: 11/24/24 Post menopausal: No Patient : No HPI HPI PCOS/ Nuva ring check: Details: Patient is here to follow-up on her use of the NuvaRing which she initiated after a prescription for Provera for amenorrhea. She has PCOS she is prediabetic she has been treated for psoriatic arthritis and she was just diagnosed with lupus and at a recent visit she was having a conversation about her lupus and she was anxious and stressed about the visit that day so her blood pressure was elevated she did checked up with her primary care provider very recently and her blood pressure was okay again she thinks it is whenever she is anxious about something that is when her blood pressure goes up. Her blood pressure is within the normal range today. She has continuing to lose weight with the Ozempic. She has already started the new infusion for her lupus and did not have any negative reactions to it and feels that she has had some positive effects which was good. She is walking her dogs and she is going to be going to the gym with her girlfriend. Her use of the NuvaRing is going well she leaves it in for 21 days and then the has it out for for 7 days and during that time she gets a period with some cramping. Her periods are nice and regular with a and she is not having any issues at all. I reviewed the use of the NuvaRing reviewed her continued success with her efforts to achieve better health for herself and she is following up with many different provider's her thyroid is now stable. Her blood pressure today's within normal range and she is getting regular withdrawal bleeds with the NuvaRing with no side effects. She is going to continue on with the NuvaRing and since she has so many other providers and appointments we will see her in a year to review everything again and I asked her to just please let us know if she did have elevated blood pressures and need to make a plan to change to a different methodology for menses regulation. I wished her continued luck towards better health. [facility] Medical History Fatty liver Morbidly obese Surgical History History of carpal tunnel surgery No pertinent past surgical history Family History Father Hypertension Rheumatoid arthritis Mother Hypertension Breast cancer, Onset Age: 35 Rheumatoid arthritis SLE (systemic lupus erythematosus) Paternal Aunt Diabetes Mental health disorder Paternal Uncle Diabetes Mental health disorder Social History Housing: House Alcohol intake: never Patient Tobacco Use Status: Never used Tobacco Tobacco use type: Cigarette e-Cigarette/Vaping Use: Never Used Second Hand Smoke Exposure: No service: No Current occupational status: employed Current occupation: [employer]- Current occupational exposures/hazards: No Cognitive needs: No Hearing needs: No Vision needs: No Female Reproductive History Menstrual Age of Menarche: 11 Duration of menses: 6-7 days Date of last menstrual period: 11/24/24 control method: vaginal ring (Nuvaring ) Total pregnancies: 0 Date of last pap smear: 12/20/23 (negative ) History of abnormal pap smear: No Physical Exam Vital Signs: Last Vital Signs BP 132/76 12/09/24 10:56 BMI result Body Mass Index 40.1 Assessment & Plan Assessment & Plan (1) Cervical cancer screening: Comment: 12/19/2023 Pap is negative Code(s): Z12.4 - Encounter for screening for malignant neoplasm of cervix Category: Medical (2) DMII (diabetes mellitus, type 2): Code(s): E11.9 - Type 2 diabetes mellitus without complications Category: Medical Qualifiers: Diabetes mellitus jail insulin use: without intermediate teacher use Diabetes mellitus complication status: without complication Qualified Code(s): E11.9 - Type 2 diabetes mellitus without complications (3) Amenorrhea: Comment: No menses since June 2023, for now with Provera and after withdrawal bleed, review plan etc./04/08/2024 we will start OCPs...; patient was switch to NuvaRing at last visit and is doing well with it we will continue on. see notes. Code(s): N91.2 - Amenorrhea, unspecified Category: Medical (4) Morbidly obese: Code(s): E66.01 - Morbid (severe) obesity due to excess calories Category: Medical (5) Elevated LFTs: Code(s): R79.89 - Other specified abnormal findings of blood chemistry Category: Medical (6) SLE (systemic lupus erythematosus): Comment: dx 07/2024 (inflammatory arthritis, malar rash, alopecia, lymphopenia, ++EDI ++DsDNA,++SSa low C3 low C4) Code(s): M32.9 - Systemic lupus erythematosus, unspecified Category: Medical Qualifiers: Systemic lupus erythematosus type: unspecified Systemic lupus erythematosus organ involvement: other Qualified Code(s): M32.19 - Other organ or system involvement in systemic lupus erythematosus (7) Polyarthralgia: Code(s): M25.50 - Pain in unspecified joint Category: Medical (8) Hypothyroid: Code(s): E03.9 - Hypothyroidism, unspecified Category: Medical Qualifiers: Hypothyroidism type: unspecified Qualified Code(s): E03.9 - Hypothyroidism, unspecified (9) PCOS (polycystic ovarian syndrome): Code(s): E28.2 - Polycystic ovarian syndrome Category: Medical Plan Patient is here to follow-up on her use of the NuvaRing which she initiated after a prescription for Provera for amenorrhea. She has PCOS she is prediabetic she has been treated for psoriatic arthritis and she was just diagnosed with lupus and at a recent visit she was having a conversation about her lupus and she was anxious and stressed about the visit that day so her blood pressure was elevated she did checked up with her primary care provider very recently and her blood pressure was okay again she thinks it is whenever she is anxious about something that is when her blood pressure goes up. Her blood pressure is within the normal range today. She has continuing to lose weight with the Ozempic. She has already started the new infusion for her lupus and did not have any negative reactions to it and feels that she has had some positive effects which was good. She is walking her dogs and she is going to be going to the gym with her girlfriend. Her use of the NuvaRing is going well she leaves it in for 21 days and then the has it out for for 7 days and during that time she gets a period with some cramping. Her periods are nice and regular with a and she is not having any issues at all. I reviewed the use of the NuvaRing reviewed her continued success with her efforts to achieve better health for herself and she is following up with many different provider's her thyroid is now stable. Her blood pressure today's within normal range and she is getting regular withdrawal bleeds with the NuvaRing with no side effects. She is going to continue on with the NuvaRing and since she has so many other providers and appointments we will see her in a year to review everything again and I asked her to just please let us know if she did have elevated blood pressures and need to make a plan to change to a different methodology for menses regulation. I wished her continued luck towards better health. Patient is seeing her PCC and other provider's very regularly RTC for annual exam PCOS issues and control review 1 year Medications: Changed From etonogestrel-ethinyl estradiol 0.12-0.015 mg/[address] for 3 weeks of a 4-week cycle; start when the Provera withdrawal bleeding is starting to slow down. 1 vag ring vaginal Q4W 3 ea 3RF To etonogestrel-ethinyl estradiol 0.12-0.015 mg/24 hr continue with 21 days in, leave out for 7 days, then restart w new ring.... 1 vag ring vaginal Q4W 3 ea 4RF Coding Level of Care Code Est Pt Level 3 (40551) Diagnoses Cervical cancer screening Z12.4 Type 2 diabetes mellitus without complication, without long-term current use of insulin E11.9 Diabetes mellitus intermediate teacher insulin use: without intermediate teacher use Diabetes mellitus complication status: without complication Amenorrhea N91.2 Morbidly obese E66.01 Elevated LFTs R79.89 Systemic lupus erythematosus with other organ involvement, unspecified SLE type M32.19 Systemic lupus erythematosus type: unspecified Systemic lupus erythematosus organ involvement: other Polyarthralgia M25.50 Hypothyroidism, unspecified type E03.9 Hypothyroidism type: unspecified PCOS (polycystic ovarian syndrome) E28.2
[2024-12-09 10:56] VITALS: BP 132/76; BMI 40.1
== END 2024-12-09 11:56 | disposition home or self-care (01) ==
LOC: HO.HWSM 10:26
PROVIDERS: PCP Physician Assistant; Visit Provider Advanced Practice Midwife
DX: N91.2 Amenorrhea, unspecified (principal); E28.2 Polycystic ovarian syndrome; Z30.44 Encounter for surveillance of vaginal ring hormonal contraceptive device
CPT/HCPCS: 99213

== ENCOUNTER → 2024-12-09 10:26 | Outpatient (BNVA) | payer OTHER, MEDICAID, SELFPAY | PROVIDERS: PCP Physician Assistant; Visit Provider Advanced Practice Midwife ==

== ENCOUNTER 2025-02-12 09:00 | Outpatient (REF) | payer OTHER, SELFPAY ==
[2025-02-12 09:53] LABS: Hematocrit 33.2 % (37.0-47.0); Hemoglobin 11.0 g/dl (12.0-16.0); Imm Gran Abs Auto 0.00 X10*3/uL (0.00-0.03); Imm Gran Pct Auto 0.0 % (0.0-0.4); Lymphocytes Absolute Auto 0.8 X10*3/uL (1.2-4.9); MANUAL DIFF FLAG SCAN; Mean Corpuscular HGB Conc 33.1 g/dl (31.0-35.0); Mean Corpuscular Hemoglobin 26.7 pg (27.0-33.0); Mean Corpuscular Volume 80.6 fL (80.0-98.0); NRBC Abs Auto 0.000 X10*3/uL (0.0-0.012); NRBC Pct Auto 0.0 /100WBC (0.0-0.2); Platelet Count 265 X10*3/uL (160-400); Red Blood Count 4.12 X10*6/uL (4.20-5.50); SCAN SMEAR FLAG 1
[2025-02-12 09:55] LABS: White Blood Count 2.0 X10*3/uL (4.8-10.8)
[2025-02-12 10:57] LABS: Alanine Aminotransferase 44 U/L (0-31); Albumin Level 3.7 g/dL (3.5-5.0); Alkaline Phosphatase 70 U/L (39-117); Anion Gap 8 (12-20); Aspartate Amino Transferase 33 U/L (5-31); Blood Urea Nitrogen 20 mg/dL (9-16); Calcium 8.7 mg/dL (8.4-10.2); Carbon Dioxide 22 mmol/L (22-29); Chloride 112 mmol/L (96-108); Estimated Glomerular Filt Rate > 60; Potassium 4.1 mmol/L (3.3-5.1); Sodium 138 mmol/L (135-145); Total Protein 7.2 g/dL (6.5-8.0)
[2025-02-12 11:11] LABS: Appearance Urine Clear; Glucose Urine UA Negative (Negative); PH 6.0 (5.0-9.0); Specific Gravity - Urine >= 1.030 (1.005-1.025); UMIC TRIGGER UA YES
[2025-02-12 11:19] LABS: Protein/Creatinine Ratio, Ur 0.25 (<0.2); Total Protein Urine Random 37 mg/dL (<12)
[2025-02-12 11:24] LABS: HBS Num1 0.27 mIU/mL (0-7.99); HBc Num1 0.08 S/CO (0.00-0.79); HBsAGNum1 0.35 S/CO (0.00-0.99); Hepatitis A Antibody IgM 0.17 Index (0-0.79); Hepatitis B Surface Antigen Negative (Negative); ~HepC Num1 0.17 S/CO (0.00-0.79); ~Hepatitis A Antibody IgM Nonreactive (Nonreactive); ~Hepatitis B Surface Antibody NONREACTIVE (Nonreactive); ~Hepatitis C Antibody Nonreactive (Nonreactive)
[2025-02-15 15:38] LABS: TS Negative Control Passed; TS Panel A 0; TS Panel B 0; TS Positive Control Passed; TSpotTB Negative (Negative)
[2025-02-16 13:18] LABS: Vitamin D 25-OH, D2 <4 ng/mL; Vitamin D 25-OH, D3 25 ng/mL; Vitamin D 25-OH, Total 25 ng/mL (30-100)
== END 2025-02-12 09:01 | disposition home or self-care (01) ==
LOC: HO.LAB 09:00
PROVIDERS: PCP Physician Assistant; Visit Provider Student in an Organized Health Care Education/Training Program
DX: M32.19 Other organ or system involvement in systemic lupus erythematosus (principal)
CPT/HCPCS: 36415; 80053; 81001; 82306; 82570; 84156; 85025; 85652; 86140; 86160; 86225; 86481; 86704; 86706; 86709; 86803; 87340

== ENCOUNTER 2025-02-17 07:49 | Outpatient (AMB) | payer OTHER, SELFPAY ==
--- NOTE | 2025-02-17 08:10 | A.OFFVIS_ITS ---
Vital Signs 02/17/25 08:13 Height 5 ft 1 in Weight 207 lb 14.334 oz BMI 39.3 BP 132/80 Blood Pressure Location Rt brachial Position Sitting Respiration 16 Pulse 90 Pulse Source Pulse Oximeter Pulse Oximetry (%) 98 Oxygen Delivery Method Room Air Intake Visit Reasons: SLE Intake Note: Patient presents for SLE follow up. Allergies adalimumab (From Humira(CF)) Adverse Reaction (Intermediate, Verified 02/17/25 08:13) injection site reaction Medication List - Last Reconciled 02/17/25 by Natasha Redd MD acetaminophen 1,000 mg (2 x 500 mg) PO QID PRN amoxicillin 500 mg PO Q8H 7 days blood sugar diagnostic (FreeStyle Lite Strips) Testing Once a day/ as needed blood-glucose meter (FreeStyle Lite Meter kit) As directed diclofenac sodium 50 mg PO BID 30 days etonogestrel-ethinyl estradiol 0.12-0.015 mg/24 hr 1 vag ring vaginal Q4W fluoxetine 10 mg PO DAILY 30 days hydroxychloroquine 200 mg PO BID ibuprofen 600 mg PO Q6H PRN 30 days lancets (FreeStyle Lancets) Testing once a day levothyroxine 175 mcg PO DAILY 90 days metformin 500 mg PO ONCE 90 days semaglutide (Ozempic) 0.5 mg (0.736 mL) subcut QWEEK 4 weeks triamcinolone acetonide 0.5% 1 appl topical DAILY 30 days HPI Comments Details: Patient is a 24-year-old female morbidly obese with diabetes, major depressive disorder/anxiety, hypothyroidism, systemic lupus erythematosus here today for follow up. Interval History: Patient last seen 10/23/2024 with me - Worsening sx with prednisone taper - Plan to start Benlysta IV Today, - Start Benlysta 11/27. Received 3 doses. Last dose 01/23/2025 - Joints doing better - Having worsening rash Rheumatologic History: Initial history from Dr. Ford: The patient presents today for evaluation of joint pains. Apparently in October she developed painful swelling in the hands. There also developed other pains in the elbows, knees and the feet. At one point she had difficulty getting out of bed because of the knee and foot pain. She did visit the emergency room and was prescribed some diclofenac. She did not think it helped much so she is back on ibuprofen now taking 400 mg once or twice a day. That has seem to be somewhat helpful. Last month she was in the ER with some right shoulder and chest pain. CT angio of the chest did not show any pathology of note. Prior to the joint pain she did not have any prodromal illness of fever, diarrhea or respiratory infection. She does not have any ocular or oral dryness. She gets nauseated occasionally, a chronic problem. She does take levothyroxine for hypothyroidism and sertraline 50 mg daily for anxiety and depression. 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 Over the past 2 weeks she has had a somewhat itchy papular rash over the elbows and the thigh regions. She is using a topical steroid on that without much improvement so far. Patient initially thought to have psoriatic arthritis and was started on Humira and then Cosentyx but this did not improve her pains. Finally diagnosed with lupus dx 07/2024 (inflammatory arthritis, malar rash, alopecia, lymphopenia, ++EDI ++DsDNA,++SSa low C3 low C4) Plaquenil 2023 Current Rheumatology Medication(s): Plaquenil 200 mg b.i.d. Benlysta infusions [facility] Medical History Fatty liver Morbidly obese Surgical History History of carpal tunnel surgery No pertinent past surgical history Family History Father Hypertension Rheumatoid arthritis Mother Hypertension Breast cancer, Onset Age: 35 Rheumatoid arthritis SLE (systemic lupus erythematosus) Paternal Aunt Diabetes Mental health disorder Paternal Uncle Diabetes Mental health disorder Social History Housing: House Alcohol intake: never Patient Tobacco Use Status: Never used Tobacco Tobacco use type: Cigarette e-Cigarette/Vaping Use: Never Used Second Hand Smoke Exposure: No service: No Current occupational status: employed Current occupation: [employer]- Current occupational exposures/hazards: No Cognitive needs: No Hearing needs: No Vision needs: No Female Reproductive History Menstrual Age of Menarche: 11 Review of Systems Const Details: Review of Systems Constitutional: Denies fever, chills, weight loss ENT: Denies vision changes, eye pain or eye redness, dental caries, dry mouth GI: Denies nausea, vomiting, diarrhea, abdominal pain, change in BM Pulm: Denies SOB, GAINES, hemoptysis, wheezing Cards: Denies chest pain, palpitations Skin: Denies Raynaud's, rash, nail changes, photosensitivity, MANAGER CULTURE: Denies headaches, weakness, paresthesias, recurrent falls MSK: as per HPI All other systems reviewed and are unremarkable except noted above Physical Exam Vital Signs: Last Vital Signs Pulse 90 02/17/25 08:13 Resp 16 02/17/25 08:13 BP 132/80 02/17/25 08:13 Pulse Ox 98 02/17/25 08:13 Oxygen Delivery Method Room Air 02/17/25 08:13 BMI result Body Mass Index 39.3 Vital signs reviewed Physical Examination CONSTITUITIONAL Patient alert and cooperative. Well appearing and in no apparent painful distress HEENT Conjunctiva and sclera clear. No lymphadenopathy. CHEST/RESPIRATORY SYSTEM Normal respiratory effort and able to speak in complete sentences. Clear to auscultation bilaterally. No crackles, rales, rhonchi, wheezes heard. CARDIAC SYSTEM Regular rate and rhythm. S1 and S2 heard no murmurs. Radial pulses intact bilaterally MSK Hands * Right Hand: Able to make a fist. No swelling or tenderness to palpation of these joints. No deformities noted. * Left Hand: Able to make a fist. No swelling or tenderness to palpation of these joints. No deformities noted. Wrists * Right Wrist: Full ROM. 70 degrees of wrist flexion, 80 degrees of wrist extension. No swelling or TTP * Left Wrist: Full ROM. 70 degrees of wrist flexion, 80 degrees of wrist extension. No swelling or TTP Elbows * Right Elbow: Full ROM. No swelling or TTP. No TTP of the medial and lateral epicondyles * Left Elbow: Full ROM. No swelling or TTP. No TTP of the medial and lateral epicondyles Shoulders * Right shoulder: Full ROM. No swelling noted. No TTP of the AC joint, subacromi al bursa or posterior shoulder * Left shoulder: Full ROM. No swelling noted. No TTP of the AC joint, subacromial bursa or posterior shoulder Hip bursa: No tenderness to palpation bilaterally Knees * Right knee: Full ROM. No swelling noted. No TTP of the knee joint lie or pes anserine bursa * Left knee: Full ROM. No swelling noted. No TTP of the knee joint lie or pes anserine bursa. Ankles * Right ankle: Good ankle dorsiflexion and plantar flexion. No swelling. No TTP of the ankle joint * Left ankle: Good ankle dorsiflexion and plantar flexion. No swelling. No TTP of the ankle joint Feet * Right foot: Negative squeeze test * Left foot: Negative squeeze test Tender points? * No tenderness to palpation of the bilateral trapezius, supraspinatus, anterior costochondral junctions, bilateral suboccipital muscle insertions SKIN SCLE to malar distribution, posterior ear and scalp. Red and inflamed Results Reviewed Results Reviewed: Laboratory Tests 10/21/24 10/25/24 02/12/25 11:33 17:14 09:29 WBC 2.0 L RBC 4.12 L Hgb 10.4 L 11.0 L Hct 33.2 L ESR 51 H 38 H Sodium 138 Potassium 4.1 Chloride 112 H Carbon Dioxide 22 BUN 20 H Creatinine 0.60 AST 23 33 H ALT 27 44 H C-Reactive Protein 1.07 H 1.19 H 25-OH Vitamin D Total 25 L Lupus Labs 10/21/24 02/12/25 11:33 09:29 Double Strand DNA Ab 117 H 53 H Complement C3 51 L 82 L Complement C4 6 L 14 L Urine Tests 10/21/24 02/12/25 11:30 09:24 Urine Color Yellow Urine Appearance Clear Urine Protein 30 (1+) H U Random Total Protein 37 H Protein/Creatinin Ratio 0.28 H 0.25 H Assessment & Plan Assessment & Plan (1) SLE (systemic lupus erythematosus): Comment: dx 07/2024 (inflammatory arthritis, malar rash, alopecia, lymphopenia, ++EDI ++DsDNA,++SSa low C3 low C4) Code(s): M32.9 - Systemic lupus erythematosus, unspecified Category: Medical Qualifiers: Systemic lupus erythematosus type: unspecified Systemic lupus erythematosus organ involvement: other Qualified Code(s): M32.19 - Other organ or system involvement in systemic lupus erythematosus Plan: #SLE Patient is a 24-year-old female with lupus here today for follow up. At last visit patient was started on Benlysta infusions for active lupus despite consistent Plaquenil. Patient reports improved symptoms including joint pain however continues to have inflammatory subacute cutaneous lupus rash involving the malar distribution, posterior ear and scalp. Options include 1. Starting mycophenolate which would also cover potential lupus nephritis given her elevated proteinuria, 2. Short course of prednisone taper to a low Benlysta to start working it has only been 3 doses, 3. Changing Benlysta to saphnelo although I do not like this option because saphnelo has not been shown to be very good for joints, 4. Adding another medication that methotrexate which is great for skin however given her intermittent elevations in her LFTs this would not be the ideal choice. I think it is reasonable for us to do a short course of prednisone and re- evaluate in 3 months. Patient is agreeable Her lupus numbers are looking much better her double-stranded DNA is decreasing and her complement is improving. Plan - Benlysta infusions 400mg IV every 4 weeks - Continue plaquenil 200mg bid - Prednisone: Take 15mg for 14 days then 10mg for 14 days then 5mg for 14 days then stop - Nephrology referral for proteinuria - RTC 3 months - Labs before visit: CBC, CMP, ESR, CRP, C3, C4, dsDNA, UA, UPC (2) Long-term use of hydroxychloroquine: Code(s): Z79.899 - Other emt intermediate (current) drug therapy Category: Medical Plan: #Long-term Use of Hydroxychloroquine Discussed with patient the risks and benefits of hydroxychloroquine in managing the rheumatic condition Benefits include: - Reduced pain, reduce mortality, maintenance of remission and reduction of flares Risks include: - GI upset, skin hyperpigmentation, retinal toxicity (especially after more than 5 years of use), myopathy Advised yearly ophthalmology visits (3) Encounter for monitoring of belimumab therapy: Code(s): Z51.81 - Encounter for therapeutic drug level monitoring; Z79.620 - custodial (current) use of immunosuppressive biologic Plan: #custodial Belimumab Discussed with patient the risks and benefits of hydroxychloroquine in managing the rheumatic condition Benefits include: - Reduced pain, reduce mortality, maintenance of remission and reduction of flares Risks include: - insomnia, injection site reactions, psychiatric events such as worsening depression/anxiety or suicidal ideation, increased risk of infection Plan I spent 46 minutes reviewing the record and labs, taking a history, examining the patient, discussing the treatment plan, ordering diagnostic work up and documenting in the medical record Orders: Orders Complete Blood Count Auto Diff 3 Months M32. - Other organ or system involvement in systemic lupus erythematosus C Reactive Protein 3 Months M32. - Other organ or system involvement in systemic lupus erythematosus Erythrocyte Sedimentation Rate 3 Months M32. - Other organ or system involvement in systemic lupus erythematosus UA w Microscopic 3 Months M3. - Other organ or system involvement in systemic lupus erythematosus Anti DNA DS Antibody 3 Months M32. - Other organ or system involvement in systemic lupus erythematosus Comprehensive Met. Panel 3 Months . - Other organ or system involvement in systemic lupus erythematosus Protein Creatinine Ratio, Ur 3 Months . - Other organ or system involvement in systemic lupus erythematosus Referrals Nephrology Referral . - Other organ or system involvement in systemic lupus erythematosus Medications: Discontinued triamcinolone acetonide 0.5% Discontinued Reason: Patient no longer taking 1 appl topical DAILY 30 days 15 grams 0RF L40.9 - Psoriasis, unspecified Coding Level of Care Code Est Pt Level 5 (02950) Complex EM visit Add On G2211 Diagnoses Systemic lupus erythematosus with other organ involvement, unspecified SLE type . Systemic lupus erythematosus type: unspecified Systemic lupus erythematosus organ involvement: other Long-term use of hydroxychloroquine Z79.899 Encounter for monitoring of belimumab therapy Z51.81; Z79.963
[2025-02-17 08:13] VITALS: BP 132/80; PULSE 90; RESP 16; O2SAT 98; BMI 39.3
== END 2025-02-17 08:47 | disposition home or self-care (01) ==
PROVIDERS: Visit Provider Student in an Organized Health Care Education/Training Program
DX: M32.19 Other organ or system involvement in systemic lupus erythematosus (principal); Z79.899 Other long term (current) drug therapy; Z51.81 Encounter for therapeutic drug level monitoring; Z79.620 Long term (current) use of immunosuppressive biologic
CPT/HCPCS: 99215; G2211

== ENCOUNTER → 2025-02-17 07:49 | Outpatient (BNVA) | payer OTHER, SELFPAY | PROVIDERS: Visit Provider Student in an Organized Health Care Education/Training Program | DX: E66.01 Morbid (severe) obesity due to excess calories (principal); E03.9 Hypothyroidism, unspecified; M32.19 Other organ or system involvement in systemic lupus erythematosus; Z79.899 Other long term (current) drug therapy; E11.9 Type 2 diabetes mellitus without complications; Z51.81 Encounter for therapeutic drug level monitoring; Z79.620 Long term (current) use of immunosuppressive biologic; F41.9 Anxiety disorder, unspecified; F32.9 Major depressive disorder, single episode, unspecified | CPT/HCPCS: 99212 ==

== ENCOUNTER 2025-03-17 13:38 | Outpatient (AMB) | payer OTHER, SELFPAY ==
[2025-03-17 13:41] VITALS: BP 114/60; PULSE 92; O2SAT 99; BMI 39.1
--- NOTE | 2025-03-17 13:41 | HO.NEPHOV ---
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 Roller Machine Required: No Accompanied by: girlfriend Allergies adalimumab (From Humira(CF)) Adverse Reaction (Intermediate, Verified 03/17/25 13:43) injection site reaction Medication List - Last Reconciled 03/17/25 by Blaise Koehler MD blood sugar diagnostic (FreeStyle Lite Strips) Testing Once a day/ as needed blood-glucose meter (FreeStyle Lite Meter kit) As directed etonogestrel-ethinyl estradiol 0.12-0.015 mg/24 hr 1 vag ring vaginal Q4W fluoxetine 10 mg PO DAILY 90 days hydroxychloroquine 200 mg PO BID lancets (FreeStyle Lancets) Testing once a day levothyroxine 175 mcg PO DAILY 90 days metformin 500 mg PO DAILY prednisone 5 mg PO DIRECTED semaglutide (Ozempic) 0.5 mg (0.736 mL) subcut QWEEK 4 weeks HPI Comments Details: Polly is a 25-year-old female presenting with proteinuria The proteinuria was initially detected in October with a level of 280 mg, and subsequent testing in February showed a slight decrease to 250 mg. The patient has a history of prediabetes with an A1c of 5.6, which has improved from a previous high of 7.0 two years ago. The patient was diagnosed with systemic lupus erythematosus about a year ago , presenting with joint pain, a malar rash, fatigue, and oral ulcers. Initial treatment included Humira, which was ineffective, leading to a switch to hydroxychloroquine and monthly infusions of Benlysta, resulting in reduced joint swelling and fatigue. The patient also has a history of psoriasis, which was treated with prednisone for skin involvement. The patient has been managing hypothyroidism with levothyroxine, and recent tests indicate improved thyroid function. History of obesity and has experienced significant weight loss, reducing from 295 pounds to 207 pounds over the past year, aided by dietary changes and Ozempic. [facility] Medical History Fatty liver Morbidly obese Surgical History History of carpal tunnel surgery No pertinent past surgical history Family History Father Hypertension Rheumatoid arthritis Mother Hypertension Breast cancer, Onset Age: 35 Rheumatoid arthritis SLE (systemic lupus erythematosus) Paternal Aunt Diabetes Mental health disorder Paternal Uncle Diabetes Mental health disorder Social History Housing: House Alcohol intake: never Patient Tobacco Use Status: Never used Tobacco Tobacco use type: Cigarette e-Cigarette/Vaping Use: Never Used Second Hand Smoke Exposure: No service: No Current occupational status: employed Current occupation: [employer]- Current occupational exposures/hazards: No Cognitive needs: No Hearing needs: No Vision needs: No Female Reproductive History Menstrual Age of Menarche: 11 Review of Systems Const Denies anorexia, Denies fever(s) and Denies weakness Eyes Denies blurry vision Card Denies no additional complaints and Denies dyspnea Resp Reports no additional complaints, Reports cough and Denies dyspnea GI Denies melena and Denies diarrhea Denies hematuria Musc Denies tingling Skin/Breast Denies rash Neuro Denies focal weakness, Denies tingling, Denies tremor(s) and Denies weakness Physical Exam Vital Signs: Last Vital Signs Pulse 92 03/17/25 13:41 BP 114/60 03/17/25 13:41 Pulse Ox 99 03/17/25 13:41 Oxygen Delivery Method Room Air 03/17/25 13:41 BMI result Body Mass Index 39.1 Const General: comfortable Nutritional Appearance: well nourished Orientation/consciousness: patient oriented x3 HEENT Head: No normal to inspection Mouth: moist mucous membranes Neck Neck: Yes supple and Yes no JVD Resp Auscultation: clear to auscultation bilaterally and no rales Cardio Jugular venous distension: no JVD Palpation: no palpable S3 and no palpable S4 Heart sounds: no rubs GI Palpation (GI): Soft to palpation and nontender Percussion: No Fluid wave present General: Yes no CVA tenderness Back/Spine/Pelvis Back: no CVA tenderness Skin General skin exam: no rashes or lesions noted Neuro General: patient oriented x3 Extrem General: Yes no pedal edema and No clubbing Results Reviewed Nephrology Results: Hgb, (12.0-16.0) 11.0 g/dl L 02/12/25 WBC, (4.8-10.8) 2.0 X10*3/uL L 02/12/25 Plt Count, (160-400) 265 X10*3/uL 02/12/25 Sodium, (135-145) 138 mmol/L 02/12/25 Potassium, (3.3-5.1) 4.1 mmol/L 02/12/25 Chloride, (96-108) 112 mmol/L H 02/12/25 Carbon Dioxide, (22-29) 22 mmol/L 02/12/25 BUN, (9-16) 20 mg/dL H 02/12/25 Creatinine, (0.5-1.4) 0.60 mg/dL 02/12/25 Calcium, (8.4-10.2) 8.7 mg/dL 02/12/25 Urine Protein, (Neg-Trace) 30 (1+) mg/dL H 02/12/25 Urine Creatinine 146.45 mg/dL 02/12/25 Protein/Creatinin Ratio, (<0.2) 0.25 H 02/12/25 Assessment & Plan Assessment & Plan (1) Proteinuria: Code(s): R80.9 - Proteinuria, unspecified Category: Medical (2) DMII (diabetes mellitus, type 2): Code(s): E11.9 - Type 2 diabetes mellitus without complications Category: Medical Qualifiers: Diabetes mellitus complication status: without complication 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 insulin use: without equipment operator intermodal yard use Qualified Code(s): E11.9 - Type 2 diabetes mellitus without complications (3) SLE (systemic lupus erythematosus): Comment: dx 07/2024 (inflammatory arthritis, malar rash, alopecia, lymphopenia, ++EDI ++DsDNA,++SSa low C3 low C4) Code(s): M32.9 - Systemic lupus erythematosus, unspecified Category: Medical Qualifiers: Systemic lupus erythematosus organ involvement: other Systemic lupus erythematosus type: unspecified Qualified Code(s): M32.19 - Other organ or system involvement in systemic lupus erythematosus Plan Young woman with SLE and obesity with prediabetes has minimal proteinuria and essentially normal renal function. Urinalysis did not reveal any significant RBCs. Based on the urine studies I do not believe she has any active renal involvement from lupus. Obesity might be playing a role in contributing to the proteinuria. Recommendations Obtain 24 urine collection for quantification and creatinine clearance Renal ultrasonogram Encouraged to increase p.o. fluid intake. Low-salt diet. She has should continue with weight loss. Watch renal function closely along with urine studies. I do not think she needs kidney biopsy for staging at this time. Add losartan 25 mg p.o. q.h.s. for renal protection and monitor renal function and urine protein excretion closely. I have answered all her questions and we will follow along with the team. Thank you Orders: Orders Creatinine, 24 Hr Group Today Blaise Koehler MD N18.9 - Chronic kidney disease, unspecified US renal BI Today Blaise Koehler MD N18.9 - Chronic kidney disease, unspecified, R80.9 - Proteinuria, unspecified Basic Metabolic Panel Today Blaise Koehler MD N18.9 - Chronic kidney disease, unspecified Protein, 24 Hr Urine Group Today Blaise Koehler MD N18.9 - Chronic kidney disease, unspecified Medications: New losartan 25 mg PO DAILY 30 tabs 1RF Blaise Koehler MD Changed From metformin 500 mg PO ONCE 90 days 90 tabs 1RF E11.9 - Type 2 diabetes mellitus without complications To metformin 500 mg PO DAILY E11.9 - Type 2 diabetes mellitus without complications Jaylan Mackey PA-C Coding Level of Care Code New Pt Level 4 (11214) Diagnoses Proteinuria R80.9 Type 2 diabetes mellitus without complication, without long-term current use of insulin E11.9 Diabetes mellitus complication status: without complication Diabetes mellitus [facility] insulin use: without equipment operator intermodal yard use Systemic lupus erythematosus with other organ involvement, unspecified SLE type M32.19 Systemic lupus erythematosus organ involvement: other Systemic lupus erythematosus type: unspecified
== END 2025-03-17 14:03 | disposition home or self-care (01) ==
LOC: HO.HKA 13:38
PROVIDERS: Visit Provider Internal Medicine Hypertension Specialist
DX: R80.9 Proteinuria, unspecified (principal); E11.9 Type 2 diabetes mellitus without complications; M32.19 Other organ or system involvement in systemic lupus erythematosus
CPT/HCPCS: 99204

== ENCOUNTER → 2025-03-17 13:38 | Outpatient (BNVA) | payer OTHER, SELFPAY | PROVIDERS: Visit Provider Internal Medicine Hypertension Specialist | DX: R80.9 Proteinuria, unspecified (principal); E11.9 Type 2 diabetes mellitus without complications; M32.19 Other organ or system involvement in systemic lupus erythematosus; E66.01 Morbid (severe) obesity due to excess calories; Z68.39 Body mass index [BMI] 39.0-39.9, adult | CPT/HCPCS: 99202 ==

== ENCOUNTER 2025-03-23 08:42 | Outpatient (REF) | payer OTHER, SELFPAY ==
[2025-03-23 10:12] LABS: Hematocrit 35.3 % (37.0-47.0); Hemoglobin 11.6 g/dl (12.0-16.0); Mean Corpuscular HGB Conc 32.9 g/dl (31.0-35.0); Mean Corpuscular Hemoglobin 27.1 pg (27.0-33.0); Mean Corpuscular Volume 82.5 fL (80.0-98.0); NRBC Abs Auto 0.000 X10*3/uL (0.0-0.012); NRBC Pct Auto 0.0 /100WBC (0.0-0.2); Platelet Count 281 X10*3/uL (160-400); Red Blood Count 4.28 X10*6/uL (4.20-5.50); White Blood Count 2.9 X10*3/uL (4.8-10.8)
[2025-03-23 11:18] LABS: Alanine Aminotransferase 17 U/L (0-31); Albumin Level 3.8 g/dL (3.5-5.0); Alkaline Phosphatase 63 U/L (39-117); Anion Gap 12 (12-20); Aspartate Amino Transferase 19 U/L (5-31); Blood Urea Nitrogen 22 mg/dL (9-16); Calcium 8.8 mg/dL (8.4-10.2); Carbon Dioxide 24 mmol/L (22-29); Chloride 110 mmol/L (96-108); Estimated Glomerular Filt Rate > 60; Potassium 4.1 mmol/L (3.3-5.1); Sodium 142 mmol/L (135-145); Total Protein 6.9 g/dL (6.5-8.0)
[2025-03-23 12:31] LABS: Free T4 (Free Thyroxine) 1.61 ng/dL (0.71-1.85)
== END 2025-03-23 08:43 | disposition home or self-care (01) ==
LOC: HO.LAB 08:42
PROVIDERS: Internal Medicine Hypertension Specialist; PCP Physician Assistant; Visit Provider Physician Assistant
DX: F41.1 Generalized anxiety disorder (principal); M32.19 Other organ or system involvement in systemic lupus erythematosus; E11.9 Type 2 diabetes mellitus without complications; E03.9 Hypothyroidism, unspecified; J45.20 Mild intermittent asthma, uncomplicated
CPT/HCPCS: 36415; 80053; 83036; 84439; 84443; 85027; 99212

== ENCOUNTER 2025-03-23 15:40 | Outpatient (AMB) | payer OTHER, SELFPAY ==
--- NOTE | 2025-03-23 15:43 | MHC.PC.OV ---
Vital Signs 03/23/25 15:44 Height 5 ft 1 in Weight 209 lb 6 oz BMI 39.6 BP 100/66 Blood Pressure Location Lt brachial Position Sitting Pulse 81 Pulse Source Pulse Oximeter Temp 97.1 F Temp Source Temporal Artery Scan Pulse Oximetry (%) 98 Oxygen Delivery Method Room Air Intake Visit Reasons: f/u DMII / Intake Note: Patient is here to follow up on DMII. Bus Attendant Required: No Accompanied by: Self / Same As Patient Allergies adalimumab (From Humira(CF)) Adverse Reaction (Intermediate, Verified 03/23/25 15:55) injection site reaction Medication List - Last Reconciled 03/23/25 by Jaylan Mackey PA-C blood sugar diagnostic (FreeStyle Lite Strips) Testing Once a day/ as needed blood-glucose meter (FreeStyle Lite Meter kit) As directed etonogestrel-ethinyl estradiol 0.12-0.015 mg/24 hr 1 vag ring vaginal Q4W fluoxetine 10 mg PO DAILY 90 days hydroxychloroquine 200 mg PO BID lancets (FreeStyle Lancets) Testing once a day levothyroxine (Synthroid) 137 mcg PO DAILY 30 days losartan 25 mg PO DAILY metformin 500 mg PO DAILY prednisone 5 mg PO DIRECTED semaglutide (Ozempic) 0.5 mg (0.736 mL) subcut QWEEK 4 weeks Tobacco use date assessed: 03/23/25 Dental Screening Dental Screen Date: 12/08/24 HPI f/u DMII / HPI Details Patient is a 25-year-old female here today for follow-up visit with a past medical history significant for type 2 diabetes, obesity, psoriatic arthritis.? Concern--> The patient experiences bronchospasm in cold weather, leading to chest pain and difficulty breathing. The patient has used her mother's asthma inhaler with relief and has been advised to use a mask in cold weather. .. Generalized anxiety disorder: Anxiety has been a persistent issue, with the patient experiencing panic attacks, particularly in public settings. The patient is currently on fluoxetine, which initially helped but has become less effective over time. The dose is being increased from 10 mg to 20 mg to address the resurgence of symptoms. Proteinuria: Recently seen by Nephrology and was started on losartan for proteinuria. No kidney biopsy indicated at this time. She will be undergoing further testing with imaging in 24 hour urine. Elevated liver enzymes: Has gotten recent ultrasound of her liver that did show right hepatic lobe mass. MRI has been done in August of 2023 was continue to show a 0.9 cm mass, SLE: She has initiated Belimumab treatment for lupus, with noticeable symptom relief following the initial dose. She reports reduced swelling and improved symptoms since starting this therapy. .. Class 2 Obesity:? Have noted some weight loss since last office visit. Patient continues on Ozempic weekly.? Has been working on portion control which is helping.? Has not added any physical activity to her lifestyle. .. Type 2 diabetes:? Patient continues on metformin 500 q.d. we have increased her Ozempic to 0.5 mg has noted weight loss since last office visit. Most recent A1c acceptable.. Will continue current antihyperglycemic medications .. Hypothyroid : Most recent TSH very low . We will decrease her levothyroxine to 137 mcg and recheck TSH in 6 weeks. [facility] Medical History Fatty liver Morbidly obese Surgical History History of carpal tunnel surgery No pertinent past surgical history Family History Father Hypertension Rheumatoid arthritis Mother Hypertension Breast cancer, Onset Age: 35 Rheumatoid arthritis SLE (systemic lupus erythematosus) Paternal Aunt Diabetes Mental health disorder Paternal Uncle Diabetes Mental health disorder Social History Housing: House Alcohol intake: never Patient Tobacco Use Status: Never used Tobacco Tobacco use type: Cigarette e-Cigarette/Vaping Use: Never Used Second Hand Smoke Exposure: No service: No Current occupational status: employed Current occupation: [employer]- Current occupational exposures/hazards: No Cognitive needs: No Hearing needs: No Vision needs: No Female Reproductive History Menstrual Age of Menarche: 11 Questionnaire Thrive Questionnaire Date Thrive assessed: 12/08/24 I am a: Patient What is your living situation today?: I have a steady place to live Within the past 12 months, did the food you bought not last and you didn't have the money to get more?: Never true Within the past 12 months, did you worry whether your food would run out before you got money to buy more?: Never true Do you have trouble paying for medicines?: No Do you have trouble getting transportation to medical appointments?: No Do you have trouble paying your heating and electricity bill?: No Do you have trouble taking care of your child, family member or friend?: No Do you have trouble with day-to-day activities such as bathing, preparing meals, shopping, managing finances, etc.?: No Are you currently unemployed and looking for a job?: No Are you interested in more education?: Yes Please select the resources that you would like help with: None Currently or been in a relationship where the following occur: No concerns reported THRIVE Score: 0 RAJIV-7 AMB Questionnaire RAJIV-7 Date RAJIV - 7 assessed: 09/10/24 Source: Developed by Drs. Rakesh Gaston, Mahogany Meza, Quincy Gandhi and colleagues, with an educational cam from [employer]. Review of Systems Const Denies headache(s) Eyes Denies loss of vision ENT Denies vertigo, Denies dizziness, Denies headache(s) and Denies sore throat Card Denies chest pain, Denies leg edema and Denies lightheadedness Resp Denies cough, Denies hemoptysis and Denies wheezing GI Denies abdominal pain, Denies melena, Denies constipation, Denies diarrhea and Denies vomiting Denies urinary frequency, Denies dysuria and Denies urinary urgency Musc Denies arthralgias, Denies joint swelling, Denies numbness and Denies tingling Neuro Denies Abnormal speech present, Denies behavioral changes, Denies vertigo, Denies dizziness, Denies headache(s), Denies loss of vision, Denies memory loss, Denies numbness and Denies tingling Psych Denies anxiety, Denies behavioral changes, Denies depression, Denies memory loss and Denies panic attacks Galen/Lymph Denies easy bleeding and Denies easy bruising Aller/Immun Denies wheezing Physical exam (Primary Care) Vital Signs: Last Vital Signs Temp 97.1 F 03/23/25 15:44 Pulse 81 03/23/25 15:44 BP 100/66 03/23/25 15:44 Pulse Ox 98 03/23/25 15:44 Oxygen Delivery Method Room Air 03/23/25 15:44 BMI result Body Mass Index 39.6 BMI Assessment/Plan discussion: High BMI High, discussed plan: lifestyle, weight reduction, dietary and physical activity Tobacco/Smoking Status: Tobacco use Status Tobacco use date assessed 03/23/25 03/23/25 15:52 Patient Tobacco Use Status Never used Tobacco 03/23/25 15:52 Tobacco use type Cigarette 03/23/25 15:52 e-Cigarette/Vaping Use Never Used 03/23/25 15:52 Thrive Assessment: Date of Thrive Assessment Date Thrive assessed 12/08/24 03/23/25 15:52 Currently or been in a relationship where the following occur: No concerns reported Const Other: Obese General: healthy appearing, no acute distress, alert and awake Nutritional Appearance: well nourished Orientation/consciousness: oriented to person, oriented to place and oriented to time HENMT Ears: TM's normal bilaterally General nose exam: Normal nasal mucous membranes and turbinates present Eyes Conjunctivae: conjunctivae normal Sclerae: sclerae normal Pupils: Equal, round and reactive pupils present Neck Neck: Yes no lymphadenopathy and Yes no JVD Thyroid: Thyroid normal Carotids: no bruits Resp Effort & Inspection: normal respiratory effort and not tachypneic Auscultation: no crackles, no rales, no rhonchi and no wheezes Cardio Rate: regular rate Rhythm: regular rhythm Heart sounds: no murmurs and normal S1 and S2 GI Palpation (GI): Soft to palpation, nontender, no hepatomegaly and no splenomegaly Auscultation: normal bowel sounds Skin General skin exam: no rashes or lesions noted and dry skin Neuro General: oriented to person, oriented to place and oriented to time Cranial nerves: Yes Equal, round and reactive pupils present Speech: No Abnormal speech present Gait exam (Neuro): Normal gait present Motor exam (neuro): no tremor noted Extrem Right upper extremity: full ROM Left upper extremity: full ROM Right lower extremity: full ROM; no edema Left lower extremity: full ROM; no edema Psych Mental Status: mental status grossly normal Speech and movement: Normal speech and movement present Affect: normal affect Attitude: cooperative Thought process: Normal thought process present Results AMB Hemoglobin A1c AMB Hemoglobin A1c 5.5 % Last Edit by MARTHA Gauthier on 03/23/25 16:04 Coding Level of Care Code Est Pt Level 4 (84228) Diagnoses RAJIV (generalized anxiety disorder) F41.1 Systemic lupus erythematosus with other organ involvement, unspecified SLE type M32.19 Systemic lupus erythematosus type: unspecified Systemic lupus erythematosus organ involvement: other Type 2 diabetes mellitus without complication, without long-term current use of insulin E11.9 Diabetes mellitus terminal gauger insulin use: without terminal gauger use Diabetes mellitus complication status: without complication Hypothyroidism, unspecified type E03.9 Hypothyroidism type: unspecified Mild intermittent asthma without complication J45.20 Asthma severity: mild Asthma persistence: intermittent Asthma complication type: uncomplicated Assessment & Plan Assessment & Plan (1) RAJIV (generalized anxiety disorder): Code(s): F41.1 - Generalized anxiety disorder Category: Medical Plan: The patient's fluoxetine dose is being increased from 10 mg to 20 mg due to persistent anxiety and panic attacks, particularly in public settings. (2) SLE (systemic lupus erythematosus): Comment: dx 07/2024 (inflammatory arthritis, malar rash, alopecia, lymphopenia, ++EDI ++DsDNA,++SSa low C3 low C4) Code(s): M32.9 - Systemic lupus erythematosus, unspecified Category: Medical Qualifiers: Systemic lupus erythematosus type: unspecified Systemic lupus erythematosus organ involvement: other Qualified Code(s): M32.19 - Other organ or system involvement in systemic lupus erythematosus Plan: Has reestablish care with [facility]. Continue Belimumab treatment, monitor response, adjust as necessary. (3) DMII (diabetes mellitus, type 2): Code(s): E11.9 - Type 2 diabetes mellitus without complications Category: Medical Qualifiers: Diabetes mellitus terminal gauger insulin use: without skilled nursing use Diabetes mellitus complication status: without complication Qualified Code(s): E11.9 - Type 2 diabetes mellitus without complications Plan: Patient continues on metformin and weekly Ozempic. Diabetes has been well controlled. Will recheck fasting blood sugar and A1c to ensure normal. Goal A1c is to be below 7.0 (4) Hypothyroid: Code(s): E03.9 - Hypothyroidism, unspecified Category: Medical Qualifiers: Hypothyroidism type: unspecified Qualified Code(s): E03.9 - Hypothyroidism, unspecified Plan: The patient's TSH levels were low, indicating a need to reduce the thyroid medication dose from 175 mcg to 137 mcg, with a follow-up in six weeks. (5) Asthma: Code(s): J45.909 - Unspecified asthma, uncomplicated Category: Medical Qualifiers: Asthma severity: mild Asthma persistence: intermittent Asthma complication type: uncomplicated Qualified Code(s): J45.20 - Mild intermittent asthma, uncomplicated Plan: The patient experiences bronchospasm in cold weather and has been advised to use a mask and provided with an albuterol inhaler for relief. Orders: Orders Lipid Panel Today E11.9 - Type 2 diabetes mellitus without complications AMB Hemoglobin A1c Today E11.9 - Type 2 diabetes mellitus without complications Microalbumin, Random (w Creat) Today E11.9 - Type 2 diabetes mellitus without complications Comprehensive [place]. Panel Fast Today E11.9 - Type 2 diabetes mellitus without complications Medications: New fluoxetine 20 mg PO DAILY 90 caps 1RF 90 days F41.1 - Generalized anxiety disorder albuterol sulfate 90 mcg/actuation (Ventolin HFA) 1 inh inhalation QID 8.5 grams 3RF 30 days J45.20 - Mild intermittent asthma, uncomplicated Refilled semaglutide (Ozempic) 0.5 mg (0.736 mL) subcut QWEEK 3 mL 3RF 4 weeks E11.9 - Type 2 diabetes mellitus without complications Discontinued fluoxetine Discontinued Reason: Doctor's Order 10 mg PO DAILY 90 days 90 caps 2RF F41.1 - Generalized anxiety disorder levothyroxine Discontinued Reason: Doctor's Order 175 mcg PO DAILY 90 days 90 tabs 0RF R79.89 - Other specified abnormal findings of blood chemistry
[2025-03-23 15:44] VITALS: BP 100/66; PULSE 81; TEMP 36.2; O2SAT 98; BMI 39.6
== END 2025-03-23 16:50 | disposition home or self-care (01) ==
LOC: HO.HMCH 15:41
PROVIDERS: Visit Provider Physician Assistant
DX: F41.1 Generalized anxiety disorder (principal); M32.19 Other organ or system involvement in systemic lupus erythematosus; E11.9 Type 2 diabetes mellitus without complications; E03.9 Hypothyroidism, unspecified; J45.20 Mild intermittent asthma, uncomplicated

== ENCOUNTER 2025-04-27 14:27 | Outpatient (REF) | payer OTHER, SELFPAY | END 2025-04-27 14:28 | disposition home or self-care (01) | LOC: HO.US 14:27 | PROVIDERS: Visit Provider Internal Medicine Hypertension Specialist | DX: N18.9 Chronic kidney disease, unspecified (principal); R80.9 Proteinuria, unspecified | CPT/HCPCS: 76775 ==

== ENCOUNTER → 2025-04-27 14:29 | Outpatient (BNV) | payer OTHER, SELFPAY | PROVIDERS: Visit Provider Radiology Diagnostic Radiology | DX: N18.9 Chronic kidney disease, unspecified (principal) | CPT/HCPCS: 76775 ==

== ENCOUNTER 2025-04-28 11:27 | Outpatient (REF) | payer OTHER, SELFPAY ==
[2025-04-28 13:49] LABS: Total Volume 24 Hour Urine 1450 mL
[2025-04-28 14:20] LABS: Creatinine, mg/dL 93.13
== END 2025-04-28 11:28 | disposition home or self-care (01) ==
LOC: HO.LNP 11:27
PROVIDERS: Visit Provider Internal Medicine Hypertension Specialist
DX: N18.9 Chronic kidney disease, unspecified (principal)
CPT/HCPCS: 84156

== ENCOUNTER 2025-05-20 13:27 | Emergency (ER) | payer OTHER, SELFPAY ==
--- NOTE | ~2025-05-20 | XR_ITS ---
CLINICAL HISTORY: cp 2 view chest x-ray Comparison: CT/SR - CT ANGIO CHEST PE PROTOCOL - 10/26/24 00:29 EDT CR - XR CHEST 2V - 10/25/24 17:39 EDT Findings: The lungs are clear. Normal size heart. No acute fracture. IMPRESSION: 1. No acute findings. This document has been electronically signed by: Savita Gibson MD on 05/20/2025 21:05:34
--- NOTE | 2025-05-20 13:49 | ED_ITS ---
HPI - General Adult General Chief complaint: Dizziness Stated complaint: dizzy, congested Time Seen by Provider: 05/20/25 19:21 Source: patient Mode of arrival: ambulatory Limitations: no limitations History of Present Illness ED Provider: Dr. Mosley HPI narrative: 25-year-old female presented hospital today for evaluation of chest pain for the past 3 days and dizziness. Chest pain has improved. Patient stated she has new some nasal congestion and sign of congestion as well. Patient complain of dizziness associated with this. Describes the chest pain as a chest tightness. Related Data Home Medications ?Medication ?Instructions ?Recorded ?Confirmed metformin 500 mg tablet 500 mg PO DAILY 03/17/25 Previous Rx's ?Medication ?Instructions ?Recorded blood sugar diagnostic (FreeStyle #100 ea 07/16/23 Lite Strips) blood-glucose meter (FreeStyle #1 ea 07/16/23 Lite Meter kit) lancets 28 gauge (FreeStyle #100 ea 07/16/23 Lancets) hydroxychloroquine 200 mg tablet 200 mg PO BID #180 ta bs 11/27/24 etonogestrel 0.12 mg-ethinyl 1 vag ring vaginal Q4W #3 ea 12/09/24 estradiol 0.015 mg/24 hr vaginal ring prednisone 5 mg tablet 5 mg PO DIRECTED #84 tabs 02/18/25 albuterol sulfate 90 mcg/actuation 1 inh inhalation QI D 30 days #8.5 03/23/25 aerosol inhaler (Ventolin HFA) grams fluoxetine 20 mg capsule 20 mg PO DAILY 90 days #90 c aps 03/23/25 semaglutide 0.25 mg or 0.5 mg (2 0.5 mg (0.736 mL) sub cut QWEEK 4 03/23/25 mg/3 mL) subcutaneous pen injector weeks #3 mL (Ozempic) levothyroxine 137 mcg tablet 137 mcg PO DAILY 90 days #90 tabs 03/24/25 (Synthroid) losartan 25 mg tablet 25 mg PO DAILY #90 tabs 10/28 prednisone 20 mg tablet 20 mg PO DAILY 5 days #5 tab s 05/20/25 Allergies Allergy/AdvReac Type Severity Reaction Status Date / Time adalimumab (From Humira(CF)) AdvReac Intermediate injection Verified 05/20/25 13:52 site reaction Review of Systems 2 Review of Systems: Pertinent review of systems as mentioned in HPI. All other system otherwise negative. [facility] Past Medical History Attestation statement: The following information was validated with the patient. [facility] Narrative: Medical history as mentioned in HPI Medical History Fatty liver Morbidly obese Surgical History History of carpal tunnel surgery No pertinent past surgical history Family History Family History Father Hypertension Rheumatoid arthritis Mother Hypertension Breast cancer, Onset Age: 35 Rheumatoid arthritis SLE (systemic lupus erythematosus) Paternal Aunt Diabetes Mental health disorder Paternal Uncle Diabetes Mental health disorder Social History Social History Housing: House Alcohol intake: never Patient Tobacco Use Status: Never used Tobacco Tobacco use type: Cigarette Smoked in Last 30 Days: No e-Cigarette/Vaping Use: Never Used Second Hand Smoke Exposure: No Use of substances other than those prescribed or required for medical reasons: No Advance Directives: No Advance Directives Information Provided: Yes Do you have a plan to hurt others: No Plan service: No Current occupational status: employed Current occupation: [employer]- Current occupational exposures/hazards: No Cognitive needs: No Hearing needs: No Vision needs: No Physical Exam ED Exam Exam: General: Pleasant, no distress, interacting appropriately Head: Normacephalic, atraumatic ENT: oral mucosa moist, neck supple, no tracheal deviation Cardiovascular: regular rate, regular rhythm, no murmurs, rubbing, gallops Respiratory: CTAB, no wheeze, rales, rhonchi Neurological: Awake and alert, no facial droop noted Skin: Warm and dry Psychiatric: Appropriate mood and thoughts Vital Signs: Vital Signs - 24 hr 05/20/25 13:50 05/20/25 19:32 05/20/25 20:19 Temperature 98.6 F 98.2 F 98.3 F Pulse Rate 81 75 72 Respiratory Rate 18 16 16 Blood Pressure 147/63 H 105/58 L 100/46 L Pulse Oximetry 99 98 97 Oxygen Delivery Method Room Air Room Air Room Air BMI result Body Mass Index 41.6 Course Course Course Narrative: This is a Rapid Medical Examination (RME) performed by Preethi Murphy PA-C in triage. Full HPI, ROS, assessment and treatment plan per primary provider in the Main ED. Hx: Patient is a 25yo female with a pmhx of T2DM, SLE, CKD, and hypothyroidism who presents with a CC of dizziness x3 days described as lightheadedness and chest pain x2 days. Reports nausea, denies vomiting. Hx of similar symptoms, Has not been previously evaluated. Dizziness has been intermittent over the past few days but constant this morning. Denies cardiac/heart conditions. Plan:Labs, ekg Medications Administered Discontinued Medications Generic Name Dose Route Start Last Admin Trade Name Freq PRN Reason Stop Dose Admin Acetaminophen 975 mg 05/20/25 19:30 05/20/25 19:35 Acetaminophen 325 Mg Tablet PO 05/20/25 19:31 975 mg ONCE ONE Administration Ibuprofen 400 mg 05/20/25 19:30 05/20/25 19:36 Ibuprofen 400 Mg Tablet PO 05/20/25 19:31 400 mg ONCE ONE Administration Prednisone 20 mg 05/20/25 19:30 05/20/25 19:36 Prednisone 20 Mg Tablet PO 05/20/25 19:31 20 mg ONCE ONE Administration Medical Decision Making Medical Decision Making [facility] Narrative: 25-year-old female presented hospital today for dizziness and tight in his of the chest. EKG was obtained. No sign of acute changes or STEMI. The patient's troponins negative. Lab work is unremarkable. Patient does not have wheezing on exam. Patient's chest x-ray was unremarkable. At this time I do not think this is a cardiogenic source of her chest pain. We will plan to start patient on a low course of prednisone 20 mg daily for 5 days. Plan to discharge patient home. I suspect patient likely has a upper respiratory infection. Differential Diagnosis Differential Diagnoses: The differential diagnosis associated with the presentation includes ACS, CAD, cardiac arrhythmia, pneumonia Lab Data [facility] Lab Attestation statement: I reviewed the patient's lab results. 05/20/25 14:19 05/20/25 14:19 Labs: Lab Results 05/20/25 Range/Units 14:19 WBC 2.2 L (4.8-10.8) X10*3/uL RBC 4.52 (4.20-5.50) X10*6/uL Hgb 12.2 (12.0-16.0) g/dl Hct 38.0 (37.0-47.0) % MCV 84.1 (80.0-98.0) fL MCH 27.0 (27.0-33.0) pg MCHC 32.1 (31.0-35.0) g/dl RDW 12.9 (11.0-16.0) % Plt Count 267 (160-400) X10*3/uL MPV 9.9 (9.4-12.3) fL Immature Gran % (Auto) 0.0 (0.0-0.4) % Neut % (Auto) 60.2 (45-73) % Lymph % (Auto) 26.2 (20-40) % [place] % (Auto) 10.4 (2-11) % Eos % (Auto) 2.7 (0-4) % Baso % (Auto) 0.5 (0-2) % Lymph # (Auto) 0.6 L (1.2-4.9) X10*3/uL [place] # (Auto) 0.2 (0.1-1.2) X10*3/uL Eos # (Auto) 0.1 (0.0-0.4) X10*3/uL Baso # (Auto) 0.0 (0.0-0.2) X10*3/uL Abs Immat Gran (auto) 0.00 (0.00-0.03) X10*3/uL Absolute Neuts (auto) 1.3 L (2.0-8.3) x10*3/uL Absolute Nucleated RBC 0.000 (0.0-0.012) X10*3/uL Nucleated RBC % (auto) 0.0 (0.0-0.2) /100WBC Sodium 140 (135-145) mmol/L Potassium 4.5 (3.3-5.1) mmol/L Chloride 109 H (96-108) mmol/L Carbon Dioxide 27 (22-29) mmol/L Anion Gap 9 L (12-20) BUN 10 (9-16) mg/dL Creatinine 0.65 (0.5-1.4) mg/dL Estim Creat Clear Calc 142.0 Estimated GFR > 60 Random Glucose 111 (60-115) mg/dL Calcium 8.8 (8.4-10.2) mg/dL Magnesium 2.2 (1.6-2.6) mg/dL Total Bilirubin 0.2 (0.0-1.0) mg/dL AST 25 (5-31) U/L ALT 27 (0-31) U/L Alkaline Phosphatase 74 (39-117) U/L Troponin I High Sens < 2.7 (<3.5-17.0) ng/L Total Protein 7.0 (6.5-8.0) g/dL Albumin 3.9 (3.5-5.0) g/dL TSH 0.05 L (0.32-4.0) uIU/mL Free T4 1.25 (0.71-1.85) ng/dL Beta HCG, Quant < 2 mIU/mL Independent Interpretation I performed an independent interpretation of an: Plain X-Ray Radiology Impression Discussion of test interpretation with radiology: I have reviewed the radiologist's reading. Discharge Plan Discharge Clinical Impression: Atypical chest pain Patient Disposition: Home, Self-Care Prescriptions: New prednisone 20 mg tablet 20 mg PO DAILY 5 Days Qty: 5 0RF No Action hydroxychloroquine 200 mg tablet 200 mg PO BID Qty: 180 1RF Rx Instructions: refilled to next appt on 11/27/24 prednisone 5 mg tablet 5 mg PO DIRECTED Qty: 84 0RF Rx Instructions: see taper instructions: Take 15mg for 14 days then 10mg for 14 days then 5mg for 14 days then stop levothyroxine [Synthroid] 137 mcg tablet 137 mcg PO DAILY 90 Days Qty: 90 1RF losartan 25 mg tablet 25 mg PO DAILY Qty: 90 1RF (DME) lancets [FreeStyle Lancets] 28 gauge misc See Rx Instructions .ROUTE .MEDSUPPLY Qty: 100 3RF Rx Instructions: Testing once a day (DME) blood-glucose meter [FreeStyle Lite Meter] Kit See Rx Instructions .Route Qty: 1 0RF Rx Instructions: As directed (DME) FreeStyle Lite Strips Strip See Rx Instructions .ROUTE .MEDSUPPLY Qty: 100 3RF Rx Instructions: Testing Once a day/ as needed etonogestrel-ethinyl estradiol 0.12-0.015 mg/24 hr ring 1 vag ring vaginal Q4W Qty: 3 4RF Rx Instructions: continue with 21 days in, leave out for 7 days, then restart w new ring.... Ozempic 0.25 mg or 0.5 mg (2 mg/3 mL) pen injector 0.5 mg subcut QWEEK 28 Days Qty: 3 3RF albuterol sulfate [Ventolin HFA] 90 mcg/actuation HFA aerosol inhaler 1 inh inhalation QID 30 Days Qty: 8.5 3RF fluoxetine 20 mg capsule 20 mg PO DAILY 90 Days Qty: 90 1RF metformin 500 mg tablet 500 mg PO DAILY Stand Alone Forms: Work/School Release Print Language: Qatari
[2025-05-20 13:50] VITALS: BP 147/63; PULSE 81; RESP 18; TEMP 37; O2SAT 99; BMI 41.6
--- NOTE | 2025-05-20 13:52 | ECG_ITS ---
Test Reason : cp Blood Pressure : */* mmHG Vent. Rate : 79 BPM Atrial Rate : 79 BPM P-R Int : 154 ms QRS Dur : 86 ms QT Int : 380 ms P-R-T Axes : 44 43 44 degrees QTcB Int : 435 ms Normal sinus rhythm Normal ECG When compared with ECG of 25-Oct-2024 17:06, No significant change was found Referred By: Laney Murphy Electronically Signed By: Rehan Ramon
[2025-05-20 14:25] LABS: Hematocrit 38.0 % (37.0-47.0); Hemoglobin 12.2 g/dl (12.0-16.0); Imm Gran Abs Auto 0.00 X10*3/uL (0.00-0.03); Imm Gran Pct Auto 0.0 % (0.0-0.4); Lymphocytes Absolute Auto 0.6 X10*3/uL (1.2-4.9); Mean Corpuscular HGB Conc 32.1 g/dl (31.0-35.0); Mean Corpuscular Hemoglobin 27.0 pg (27.0-33.0); Mean Corpuscular Volume 84.1 fL (80.0-98.0); NRBC Abs Auto 0.000 X10*3/uL (0.0-0.012); NRBC Pct Auto 0.0 /100WBC (0.0-0.2); Platelet Count 267 X10*3/uL (160-400); Red Blood Count 4.52 X10*6/uL (4.20-5.50)
[2025-05-20 14:26] LABS: White Blood Count 2.2 X10*3/uL (4.8-10.8)
[2025-05-20 14:55] LABS: Alanine Aminotransferase 27 U/L (0-31); Albumin Level 3.9 g/dL (3.5-5.0); Alkaline Phosphatase 74 U/L (39-117); Anion Gap 9 (12-20); Aspartate Amino Transferase 25 U/L (5-31); Blood Urea Nitrogen 10 mg/dL (9-16); Calcium 8.8 mg/dL (8.4-10.2); Carbon Dioxide 27 mmol/L (22-29); Chloride 109 mmol/L (96-108); Creatinine Clr Calc Pharmacy 142.0; Estimated Glomerular Filt Rate > 60; Magnesium 2.2 mg/dL (1.6-2.6); Potassium 4.5 mmol/L (3.3-5.1); Sodium 140 mmol/L (135-145); Total Protein 7.0 g/dL (6.5-8.0)
[2025-05-20 14:58] LABS: Troponin-I High Sensitivity < 2.7 ng/L (<3.5-17.0)
[2025-05-20 16:31] LABS: Free T4 (Free Thyroxine) 1.25 ng/dL (0.71-1.85)
[2025-05-20 19:32] VITALS: BP 105/58; PULSE 75; RESP 16; TEMP 36.8; O2SAT 98
[2025-05-20 20:19] VITALS: BP 100/46; PULSE 72; RESP 16; TEMP 36.8; O2SAT 97
[2025-05-20 21:23] VITALS: BP 101/50; PULSE 73; RESP 16; TEMP 36.8; O2SAT 98
== END 2025-05-20 21:28 | disposition home or self-care (01) ==
PROVIDERS: Physician Assistant Medical; Emergency Provider Student in an Organized Health Care Education/Training Program; PCP Physician Assistant
DX: R07.89 Other chest pain (principal); R42 Dizziness and giddiness; R11.0 Nausea; E11.9 Type 2 diabetes mellitus without complications; Z79.899 Other long term (current) drug therapy; Z79.84 Long term (current) use of oral hypoglycemic drugs
CPT/HCPCS: 36415; 71046; 80053; 83735; 84439; 84443; 84484; 84702; 85025; 93005; 99284; 99285

== ENCOUNTER → 2025-05-20 13:52 | Outpatient (BNV) | payer OTHER, SELFPAY | PROVIDERS: Emergency Provider Student in an Organized Health Care Education/Training Program; PCP Physician Assistant; Visit Provider Internal Medicine Cardiovascular Disease | DX: R07.9 Chest pain, unspecified (principal) | CPT/HCPCS: 93010 ==

== ENCOUNTER → 2025-05-20 20:18 | Outpatient (BNV) | payer OTHER, SELFPAY | PROVIDERS: Emergency Provider Student in an Organized Health Care Education/Training Program; PCP Physician Assistant; Visit Provider Nuclear Medicine | DX: R07.9 Chest pain, unspecified (principal) | CPT/HCPCS: 71046 ==

== ENCOUNTER 2025-05-29 10:51 | Outpatient (AMB) | payer OTHER, SELFPAY ==
--- NOTE | 2025-05-29 10:59 | A.OFFPC_ITS ---
Vital Signs 05/29/25 11:00 Height 5 ft 1 in Weight 221 lb 4 oz BMI 41.8 BP 110/60 Blood Pressure Location Lt brachial Position Sitting Respiration 18 Pulse 81 Pulse Source Pulse Oximeter Temp 96.9 F Temp Source Temporal Artery Scan Pulse Oximetry (%) 98 Oxygen Delivery Method Room Air Intake Visit Reasons: [facility] 05/20 Pneumatic Drum Sander Required: No Accompanied by: Self / Same As Patient Allergies adalimumab (From Humira(CF)) Adverse Reaction (Intermediate, Verified 05/29/25 11:00) injection site reaction Tobacco use date assessed: 05/29/25 Dental Screening Dental Screen Date: 05/29/25 Did you have a dental visit in the last 12 months?: No Did you have a dental problem in the last 6 months where you did not have access to dental care?: No Was dental information given to patient?: No HPI HPI Comments History of Present Illness Details 25 y/o Female patient who presents to [facility] today for EDF. She was admitted at [facility] on 05/20/25 for an evaluation of Atypical Chest Pains. All the imaging and testings were negative and she was discharged home. Today denies any Chest pains but reports Recurrent headaches associated with dizziness for the past 2 weeks. Describes the headaches as throbbing and located on the frontal region. Headaches are relieved when lying down in Dark quiet room. Denies any vision or sounds sensitivity and denies Nausea or vomiting. Denies any URI symptoms. She did have a sleep study done back in 11/2024 and results were normal (no GISSEL). She does have h/o Generalized Anxiety and currently on Medications for that. [facility] Medical History (Updated 05/29/25 @ 11:33 by Azeb Beltran NP) Generalized headaches Fatty liver Morbidly obese Surgical History History of carpal tunnel surgery No pertinent past surgical history Family History Father Hypertension Rheumatoid arthritis Mother Hypertension Breast cancer, Onset Age: 35 Rheumatoid arthritis SLE (systemic lupus erythematosus) Paternal Aunt Diabetes Mental health disorder Paternal Uncle Diabetes Mental health disorder Social History Housing: House Alcohol intake: never Patient Tobacco Use Status: Never used Tobacco Tobacco use type: Cigarette e-Cigarette/Vaping Use: Never Used Second Hand Smoke Exposure: No service: No Current occupational status: employed Current occupation: [employer]- Current occupational exposures/hazards: No Cognitive needs: No Hearing needs: No Vision needs: No Female Reproductive History Menstrual Age of Menarche: 11 Questionnaire Thrive Questionnaire Date Thrive assessed: 12/08/24 I am a: Patient What is your living situation today?: I have a steady place to live Within the past 12 months, did the food you bought not last and you didn't have the money to get more?: Never true Within the past 12 months, did you worry whether your food would run out before you got money to buy more?: Never true Do you have trouble paying for medicines?: No Do you have trouble getting transportation to medical appointments?: No Do you have trouble paying your heating and electricity bill?: No Do you have trouble taking care of your child, family member or friend?: No Do you have trouble with day-to-day activities such as bathing, preparing meals, shopping, managing finances, etc.?: No Are you currently unemployed and looking for a job?: No Are you interested in more education?: Yes Please select the resources that you would like help with: None Currently or been in a relationship where the following occur: No concerns reported THRIVE Score: 0 RAJIV-7 AMB Questionnaire RAJIV-7 Date RAJIV - 7 assessed: 09/10/24 Source: Developed by Drs. Rakesh Gaston, Mahogany Meza, Quincy Gandhi and colleagues, with an educational cam from [employer]. Review of Systems Const All systems reviewed & are unremarkable except as noted in HPI and below Physical exam (Primary Care) Vital Signs: Last Vital Signs Temp 96.9 F 05/29/25 11:00 Pulse 81 05/29/25 11:00 Resp 18 05/29/25 11:00 BP 110/60 05/29/25 11:00 Pulse Ox 98 05/29/25 11:00 Oxygen Delivery Method Room Air 05/29/25 11:00 BMI result Body Mass Index 41.8 Tobacco/Smoking Status: Tobacco use Status Tobacco use date assessed 05/29/25 05/29/25 11:10 Patient Tobacco Use Status Never used Tobacco 05/29/25 11:10 Tobacco use type Cigarette 10/24/25 11:10 e-Cigarette/Vaping Use Never Used 05/29/25 11:10 Thrive Assessment: Date of Thrive Assessment Date Thrive assessed 12/08/24 05/29/25 11:10 Currently or been in a relationship where the following occur: No concerns reported Const General: no acute distress Nutritional Appearance: obese Orientation/consciousness: patient oriented x3 HENMT Head: Yes normocephalic Resp Effort & Inspection: normal respiratory effort Auscultation: clear to auscultation bilaterally Cardio Heart sounds: S1 normal heart sound present and S2 normal heart sound present Neuro General: patient oriented x3, gait normal and moves all extremities Psych Speech and movement: Normal speech and movement present Coding Level of Care Code Est Pt Level 4 (79040) Diagnoses Atypical chest pain R07.89 Generalized headaches R51.9 Time Spent (min) 20 Assessment & Plan Assessment & Plan (1) Atypical chest pain: Code(s): R07.89 - Other chest pain Category: Medical Plan: Resolved. (2) Generalized headaches: Code(s): R51.9 - Headache, unspecified Category: Medical Plan: Ordered Diclofenac 50 mg for 7 days. Drink enough water throughout the day. Maintain consistent sleep patterns (7?9 hours/night). Stress management. Avoid known triggers such as caffeine excess, alcohol, aged cheese, or processed meats. F/U with PCP. Medications: New diclofenac potassium 50 mg PO BID 20 tabs 0RF 7 days R51.9 - Headache, unspecified
[2025-05-29 11:00] VITALS: BP 110/60; PULSE 81; RESP 18; TEMP 36.1; O2SAT 98; BMI 41.8
== END 2025-05-29 11:36 | disposition home or self-care (01) ==
LOC: HO.HMCH 10:53
PROVIDERS: PCP Physician Assistant; Visit Provider Nurse Practitioner Family
DX: R07.89 Other chest pain (principal); R51.9 Headache, unspecified

== ENCOUNTER → 2025-05-29 10:51 | Outpatient (BNVA) | payer OTHER, SELFPAY | PROVIDERS: PCP Physician Assistant; Visit Provider Nurse Practitioner Family | DX: R42 Dizziness and giddiness (principal); R51.9 Headache, unspecified; R07.89 Other chest pain; E66.01 Morbid (severe) obesity due to excess calories; Z68.41 Body mass index [BMI] 40.0-44.9, adult | CPT/HCPCS: 99212 ==

== ENCOUNTER 2025-06-11 11:55 | Outpatient (AMB) | payer OTHER, SELFPAY ==
[2025-06-11 11:56] VITALS: BP 112/64; PULSE 82; O2SAT 99; BMI 42.5
--- NOTE | 2025-06-11 11:56 | HO.NEPHOV ---
Vital Signs 06/11/25 11:56 Height 5 ft 1 in Weight 225 lb BMI 42.5 BP 112/64 Blood Pressure Location Rt brachial Position Sitting Pulse 82 Pulse Source Pulse Oximeter Pulse Oximetry (%) 99 Oxygen Delivery Method Room Air Intake Visit Reasons: 6mon f/u conf Legal Internship Required: No Accompanied by: girlfriend Allergies adalimumab (From Humira(CF)) Adverse Reaction (Intermediate, Verified 06/11/25 11:58) injection site reaction Medication List - Last Reconciled 06/11/25 by Blaise Koehler MD albuterol sulfate 90 mcg/actuation (Ventolin HFA) 1 inh inhalation QID 30 days blood sugar diagnostic (FreeStyle Lite Strips) Testing Once a day/ as needed blood-glucose meter (FreeStyle Lite Meter kit) As directed diclofenac potassium 50 mg PO BID 7 days etonogestrel-ethinyl estradiol 0.12-0.015 mg/24 hr 1 vag ring vaginal Q4W fluoxetine 20 mg PO DAILY 90 days hydroxychloroquine 200 mg PO BID lancets (FreeStyle Lancets) Testing once a day levothyroxine (Synthroid) 137 mcg PO DAILY 90 days losartan 25 mg PO DAILY metformin 500 mg PO DAILY HPI Comments Details: Polly is a 25-year-old female presenting with proteinuria The proteinuria was initially detected in October with a level of 280 mg, and subsequent testing in February showed a slight decrease to 250 mg. The patient has a history of prediabetes with an A1c of 5.6, which has improved from a previous high of 7.0 two years ago. The patient was diagnosed with systemic lupus erythematosus about a year ago , presenting with joint pain, a malar rash, fatigue, and oral ulcers. Initial treatment included Humira, which was ineffective, leading to a switch to hydroxychloroquine and monthly infusions of Benlysta, resulting in reduced joint swelling and fatigue. The patient also has a history of psoriasis, which was treated with prednisone for skin involvement. The patient has been managing hypothyroidism with levothyroxine, and recent tests indicate improved thyroid function. History of obesity and has experienced significant weight loss, reducing from 295 pounds to 207 pounds over the past year, aided by dietary changes and Ozempic. 06/11/25 The patient is a 25-year-old female presenting with systemic lupus erythematosus. She has been managing this condition with hydroxychloroquine and Benlista infusions, although there was a disruption in treatment due to insurance issues. The patient experienced significant pain during the lapse in treatment, which was managed with diclofenac as needed. The patient currently managed with losartan 25 mg daily. Her recent blood tests indicate normal kidney function, with no significant proteinuria, she is taking metformin. Her blood sugar levels are reported to be stable. The patient has been advised to monitor her weight and engage in regular physical activity, such as walking her dog and returning to the gym. She is also advised to watch her salt intake to help manage her blood pressure. [facility] Medical History (Updated 05/29/25 @ 11:33 by Azeb Beltran NP) Generalized headaches Fatty liver Morbidly obese Surgical History History of carpal tunnel surgery No pertinent past surgical history Family History Father Hypertension Rheumatoid arthritis Mother Hypertension Breast cancer, Onset Age: 35 Rheumatoid arthritis SLE (systemic lupus erythematosus) Paternal Aunt Diabetes Mental health disorder Paternal Uncle Diabetes Mental health disorder Social History Housing: House Alcohol intake: never Patient Tobacco Use Status: Never used Tobacco Tobacco use type: Cigarette e-Cigarette/Vaping Use: Never Used Second Hand Smoke Exposure: No service: No Current occupational status: employed Current occupation: [employer]- Current occupational exposures/hazards: No Cognitive needs: No Hearing needs: No Vision needs: No Female Reproductive History Menstrual Age of Menarche: 11 Review of Systems Const Denies anorexia, Denies fever(s) and Denies weakness Eyes Denies blurry vision Card Denies no additional complaints and Denies dyspnea Resp Reports no additional complaints, Reports cough and Denies dyspnea GI Denies melena and Denies diarrhea Denies hematuria Musc Denies tingling Skin/Breast Denies rash Neuro Denies focal weakness, Denies tingling, Denies tremor(s) and Denies weakness Physical Exam Vital Signs: Last Vital Signs Pulse 82 06/11/25 11:56 BP 112/64 06/11/25 11:56 Pulse Ox 99 06/11/25 11:56 Oxygen Delivery Method Room Air 06/11/25 11:56 BMI result Body Mass Index 42.5 Results Reviewed Results Reviewed: Apr 2025 USG Right kidney: The right kidney measures 10.5 x 4.5 x 5.1 cm. Renal parenchymal echotexture and thickness are normal. There are no masses. There is no hydronephrosis or renal calculi. Left Kidney: The left kidney measures 11.3 x 4.6 x 3.9 cm. Renal parenchymal echotexture and thickness are normal. There are no masses. There is no hydronephrosis or renal calculi. Nephrology Results: Hgb, (12.0-16.0) 12.2 g/dl 05/20/25 WBC, (4.8-10.8) 2.2 X10*3/uL L 05/20/25 Plt Count, (160-400) 267 X10*3/uL 05/20/25 Sodium, (135-145) 140 mmol/L 05/20/25 Potassium, (3.3-5.1) 4.5 mmol/L 05/20/25 Chloride, (96-108) 109 mmol/L H 05/20/25 Carbon Dioxide, (22-29) 27 mmol/L 05/20/25 BUN, (9-16) 10 mg/dL 05/20/25 Creatinine, (0.5-1.4) 0.65 mg/dL 05/20/25 Calcium, (8.4-10.2) 8.8 mg/dL 05/20/25 Renal US 04/27/25 Assessment & Plan Assessment & Plan (1) Proteinuria: Code(s): R80.9 - Proteinuria, unspecified Category: Medical (2) DMII (diabetes mellitus, type 2): Code(s): E11.9 - Type 2 diabetes mellitus without complications Category: Medical Qualifiers: Diabetes mellitus group home insulin use: without group home use Diabetes mellitus complication status: without complication Qualified Code(s): E11.9 - Type 2 diabetes mellitus without complications (3) SLE (systemic lupus erythematosus): Comment: dx 07/2024 (inflammatory arthritis, malar rash, alopecia, lymphopenia, ++EDI ++DsDNA,++SSa low C3 low C4) Code(s): M32.9 - Systemic lupus erythematosus, unspecified Category: Medical Qualifiers: Systemic lupus erythematosus type: unspecified Systemic lupus erythematosus organ involvement: other Qualified Code(s): M32.19 - Other organ or system involvement in systemic lupus erythematosus Plan Young woman with SLE and obesity with prediabetes has minimal proteinuria and essentially normal renal function. Urinalysis did not reveal any significant RBCs. Based on the urine studies I do not believe she has any active renal involvement from lupus. Obesity might be playing a role in contributing to the proteinuria. 24 urine collection showed 116 mg protein Renal ultrasonogram -normal Encouraged to increase p.o. fluid intake. Low-salt diet. She has should continue with weight loss. Watch renal function closely along with urine studies. I do not think she needs kidney biopsy at this time. Keep losartan 25 mg p.o. q.h.s. for renal protection and monitor renal function and urine protein excretion closely. Orders: Orders Creatinine Urine 6 Months M32.19 - Other organ or system involvement in systemic lupus erythematosus, R80.9 - Proteinuria, unspecified Basic Metabolic Panel 6 Months M32.19 - Other organ or system involvement in systemic lupus erythematosus, R80.9 - Proteinuria, unspecified Total Protein Urine Random 6 Months M32.19 - Other organ or system involvement in systemic lupus erythematosus, R80.9 - Proteinuria, unspecified UA and rflx microscopic 6 Months M32.19 - Other organ or system involvement in systemic lupus erythematosus, R80.9 - Proteinuria, unspecified Coding Level of Care Code Est Pt Level 4 (95387) Diagnoses Proteinuria R80.9 Type 2 diabetes mellitus without complication, without long-term current use of insulin E11.9 Diabetes mellitus long term care administrator insulin use: without long term care administrator use Diabetes mellitus complication status: without complication Systemic lupus erythematosus with other organ involvement, unspecified SLE type M32.19 Systemic lupus erythematosus type: unspecified Systemic lupus erythematosus organ involvement: other
== END 2025-06-11 12:08 | disposition home or self-care (01) ==
LOC: HO.HKA 11:56
PROVIDERS: Visit Provider Internal Medicine Hypertension Specialist
DX: R80.9 Proteinuria, unspecified (principal); E11.9 Type 2 diabetes mellitus without complications; M32.19 Other organ or system involvement in systemic lupus erythematosus
CPT/HCPCS: 99214

== ENCOUNTER → 2025-06-11 11:55 | Outpatient (BNVA) | payer OTHER, SELFPAY | PROVIDERS: Visit Provider Internal Medicine Hypertension Specialist | DX: E11.9 Type 2 diabetes mellitus without complications (principal); M32.19 Other organ or system involvement in systemic lupus erythematosus; R80.9 Proteinuria, unspecified; E66.9 Obesity, unspecified | CPT/HCPCS: 99212 ==

== ENCOUNTER 2025-07-14 08:43 | Outpatient (REF) | payer OTHER, SELFPAY ==
[2025-07-14 09:20] LABS: Hematocrit 37.2 % (37.0-47.0); Hemoglobin 12.0 g/dl (12.0-16.0); Imm Gran Abs Auto 0.00 X10*3/uL (0.00-0.03); Imm Gran Pct Auto 0.0 % (0.0-0.4); Lymphocytes Absolute Auto 0.9 X10*3/uL (1.2-4.9); MANUAL DIFF FLAG SCAN; Mean Corpuscular HGB Conc 32.3 g/dl (31.0-35.0); Mean Corpuscular Hemoglobin 27.0 pg (27.0-33.0); Mean Corpuscular Volume 83.8 fL (80.0-98.0); NRBC Abs Auto 0.000 X10*3/uL (0.0-0.012); NRBC Pct Auto 0.0 /100WBC (0.0-0.2); Platelet Count 293 X10*3/uL (160-400); Red Blood Count 4.44 X10*6/uL (4.20-5.50); SCAN SMEAR FLAG 1
[2025-07-14 09:21] LABS: White Blood Count 2.5 X10*3/uL (4.8-10.8)
[2025-07-14 09:26] LABS: Appearance Urine Cloudy; Glucose Urine UA Negative (Negative); PH 6.0 (5.0-9.0); Specific Gravity - Urine 1.025 (1.005-1.025); UMIC TRIGGER UA YES
[2025-07-14 10:04] LABS: Alanine Aminotransferase 20 U/L (0-31); Albumin Level 4.0 g/dL (3.5-5.0); Alkaline Phosphatase 69 U/L (39-117); Anion Gap 8 (12-20); Aspartate Amino Transferase 23 U/L (5-31); Blood Urea Nitrogen 15 mg/dL (9-16); Calcium 9.0 mg/dL (8.4-10.2); Carbon Dioxide 26 mmol/L (22-29); Chloride 111 mmol/L (96-108); Estimated Glomerular Filt Rate > 60; Potassium 4.3 mmol/L (3.3-5.1); Sodium 141 mmol/L (135-145); Total Protein 7.0 g/dL (6.5-8.0)
[2025-07-14 10:07] LABS: Erythrocyte Sedimentation Rate 19 MM/HR (0-20)
[2025-07-14 10:27] LABS: Protein/Creatinine Ratio, Ur 0.17 (<0.2); Total Protein Urine Random 26 mg/dL (<12)
== END 2025-07-14 08:44 | disposition home or self-care (01) ==
LOC: HO.LAB 08:43
PROVIDERS: PCP Physician Assistant; Visit Provider Student in an Organized Health Care Education/Training Program
DX: M32.19 Other organ or system involvement in systemic lupus erythematosus (principal); Z51.81 Encounter for therapeutic drug level monitoring; Z79.620 Long term (current) use of immunosuppressive biologic; Z79.899 Other long term (current) drug therapy
CPT/HCPCS: 36415; 80053; 81001; 82570; 84156; 85025; 85652; 86140; 86160; 86225; 99212

== ENCOUNTER 2025-07-14 15:29 | Outpatient (AMB) | payer OTHER, SELFPAY ==
--- NOTE | 2025-07-14 15:39 | A.OFFVIS_ITS ---
Vital Signs 07/14/25 15:46 Height 5 ft Weight 227 lb 4.745 oz BMI 44.4 BP 130/80 Blood Pressure Location Lt brachial Position Sitting Pulse 116 H Pulse Source Pulse Oximeter Pulse Oximetry (%) 97 Oxygen Delivery Method Room Air Intake Visit Reasons: SLE Intake Note: Patient presents today for SLE follow up and test results. Kelly Machine Operator Required: No Information Interpreted: non-clinical & clinical Accompanied by: Self / Same As Patient Allergies adalimumab (From Humira(CF)) Adverse Reaction (Intermediate, Verified 07/14/25 15:45) injection site reaction HPI Comments Details: Patient is a 25-year-old female morbidly obese with diabetes, major depressive disorder/anxiety, hypothyroidism, systemic lupus erythematosus here today for follow up. Interval History: Patient last seen 02/17/25 with me - On Benlysta 10mg/kg every 4 weeks, Hydroxychloroquine 200mg bid - Joints doing better - Worsening rash - Gave prednisone taper Today - On Benlysta 10mg/kg every 4 weeks, Hydroxychloroquine 200mg bid - During her last visit, she reported a rash, for which she was prescribed prednisone. - The prednisone was effective, and the rash resolved without recurrence after she stopped the medication. - She reports doing well with no further rashes or infusion reactions. - Lab trends show her inflammatory markers have been decreasing. - She reports always feeling exhausted. Rheumatologic History: Initial history from Dr. Ford: The patient presents today for evaluation of joint pains. Apparently in October she developed painful swelling in the hands. There also developed other pains in the elbows, knees and the feet. At one point she had difficulty getting out of bed because of the knee and foot pain. She did visit the emergency room and was prescribed some diclofenac. She did not think it helped much so she is back on ibuprofen now taking 400 mg once or twice a day. That has seem to be somewhat helpful. Last month she was in the ER with some right shoulder and chest pain. CT angio of the chest did not show any pathology of note. Prior to the joint pain she did not have any prodromal illness of fever, diarrhea or respiratory infection. She does not have any ocular or oral dryness. She gets nauseated occasionally, a chronic problem. She does take levothyroxine for hypothyroidism and sertraline 50 mg daily for anxiety and depression. 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 Over the past 2 weeks she has had a somewhat itchy papular rash over the elbows and the thigh regions. She is using a topical steroid on that without much improvement so far. Patient initially thought to have psoriatic arthritis and was started on Humira and then Cosentyx but this did not improve her pains. Finally diagnosed with lupus dx 07/2024 (inflammatory arthritis, malar rash, alopecia, lymphopenia, ++EDI ++DsDNA,++SSa low C3 low C4) Plaquenil 2023 Current Rheumatology Medication(s): Plaquenil 200 mg b.i.d. Benlysta infusions 10mg every 4 weeks [facility] Medical History (Updated 05/29/25 @ 11:33 by Azeb Beltran NP) Generalized headaches Fatty liver Morbidly obese Surgical History History of carpal tunnel surgery No pertinent past surgical history Family History Father Hypertension Rheumatoid arthritis Mother Hypertension Breast cancer, Onset Age: 35 Rheumatoid arthritis SLE (systemic lupus erythematosus) Paternal Aunt Diabetes Mental health disorder Paternal Uncle Diabetes Mental health disorder Social History Housing: House Alcohol intake: never Patient Tobacco Use Status: Never used Tobacco Tobacco use type: Cigarette e-Cigarette/Vaping Use: Never Used Second Hand Smoke Exposure: No service: No Current occupational status: employed Current occupation: [employer]- Current occupational exposures/hazards: No Cognitive needs: No Hearing needs: No Vision needs: No Female Reproductive History Menstrual Age of Menarche: 11 Review of Systems Narrative Review of Systems - Constitutional: Reports feeling always exhausted. - Integumentary: Denies current rash. - Allergic/Immunologic: Denies infusion reactions. All other systems reviewed and are unremarkable except noted above Physical Exam Exam Exam: Vital signs reviewed Physical Examination CONSTITUITIONAL Patient alert and cooperative. Well appearing and in no apparent painful distress MSK Hands * Right Hand: Able to make a fist. No swelling or tenderness to palpation of the MCPs, PIPs or DIPs. * Left Hand: Able to make a fist. No swelling or tenderness to palpation of the MCPs, PIPs or DIPs. Wrists * Right Wrist: Full ROM to flexion and extension. No swelling or TTP * Left Wrist: Full ROM to flexion and extension. No swelling or TTP Elbows * Right Elbow: Full ROM. No swelling or TTP. No TTP of the medial epicondyle. No TTP of the lateral epicondyle * Left Elbow: Full ROM. No swelling or TTP. No TTP of the medial epicondyle. No TTP of the lateral epicondyle Shoulders * Right shoulder: Full ROM. No swelling noted. No TTP of the AC joint. No TTP of the subacromial bursa. No TTP of the posterior shoulder * Left shoulder: Full ROM. No swelling noted. No TTP of the AC joint. No TTP of the subacromial bursa. No TTP of the posterior shoulder Knees * Right knee: Full ROM. No swelling noted. No TTP of the knee joint line. No TTP of pes anserine bursa * Left knee: Full ROM. No swelling noted. No TTP of the knee joint line. No TTP of pes anserine bursa. Ankles * Right ankle: Good ankle dorsiflexion and plantar flexion. No swelling. No TTP of the ankle joint * Left ankle: Good ankle dorsiflexion and plantar flexion. No swelling. No TTP of the ankle joint Feet * Right foot: Negative squeeze test * Left foot: Negative squeeze test Tender points? * No tenderness to palpation of the bilateral trapezius, supraspinatus, anterior costochondral junctions, bilateral suboccipital muscle insertions SKIN Mild malar rash Vital Signs: Last Vital Signs Pulse 116 H 07/14/25 15:46 BP 130/80 07/14/25 15:46 Pulse Ox 97 07/14/25 15:46 Oxygen Delivery Method Room Air 07/14/25 15:46 BMI result Body Mass Index 44.4 Results Reviewed Results Reviewed: Laboratory Tests 02/12/25 07/14/25 09:29 08:56 WBC 2.5 L RBC 4.44 Hgb 12.0 Hct 37.2 Plt Count 293 ESR 38 H 19 Sodium 141 Potassium 4.3 Chloride 111 H Carbon Dioxide 26 BUN 15 Creatinine 0.61 AST 23 ALT 20 C-Reactive Protein 1.19 H 1.01 H Laboratory Tests 02/12/25 07/14/25 09:29 08:56 Double Strand DNA Ab 53 H Pending Complement C3 82 L Pending Complement C4 14 L Pending Assessment & Plan Assessment & Plan (1) SLE (systemic lupus erythematosus): Comment: dx 07/2024 (inflammatory arthritis, malar rash, alopecia, lymphopenia, ++EDI ++DsDNA,++SSa low C3 low C4) Code(s): M32.9 - Systemic lupus erythematosus, unspecified Category: Medical Qualifiers: Systemic lupus erythematosus type: unspecified Systemic lupus erythematosus organ involvement: other Qualified Code(s): M32.19 - Other organ or system involvement in systemic lupus erythematosus Plan: #SLE Patient is a 25-year-old female with lupus here today for follow up. The patient's systemic lupus erythematosus appears to be improving, with decreasing inflammatory markers and resolution of her recent rash following a course of prednisone. She will continue treatment with Benlysta infusions and hydroxychloroquine. Recent lupus lab results are pending and will be monitored. Follow-up is scheduled in four months. Plan - Benlysta infusions 10mg/kg IV every 4 weeks - Continue plaquenil 200mg bid - RTC 4 months - Labs before visit: CBC, CMP, ESR, CRP, C3, C4, dsDNA, UA, UPC (2) Long-term use of hydroxychloroquine: Code(s): Z79.899 - Other watcher automat long goods (current) drug therapy Category: Medical Plan: #Long-term Use of Hydroxychloroquine Discussed with patient the risks and benefits of hydroxychloroquine in managing the rheumatic condition Benefits include: - Reduced pain, reduce mortality, maintenance of remission and reduction of flares Risks include: - GI upset, skin hyperpigmentation, retinal toxicity (especially after more than 5 years of use), myopathy Advised yearly ophthalmology visits (3) Encounter for monitoring of belimumab therapy: Code(s): Z51.81 - Encounter for therapeutic drug level monitoring; Z79.620 - shelter (current) use of immunosuppressive biologic Plan: #shelter Belimumab Discussed with patient the risks and benefits of hydroxychloroquine in managing the rheumatic condition Benefits include: - Reduced pain, reduce mortality, maintenance of remission and reduction of flares Risks include: - insomnia, injection site reactions, psychiatric events such as worsening depression/anxiety or suicidal ideation, increased risk of infection Plan I spent 25 minutes reviewing the record and labs, taking a history, examining the patient, discussing the treatment plan, ordering diagnostic work up and documenting in the medical record Coding Level of Care Code Est Pt Level 3 (39526) Complex visit Add On G2211 Diagnoses Systemic lupus erythematosus with other organ involvement, unspecified SLE type M32.19 Systemic lupus erythematosus type: unspecified Systemic lupus erythematosus organ involvement: other Long-term use of hydroxychloroquine Z79.899 Encounter for monitoring of belimumab therapy Z51.81; Z79.620
[2025-07-14 15:46] VITALS: BP 130/80; PULSE 116; O2SAT 97; BMI 44.4
== END 2025-07-14 16:26 | disposition home or self-care (01) ==
LOC: HO.RHES 15:30
PROVIDERS: PCP Physician Assistant; Visit Provider Student in an Organized Health Care Education/Training Program
DX: M32.19 Other organ or system involvement in systemic lupus erythematosus (principal); Z79.899 Other long term (current) drug therapy; Z51.81 Encounter for therapeutic drug level monitoring; Z79.620 Long term (current) use of immunosuppressive biologic
CPT/HCPCS: 99213

== ENCOUNTER 2025-07-23 13:27 | Emergency (ER) | payer OTHER, SELFPAY ==
[2025-07-23 13:48] VITALS: BP 125/71; PULSE 74; RESP 16; TEMP 36.2; O2SAT 100; BMI 42.5
--- NOTE | 2025-07-23 13:48 | ED.EAR ---
HPI - Ear Problem General Chief complaint: Upper Respiratory Symptoms Stated complaint: R ear pain Time Seen by Provider: 07/23/25 13:59 Source: patient and RN notes reviewed Mode of arrival: ambulatory Limitations: no limitations History of Present Illness ED Provider: Alba Mckeon PA-C HPI Narrative: This is a 25-year-old female, with a past medical history of lupus, who presents emergency department with complaints of right ear pain for the last week. Also endorsing some sinus pain and cough. She took Sudafed which provided her with some relief. Also endorsing some hissing sensation from a right ear. No recent ear infections. No shortness of breath or chest pain. No other complaints or concerns at this time. MD Complaint: ear pain and decreased hearing Severity: moderate Relieving factors: nothing Exacerbating factors: nothing Context: recent illness Discharge from ear: no Associated symptoms ear: decreased hearing and external ear tenderness Treatment prior to arrival: none Related Data Home Medications ?Medication ?Instructions ?Recorded ?Confirmed metformin 500 mg tablet 500 mg PO DAILY 03/17/25 06/11/25 Previous Rx's ?Medication ?Instructions ?Recorded blood sugar diagnostic (FreeStyle #100 ea 07/16/23 Lite Strips) blood-glucose meter (FreeStyle #1 ea 07/16/23 Lite Meter kit) lancets 28 gauge (FreeStyle #100 ea 07/16/23 Lancets) etonogestrel 0.12 mg-ethinyl 1 vag ring vaginal Q4W #3 ea 12/09/24 estradiol 0.015 mg/24 hr vaginal ring albuterol sulfate 90 mcg/actuation 1 inh inhalation QID 30 days #8.5 03/23/25 aerosol inhaler (Ventolin HFA) grams losartan 25 mg tablet 25 mg PO DAILY #90 tabs 04/08/25 diclofenac potassium 50 mg tablet 50 mg PO BID 7 days #20 tabs 05/29/25 levothyroxine 137 mcg tablet 137 mcg PO DAILY 90 days #90 tabs 06/18/25 (Synthroid) hydroxychloroquine 200 mg tablet 200 mg PO BID #180 tabs 06/22/25 fluoxetine 20 mg capsule 20 mg PO DAILY 90 days #90 caps 07/16/25 amoxicillin 875 mg-potassium 1 tab PO BID 7 days #14 tabs 07/23/25 clavulanate 125 mg tablet ofloxacin 0.3 % ear drops 10 drp otic (ears) DAILY 7 days 07/23/25 #10 mL Allergies Allergy/AdvReac Type Severity Reaction Status Date / Time adalimumab (From Humira(CF)) AdvReac Intermediate injection Verified 07/23/25 13:50 site reaction Review of Systems Review of Systems: Constitutional : No Fever, No Chills ENT/Mouth : No sore throat, No Rhinorrhea, +ear pain Eyes: No Eye Pain, No Swelling, No Redness Cardiovascular : No Chest Pain, No SOB Respiratory : No Cough, No Sputum Gastrointestinal : No Nausea, No Vomiting, No Diarrhea, No abdominal Pain Genitourinary : No Dysuria, No Hematuria Musculoskeletal : No joint pain, No Myalgias, No Joint Swelling Skin : No Skin Lesions Neuro : No Weakness, No Numbness, No Headache All other systems reviewed and are negative Yes all other systems are reviewed and are negative Constitutional: Constitutional: Reports as per [facility] Past Medical History Medical History (Updated 07/23/25 @ 13:53 by EDDA Fabian) Generalized headaches Fatty liver Morbidly obese Surgical History History of carpal tunnel surgery No pertinent past surgical history Family History Family History Father Hypertension Rheumatoid arthritis Mother Hypertension Breast cancer, Onset Age: 35 Rheumatoid arthritis SLE (systemic lupus erythematosus) Paternal Aunt Diabetes Mental health disorder Paternal Uncle Diabetes Mental health disorder Social History Social History Housing: House Alcohol intake: never Patient Tobacco Use Status: Never used Tobacco Tobacco use type: Cigarette e-Cigarette/Vaping Use: Never Used Second Hand Smoke Exposure: No Advance Directives: No Advance Directives Information Provided: No service: No Current occupational status: employed Current occupation: [employer]- Current occupational exposures/hazards: No Cognitive needs: No Hearing needs: No Vision needs: No Physical Exam Exam: Exam: General: Awake, alert, and oriented X3. No acute distress. HEENT: Normal inspection, right TM is erythematous and bulging with exudates noted, right ear canal also erythematous, no edema. She does have tenderness palpation with ear tugging and also with tragal tenderness. No mastoid tenderness. Oropharynx is widely patent, no erythema or exudates. Uvula is midline. No trismus or drooling. CVS: Normal heart rate and rhythm. Pulses normal. Respiratory: No respiratory distress Skin: Warm, dry, no rashes noted to exposed skin. Normal skin color. Normal skin turgor. Extremities: Normal to inspection Neuro: Oriented X 3. No motor deficit. No sensory deficit. Vital Signs: Vital Signs: Last Vital Signs Temp 97.2 F 07/23/25 14:08 Pulse 74 07/23/25 14:08 Resp 16 07/23/25 14:08 BP 125/71 07/23/25 14:08 Pulse Ox 100 07/23/25 14:08 O2 Del Method Room Air 07/23/25 14:08 BMI result Body Mass Index 42.5 Course Course Course Narrative: This is an RME: Additional HPI, ROS, PE not included below will be deferred to primary provider. RME assessment and note performed by: Alba Mckeon PA-C This is a [id number]-female, with a hx of lupus, who rpesents to the right ear throbbing, hissing sounds, x 1 week pain worsening cough congestion Medical Decision Making Medical Decision Making [facility] Narrative: This is a 25-year-old female who presents emergency department with complaints of right ear pain x1 week. On arrival, vital signs within normal limits. She is speaking full sentences under no acute distress. Right TM is erythematous as well as auditory canal is erythematous consistent with otitis media/externa. Will treat with oral and topical antibiotics. Given strict return precautions. No evidence of mastoiditis on examination. Tested for COVID, flu, and RSV, does not want to wait for the results, we will check patient portal. Given strict return precautions, she understands and agrees with plan. Patient stable for discharge. Differential Diagnosis Differential Diagnoses: The differential diagnosis associated with the presentation includes OM, OE, otalgia, cerumen impaction Lab Data [facility] Lab Attestation statement: I reviewed the patient's lab results. Negative Labs: Lab Results 07/23/25 Range/Units 13:59 Influenza Type A (PCR) NEGATIVE (Negative) Influenza Type B (PCR) NEGATIVE (Negative) RSV RNA Qual (PCR) NEGATIVE (Negative) SARS-CoV-2 RNA (RT-PCR) NEGATIVE (Negative) Discharge Plan Discharge Clinical Impression: Otitis media, Otitis externa Patient Disposition: Home, Self-Care Instructions: How to Use Ear Drops (ED), Ear Infection (ED) Additional Instructions: You were seen in the emergency department and you have a ear infection. You unfortunately have an inner and outer ear infection therefore you require oral and topical antibiotics. Please take full courses of antibiotics even if your symptoms improve. Alternate between ibuprofen and Tylenol as needed for pain and fevers. We also tested you for COVID, flu, and RSV, please check your patient portal for these results. If any of these are positive, please no that this is a viral illness and we will self resolve with ibuprofen, Tylenol, fluids and rest. Follow-up with your primary care physician. If any new or worsening symptoms occur including but not limited to fevers, chills, chest pain, shortness of breath, please seek emergent care. Prescriptions: New amoxicillin-pot clavulanate 875-125 mg tablet 1 tab PO BID 7 Days Qty: 14 0RF ofloxacin 0.3 % drops 10 drp otic (ears) DAILY 7 Days Qty: 10 0RF No Action losartan 25 mg tablet 25 mg PO DAILY Qty: 90 1RF levothyroxine [Synthroid] 137 mcg tablet 137 mcg PO DAILY 90 Days Qty: 90 2RF hydroxychloroquine 200 mg tablet 200 mg PO BID Qty: 180 0RF fluoxetine 20 mg capsule 20 mg PO DAILY 90 Days Qty: 90 2RF (DME) lancets [FreeStyle Lancets] 28 gauge misc See Rx Instructions .ROUTE .MEDSUPPLY Qty: 100 3RF Rx Instructions: Testing once a day (DME) blood-glucose meter [FreeStyle Lite Meter] Kit See Rx Instructions .Route Qty: 1 0RF Rx Instructions: As directed (DME) FreeStyle Lite Strips Strip See Rx Instructions .ROUTE .MEDSUPPLY Qty: 100 3RF Rx Instructions: Testing Once a day/ as needed etonogestrel-ethinyl estradiol 0.12-0.015 mg/24 hr ring 1 vag ring vaginal Q4W Qty: 3 4RF Rx Instructions: continue with 21 days in, leave out for 7 days, then restart w new ring.... albuterol sulfate [Ventolin HFA] 90 mcg/actuation HFA aerosol inhaler 1 inh inhalation QID 30 Days Qty: 8.5 3RF metformin 500 mg tablet 500 mg PO DAILY diclofenac potassium 50 mg tablet 50 mg PO BID 7 Days Qty: 20 0RF Stand Alone Forms: Work/School Release Interventions: ED Discharge Assessment Last Done: 07/23/25 14:08 Discharge Date/Time: 07/23/25 14:09 Print Language: Polish
[2025-07-23 14:08] VITALS: BP 125/71; PULSE 74; RESP 16; TEMP 36.2; O2SAT 100
[2025-07-23 14:56] LABS: Resp Syncy Virus RNA Qual PCR NEGATIVE (Negative); SARS COV2 PCR INHOUSE NEGATIVE (Negative)
== END 2025-07-23 14:09 | disposition home or self-care (01) ==
LOC: HO.ED 14:03
PROVIDERS: Physician Assistant Medical; Emergency Provider Emergency Medicine Emergency Medical Services; PCP Physician Assistant
DX: H60.91 Unspecified otitis externa, right ear (principal); H66.91 Otitis media, unspecified, right ear; H92.01 Otalgia, right ear; Z03.818 Encounter for observation for suspected exposure to other biological agents ruled out; J45.909 Unspecified asthma, uncomplicated
CPT/HCPCS: 87637; 99282; 99283

== ENCOUNTER 2025-08-04 11:38 | Emergency (ER) | payer OTHER, SELFPAY ==
[2025-08-04 12:40] VITALS: BP 121/57; PULSE 95; RESP 16; TEMP 37.3; O2SAT 100; BMI 43.7
--- NOTE | 2025-08-04 12:43 | ED.URI ---
HPI - URI/Sore Throat General Chief Complaint: Upper Respiratory Symptoms Stated Complaint: cough, congestion Time Seen by Provider: 08/04/25 15:53 Source: patient, RN notes reviewed and old records reviewed Mode of arrival: ambulatory Limitations: no limitations History of Present Illness ED Provider: BRENT Cobb HPI Narrative: 25-year-old female with medical history of lupus, hypothyroidism, asthma, CKD, GISSEL, PCOS, GERD, T2DM presents to the ED due to productive cough, chest tightness, nasal congestion, and headache. Patient reports she started with a productive cough yesterday, and woke up this morning with chills, nasal congestion, headache, and generalized body aches. Patient states she has a sensation of chest tightness when coughing, and has been having multiple episodes of coughing fits causing her to gag and almost vomit. 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 Patient denies chest pain, shortness of breath, difficulty breathing, abdominal pain, nausea, diarrhea, urinary symptoms Related Data Home Medications ?Medication ?Instructions ?Recorded ?Confirmed metformin 500 mg tablet 500 mg PO DAILY 03/17/25 06/11/25 Previous Rx's ?Medication ?Instructions ?Recorded blood sugar diagnostic (FreeStyle #100 ea 07/16/23 Lite Strips) blood-glucose meter (FreeStyle #1 ea 07/16/23 Lite Meter kit) lancets 28 gauge (FreeStyle #100 ea 07/16/23 Lancets) etonogestrel 0.12 mg-ethinyl 1 vag ring vaginal Q4W #3 ea 12/09/24 estradiol 0.015 mg/24 hr vaginal ring albuterol sulfate 90 mcg/actuation 1 inh inhalation QID 30 days #8.5 03/23/25 aerosol inhaler (Ventolin HFA) grams losartan 25 mg tablet 25 mg PO DAILY #90 tabs 04/08/25 diclofenac potassium 50 mg tablet 50 mg PO BID 7 days #20 tabs 05/29/25 levothyroxine 137 mcg tablet 137 mcg PO DAILY 90 days #90 tabs 06/18/25 (Synthroid) hydroxychloroquine 200 mg tablet 200 mg PO BID #180 tabs 06/22/25 fluoxetine 20 mg capsule 20 mg PO DAILY 90 days #90 caps 07/16/25 amoxicillin 875 mg-potassium 1 tab PO BID 7 days #14 tabs 07/23/25 clavulanate 125 mg tablet ofloxacin 0.3 % ear drops 10 drp otic (ears) DAILY 7 days 07/23/25 #10 mL albuterol sulfate 90 mcg/actuation 2 inh inhalation Q4-6H PRN 08/04/25 aerosol inhaler shortness of breath or wheezing #6.7 grams oseltamivir 75 mg capsule (Tamiflu) 75 mg PO BID 5 days #10 caps 08/04/25 prednisone 20 mg tablet 40 mg (2 x 20 mg) PO DAILY 5 days 08/04/25 #10 tabs Allergies Allergy/AdvReac Type Severity Reaction Status Date / Time adalimumab (From Humira(CF)) AdvReac Intermediate injection Verified 08/04/25 12:44 site reaction Review of Systems Review of Systems: Yes all other systems are reviewed and are negative [facility] Past Medical History Attestation statement: The following information was validated with the patient. Source: old records reviewed and nursing notes reviewed Medical History Generalized headaches Fatty liver Morbidly obese Surgical History History of carpal tunnel surgery No pertinent past surgical history Family History Family History Father Hypertension Rheumatoid arthritis Mother Hypertension Breast cancer, Onset Age: 35 Rheumatoid arthritis SLE (systemic lupus erythematosus) Paternal Aunt Diabetes Mental health disorder Paternal Uncle Diabetes Mental health disorder Social History Social History Housing: House Alcohol intake: never Patient Tobacco Use Status: Never used Tobacco Tobacco use type: Cigarette e-Cigarette/Vaping Use: Never Used Second Hand Smoke Exposure: No service: No Current occupational status: employed Current occupation: [employer]- Current occupational exposures/hazards: No Cognitive needs: No Hearing needs: No Vision needs: No Physical Exam Vital Signs: Vital Signs: Last Vital Signs Temp 99.2 F 08/04/25 12:40 Pulse 95 08/04/25 12:40 Resp 16 08/04/25 12:40 BP 121/57 L 08/04/25 12:40 Pulse Ox 100 08/04/25 12:40 O2 Del Method Room Air 08/04/25 12:40 BMI result Body Mass Index 43.7 GENERAL APPEARANCE: ?AxOx4, generally well-appearing, nontoxic appearing, no acute distress. HEENT: ?NC, AT. MMM. EOMI, clear conjunctiva, oropharynx clear. NECK: ?Supple without lymphadenopathy.? No stiffness or restricted ROM. HEART:? Normal rate and regular rhythm, normal S1/S2, no m/r/g LUNGS:? CTAB, no expiratory wheeze, no rhonchi noted, moving air well, no increased work of breathing, no accessory muscle use noted ABDOMEN: ?Soft, nontender, nondistended BACK: No CVAT, no obvious deformity. EXTREMITIES: ?Without cyanosis, clubbing or edema. NEUROLOGICAL: ?Grossly nonfocal. Alert and oriented, moving all 4 extremities. Observed to ambulate with normal gait. Skin: ?Warm and dry without any rash. Course Course Course Narrative: This is a Rapid Medical Exam performed in triage by Katelynn Yang PA-C. Full HPI, ROS and PE to be performed by primary ED provider. 25-year-old female with a past medical history GISSEL, CKD, SLE, DM, DMM, presenting to the ED c/o cough, chest tightness with cough, headache, congestion x waking up today. Denies sore throat PE: NAD, nontoxic appearing, talking in complete then refused. Lungs CTA Plan: Viral testing, rapid strep Medical Decision Making Medical Decision Making MDM Narrative: 25-year-old female with medical history of lupus, hypothyroidism, asthma, CKD, GISSEL, PCOS, GERD, T2DM presents to the ED due to productive cough, chest tightness, nasal congestion, and headache. Patient reports she started with a productive cough yesterday, and woke up this morning with chills, nasal congestion, headache, and generalized body aches. Patient states she has a sensation of chest tightness when coughing, and has been having multiple episodes of coughing fits causing her to gag and almost vomit. 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 Has not taken Tylenol for body aches today. VS on initial observation-BP 121/57, pulse rate of 95, respiratory rate of 16, afebrile with oral temp of 99.2?, O2 saturation 100% on room air. On physical exam patient is well-appearing, nontoxic appearing, in no acute distress. Lungs clear to auscultation bilaterally without wheeze, rhonchi, increased work of breathing, accessory muscle use, cardiac exam reveals normal rate and rhythm without murmurs/rubs/gallops, abdomen is soft, nontender, nondistended, lower extremities without evidence of edema, patient able to ambulate without difficulty Plan: Viral serology Viral serology positive for flu A 25-year-old female with significant comorbidities of lupus, asthma, CKD, T2DM who is positive for flu A with symptoms starting less than 24 hours ago. Patient medicated in the department 975 mg p.o. Tylenol for body aches as she has not taken any OTC medication today. Patient's physical exam was reassuring as there is no expiratory wheeze, or rhonchi noted, with 1 day of symptoms no indication for imaging at this time. On chart review, patient has saw [facility] on 06/11/2025 and the no indicates that kidney function has been normal. Patient will be discharged with 75 mg Tamiflu b.i.d., no dosage adjustment necessary as Nephrology states creatinine clearance has been normal. Patient will be discharged with albuterol inhaler, 5 day course of prednisone, and Tamiflu for her comorbidities, and lung support due to asthma. Patient is moving air well with no increased work of breathing, tachypnea or accessory muscle use, there is no tachycardia, or hypoxia, no indication for admission at this time. Patient is afebrile today. I encouraged patient to follow up with her primary care doctor which she is established with and is in agreement to. Patient is well enough to go home for self-care today. Patient is in agreement with the plan. Differential Diagnosis Differential Diagnoses: The differential diagnosis associated with the presentation includes Flu COVID RSV Viral illness Admission/Observation Consideration of admission/observation: Escalation of care including admission/observation considered I considered admission however patient with 1 day of symptoms, no tachycardia, tachypnea, hypoxia, afebrile, no indication for admission today. Lab Data MDM Lab Attestation statement: I reviewed the patient's lab results. Labs: Lab Results 08/04/25 Range/Units 13:29 Influenza Type A (PCR) POSITIVE A (Negative) Influenza Type B (PCR) NEGATIVE (Negative) RSV RNA Qual (PCR) NEGATIVE (Negative) SARS-CoV-2 RNA (RT-PCR) NEGATIVE (Negative) S. pyogenes GrpA NAHEED Negative (Negative) External Record Review External record reviewed: Inpatient record, Office record, Outpatient record and Prior outpatient labs Prescription Management I considered prescription management with: Antibiotic I considered antibiotics as patient has history of asthma however patient with 1 day of symptoms, and flu A positive, her symptoms are most likely due to flu a and is viral in etiology. Patient is being discharged home with 5 day course of prednisone, and albuterol inhalers for lung support with strict instructions to follow up with primary care doctor in case she needs antibiotics in the future. Chronic Conditions Patient?s care impacted by: Diabetes and Other (lupus, hypothyroidism, asthma, CKD, GISSEL, PCOS, GERD) Discharge Plan Discharge Clinical Impression: Influenza A Additional Instructions: You tested positive for Influenza A (flu) today. Your evaluation is reassuring, and you are safe to go home. Because you have asthma, you were prescribed medications to treat the flu and help prevent/worsen breathing symptoms. Medications (take exactly as prescribed): Start oseltamivir (Tamiflu) as directed and complete the full course (it works best when started early and may shorten symptoms). Take prednisone 40 mg once daily for 5 days as prescribed. Use your albuterol inhaler for wheezing, chest tightness, or shortness of breath as directed (if you were not given specific instructions: 2 puffs every 4?6 hours as needed). If you have a daily controller inhaler (such as an inhaled steroid), continue it unless told otherwise. Common Tamiflu side effects include nausea/upset stomach?taking it with food can help. Home care: Rest, drink plenty of fluids, and eat small meals as tolerated. For fever/body aches you may take acetaminophen (Tylenol) as needed (follow label directions; do not exceed 3,000 mg/day if using regularly; absolute max 4,000 mg/day from all sources). Avoid smoking/vaping. A humidifier, warm fluids, honey (if age >1), saline spray, and throat lozenges may help symptoms. Prevent spread: Stay home and avoid close contact with others. Wash hands often. You may return to work/school when you have been fever-free for 24 hours without fever-reducing medicine and symptoms are improving. Consider masking around others while still coughing. Follow up: Follow up with your primary care provider within 1?2 days, or sooner if symptoms are not improving, you are needing albuterol more frequently than usual, or you have concerns about asthma control. Return to the ER immediately for any of the following: worsening shortness of breath, trouble speaking in full sentences, persistent wheezing/chest tightness not relieved by albuterol, needing albuterol more often than every 4 hours, blue lips/face, oxygen saturation <92% if you check at home, chest pain/pressure, fainting, confusion, severe weakness, persistent vomiting/inability to keep fluids down, signs of dehydration (very little urine, dizziness), fever that returns after improving, or any new/worsening symptoms. Prescriptions: New oseltamivir [Tamiflu] 75 mg capsule 75 mg PO BID 5 Days Qty: 10 0RF prednisone 20 mg tablet 40 mg PO DAILY 5 Days Qty: 10 0RF albuterol sulfate 90 mcg/actuation HFA aerosol inhaler 2 inh inhalation Q4-6H PRN (Reason: shortness of breath or wheezing) Qty: 6.7 0RF No Action losartan 25 mg tablet 25 mg PO DAILY Qty: 90 1RF levothyroxine [Synthroid] 137 mcg tablet 137 mcg PO DAILY 90 Days Qty: 90 2RF hydroxychloroquine 200 mg tablet 200 mg PO BID Qty: 180 0RF fluoxetine 20 mg capsule 20 mg PO DAILY 90 Days Qty: 90 2RF amoxicillin-pot clavulanate 875-125 mg tablet 1 tab PO BID 7 Days Qty: 14 0RF ofloxacin 0.3 % drops 10 drp otic (ears) DAILY 7 Days Qty: 10 0RF (DME) lancets [FreeStyle Lancets] 28 gauge misc See Rx Instructions .ROUTE .MEDSUPPLY Qty: 100 3RF Rx Instructions: Testing once a day (DME) blood-glucose meter [FreeStyle Lite Meter] Kit See Rx Instructions .Route Qty: 1 0RF Rx Instructions: As directed (DME) FreeStyle Lite Strips Strip See Rx Instructions .ROUTE .MEDSUPPLY Qty: 100 3RF Rx Instructions: Testing Once a day/ as needed etonogestrel-ethinyl estradiol 0.12-0.015 mg/24 hr ring 1 vag ring vaginal Q4W Qty: 3 4RF Rx Instructions: continue with 21 days in, leave out for 7 days, then restart w new ring.... albuterol sulfate [Ventolin HFA] 90 mcg/actuation HFA aerosol inhaler 1 inh inhalation QID 30 Days Qty: 8.5 3RF metformin 500 mg tablet 500 mg PO DAILY diclofenac potassium 50 mg tablet 50 mg PO BID 7 Days Qty: 20 0RF Print Language: British
[2025-08-04 13:59] LABS: Strep A Nucleic Acid Negative (Negative)
[2025-08-04 14:30] LABS: Resp Syncy Virus RNA Qual PCR NEGATIVE (Negative); SARS COV2 PCR INHOUSE NEGATIVE (Negative)
== END 2025-08-04 16:46 | disposition home or self-care (01) ==
PROVIDERS: Physician Assistant; Emergency Provider Emergency Medicine; PCP Physician Assistant
DX: J10.1 Influenza due to other identified influenza virus with other respiratory manifestations (principal); R05.9 Cough, unspecified; Z03.818 Encounter for observation for suspected exposure to other biological agents ruled out
CPT/HCPCS: 87637; 87651; 99282; 99283